=== PATIENT | female | born 1945 | race American Indian/Alaskan Native ===

== ENCOUNTER 2017-06-29 15:24 | Inpatient (IN) | payer MEDICARE, OTHER ==
--- NOTE | 2017-06-29 16:07 | C.PDOC ---
History Of Present Illness 71 year old female with a past medical history of COPD, CHF, and hypertension, [facility] for [facility]. Patient states she suddenly began feeling short of breath and told her nurse. As per [facility], patient was hypoxic so EMS was called. She denies any chest pain, abdominal pain , headache, dizziness, fever, or other complaint. Patient states she cannot walk and this is the primary reason for living at the [facility]. PMD: Dr. Shanique Silverman Time Seen by Provider: 06/29/17 15:41 Chief Complaint (Nursing): Shortness Of Breath History Per: Patient History/Exam Limitations: no limitations Onset/Duration Of Symptoms: Mins Past Medical History Reviewed: Historical Data, Nursing Documentation, Vital Signs Vital Signs: Last Vital Signs Temp 99.5 F 06/29/17 17:10 Pulse 82 06/29/17 15:37 Resp 20 06/29/17 15:37 BP 138/86 06/29/17 15:37 Pulse Ox 88 L 06/29/17 17:07 - Medical History PMH: CHF, COPD, Diabetes, HTN Other Surgeries: colostomy placement Family History: States: No Known Family Hx - Social History Hx Alcohol Use: No Hx Substance Use: No - Immunization History Hx Tetanus Toxoid Vaccination: No Hx Influenza Vaccination: Yes Hx Pneumococcal Vaccination: No Review Of Systems Except As Marked, All Systems Reviewed And Found Negative. Constitutional: Negative for: Fever Cardiovascular: Negative for: Chest Pain Respiratory: Positive for: Shortness of Breath Gastrointestinal: Negative for: Abdominal Pain Neurological: Negative for: Headache, Dizziness Physical Exam - Physical Exam Appears: Non-toxic, No Acute Distress Skin: Warm, Dry, Pale Head: Atraumatic, Normacephalic Eye(s): bilateral: Normal Inspection, PERRL, EOMI Nose: Normal Oral Mucosa: Moist Neck: Normal ROM Chest: Symmetrical Cardiovascular: Rhythm Regular, No Murmur Respiratory: No Rales, No Rhonchi, No Wheezing, Other (Upper lung sargent clear to auscultation) Gastrointestinal/Abdominal: Soft, No Tenderness, Other (Obese abdomen. Colostomy bag in place) Extremity: No Tenderness, No Pedal Edema, No Swelling, Other (as per patient she cannot ambulate) Neurological/Psych: Oriented x3, Normal Speech Gait: Unable To Assess ED Course And Treatment - Laboratory Results Result Diagrams: 06/29/17 16:42 06/29/17 16:42 ECG: Interpreted By Me, Viewed By Me Interpretation Of ECG: PVCs, Bigeminy, at [address] elevations or depressions O2 Sat by Pulse Oximetry: 88 (NC) Pulse Ox Interpretation: Abnormal Medical Decision Making Medical Decision Making: Time: 16:10 Initial Plan: * VBG * EKG * CMP * Pro BNP * Magnesium * Phosphorous * Troponin I * CBC * PTT * Prothrombin time * Chest x-ray * Blood Culture * Urine Culture * Urinalysis * Reassessment 16:22 CHEST X-RAY: FINDINGS: Examination limited by habitus and hypoinflation. LUNGS: Moderate interstitial prominence may reflect infection or edema. Small left pleural effusion and/or consolidation. No definite pneumothorax. Please note that chest x-ray has limited sensitivity for the detection of pulmonary masses. CARDIOVASCULAR: Cardiomegaly. Atherosclerotic calcifications of the aorta. OSSEOUS STRUCTURES: Osseous demineralization. Degenerative changes. VISUALIZED UPPER ABDOMEN: Unremarkable. OTHER FINDINGS: None. IMPRESSION: Moderate interstitial prominence may reflect infection or edema. Small left pleural effusion and/or consolidation. Disposition Discussed With Dr.: Hans Silverman - Disposition Disposition: HOSPITALIZED Disposition Time: 17:06 Condition: GUARDED - Clinical Impression Clinical Impression: Dyspnea, Respiratory distress, Chr obstructive pulmonary disease w/ acute lower respiratory infxn, Chronic congestive heart failure - Scribe Statement The provider has reviewed the documentation as recorded by the Scribe Daphne Short Provider Attestation: All medical record entries made by the Scribe were at my direction and personally dictated by me. I have reviewed the chart and agree that the record accurately reflects my personal performance of the history, physical exam, medical decision making, and the department course for this patient. I have also personally directed, reviewed, and agree with the discharge instructions and disposition. Decision To Admit - Pt Status Changed To: Hospital Disposition Of: Observation - InPatient: Physician Admission Certification: I certify that this patient requires 2 or more midnights of care for the following reason:: fluid overload, possible pneumonia, - . Bed Request Type: Telemetry Patient Diagnosis: Dyspnea, Respiratory distress, Chr obstructive pulmonary disease w/ acute lower respiratory infxn, Chronic congestive heart failure
--- NOTE | 2017-06-29 16:24 | RAD ---
HISTORY: Sepsis Patient COMPARISON: None available. TECHNIQUE: Chest, one view. FINDINGS: Examination limited by habitus and hypoinflation. LUNGS: Moderate interstitial prominence may reflect infection or edema. Small left pleural effusion and/or consolidation. No definite pneumothorax. Please note that chest x-ray has limited sensitivity for the detection of pulmonary masses. CARDIOVASCULAR: Cardiomegaly. Atherosclerotic calcifications of the aorta. OSSEOUS STRUCTURES: Osseous demineralization. Degenerative changes. VISUALIZED UPPER ABDOMEN: Unremarkable. OTHER FINDINGS: None. IMPRESSION: Moderate interstitial prominence may reflect infection or edema. Small left pleural effusion and/or consolidation.
[2017-06-29 16:47] LABS: BASO # 0.1 K/uL (0.0-0.2); BASO % 1.1 % (0.0-2.0); EOS # 0.3 K/uL (0.0-0.7); HEMOGLOBIN 11.9 g/dL (11.0-16.0); LYMPH # 1.7 K/uL (1.0-4.3); LYMPH % 27.8 % (20.0-40.0); MEAN CELL VOLUME 87.2 fL (81.0-99.0); MEAN CORPUSCULAR HEMOGLOBIN 28.3 pg (27.0-31.0); MEAN CORPUSCULAR HGB CONC 32.4 g/dL (33.0-37.0); MEAN PLATELET VOLUME 8.1 fL (7.2-11.7); MONO # 0.7 K/uL (0.0-0.8); MONO % 12.1 % (0.0-10.0); NEUT # 3.3 K/uL (1.8-7.0); NRBC % 0.1 % (0.0-2.0); RBC 4.2 Mil/uL (3.80-5.20); RED CELL DISTRIBUTION WIDTH 16.8 % (11.5-14.5); WHITE BLOOD COUNT 6.1 K/uL (4.8-10.8)
[2017-06-29 16:52] LABS: VENOUS BLOOD GAS BASE EXCESS 6.4 mmol/L (0.0-2.0); VENOUS BLOOD GAS PCO2 72 mmHg (40-60); VENOUS BLOOD GAS PO2 29 mm/Hg (30-55)
[2017-06-29 16:54] LABS: INR 1.2; PROTHROMBIN TIME 12.9 SECONDS (9.7-12.2)
[2017-06-29 17:00] LABS: ALB/GLOB RATIO 0.9 (1.0-2.1); ALBUMIN 3.4 g/dL (3.5-5.0); ALT/SGPT 24 U/L (9-52); AST/SGOT 28 U/L (14-36); BLOOD UREA NITROGEN 27 mg/dL (7-17); CALCIUM 8.7 mg/dl (8.6-10.4); GFR AFRICAN-AMERICAN 59; GFR NON-AFRICAN AMERICAN 49
[2017-06-29] MEDS ORDERED: cefTRIAXone IV 1 gm in Dextros 50 ML IVPB ONE ×2 (17:04→18:29)
[2017-06-29] MEDS ORDERED: Azithromycin 500 MG in Sodium Chloride 0.9% 250 ML IVPB STA (17:04)
[2017-06-29 17:11] LABS: B-TYPE NATRIURETIC PEPTIDE 10600 pg/mL (0-900)
[2017-06-29 19:35] LABS: VENOUS BLOOD GAS BASE EXCESS 7.4 mmol/L (0.0-2.0); VENOUS BLOOD GAS PCO2 62 mmHg (40-60); VENOUS BLOOD GAS PO2 49 mm/Hg (30-55); VENOUS BLOOD PH 7.36 (7.32-7.43)
[2017-06-29 19:57] LABS: SQUAMOUS EPITHIAL 5 /hpf (0-5); URINE BACTERIA OCC (<OCC); URINE BILIRUBIN NEGATIVE (NEGATIVE); URINE BLOOD 2+ (NEGATIVE); URINE CLARITY Hazy (Clear); URINE COLOR Yellow (YELLOW); URINE GLUCOSE (UA) NORMAL (Normal); URINE LEUKOCYTE ESTERASE 3+ Leu/uL (Negative); URINE PROTEIN NEGATIVE (NEGATIVE); URINE UROBILINOGEN NORMAL mg/dL (0.2-1.0)
--- NOTE | 2017-06-29 22:15 | CP.PCM.HP ---
Past Patient History - Past Social History Smoking Status: Never Smoked - CARDIAC Hx Congestive Heart Failure: Yes Hx Hypertension: Yes - PULMONARY Hx Chronic Obstructive Pulmonary Disease (COPD): Yes - ENDOCRINE/METABOLIC Hx Diabetes Mellitus Type 2: Yes - GASTROINTESTINAL Hx Colostomy: Yes - PSYCHIATRIC Hx Substance Use: No Meds Allergies/Adverse Reactions: Allergies Allergy/AdvReac Type Severity Reaction Status Date / Time No Known Allergies Allergy Verified 06/29/17 15:48 Results - Vital Signs Recent Vital Signs: Last Vital Signs Temp 99.5 F 06/29/17 17:10 Pulse 84 06/29/17 18:28 Resp 28 H 06/29/17 18:28 BP 142/52 L 06/29/17 18:40 Pulse Ox 94 L 06/29/17 18:28 - Labs Result Diagrams: 06/29/17 16:42 06/29/17 16:42 Labs: Laboratory Results - last 24 hr 06/29/17 06/29/17 06/29/17 04:40 16:42 16:42 WBC 6.1 RBC 4.20 Hgb 11.9 Hct 36.6 MCV 87.2 MCH 28.3 MCHC 32.4 L RDW 16.8 H Plt Count 282 MPV 8.1 Neut % (Auto) 54.0 Lymph % (Auto) 27.8 [place] % (Auto) 12.1 H Eos % (Auto) 5.0 H Baso % (Auto) 1.1 Neut # (Auto) 3.3 Lymph # (Auto) 1.7 [place] # (Auto) 0.7 Eos # (Auto) 0.3 Baso # (Auto) 0.1 PT 12.9 H INR 1.2 APTT 34 pO2 29 L VBG pH 7.30 L VBG pCO2 72 H* VBG HCO3 28.6 VBG Total CO2 37.6 H VBG O2 Sat (Calc) 58.1 VBG Base Excess 6.4 H VBG Potassium 4.2 Sodium 141.0 Chloride 107.0 Glucose 95 Lactate 1.0 Blood Gas Comments Pco2 high Crit Value Called To Scott avendano Crit Value Called By William leiva Crit Value Read Back Y Blood Gas Notified Time 1651 Potassium Carbon Dioxide Anion Gap BUN Creatinine Est GFR ( Amer) Est GFR (Non-Af Amer) Random Glucose Calcium Phosphorus Magnesium Total Bilirubin AST ALT Alkaline Phosphatase Troponin I NT-Pro-B Natriuret Pep Total Protein Albumin Globulin Albumin/Globulin Ratio Venous Blood Potassium 4.2 Urine Color Urine Clarity Urine pH Ur Specific [place] Urine Protein Urine Glucose (UA) Urine Ketones Urine Blood Urine Nitrate Urine Bilirubin Urine Urobilinogen Ur Leukocyte Esterase Urine WBC (Auto) Urine RBC (Auto) Ur Squamous Epith Cells Urine Bacteria Hyaline Casts 06/29/17 06/29/17 06/29/17 16:42 19:30 19:32 WBC RBC Hgb Hct MCV MCH MCHC RDW Plt Count MPV Neut % (Auto) Lymph % (Auto) [place] % (Auto) Eos % (Auto) Baso % (Auto) Neut # (Auto) Lymph # (Auto) [place] # (Auto) Eos # (Auto) Baso # (Auto) PT INR APTT pO2 49 VBG pH 7.36 VBG pCO2 62 H VBG HCO3 30.3 VBG Total CO2 36.9 H VBG O2 Sat (Calc) 86.7 H VBG Base Excess 7.4 H VBG Potassium 3.9 Sodium 141 142.0 Chloride 98 108.0 H Glucose 136 H Lactate 0.7 Blood Gas Comments Crit Value Called To Crit Value Called By Crit Value Read Back Blood Gas Notified Time Potassium 4.7 Carbon Dioxide 35 H Anion Gap 13 BUN 27 H Creatinine 1.1 Est GFR ( Amer) 59 Est GFR (Non-Af Amer) 49 Random Glucose 99 Calcium 8.7 Phosphorus 4.0 Magnesium 2.2 Total Bilirubin 0.5 AST 28 ALT 24 Alkaline Phosphatase 90 Troponin I < 0.0120 NT-Pro-B Natriuret Pep 85065 H Total Protein 7.4 Albumin 3.4 L Globulin 4.0 H Albumin/Globulin Ratio 0.9 L Venous Blood Potassium 3.9 Urine Color Yellow Urine Clarity Hazy Urine pH 6.0 Ur Specific [place] 1.012 Urine Protein Negative Urine Glucose (UA) Normal Urine Ketones Negative Urine Blood 2+ H Urine Nitrate Negative Urine Bilirubin Negative Urine Urobilinogen Normal Ur Leukocyte Esterase 3+ H Urine WBC (Auto) 53 H Urine RBC (Auto) 24 H Ur Squamous Epith Cells 5 Urine Bacteria Occ H Hyaline Casts 3-5 H
[2017-06-29] MEDS ORDERED: cefTRIAXone IV 1 gm in Dextros 1 GM in Sodium Chloride 0.9% 100 ML IVPB SCH (23:00)
[2017-06-30] MEDS ORDERED: cefTRIAXone IV 1 gm in Dextros 1 GM in Sodium Chloride 0.9% 100 ML IVPB SCH (08:00)
[2017-06-30] MEDS ORDERED: Enoxaparin 40 mg Syringe ONE (11:27)
[2017-06-30] MEDS: Multiple Vitamins Tab PO SCH (11:37)
[2017-06-30] MEDS: Pantoprazole 40 mg EC Tab PO SCH (11:37)
[2017-06-30] MEDS: Enoxaparin 40 mg Syringe SC SCH (11:37)
[2017-06-30] MEDS: Metoprolol Succinate 25 mg XL Tab PO SCH (11:40)
[2017-06-30 11:57] LABS: HEMOGLOBIN 13.5 g/dL (11.0-16.0); MEAN CELL VOLUME 87.2 fL (81.0-99.0); MEAN CORPUSCULAR HEMOGLOBIN 28.8 pg (27.0-31.0); MEAN CORPUSCULAR HGB CONC 33.1 g/dL (33.0-37.0); MEAN PLATELET VOLUME 8.5 fL (7.2-11.7); RBC 4.69 Mil/uL (3.80-5.20); WHITE BLOOD COUNT 8.3 K/uL (4.8-10.8)
--- NOTE | 2017-06-30 12:01 | RAD ---
HISTORY: INFILTRATES COMPARISON: 06/29/2017 FINDINGS: LUNGS: Improved perihilar opacities and right basilar opacity. No new infiltrate. PLEURA: No significant pleural effusion identified, no pneumothorax apparent. CARDIOVASCULAR: Decreased congestive change. OSSEOUS STRUCTURES: No significant abnormalities. VISUALIZED UPPER ABDOMEN: Normal. OTHER FINDINGS: None. IMPRESSION: Decrease congestive change and decreased perihilar opacities. Possible improving pulmonary edema.
[2017-06-30 12:31] LABS: B-TYPE NATRIURETIC PEPTIDE 6840 pg/mL (0-900); CK-MB 0.52 ng/mL (0.0-3.38)
[2017-06-30 12:43] LABS: ALB/GLOB RATIO 0.8 (1.0-2.1); ALBUMIN 3.3 g/dL (3.5-5.0); AST/SGOT 72 U/L (14-36); BLOOD UREA NITROGEN 35 mg/dL (7-17); CALCIUM 8.6 mg/dl (8.6-10.4); GFR AFRICAN-AMERICAN 49; GFR NON-AFRICAN AMERICAN 40
--- NOTE | 2017-06-30 12:51 | CP.PCM.CON ---
History of Present Illness - History of Present Illness History of Present Illness: Per ER documentation: 71 year old female with a past medical history of COPD, CHF, and hypertension, brought in by EMS from [facility] for shortness of breath. Patient states she suddenly began feeling short of breath and told her nurse. As per [facility], patient was hypoxic so EMS was called. She denies any chest pain, abdominal pain , headache, dizziness, fever, or other complaint. Patient states she cannot walk and this is the primary reason for living at the [facility]. Imaging directly viewed by me: EKG: NSR, PVCs in a bigeminy pattern, no acute ischemic changes CXR: congestion, interstitial prominence reported, L. pleural effusion LABS: nml H/H, initial troponin negative, nt-PBNP 56827 -> 6840 Review of Systems - Review of Systems All systems: reviewed and no additional remarkable complaints except Past Patient History - Past Social History Smoking Status: Never Smoked - CARDIAC Hx Congestive Heart Failure: Yes Hx Hypertension: Yes - PULMONARY Hx Chronic Obstructive Pulmonary Disease (COPD): Yes - ENDOCRINE/METABOLIC Hx Diabetes Mellitus Type 2: Yes - GASTROINTESTINAL Hx Colostomy: Yes - PSYCHIATRIC Hx Substance Use: No Meds Allergies/Adverse Reactions: Allergies Allergy/AdvReac Type Severity Reaction Status Date / Time No Known Allergies Allergy Verified 06/29/17 15:48 - Medications Medications: Current Medications Acetaminophen (Tylenol 325mg Tab) 650 mg PO Q6 PRN PRN Reason: Pain, Mild (1-3) Amlodipine Besylate (Norvasc) 10 mg PO DAILY [facility] Last Admin: 06/30/17 11:30 Dose: 10 mg Aspirin (Aspirin Chewable) 81 mg PO DAILY [facility] Last Admin: 06/30/17 11:35 Dose: 81 mg Enoxaparin Sodium (Lovenox) 40 mg SC DAILY [facility] Last Admin: 06/30/17 11:37 Dose: 40 mg Ferrous Sulfate (Feosol) 325 mg PO DAILY [facility] Furosemide (Lasix) 40 mg IVP DAILY [facility] Last Admin: 06/30/17 11:42 Dose: 40 mg Azithromycin 500 mg/ Sodium (Chloride) 250 mls @ 250 mls/hr IVPB Q24H [facility] Cefepime HCl (Maxipime Iv 1 Gm Premix) 1 gm in 50 mls @ 100 mls/hr IVPB Q8H [facility] Lisinopril (Zestril) 10 mg PO DAILY [facility] Last Admin: 06/30/17 11:44 Dose: 10 mg Meclizine HCl (Antivert) 25 mg PO Q8 [facility] Last Admin: 06/30/17 07:23 Dose: 25 mg Metoprolol Succinate (Toprol Xl) 25 mg PO DAILY [facility] Last Admin: 06/30/17 11:40 Dose: 25 mg Multivitamins (Hexavitamin) 1 tab PO DAILY [facility] Last Admin: 06/30/17 11:37 Dose: 1 tab Pantoprazole Sodium (Protonix Ec Tab) 40 mg PO DAILY [facility] Last Admin: 06/30/17 11:37 Dose: 40 mg Rosuvastatin Calcium (Crestor) 20 mg PO HS [facility] Tramadol HCl (Ultram) 50 mg PO BID [facility] Last Admin: 06/30/17 11:43 Dose: Not Given Physical Exam - Constitutional Appears: No Acute Distress - Head Exam Head Exam: ATRAUMATIC, NORMAL INSPECTION, NORMOCEPHALIC - Eye Exam Eye Exam: EOMI, Normal appearance - ENT Exam ENT Exam: Mucous Membranes Moist, Normal Oropharynx - Neck Exam Neck exam: Positive for: Normal Inspection - Respiratory Exam Respiratory Exam: Rhonchi, NORMAL BREATHING PATTERN. absent: Wheezes - Cardiovascular Exam Cardiovascular Exam: REGULAR RHYTHM, RRR, +S1, +S2. absent: JVD, +S4, Systolic Murmur - GI/Abdominal Exam GI & Abdominal Exam: Normal Bowel Sounds, Soft. absent: Tenderness - Extremities Exam Extremities exam: Positive for: normal inspection, pedal pulses present. Negative for: calf tenderness, pedal edema - Psychiatric Exam Psychiatric exam: Normal Affect, Normal Mood Results - Vital Signs Recent Vital Signs: Last Vital Signs Temp 99.5 F 06/29/17 17:10 Pulse 76 06/30/17 07:49 Resp 22 06/30/17 07:49 BP 120/51 L 06/30/17 11:42 Pulse Ox 99 06/30/17 07:49 - Labs Result Diagrams: 06/30/17 11:47 06/30/17 11:47 Labs: Laboratory Results - last 24 hr 06/29/17 06/29/17 06/29/17 04:40 16:42 16:42 WBC 6.1 RBC 4.20 Hgb 11.9 Hct 36.6 MCV 87.2 MCH 28.3 MCHC 32.4 L RDW 16.8 H Plt Count 282 MPV 8.1 Neut % (Auto) 54.0 Lymph % (Auto) 27.8 [place] % (Auto) 12.1 H Eos % (Auto) 5.0 H Baso % (Auto) 1.1 Neut # (Auto) 3.3 Lymph # (Auto) 1.7 [place] # (Auto) 0.7 Eos # (Auto) 0.3 Baso # (Auto) 0.1 PT 12.9 H INR 1.2 APTT 34 D-Dimer, Quantitative pO2 29 L VBG pH 7.30 L VBG pCO2 72 H* VBG HCO3 28.6 VBG Total CO2 37.6 H VBG O2 Sat (Calc) 58.1 VBG Base Excess 6.4 H VBG Potassium 4.2 Sodium 141.0 Chloride 107.0 Glucose 95 Lactate 1.0 Blood Gas Comments Pco2 high Crit Value Called To Scott avendano Crit Value Called By William leiva Crit Value Read Back Y Blood Gas Notified Time 1651 Potassium Carbon Dioxide Anion Gap BUN Creatinine Est GFR ( Amer) Est GFR (Non-Af Amer) Random Glucose Calcium Phosphorus Magnesium Total Bilirubin AST ALT Alkaline Phosphatase CK-MB (Mass) Troponin I NT-Pro-B Natriuret Pep Total Protein Albumin Globulin Albumin/Globulin Ratio Venous Blood Potassium 4.2 Urine Color Urine Clarity Urine pH Ur Specific [place] Urine Protein Urine Glucose (UA) Urine Ketones Urine Blood Urine Nitrate Urine Bilirubin Urine Urobilinogen Ur Leukocyte Esterase Urine WBC (Auto) Urine RBC (Auto) Ur Squamous Epith Cells Urine Bacteria Hyaline Casts 06/29/17 06/29/17 06/29/17 16:42 19:30 19:32 WBC RBC Hgb Hct MCV MCH MCHC RDW Plt Count MPV Neut % (Auto) Lymph % (Auto) [place] % (Auto) Eos % (Auto) Baso % (Auto) Neut # (Auto) Lymph # (Auto) [place] # (Auto) Eos # (Auto) Baso # (Auto) PT INR APTT D-Dimer, Quantitative pO2 49 VBG pH 7.36 VBG pCO2 62 H VBG HCO3 30.3 VBG Total CO2 36.9 H VBG O2 Sat (Calc) 86.7 H VBG Base Excess 7.4 H VBG Potassium 3.9 Sodium 141 142.0 Chloride 98 108.0 H Glucose 136 H Lactate 0.7 Blood Gas Comments Crit Value Called To Crit Value Called By Crit Value Read Back Blood Gas Notified Time Potassium 4.7 Carbon Dioxide 35 H Anion Gap 13 BUN 27 H Creatinine 1.1 Est GFR ( Amer) 59 Est GFR (Non-Af Amer) 49 Random Glucose 99 Calcium 8.7 Phosphorus 4.0 Magnesium 2.2 Total Bilirubin 0.5 AST 28 ALT 24 Alkaline Phosphatase 90 CK-MB (Mass) Troponin I < 0.0120 NT-Pro-B Natriuret Pep 13112 H Total Protein 7.4 Albumin 3.4 L Globulin 4.0 H Albumin/Globulin Ratio 0.9 L Venous Blood Potassium 3.9 Urine Color Yellow Urine Clarity Hazy Urine pH 6.0 Ur Specific [place] 1.012 Urine Protein Negative Urine Glucose (UA) Normal Urine Ketones Negative Urine Blood 2+ H Urine Nitrate Negative Urine Bilirubin Negative Urine Urobilinogen Normal Ur Leukocyte Esterase 3+ H Urine WBC (Auto) 53 H Urine RBC (Auto) 24 H Ur Squamous Epith Cells 5 Urine Bacteria Occ H Hyaline Casts 3-5 H 06/30/17 06/30/17 06/30/17 11:47 11:47 11:47 WBC 8.3 RBC 4.69 Hgb 13.5 Hct 40.9 MCV 87.2 MCH 28.8 MCHC 33.1 RDW 17.0 H Plt Count 324 MPV 8.5 Neut % (Auto) Lymph % (Auto) [place] % (Auto) Eos % (Auto) Baso % (Auto) Neut # (Auto) Lymph # (Auto) [place] # (Auto) Eos # (Auto) Baso # (Auto) PT INR APTT D-Dimer, Quantitative 1954 H pO2 VBG pH VBG pCO2 VBG HCO3 VBG Total CO2 VBG O2 Sat (Calc) VBG Base Excess VBG Potassium Sodium 139 Chloride 98 Glucose Lactate Blood Gas Comments Crit Value Called To Crit Value Called By Crit Value Read Back Blood Gas Notified Time Potassium 4.2 Carbon Dioxide 30 Anion Gap 15 BUN 35 H Creatinine 1.3 H Est GFR ( Amer) 49 Est GFR (Non-Af Amer) 40 Random Glucose 207 H Calcium 8.6 Phosphorus Magnesium Total Bilirubin 0.9 AST 72 H D ALT Alkaline Phosphatase CK-MB (Mass) 0.52 Troponin I NT-Pro-B Natriuret Pep 6840 H Total Protein 7.2 Albumin 3.3 L Globulin 3.9 Albumin/Globulin Ratio 0.8 L Venous Blood Potassium Urine Color Urine Clarity Urine pH Ur Specific [place] Urine Protein Urine Glucose (UA) Urine Ketones Urine Blood Urine Nitrate Urine Bilirubin Urine Urobilinogen Ur Leukocyte Esterase Urine WBC (Auto) Urine RBC (Auto) Ur Squamous Epith Cells Urine Bacteria Hyaline Casts - EKG Data EKG Interpreted by: Myself - Imaging and Cardiology Chest x-ray Status: Image reviewed by me Assessment & Plan - Assessment and Plan (Free Text) Assessment: 1. SOB/chest congestion/URI sx's 2. PNA 3. HTN chronic stable 4. LIPIDS: chronic stable 5. CHF unspecified Patient with sx's ans sx's c/w URI/PNA; however given hx of gradual SOB and BENAVIDEZ with elevated nt-PBNP cannot exclude CHF as a contributing factor. Cont pulmonary supportiver care and ABX F/U ECHO: ordered. > Bigeminy on EKG: is a non-specific finding: monitor lytes and check serum Mg > CAD RF's: HTN, LIPIDS --> currently there is no active anginal sx;s are ischemic changes on EKG: agree with ASA and statin for now. Initial trop was negative for ACS. > DVT prophylaxis
[2017-06-30] MEDS: Cefepime IV 1 gm in Dextrose 1 GM/50 ML BAG IVPB SCH ×2 (13:00→20:55)
[2017-06-30 13:08] LABS: ALT/SGPT 12 U/L (9-52)
--- NOTE | 2017-06-30 16:20 | CP.PCM.CON ---
History of Present Illness - History of Present Illness History of Present Illness: Patient is a 71 year old female with a past medical history of COPD, CHF, HTN, and possibly asthma. Patient brought in by EMS from [facility] yesterday (06/29 ) after complaining of shortness of breath while doing word search puzzle in her bed. Patient is mostly non-ambulatory. Patient states she received the flu shot this year. Patient denies sick contacts, recent illness, recent travel. Presently, patient is seen lying comfortably in bed. She currently denies shortness of breath, chest pain, leg swelling, cough. 06/29 CXR: moderate interstitial prominence may reflect infection or edema. Small left pleural effusion and/or consolidation. Past Patient History - Past Medical History & Family History Past Medical History?: Yes - Past Social History Smoking Status: Never Smoked - CARDIAC Hx Congestive Heart Failure: Yes Hx Hypertension: Yes - PULMONARY Hx Chronic Obstructive Pulmonary Disease (COPD): Yes - ENDOCRINE/METABOLIC Hx Diabetes Mellitus Type 2: Yes - MUSCULOSKELETAL/RHEUMATOLOGICAL Hx Falls: No - GASTROINTESTINAL Hx Colostomy: Yes - PSYCHIATRIC Hx Substance Use: No - ANESTHESIA Hx Anesthesia: No Meds Allergies/Adverse Reactions: Allergies Allergy/AdvReac Type Severity Reaction Status Date / Time No Known Allergies Allergy Verified 06/29/17 15:48 - Medications Medications: Current Medications Acetaminophen (Tylenol 325mg Tab) 650 mg PO Q6 PRN PRN Reason: Pain, Mild (1-3) Amlodipine Besylate (Norvasc) 10 mg PO DAILY [facility] Last Admin: 06/30/17 11:30 Dose: 10 mg Aspirin (Aspirin Chewable) 81 mg PO DAILY [facility] Last Admin: 06/30/17 11:35 Dose: 81 mg Enoxaparin Sodium (Lovenox) 40 mg SC DAILY [facility] Last Admin: 06/30/17 11:37 Dose: 40 mg Ferrous Sulfate (Feosol) 325 mg PO DAILY [facility] Last Admin: 06/30/17 13:00 Dose: 325 mg Furosemide (Lasix) 40 mg IVP DAILY [facility] Last Admin: 06/30/17 11:42 Dose: 40 mg Azithromycin 500 mg/ Sodium (Chloride) 250 mls @ 250 mls/hr IVPB Q24H [facility] Cefepime HCl (Maxipime Iv 1 Gm Premix) 1 gm in 50 mls @ 100 mls/hr IVPB Q8H [facility] Last Admin: 06/30/17 13:00 Dose: 100 mls/hr Lisinopril (Zestril) 10 mg PO DAILY [facility] Last Admin: 06/30/17 11:44 Dose: 10 mg Meclizine HCl (Antivert) 25 mg PO Q8 [facility] Last Admin: 06/30/17 16:00 Dose: 25 mg Metoprolol Succinate (Toprol Xl) 25 mg PO DAILY [facility] Last Admin: 06/30/17 11:40 Dose: 25 mg Multivitamins (Hexavitamin) 1 tab PO DAILY [facility] Last Admin: 06/30/17 11:37 Dose: 1 tab Pantoprazole Sodium (Protonix Ec Tab) 40 mg PO DAILY [facility] Last Admin: 06/30/17 11:37 Dose: 40 mg Rosuvastatin Calcium (Crestor) 20 mg PO [facility] Tramadol HCl (Ultram) 50 mg PO BID [facility] Last Admin: 06/30/17 11:43 Dose: Not Given Results - Vital Signs Recent Vital Signs: Last Vital Signs Temp 97.4 F L 06/30/17 14:08 Pulse 78 06/30/17 15:54 Resp 18 06/30/17 15:54 BP 124/49 L 06/30/17 15:54 Pulse Ox 98 06/30/17 15:54 - Labs Result Diagrams: 06/30/17 11:47 06/30/17 11:47 Labs: Laboratory Results - last 24 hr 06/29/17 06/29/17 06/29/17 04:40 16:42 16:42 WBC 6.1 RBC 4.20 Hgb 11.9 Hct 36.6 MCV 87.2 MCH 28.3 MCHC 32.4 L RDW 16.8 H Plt Count 282 MPV 8.1 Neut % (Auto) 54.0 Lymph % (Auto) 27.8 Gregory % (Auto) 12.1 H Eos % (Auto) 5.0 H Baso % (Auto) 1.1 Neut # (Auto) 3.3 Lymph # (Auto) 1.7 Gregory # (Auto) 0.7 Eos # (Auto) 0.3 Baso # (Auto) 0.1 PT 12.9 H INR 1.2 APTT 34 D-Dimer, Quantitative pO2 29 L VBG pH 7.30 L VBG pCO2 72 H* VBG HCO3 28.6 VBG Total CO2 37.6 H VBG O2 Sat (Calc) 58.1 VBG Base Excess 6.4 H VBG Potassium 4.2 Sodium 141.0 Chloride 107.0 Glucose 95 Lactate 1.0 Blood Gas Comments Pco2 high Crit Value Called To Scott avendano Crit Value Called By William leiva Crit Value Read Back Y Blood Gas Notified Time 1651 Potassium Carbon Dioxide Anion Gap BUN Creatinine Est GFR ( Amer) Est GFR (Non-Af Amer) POC Glucose (mg/dL) Random Glucose Calcium Phosphorus Magnesium Total Bilirubin AST ALT Alkaline Phosphatase Total Creatine Kinase CK-MB (Mass) Troponin I NT-Pro-B Natriuret Pep Total Protein Albumin Globulin Albumin/Globulin Ratio Venous Blood Potassium 4.2 Urine Color Urine Clarity Urine pH Ur Specific [place] Urine Protein Urine Glucose (UA) Urine Ketones Urine Blood Urine Nitrate Urine Bilirubin Urine Urobilinogen Ur Leukocyte Esterase Urine WBC (Auto) Urine RBC (Auto) Ur Squamous Epith Cells Urine Bacteria Hyaline Casts 06/29/17 06/29/17 06/29/17 16:42 19:30 19:32 WBC RBC Hgb Hct MCV MCH MCHC RDW Plt Count MPV Neut % (Auto) Lymph % (Auto) Gregory % (Auto) Eos % (Auto) Baso % (Auto) Neut # (Auto) Lymph # (Auto) Gregory # (Auto) Eos # (Auto) Baso # (Auto) PT INR APTT D-Dimer, Quantitative pO2 49 VBG pH 7.36 VBG pCO2 62 H VBG HCO3 30.3 VBG Total CO2 36.9 H VBG O2 Sat (Calc) 86.7 H VBG Base Excess 7.4 H VBG Potassium 3.9 Sodium 141 142.0 Chloride 98 108.0 H Glucose 136 H Lactate 0.7 Blood Gas Comments Crit Value Called To Crit Value Called By Crit Value Read Back Blood Gas Notified Time Potassium 4.7 Carbon Dioxide 35 H Anion Gap 13 BUN 27 H Creatinine 1.1 Est GFR ( Amer) 59 Est GFR (Non-Af Amer) 49 POC Glucose (mg/dL) Random Glucose 99 Calcium 8.7 Phosphorus 4.0 Magnesium 2.2 Total Bilirubin 0.5 AST 28 ALT 24 Alkaline Phosphatase 90 Total Creatine Kinase CK-MB (Mass) Troponin I < 0.0120 NT-Pro-B Natriuret Pep 13675 H Total Protein 7.4 Albumin 3.4 L Globulin 4.0 H Albumin/Globulin Ratio 0.9 L Venous Blood Potassium 3.9 Urine Color Yellow Urine Clarity Hazy Urine pH 6.0 Ur Specific [place] 1.012 Urine Protein Negative Urine Glucose (UA) Normal Urine Ketones Negative Urine Blood 2+ H Urine Nitrate Negative Urine Bilirubin Negative Urine Urobilinogen Normal Ur Leukocyte Esterase 3+ H Urine WBC (Auto) 53 H Urine RBC (Auto) 24 H Ur Squamous Epith Cells 5 Urine Bacteria Occ H Hyaline Casts 3-5 H 06/30/17 06/30/17 06/30/17 11:47 11:47 11:47 WBC 8.3 RBC 4.69 Hgb 13.5 Hct 40.9 MCV 87.2 MCH 28.8 MCHC 33.1 RDW 17.0 H Plt Count 324 MPV 8.5 Neut % (Auto) Lymph % (Auto) Gregory % (Auto) Eos % (Auto) Baso % (Auto) Neut # (Auto) Lymph # (Auto) Gregory # (Auto) Eos # (Auto) Baso # (Auto) PT INR APTT D-Dimer, Quantitative 1954 H pO2 VBG pH VBG pCO2 VBG HCO3 VBG Total CO2 VBG O2 Sat (Calc) VBG Base Excess VBG Potassium Sodium 139 Chloride 98 Glucose Lactate Blood Gas Comments Crit Value Called To Crit Value Called By Crit Value Read Back Blood Gas Notified Time Potassium 4.2 Carbon Dioxide 30 Anion Gap 15 BUN 35 H Creatinine 1.3 H Est GFR ( Amer) 49 Est GFR (Non-Af Amer) 40 POC Glucose (mg/dL) Random Glucose 207 H Calcium 8.6 Phosphorus Magnesium Total Bilirubin 0.9 AST 72 H D ALT 12 Alkaline Phosphatase 96 Total Creatine Kinase 41 CK-MB (Mass) 0.52 Troponin I < 0.0120 NT-Pro-B Natriuret Pep 6840 H Total Protein 7.2 Albumin 3.3 L Globulin 3.9 Albumin/Globulin Ratio 0.8 L Venous Blood Potassium Urine Color Urine Clarity Urine pH Ur Specific [place] Urine Protein Urine Glucose (UA) Urine Ketones Urine Blood Urine Nitrate Urine Bilirubin Urine Urobilinogen Ur Leukocyte Esterase Urine WBC (Auto) Urine RBC (Auto) Ur Squamous Epith Cells Urine Bacteria Hyaline Casts 06/30/17 14:02 WBC RBC Hgb Hct MCV MCH MCHC RDW Plt Count MPV Neut % (Auto) Lymph % (Auto) Gregory % (Auto) Eos % (Auto) Baso % (Auto) Neut # (Auto) Lymph # (Auto) Gregory # (Auto) Eos # (Auto) Baso # (Auto) PT INR APTT D-Dimer, Quantitative pO2 VBG pH VBG pCO2 VBG HCO3 VBG Total CO2 VBG O2 Sat (Calc) VBG Base Excess VBG Potassium Sodium Chloride Glucose Lactate Blood Gas Comments Crit Value Called To Crit Value Called By Crit Value Read Back Blood Gas Notified Time Potassium Carbon Dioxide Anion Gap BUN Creatinine Est GFR ( Amer) Est GFR (Non-Af Amer) POC Glucose (mg/dL) 121 H Random Glucose Calcium Phosphorus Magnesium Total Bilirubin AST ALT Alkaline Phosphatase Total Creatine Kinase CK-MB (Mass) Troponin I NT-Pro-B Natriuret Pep Total Protein Albumin Globulin Albumin/Globulin Ratio Venous Blood Potassium Urine Color Urine Clarity Urine pH Ur Specific [place] Urine Protein Urine Glucose (UA) Urine Ketones Urine Blood Urine Nitrate Urine Bilirubin Urine Urobilinogen Ur Leukocyte Esterase Urine WBC (Auto) Urine RBC (Auto) Ur Squamous Epith Cells Urine Bacteria Hyaline Casts Assessment & Plan (1) Dyspnea Assessment and Plan: chest x-ray consistent with instertitial changes, pneumonia versus CHF antibiotics Legionella and Mycoplasma titers Echocardiogram Lasix Cardiology evaluation Status: Acute (2) Chronic congestive heart failure Status: Acute
[2017-06-30] MEDS ORDERED: Azithromycin 500 MG in Sodium Chloride 0.9% 250 ML IVPB SCH (18:00)
--- NOTE | 2017-06-30 19:32 | CARD ---
APPROVED REPORT EXAM: Two-dimensional and M-mode echocardiogram with Doppler and color Doppler. Other Information Quality : TDSRhythm : INDICATION Dyspnea Congestive Heart Failure 2D DIMENSIONS IVSd1.3 (0.7-1.1cm)LVDd4.8 (3.9-5.9cm) LVOT Diameter2.0 (1.8-2.4cm)PWd1.3 (0.7-1.1cm) LVDs2.4 (2.5-4.0cm)FS (%) 49.7 % LVEF (%)65.0 (>50%) M-Mode DIMENSIONS Left Atrium (MM)4.03 (2.5-4.0cm)Aortic Root2.89 (2.2-3.7cm) Aortic Cusp Exc.2.00 (1.5-2.0cm) Aortic Valve AoV Peak Jcbxagjo428.6cm/sAoV VTI38.3cmAO Peak GR.19mmHg LVOT Peak Gqqjzrou170.6cm/sLVOT VTI21.40cmAO Mean GR.10mmHg SABINA (VMAX)1.44kx4DBE (VTI)1.76cm2 Mitral Valve MV E Ylkafvat70.5cm/sMV A Ytbrykuu14.1cm/sE/A ratio0.6 TDI E/Lateral E'0.0E/Medial E'0.0 Tricuspid Valve TR Peak Lkhduwxs513tu/sTR Peak Gr.72pvQpOUZG54asFo LEFT VENTRICLE The left ventricle is normal size. There is mild concentric left ventricular hypertrophy. The left ventricular function is normal. The left ventricular ejection fraction is within the normal range. About 65%. No regional wall motion abnormalities noted. The left ventricular diastolic function is normal. No left ventricle thrombus noted on this study. There is no ventricular septal defect visualized. There is no left ventricular aneurysm. There is no mass noted in the left ventricle. RIGHT VENTRICLE The right ventricle is normal size. There is normal right ventricular wall thickness. The right ventricular systolic function is normal. ATRIA The left atrial volume index is border;ine increased. The right atrium size is mildly dilated. The interatrial septum is intact with no evidence for an atrial septal defect. AORTIC VALVE The aortic valve is normal in structure and function. No aortic regurgitation is present. There is no aortic valvular stenosis. There is no aortic valvular vegetation. MITRAL VALVE The mitral valve is normal in structure and function. There is no evidence of mitral valve prolapse. There is no mitral valve stenosis. There is no mitral valve regurgitation noted. TRICUSPID VALVE The tricuspid valve is normal in structure and function. There is mild tricuspid valve regurgitation noted. Estiamted PA systolic pressure is 30 mm Hg. There is no tricuspid valve prolapse or vegetation. There is no tricuspid valve stenosis. PULMONIC VALVE The pulmonary valve is normal in structure and function. There is no pulmonic valvular regurgitation. There is no pulmonic valvular stenosis. GREAT VESSELS The aortic root is normal in size. The ascending aorta is normal in size. The pulmonary artery is normal. The IVC is normal in size and collapses >50% with inspiration. PERICARDIAL EFFUSION The pericardium appears normal. There is no pleural effusion. <Conclusion> There is mild concentric left ventricular hypertrophy. The left ventricular function is normal. The left atrial volume index is border;ine increased. Normal Doppler.
--- NOTE | 2017-06-30 19:35 | CP.PCM.PN ---
Subjective - Date & Time of Evaluation Date of Evaluation: 06/30/17 Time of Evaluation: 11:40 - Subjective Subjective: clinically same Objective - Vital Signs/Intake and Output Vital Signs (last 24 hours): Temp Pulse Resp BP Pulse Ox 97.4 F L 78 18 124/49 L 98 06/30/17 14:08 06/30/17 15:54 06/30/17 15:54 06/30/17 15:54 06/30/17 15:54 - Medications Medications: Current Medications Acetaminophen (Tylenol 325mg Tab) 650 mg PO Q6 PRN PRN Reason: Pain, Mild (1-3) Amlodipine Besylate (Norvasc) 10 mg PO DAILY [facility] Last Admin: 06/30/17 11:30 Dose: 10 mg Aspirin (Aspirin Chewable) 81 mg PO DAILY [facility] Last Admin: 06/30/17 11:35 Dose: 81 mg Enoxaparin Sodium (Lovenox) 40 mg SC DAILY [facility] Last Admin: 06/30/17 11:37 Dose: 40 mg Ferrous Sulfate (Feosol) 325 mg PO DAILY [facility] Last Admin: 06/30/17 13:00 Dose: 325 mg Furosemide (Lasix) 40 mg IVP DAILY [facility] Last Admin: 06/30/17 11:42 Dose: 40 mg Azithromycin 500 mg/ Sodium (Chloride) 250 mls @ 250 mls/hr IVPB Q24H [facility] Last Admin: 06/30/17 18:31 Dose: 250 mls/hr Cefepime HCl (Maxipime Iv 1 Gm Premix) 1 gm in 50 mls @ 100 mls/hr IVPB Q8H [facility] Last Admin: 06/30/17 13:00 Dose: 100 mls/hr Lisinopril (Zestril) 10 mg PO DAILY [facility] Last Admin: 06/30/17 11:44 Dose: 10 mg Meclizine HCl (Antivert) 25 mg PO Q8 [facility] Last Admin: 06/30/17 16:00 Dose: 25 mg Metoprolol Succinate (Toprol Xl) 25 mg PO DAILY [facility] Last Admin: 06/30/17 11:40 Dose: 25 mg Multivitamins (Hexavitamin) 1 tab PO DAILY [facility] Last Admin: 06/30/17 11:37 Dose: 1 tab Pantoprazole Sodium (Protonix Ec Tab) 40 mg PO DAILY [facility] Last Admin: 06/30/17 11:37 Dose: 40 mg Rosuvastatin Calcium (Crestor) 20 mg PO HS [facility] Tramadol HCl (Ultram) 50 mg PO BID [facility] Last Admin: 06/30/17 17:35 Dose: 50 mg - Labs Labs: 06/30/17 11:47 06/30/17 11:47 PT 12.9 SECONDS (9.7-12.2) H 06/29/17 16:42 INR 1.2 06/29/17 16:42 APTT 34 SECONDS (21-34) 06/29/17 16:42
--- NOTE | 2017-06-30 21:05 | CARD ---
APPROVED REPORT EKG Measurement Heart [id number] <Conclusion> Sinus rhythm with frequent premature ventricular complexes in a pattern of bigeminy Low voltage QRS Cannot rule out Anterior infarct, age undetermined Abnormal ECG
[2017-07-01] MEDS: Cefepime IV 1 gm in Dextrose 1 GM/50 ML BAG IVPB SCH ×3 (04:15→19:33)
[2017-07-01] MEDS: Enoxaparin 40 mg Syringe SC SCH (09:20)
[2017-07-01] MEDS: Multiple Vitamins Tab PO SCH (09:21)
[2017-07-01] MEDS: Pantoprazole 40 mg EC Tab PO SCH (09:21)
[2017-07-01] MEDS: Metoprolol Succinate 25 mg XL Tab PO SCH (09:21)
--- NOTE | 2017-07-01 12:32 | CP.PCM.PN ---
Subjective - Date & Time of Evaluation Date of Evaluation: 07/01/17 Time of Evaluation: 12:31 - Subjective Subjective: Per ER documentation: 71 year old female with a past medical history of COPD, CHF, and hypertension, brought in by EMS from [facility] for shortness of breath. Patient states she suddenly began feeling short of breath and told her nurse. As per [facility], patient was hypoxic so EMS was called. She denies any chest pain, abdominal pain , headache, dizziness, fever, or other complaint. Patient states she cannot walk and this is the primary reason for living at the [facility]. Imaging directly viewed by me: EKG: NSR, PVCs in a bigeminy pattern, no acute ischemic changes CXR: congestion, interstitial prominence reported, L. pleural effusion LABS: nml H/H, initial troponin negative, nt-PBNP 33956 -> 6840 Objective - Vital Signs/Intake and Output Vital Signs (last 24 hours): Temp Pulse Resp BP Pulse Ox 99.5 F 55 L 18 106/66 97 07/01/17 08:05 07/01/17 08:05 07/01/17 08:05 07/01/17 09:21 07/01/17 08:05 Intake and Output: 07/01/17 07/01/17 06:59 18:59 Intake Total 250 Balance 250 - Medications Medications: Current Medications Acetaminophen (Tylenol 325mg Tab) 650 mg PO Q6 PRN PRN Reason: Pain, Mild (1-3) Amlodipine Besylate (Norvasc) 10 mg PO DAILY [facility] Last Admin: 07/01/17 09:21 Dose: 10 mg Aspirin (Aspirin Chewable) 81 mg PO DAILY [facility] Last Admin: 07/01/17 09:21 Dose: 81 mg Enoxaparin Sodium (Lovenox) 40 mg SC DAILY [facility] Last Admin: 07/01/17 09:20 Dose: 40 mg Ferrous Sulfate (Feosol) 325 mg PO DAILY [facility] Last Admin: 07/01/17 09:21 Dose: 325 mg Furosemide (Lasix) 40 mg IVP DAILY [facility] Last Admin: 07/01/17 09:21 Dose: 40 mg Azithromycin 500 mg/ Sodium (Chloride) 250 mls @ 250 mls/hr IVPB Q24H [facility] Last Admin: 06/30/17 18:31 Dose: 250 mls/hr Cefepime HCl (Maxipime Iv 1 Gm Premix) 1 gm in 50 mls @ 100 mls/hr IVPB Q8H [facility] Last Admin: 07/01/17 04:15 Dose: 100 mls/hr Lisinopril (Zestril) 10 mg PO DAILY [facility] Last Admin: 07/01/17 09:21 Dose: 10 mg Meclizine HCl (Antivert) 25 mg PO Q8 [facility] Last Admin: 07/01/17 05:29 Dose: 25 mg Metoprolol Succinate (Toprol Xl) 25 mg PO DAILY [facility] Last Admin: 07/01/17 09:21 Dose: 25 mg Multivitamins (Hexavitamin) 1 tab PO DAILY [facility] Last Admin: 07/01/17 09:21 Dose: 1 tab Pantoprazole Sodium (Protonix Ec Tab) 40 mg PO DAILY [facility] Last Admin: 07/01/17 09:21 Dose: 40 mg Rosuvastatin Calcium (Crestor) 20 mg PO HS [facility] Last Admin: 06/30/17 21:21 Dose: 20 mg Tramadol HCl (Ultram) 50 mg PO BID [facility] Last Admin: 06/30/17 17:35 Dose: 50 mg - Labs Labs: 06/30/17 11:47 06/30/17 11:47 PT 12.9 SECONDS (9.7-12.2) H 06/29/17 16:42 INR 1.2 06/29/17 16:42 APTT 34 SECONDS (21-34) 06/29/17 16:42 - Constitutional Appears: No Acute Distress - Head Exam Head Exam: ATRAUMATIC, NORMAL INSPECTION, NORMOCEPHALIC - ENT Exam ENT Exam: Mucous Membranes Moist, Normal Oropharynx - Cardiovascular Exam Cardiovascular Exam: REGULAR RHYTHM - GI/Abdominal Exam GI & Abdominal Exam: Soft, Normal Bowel Sounds - Extremities Exam Extremities Exam: Normal Inspection - Skin Skin Exam: Normal Color, Warm Assessment and Plan - Assessment and Plan (Free Text) Assessment: 1. SOB/chest congestion/URI sx's 2. PNA 3. HTN chronic stable 4. LIPIDS: chronic stable 5. CHF unspecified Patient with sx's ans sx's c/w URI/PNA; Cont pulmonary supportiver care and ABX F/U ECHO: directly seen by me: Normal LVEF AND WALL MOTION, No significant valve disease, normal RV function. Mild LVH. > reduce lasix dose or change to PO maintainence > Bigeminy on EKG: is a non-specific finding: monitor lytes and check serum Mg > CAD RF's: HTN, LIPIDS --> currently there is no active anginal sx;s are ischemic changes on EKG: agree with ASA and statin for now. Initial trop was negative for ACS. > DVT prophylaxis No active or untreated cardiac problems at present. D/C planning when non-cardiac issues resolve.
--- NOTE | 2017-07-01 14:35 | CP.PCM.PN ---
Subjective - Date & Time of Evaluation Date of Evaluation: 07/01/17 Time of Evaluation: 10:00 - Subjective Subjective: Patient seen and examined today while lying in bed. Patient complains of one episode of liquidy vomit this morning. Patient states she is not feeling well. Patient denies shortness of breath, cough, chest pain. Crackles appreciated at left upper lobe. Urinalysis 06/29: positive for proteus mirabilis. D-dimer 06/30: 1955 BNP 06/29: 10,600 BNP 06/30: 6,840 Echo: mild concentric LVH, normal left ventricular function, left atrial volume index borderline increased. Normal Doppler. EKG: normal sinus rhythm, PVCs, bigeminy pattern, no ischemic changes. CXR 06/30: decreased congestive changes, decreased perihilar opacities, possible improving pulmonary edema. Assessment/Plan: 1. Dyspnea: CXR consistent with interstitial changes; pneumonia vs CHF - Negative preliminary blood cultures; awaiting gram stain - Legionella and Mycoplasma titers - Continue Lasix - Continue cefepime and azithromycin 2. Chronic congestive heart failure - acute - Continue Lasix - chocardiogram report noted Objective - Vital Signs/Intake and Output Vital Signs (last 24 hours): Temp Pulse Resp BP Pulse Ox 99.5 F 55 L 18 106/66 97 07/01/17 08:05 07/01/17 08:05 07/01/17 08:05 07/01/17 09:21 07/01/17 08:05 Intake and Output: 07/01/17 07/01/17 06:59 18:59 Intake Total 250 Balance 250 - Medications Medications: Current Medications Acetaminophen (Tylenol 325mg Tab) 650 mg PO Q6 PRN PRN Reason: Pain, Mild (1-3) Amlodipine Besylate (Norvasc) 10 mg PO DAILY [facility] Last Admin: 07/01/17 09:21 Dose: 10 mg Aspirin (Aspirin Chewable) 81 mg PO DAILY [facility] Last Admin: 07/01/17 09:21 Dose: 81 mg Azithromycin (Zithromax) 500 mg PO Q24H [facility] Enoxaparin Sodium (Lovenox) 40 mg SC DAILY [facility] Last Admin: 07/01/17 09:20 Dose: 40 mg Ferrous Sulfate (Feosol) 325 mg PO DAILY [facility] Last Admin: 07/01/17 09:21 Dose: 325 mg Furosemide (Lasix) 40 mg IVP DAILY [facility] Last Admin: 07/01/17 09:21 Dose: 40 mg Cefepime HCl (Maxipime Iv 1 Gm Premix) 1 gm in 50 mls @ 100 mls/hr IVPB Q8H [facility] Last Admin: 07/01/17 12:15 Dose: 100 mls/hr Lisinopril (Zestril) 10 mg PO DAILY [facility] Last Admin: 07/01/17 09:21 Dose: 10 mg Meclizine HCl (Antivert) 25 mg PO Q8 [facility] Last Admin: 07/01/17 13:19 Dose: 25 mg Metoprolol Succinate (Toprol Xl) 25 mg PO DAILY [facility] Last Admin: 07/01/17 09:21 Dose: 25 mg Multivitamins (Hexavitamin) 1 tab PO DAILY [facility] Last Admin: 07/01/17 09:21 Dose: 1 tab Pantoprazole Sodium (Protonix Ec Tab) 40 mg PO DAILY [facility] Last Admin: 07/01/17 09:21 Dose: 40 mg Rosuvastatin Calcium (Crestor) 20 mg PO HS [facility] Last Admin: 06/30/17 21:21 Dose: 20 mg Tramadol HCl (Ultram) 50 mg PO BID [facility] Last Admin: 07/01/17 12:00 Dose: Not Given - Labs Labs: 06/30/17 11:47 06/30/17 11:47 PT 12.9 SECONDS (9.7-12.2) H 06/29/17 16:42 INR 1.2 06/29/17 16:42 APTT 34 SECONDS (21-34) 06/29/17 16:42 Assessment and Plan (1) Dyspnea Status: Acute (2) Chronic congestive heart failure Status: Acute
[2017-07-01 15:04] LABS: ARTERIAL BLOOD GAS HCO3 26.4 mmol/L (21-28); ARTERIAL BLOOD GAS HEMOGLOBIN 13.6 g/dL (11.7-17.4); ARTERIAL BLOOD GAS O2 SAT 93.5 % (95-98); ARTERIAL BLOOD GAS PCO2 46 mm/Hg (35-45); ARTERIAL BLOOD GAS PH 7.39 (7.35-7.45); ARTERIAL BLOOD GAS PO2 52 mm/Hg (80-100); ARTERIAL BLOOD GAS TCO2 29.2 mmol/L (22-28)
--- NOTE | 2017-07-01 17:02 | CP.PCM.PN ---
Subjective - Date & Time of Evaluation Date of Evaluation: 07/01/17 Time of Evaluation: 10:20 - Subjective Subjective: clinically same Objective - Vital Signs/Intake and Output Vital Signs (last 24 hours): Temp Pulse Resp BP Pulse Ox 98.5 F 83 20 102/55 L 98 07/01/17 15:00 07/01/17 15:00 07/01/17 15:00 07/01/17 15:00 07/01/17 15:00 Intake and Output: 07/01/17 07/01/17 06:59 18:59 Intake Total 250 Balance 250 - Medications Medications: Current Medications Acetaminophen (Tylenol 325mg Tab) 650 mg PO Q6 PRN PRN Reason: Pain, Mild (1-3) Amlodipine Besylate (Norvasc) 10 mg PO DAILY [facility] Last Admin: 07/01/17 09:21 Dose: 10 mg Aspirin (Aspirin Chewable) 81 mg PO DAILY [facility] Last Admin: 07/01/17 09:21 Dose: 81 mg Azithromycin (Zithromax) 500 mg PO Q24H [facility] Enoxaparin Sodium (Lovenox) 40 mg SC DAILY [facility] Last Admin: 07/01/17 09:20 Dose: 40 mg Ferrous Sulfate (Feosol) 325 mg PO DAILY [facility] Last Admin: 07/01/17 09:21 Dose: 325 mg Furosemide (Lasix) 40 mg IVP DAILY [facility] Last Admin: 07/01/17 09:21 Dose: 40 mg Cefepime HCl (Maxipime Iv 1 Gm Premix) 1 gm in 50 mls @ 100 mls/hr IVPB Q8H [facility] Last Admin: 07/01/17 12:15 Dose: 100 mls/hr Lisinopril (Zestril) 10 mg PO DAILY [facility] Last Admin: 07/01/17 09:21 Dose: 10 mg Meclizine HCl (Antivert) 25 mg PO Q8 [facility] Last Admin: 07/01/17 13:19 Dose: 25 mg Metoprolol Succinate (Toprol Xl) 25 mg PO DAILY [facility] Last Admin: 07/01/17 09:21 Dose: 25 mg Multivitamins (Hexavitamin) 1 tab PO DAILY [facility] Last Admin: 07/01/17 09:21 Dose: 1 tab Pantoprazole Sodium (Protonix Ec Tab) 40 mg PO DAILY [facility] Last Admin: 07/01/17 09:21 Dose: 40 mg Rosuvastatin Calcium (Crestor) 20 mg PO HS [facility] Last Admin: 06/30/17 21:21 Dose: 20 mg Tramadol HCl (Ultram) 50 mg PO BID [facility] Last Admin: 07/01/17 12:00 Dose: Not Given - Labs Labs: 06/30/17 11:47 06/30/17 11:47 PT 12.9 SECONDS (9.7-12.2) H 06/29/17 16:42 INR 1.2 06/29/17 16:42 APTT 34 SECONDS (21-34) 06/29/17 16:42 - Constitutional Appears: Well - Head Exam Head Exam: ATRAUMATIC, NORMAL INSPECTION, NORMOCEPHALIC - Eye Exam Eye Exam: EOMI, Normal appearance, PERRL Pupil Exam: NORMAL ACCOMODATION, PERRL - ENT Exam ENT Exam: Mucous Membranes Moist, Normal Exam - Neck Exam Neck Exam: Full ROM, Normal Inspection. absent: Lymphadenopathy - Respiratory Exam Respiratory Exam: Decreased Breath Sounds - Cardiovascular Exam Cardiovascular Exam: REGULAR RHYTHM, +S1, +S2 - GI/Abdominal Exam GI & Abdominal Exam: Soft, Diminished Bowel Sounds - Rectal Exam Rectal Exam: Deferred
[2017-07-02] MEDS: Cefepime IV 1 gm in Dextrose 1 GM/50 ML BAG IVPB SCH ×3 (03:37→18:19)
[2017-07-02] MEDS: Enoxaparin 40 mg Syringe SC SCH (09:25)
[2017-07-02] MEDS: Multiple Vitamins Tab PO SCH (09:26)
[2017-07-02] MEDS: Pantoprazole 40 mg EC Tab PO SCH (09:26)
[2017-07-02] MEDS: Metoprolol Succinate 25 mg XL Tab PO SCH (09:48)
[2017-07-02 14:06] LABS: BASO # 0.1 K/uL (0.0-0.2); BASO % 0.3 % (0.0-2.0); EOS # 0.5 K/uL (0.0-0.7); EOS % 2.7 % (0.0-4.0); HEMOGLOBIN 12.2 g/dL (11.0-16.0); LYMPH # 0.9 K/uL (1.0-4.3); LYMPH % 4.9 % (20.0-40.0); MEAN CELL VOLUME 87.4 fL (81.0-99.0); MEAN CORPUSCULAR HEMOGLOBIN 28.7 pg (27.0-31.0); MEAN CORPUSCULAR HGB CONC 32.8 g/dL (33.0-37.0); MONO # 1.2 K/uL (0.0-0.8); MONO % 6.8 % (0.0-10.0); NEUT # 15.1 K/uL (1.8-7.0); NEUT % 85.3 % (50.0-75.0); NRBC % 0.1 % (0.0-2.0); PLATELET COUNT 256 K/uL (130-400); RBC 4.27 Mil/uL (3.80-5.20); RED CELL DISTRIBUTION WIDTH 17.2 % (11.5-14.5); WHITE BLOOD COUNT 17.7 K/uL (4.8-10.8)
[2017-07-02 14:48] LABS: CALCIUM 8.3 mg/dl (8.6-10.4)
[2017-07-02 15:47] LABS: BANDS 12 % (0-2); EOSINOPHIL 4 % (0-4); LYMPHOCYTE 7 % (20-40); MONOCYTE 9 % (0-10); NEUTROPHIL 68 % (50-75); PLATELET ESTIMATE NORMAL (NORMAL); TOTAL CELLS COUNTED 100
--- NOTE | 2017-07-02 16:06 | CP.PCM.PN ---
Subjective - Date & Time of Evaluation Date of Evaluation: 07/02/17 Time of Evaluation: 11:20 - Subjective Subjective: Patient seen and examined in bed today. Patient states she is feeling better than yesterday. Patient states her breathing has improved. She denies shortness of breath, cough, chest pain, edema. Objective - Vital Signs/Intake and Output Vital Signs (last 24 hours): Temp Pulse Resp BP Pulse Ox 98.2 F 67 20 104/60 97 07/02/17 08:00 07/02/17 08:00 07/02/17 08:00 07/02/17 09:39 07/02/17 08:00 Intake and Output: 07/02/17 07/02/17 06:59 18:59 Intake Total 250 Output Total 50 Balance 200 - Medications Medications: Current Medications Acetaminophen (Tylenol 325mg Tab) 650 mg PO Q6 PRN PRN Reason: Pain, Mild (1-3) Amlodipine Besylate (Norvasc) 10 mg PO DAILY [facility] Last Admin: 07/02/17 09:49 Dose: Not Given Aspirin (Aspirin Chewable) 81 mg PO DAILY [facility] Last Admin: 07/02/17 09:26 Dose: 81 mg Azithromycin (Zithromax) 500 mg PO Q24H [facility] Last Admin: 07/01/17 18:05 Dose: 500 mg Enoxaparin Sodium (Lovenox) 40 mg SC DAILY [facility] Last Admin: 07/02/17 09:25 Dose: 40 mg Ferrous Sulfate (Feosol) 325 mg PO DAILY [facility] Last Admin: 07/02/17 09:26 Dose: 325 mg Furosemide (Lasix) 40 mg IVP DAILY [facility] Last Admin: 07/02/17 09:39 Dose: 40 mg Cefepime HCl (Maxipime Iv 1 Gm Premix) 1 gm in 50 mls @ 100 mls/hr IVPB Q8H [facility] Last Admin: 07/02/17 12:00 Dose: 100 mls/hr Lisinopril (Zestril) 10 mg PO DAILY [facility] Last Admin: 07/02/17 09:39 Dose: 10 mg Meclizine HCl (Antivert) 25 mg PO Q8 [facility] Last Admin: 07/02/17 13:40 Dose: 25 mg Metoprolol Succinate (Toprol Xl) 25 mg PO DAILY [facility] Last Admin: 02/14/18 09:48 Dose: Not Given Multivitamins (Hexavitamin) 1 tab PO DAILY [facility] Last Admin: 07/02/17 09:26 Dose: 1 tab Pantoprazole Sodium (Protonix Ec Tab) 40 mg PO DAILY [facility] Last Admin: 07/02/17 09:26 Dose: 40 mg Rosuvastatin Calcium (Crestor) 20 mg PO HS [facility] Last Admin: 07/01/17 21:29 Dose: 20 mg Tramadol HCl (Ultram) 50 mg PO BID [facility] Last Admin: 07/02/17 09:48 Dose: Not Given - Labs Labs: 07/02/17 14:00 07/02/17 14:00 PT 12.9 SECONDS (9.7-12.2) H 06/29/17 16:42 INR 1.2 06/29/17 16:42 APTT 34 SECONDS (21-34) 06/29/17 16:42 - Head Exam Head Exam: ATRAUMATIC, NORMOCEPHALIC - ENT Exam ENT Exam: Mucous Membranes Moist - Neck Exam Neck Exam: Normal Inspection - Respiratory Exam Respiratory Exam: Decreased Breath Sounds - Cardiovascular Exam Cardiovascular Exam: REGULAR RHYTHM - GI/Abdominal Exam GI & Abdominal Exam: Soft, Normal Bowel Sounds - Extremities Exam Extremities Exam: Normal Inspection Assessment and Plan (1) Dyspnea Assessment & Plan: chest x-ray consistent with congestive changes Echo showed normal ejection fraction ProBNP elevated Stop cefepime, Lasix and lisinopril for worsening renal function Nephrology evaluation Continue azithromycin - Status: Acute (2) Chronic congestive heart failure Status: Acute
--- NOTE | 2017-07-02 17:55 | CP.PCM.CON ---
History of Present Illness - History of Present Illness History of Present Illness: 71 year old female with a past medical history of COPD, CHF, and hypertension, [place] EMS [place] for shortness of breath. Patient states she suddenly began feeling short of breath and told her nurse. As per detention, patient was hypoxic so EMS was called. She denies any chest pain, abdominal pain , headache, dizziness, fever, or other complaint. Patient states she cannot walk and this is the primary reason for living [place] the detention. referred for ID eval of UTI possible sepsis - Medical History PMH: CHF, COPD, Diabetes, HTN Other Surgeries: colostomy placement Family History: States: No Known Family Hx Review of Systems - Review of Systems All systems: reviewed and no additional remarkable complaints except - Constitutional Constitutional: As Per HPI - EENT Eyes: absent: As Per HPI, Blind Spots, Blurred Vision, Change in Vision, Decreased Night Vision, Diplopia, Discharge, Dry Eye, Exophthalmos, Floaters, Irritation, Itchy Eyes, Loss of Peripheral Vision, Pain, Photophobia, Requires Corrective Lenses, Sees Flashes, Spots in Vision, Tunnel Vision, Other Visual Disturbances, Loss of Vision, Other Ears: absent: As Per HPI, Decreased Hearing, Ear Discharge, Ear Pain, Tinnitus, Abnormal Hearing, Disequilibrium, Dizziness, Other Nose/Mouth/Throat: absent: As Per HPI, Epistaxis, Nasal Congestion, Nasal Discharge, Nasal Obstruction, Nasal Trauma, Nose Pain, Post Nasal Drip, Sinus Pain, Sinus Pressure, Bleeding Gums, Change in Voice, Dental Pain, Dry Mouth, Dysphagia, Halitosis, Hoarsness, Lip Swelling, Mouth Lesions, Mouth Pain, Odynophagia, Sore Throat, Throat Swelling, Tongue Swelling, Facial Pain, Neck Pain, Neck Mass, Other - Breasts Breasts: absent: As Per HPI, Change in Shape, Mass, Pain, Nipple Discharge, Nipple Inversion, Skin Changes, Swelling, Other - Cardiovascular Cardiovascular: As Per HPI - Respiratory Respiratory: As Per HPI, Cough - Gastrointestinal Gastrointestinal: absent: As Per HPI, Abdominal Pain, Belching, Bloating, Change in Bowel Habits, Change in Stool Character, Coffee Ground Emesis, Constipation, Cramping, Diarrhea, Dyspepsia, Dysphagia, Early Satiety, Excessive Flatus, Fecal Incontinence, Heartburn, Hematemesis, Hematochezia, Loose Stools, Melena, Nausea, Odynophagia, Temesmus, Vomiting, Other - Genitourinary Genitourinary: absent: As Per HPI, Change in Urinary Stream, Difficulty Urinating, Dysuria, Flank Pain, Hematuria, Pyuria, Nocturia, Urinary Incontinence, Urinary Frequency, Urinary Hesitance, Urinary Urgency, Voiding Freq/Small Amts, Freq UTI, Hx Renal/Bladder Calculi, Hx /Renal Surgery, Bladder Distension, Other - Reproductive: Female Reproductive:Female: absent: As Per HPI, Amenorrhea, Amenorrhea/ Control, Currently Menstual, Cycle <21 Days, Cycle >35 Days, Cycle Variable, Menses 1-7 Days, Menses >/= 8 Days, Menses Variable, Cycle > 4 Weeks Between, No Menses for 6 Months, Heavy Menses, Light Menses, Normal Menses, Spotting Between Cycles , S/P Hysterectomy, Menopausal, Post Menopausal, Premenarche, Abnormal Vaginal Bleeding, Dysmenorrhea, Dyspareunia, Genital Lesions, Genital Pruritis, Pelvic Pain, Prolapse Symptoms, Sexual Dysfunction, Vaginal Discharge, Vaginal Dryness , Vaginal Odor, Vaginal Pruritis, Other - Menstruation Menstruation: absent: As Per HPI, Amenorrhea, Amenorrhea/ Control, Currently Menstual, Cycle <21 Days, Cycle >35 Days, Cycle Variable, Menses 1-7 Days, Menses >/= 8 Days, Menses Variable, Cycle > 4 Weeks Between, No Menses for 6 Months, Heavy Menses, Light Menses, Normal Menses, Spotting Between Cycles , S/P Hysterectomy, Menopausal, Post Menopausal, Premenarche, Abnormal Vaginal Bleeding, Dysmenorrhea, Other - Musculoskeletal Musculoskeletal: absent: As Per HPI, Abnormal Gait, Arthralgias, Atrophy, Back Pain, Deformity, Joint Swelling, Limited Range of Motion, Loss of Height, Muscle Cramps, Muscle Weakness, Myalgias, Neck Pain, Numbness, Radiating Pain into Limb, Stiffness, Tingling, Other - Integumentary Integumentary: absent: As Per HPI, Acne, Alopecia, Bleeding Lesions, Change in Hair, Change in Nails, Change in Pigmentation, Changing Lesions, Dry Skin, Erythema, Furuncle, Hirsutism, Lesions, New Lesions, Non-Healing Lesions, Photosensitivity, Pruritus, Rash, Skin Pain, Skin Ulcer, Sores, Striae, Swelling , Unusual Bruising, Wounds, Jaundice, Other - Neurological Neurological: absent: As Per HPI, Abnormal Gait, Abnormal Hearing, Abnormal Movements, Abnormal Speech, Behavioral Changes, Burning Sensations, Confusion, Convulsions, Disequilibrium, Dizziness, Numbness, Focal Weakness, Frequent Falls , Headaches, Lack of Coordination, Loss of Vision, Memory Loss, Paresthesias, Radicular Pain, Restless Legs, Sensory Deficit, Syncope, Tingling, Tremor, Vertigo, Weakness, Other Visual Disturbances, Other - Psychiatric Psychiatric: absent: As Per HPI, Abnormal Sleep Pattern, Anhedonia, Anxiety, Auditory Hallucinations, Behavioral Changes, Change in Appetite, Change in Libido, Confusion, Depression, Difficulty Concentrating, Hallucinations, Homicidal Ideation, Hopelessness, Irritability, Memory Loss, Mood Swings, Panic Attacks, Paranoia, Suicidal Ideation, Visual Hallucinations, Tactile Hallucinations, Other - Endocrine Endocrine: absent: As Per HPI, Change in Body Appearance, Change in Libido, Cold Intolorance, Deepening of Voice, Excessive Sweating, Fatigue, Flushing, Heat Intolorance, Increase in Ring/Shoe/Hat Size, Palpitations, Polydipsia, Polyphagia, Polyuria, Other - Hematologic/Lymphatic Hematologic: absent: As Per HPI, Easy Bleeding, Easy Bruising, Lymphadenopathy, Other Past Patient History - Past Medical History & Family History Past Medical History?: Yes - Past Social History Smoking Status: Never Smoked - CARDIAC Hx Congestive Heart Failure: Yes Hx Hypertension: Yes - PULMONARY Hx Chronic Obstructive Pulmonary Disease (COPD): Yes - ENDOCRINE/METABOLIC Hx Diabetes Mellitus Type 2: Yes - MUSCULOSKELETAL/RHEUMATOLOGICAL Hx Falls: No - GASTROINTESTINAL Hx Colostomy: Yes - PSYCHIATRIC Hx Substance Use: No - ANESTHESIA Hx Anesthesia: No Meds Allergies/Adverse Reactions: Allergies Allergy/AdvReac Type Severity Reaction Status Date / Time No Known Allergies Allergy Verified 06/29/17 15:48 - Medications Medications: Current Medications Acetaminophen (Tylenol 325mg Tab) 650 mg PO Q6 PRN PRN Reason: Pain, Mild (1-3) Amlodipine Besylate (Norvasc) 10 mg PO DAILY [facility] Last Admin: 07/02/17 09:49 Dose: Not Given Aspirin (Aspirin Chewable) 81 mg PO DAILY [facility] Last Admin: 07/02/17 09:26 Dose: 81 mg Azithromycin (Zithromax) 500 mg PO Q24H [facility] Last Admin: 07/01/17 18:05 Dose: 500 mg Enoxaparin Sodium (Lovenox) 40 mg SC DAILY [facility] Last Admin: 07/02/17 09:25 Dose: 40 mg Ferrous Sulfate (Feosol) 325 mg PO DAILY [facility] Last Admin: 07/02/17 09:26 Dose: 325 mg Meclizine HCl (Antivert) 25 mg PO Q8 [facility] Last Admin: 07/02/17 13:40 Dose: 25 mg Metoprolol Succinate (Toprol Xl) 25 mg PO DAILY [facility] Last Admin: 07/02/17 09:48 Dose: Not Given Multivitamins (Hexavitamin) 1 tab PO DAILY [facility] Last Admin: 07/02/17 09:26 Dose: 1 tab Pantoprazole Sodium (Protonix Ec Tab) 40 mg PO DAILY [facility] Last Admin: 07/02/17 09:26 Dose: 40 mg Tramadol HCl (Ultram) 50 mg PO BID [facility] Last Admin: 07/02/17 09:48 Dose: Not Given Physical Exam - Constitutional Appears: Non-toxic, Chronically Ill - Head Exam Head Exam: ATRAUMATIC, NORMAL INSPECTION, NORMOCEPHALIC - Eye Exam Eye Exam: EOMI, PERRL. absent: Scleral icterus Pupil Exam: NORMAL ACCOMODATION - ENT Exam ENT Exam: Mucous Membranes Dry, Normal External Ear Exam, Normal Oropharynx - Neck Exam Neck exam: Positive for: Full Rom, Tenderness. Negative for: Thyromegaly - Respiratory Exam Respiratory Exam: Decreased Breath Sounds, Clear to Auscultation Bilateral - Cardiovascular Exam Cardiovascular Exam: REGULAR RHYTHM, +S1, +S2 - GI/Abdominal Exam GI & Abdominal Exam: Normal Bowel Sounds, Soft. absent: Tenderness - Rectal Exam Rectal Exam: Deferred - Exam Exam: NORMAL INSPECTION - Extremities Exam Extremities exam: Positive for: pedal pulses present. Negative for: calf tenderness, pedal edema, tenderness - Back Exam Back exam: absent: CVA tenderness (L), CVA tenderness (R) - Neurological Exam Neurological exam: Alert, CN II-XII Intact, Oriented x3, Reflexes Normal - Psychiatric Exam Psychiatric exam: Normal Mood - Skin Skin Exam: Dry, Intact Results - Vital Signs Recent Vital Signs: Last Vital Signs Temp 98.2 F 07/02/17 15:08 Pulse 51 L 07/02/17 15:08 Resp 18 07/02/17 15:08 BP 90/57 L 07/02/17 15:08 Pulse Ox 95 07/02/17 15:08 - Labs Result Diagrams: 07/02/17 14:00 07/02/17 14:00 Labs: Laboratory Results - last 24 hr 07/01/17 07/02/17 07/02/17 21:28 06:17 11:45 WBC RBC Hgb Hct MCV MCH MCHC RDW Plt Count MPV Neut % (Auto) Lymph % (Auto) [place] % (Auto) Eos % (Auto) Baso % (Auto) Neut # (Auto) Lymph # (Auto) [place] # (Auto) Eos # (Auto) Baso # (Auto) Neutrophils % (Manual) Band Neutrophils % Lymphocytes % (Manual) Monocytes % (Manual) Eosinophils % (Manual) Platelet Estimate Sodium Potassium Chloride Carbon Dioxide Anion Gap BUN Creatinine Est GFR ( Amer) Est GFR (Non-Af Amer) POC Glucose (mg/dL) 129 H 100 124 H Random Glucose Calcium Magnesium 07/02/17 07/02/17 07/02/17 14:00 14:00 17:26 WBC 17.7 H D RBC 4.27 Hgb 12.2 Hct 37.3 MCV 87.4 MCH 28.7 MCHC 32.8 L RDW 17.2 H Plt Count 256 MPV 9.0 Neut % (Auto) 85.3 H Lymph % (Auto) 4.9 L [place] % (Auto) 6.8 Eos % (Auto) 2.7 Baso % (Auto) 0.3 Neut # (Auto) 15.1 H Lymph # (Auto) 0.9 L [place] # (Auto) 1.2 H Eos # (Auto) 0.5 Baso # (Auto) 0.1 Neutrophils % (Manual) 68 Band Neutrophils % 12 H* Lymphocytes % (Manual) 7 L Monocytes % (Manual) 9 Eosinophils % (Manual) 4 Platelet Estimate Normal Sodium 134 Potassium 4.6 Chloride 94 L Carbon Dioxide 26 Anion Gap 18 BUN 58 H Creatinine 4.1 H Est GFR ( Amer) 13 Est GFR (Non-Af Amer) 11 POC Glucose (mg/dL) 107 Random Glucose 100 Calcium 8.3 L Magnesium 1.9 Assessment & Plan (1) UTI (urinary tract infection) Status: Acute (2) UTI (urinary tract infection) Status: Acute (3) Chr obstructive pulmonary disease w/ acute lower respiratory infxn Status: Acute (4) Chronic congestive heart failure Status: Acute (5) Dyspnea Status: Acute (6) Respiratory distress Status: Acute - Assessment and Plan (Free Text) Assessment: admitted with CHF COPD fluid overload acute on chronic renal failure and UTI cuture growng Proteus Cefepime added
--- NOTE | 2017-07-02 18:37 | CP.PCM.PN ---
Subjective - Date & Time of Evaluation Date of Evaluation: 07/02/17 Time of Evaluation: 14:20 - Subjective Subjective: clinically same Objective - Vital Signs/Intake and Output Vital Signs (last 24 hours): Temp Pulse Resp BP Pulse Ox 98.2 F 51 L 18 90/57 L 95 07/02/17 15:08 07/02/17 15:08 07/02/17 15:08 07/02/17 15:08 07/02/17 15:08 Intake and Output: 07/02/17 07/02/17 06:59 18:59 Intake Total 250 100 Output Total 50 300 Balance 200 -200 - Medications Medications: Current Medications Acetaminophen (Tylenol 325mg Tab) 650 mg PO Q6 PRN PRN Reason: Pain, Mild (1-3) Amlodipine Besylate (Norvasc) 10 mg PO DAILY [facility] Last Admin: 07/02/17 09:49 Dose: Not Given Aspirin (Aspirin Chewable) 81 mg PO DAILY [facility] Last Admin: 07/02/17 09:26 Dose: 81 mg Azithromycin (Zithromax) 500 mg PO Q24H [facility] Last Admin: 07/02/17 18:19 Dose: 500 mg Enoxaparin Sodium (Lovenox) 40 mg SC DAILY [facility] Last Admin: 07/02/17 09:25 Dose: 40 mg Ferrous Sulfate (Feosol) 325 mg PO DAILY [facility] Last Admin: 07/02/17 09:26 Dose: 325 mg Cefepime HCl (Maxipime Iv 1 Gm Premix) 1 gm in 50 mls @ 100 mls/hr IVPB Q24H [facility] Last Admin: 07/02/17 18:19 Dose: 100 mls/hr Meclizine HCl (Antivert) 25 mg PO Q8 [facility] Last Admin: 07/02/17 13:40 Dose: 25 mg Metoprolol Succinate (Toprol Xl) 25 mg PO DAILY [facility] Last Admin: 07/02/17 09:48 Dose: Not Given Multivitamins (Hexavitamin) 1 tab PO DAILY [facility] Last Admin: 07/02/17 09:26 Dose: 1 tab Pantoprazole Sodium (Protonix Ec Tab) 40 mg PO DAILY [facility] Last Admin: 07/02/17 09:26 Dose: 40 mg Tramadol HCl (Ultram) 50 mg PO BID [facility] Last Admin: 07/02/17 18:19 Dose: 50 mg - Labs Labs: 02/14/18 14:00 07/02/17 14:00 PT 12.9 SECONDS (9.7-12.2) H 06/29/17 16:42 INR 1.2 06/29/17 16:42 APTT 34 SECONDS (21-34) 06/29/17 16:42 - Constitutional Appears: Well - Head Exam Head Exam: ATRAUMATIC, NORMAL INSPECTION, NORMOCEPHALIC - Eye Exam Eye Exam: EOMI, Normal appearance, PERRL Pupil Exam: NORMAL ACCOMODATION, PERRL - ENT Exam ENT Exam: Mucous Membranes Moist, Normal Exam - Neck Exam Neck Exam: Full ROM, Normal Inspection. absent: Lymphadenopathy - Respiratory Exam Respiratory Exam: Decreased Breath Sounds - Cardiovascular Exam Cardiovascular Exam: REGULAR RHYTHM, +S1, +S2 - GI/Abdominal Exam GI & Abdominal Exam: Soft, Diminished Bowel Sounds - Rectal Exam Rectal Exam: Deferred
[2017-07-02 20:33] LABS: CALCIUM 8.4 mg/dl (8.6-10.4)
[2017-07-03] MEDS: Metoprolol Succinate 25 mg XL Tab PO SCH (10:00)
[2017-07-03] MEDS: Multiple Vitamins Tab PO SCH (10:22)
[2017-07-03] MEDS: Enoxaparin 40 mg Syringe SC SCH (10:23)
[2017-07-03] MEDS: Pantoprazole 40 mg EC Tab PO SCH (10:26)
--- NOTE | 2017-07-03 12:05 | CP.PCM.CON ---
History of Present Illness - History of Present Illness History of Present Illness: History mostly obtained from chart 71 year old female with a past medical history of COPD, CHF, and hypertension, initially presented from [place] few days ago w/ shortness of breath. Pt was treated for possible URI /COPD and CHF, was on iv lasix. Pt had a creatinine of 1.1 mg/ dl at baseline, trended up to 4.4 today. She was also found to have Proteus UTI and was started on cefepime. She was on lasix until yesterday for treatment of chf. Pt reports improved breathing, denies any chest pain cough dizziness palpitations. c/o nausea. No abd pain / diarrhea Per RN she is incontinent, pt reports decreased urine output PMH: CHF, COPD, Diabetes, HTN Other Surgeries: colostomy placement Family History: non contributary Review of Systems - Review of Systems All systems: reviewed and no additional remarkable complaints except (as per HPI ) Past Patient History - Past Medical History & Family History Past Medical History?: Yes - Past Social History Smoking Status: Never Smoked - CARDIAC Hx Congestive Heart Failure: Yes Hx Hypertension: Yes - PULMONARY Hx Chronic Obstructive Pulmonary Disease (COPD): Yes - ENDOCRINE/METABOLIC Hx Diabetes Mellitus Type 2: Yes - MUSCULOSKELETAL/RHEUMATOLOGICAL Hx Falls: No - GASTROINTESTINAL Hx Colostomy: Yes - PSYCHIATRIC Hx Substance Use: No - ANESTHESIA Hx Anesthesia: No Meds Allergies/Adverse Reactions: Allergies Allergy/AdvReac Type Severity Reaction Status Date / Time No Known Allergies Allergy Verified 06/29/17 15:48 - Medications Medications: Current Medications Acetaminophen (Tylenol 325mg Tab) 650 mg PO Q6 PRN PRN Reason: Pain, Mild (1-3) Aspirin (Aspirin Chewable) 81 mg PO DAILY [facility] Last Admin: 07/03/17 10:20 Dose: 81 mg Azithromycin (Zithromax) 500 mg PO Q24H [facility] Last Admin: 07/02/17 18:19 Dose: 500 mg Enoxaparin Sodium (Lovenox) 40 mg SC DAILY [facility] Last Admin: 07/03/17 10:23 Dose: 40 mg Ferrous Sulfate (Feosol) 325 mg PO DAILY [facility] Last Admin: 07/03/17 10:20 Dose: 325 mg Cefepime HCl (Maxipime Iv 1 Gm Premix) 1 gm in 50 mls @ 100 mls/hr IVPB Q24H [facility] Last Admin: 07/02/17 18:19 Dose: 100 mls/hr Meclizine HCl (Antivert) 25 mg PO Q8 [facility] Last Admin: 07/03/17 06:11 Dose: 25 mg Metoprolol Succinate (Toprol Xl) 25 mg PO DAILY [facility] Last Admin: 07/02/17 09:48 Dose: Not Given Multivitamins (Hexavitamin) 1 tab PO DAILY [facility] Last Admin: 07/03/17 10:22 Dose: 1 tab Pantoprazole Sodium (Protonix Ec Tab) 40 mg PO DAILY [facility] Last Admin: 07/03/17 10:26 Dose: 40 mg Tramadol HCl (Ultram) 50 mg PO BID [facility] Last Admin: 07/02/17 18:19 Dose: 50 mg Physical Exam - Constitutional Appears: No Acute Distress, Chronically Ill (obese) - Head Exam Head Exam: NORMAL INSPECTION, NORMOCEPHALIC - Eye Exam Eye Exam: Normal appearance, PERRL - ENT Exam ENT Exam: Mucous Membranes Moist, Normal Exam - Neck Exam Neck exam: Positive for: Normal Inspection - Respiratory Exam Respiratory Exam: NORMAL BREATHING PATTERN (decreased breath sounds at bases) - Cardiovascular Exam Cardiovascular Exam: REGULAR RHYTHM, RRR - GI/Abdominal Exam GI & Abdominal Exam: Distended, Normal Bowel Sounds, Soft - Extremities Exam Extremities exam: Positive for: normal inspection, pedal pulses present - Neurological Exam Neurological exam: Alert - Psychiatric Exam Psychiatric exam: Normal Affect, Normal Mood - Skin Skin Exam: Dry, Intact, Warm Results - Vital Signs Recent Vital Signs: Last Vital Signs Temp 98.4 F 07/03/17 08:45 Pulse 68 07/03/17 10:15 Resp 20 07/03/17 08:45 BP 100/65 07/03/17 10:15 Pulse Ox 97 07/03/17 08:45 - Labs Result Diagrams: 07/02/17 14:00 07/02/17 20:15 Labs: Laboratory Results - last 24 hr 07/02/17 07/02/17 07/02/17 14:00 14:00 17:26 WBC 17.7 H D RBC 4.27 Hgb 12.2 Hct 37.3 MCV 87.4 MCH 28.7 MCHC 32.8 L RDW 17.2 H Plt Count 256 MPV 9.0 Neut % (Auto) 85.3 H Lymph % (Auto) 4.9 L [place] % (Auto) 6.8 Eos % (Auto) 2.7 Baso % (Auto) 0.3 Neut # (Auto) 15.1 H Lymph # (Auto) 0.9 L [place] # (Auto) 1.2 H Eos # (Auto) 0.5 Baso # (Auto) 0.1 Neutrophils % (Manual) 68 Band Neutrophils % 12 H* Lymphocytes % (Manual) 7 L Monocytes % (Manual) 9 Eosinophils % (Manual) 4 Platelet Estimate Normal Sodium 134 Potassium 4.6 Chloride 94 L Carbon Dioxide 26 Anion Gap 18 BUN 58 H Creatinine 4.1 H Est GFR ( Amer) 13 Est GFR (Non-Af Amer) 11 POC Glucose (mg/dL) 107 Random Glucose 100 Calcium 8.3 L Magnesium 1.9 Procalcitonin 07/02/17 07/02/17 07/02/17 20:15 20:15 21:10 WBC RBC Hgb Hct MCV MCH MCHC RDW Plt Count MPV Neut % (Auto) Lymph % (Auto) [place] % (Auto) Eos % (Auto) Baso % (Auto) Neut # (Auto) Lymph # (Auto) [place] # (Auto) Eos # (Auto) Baso # (Auto) Neutrophils % (Manual) Band Neutrophils % Lymphocytes % (Manual) Monocytes % (Manual) Eosinophils % (Manual) Platelet Estimate Sodium 132 Potassium 5.0 Chloride 94 L Carbon Dioxide 26 Anion Gap 17 BUN 62 H Creatinine 4.4 H Est GFR ( Amer) 12 Est GFR (Non-Af Amer) 10 POC Glucose (mg/dL) 95 Random Glucose 84 Calcium 8.4 L Magnesium Procalcitonin 1.54 H 07/03/17 07/03/17 06:22 11:57 WBC RBC Hgb Hct MCV MCH MCHC RDW Plt Count MPV Neut % (Auto) Lymph % (Auto) [place] % (Auto) Eos % (Auto) Baso % (Auto) Neut # (Auto) Lymph # (Auto) [place] # (Auto) Eos # (Auto) Baso # (Auto) Neutrophils % (Manual) Band Neutrophils % Lymphocytes % (Manual) Monocytes % (Manual) Eosinophils % (Manual) Platelet Estimate Sodium Potassium Chloride Carbon Dioxide Anion Gap BUN Creatinine Est GFR ( Amer) Est GFR (Non-Af Amer) POC Glucose (mg/dL) 77 84 Random Glucose Calcium Magnesium Procalcitonin Assessment & Plan (1) Chr obstructive pulmonary disease w/ acute lower respiratory infxn Status: Acute (2) Dyspnea Status: Acute (3) UTI (urinary tract infection) Status: Acute (4) ESTEVAN (acute kidney injury) Status: Acute (5) CKD (chronic kidney disease) stage 3, GFR 30-59 ml/min Status: Acute - Assessment and Plan (Free Text) Assessment: Hold lasix, gentle iv fluids 500 cc total renal and bladder US parsons placement antibiotics per ID hold norvasc
[2017-07-03] MEDS ORDERED: Sodium Chloride 0.9% 500 ML IV SCH (13:15)
--- NOTE | 2017-07-03 17:45 | CP.PCM.PN ---
Subjective - Date & Time of Evaluation Date of Evaluation: 07/03/17 Time of Evaluation: 10:00 - Subjective Subjective: the patient seen and examined Breathing and cough much improved Seen by nephrology for elevated creatinine Started on gentle hydration Continue antibiotics for Proteus Monitor renal function Continue neb treatment Objective - Vital Signs/Intake and Output Vital Signs (last 24 hours): Temp Pulse Resp BP Pulse Ox 98.4 F 68 20 100/65 97 07/03/17 08:45 07/03/17 10:15 07/03/17 08:45 07/03/17 10:15 07/03/17 08:45 Intake and Output: 07/03/17 07/03/17 06:59 18:59 Intake Total 230 100 Output Total 400 50 Balance -170 50 - Medications Medications: Current Medications Acetaminophen (Tylenol 325mg Tab) 650 mg PO Q6 PRN PRN Reason: Pain, Mild (1-3) Aspirin (Aspirin Chewable) 81 mg PO DAILY [facility] Last Admin: 07/03/17 10:20 Dose: 81 mg Azithromycin (Zithromax) 500 mg PO Q24H [facility] Last Admin: 07/02/17 18:19 Dose: 500 mg Enoxaparin Sodium (Lovenox) 40 mg SC DAILY [facility] Last Admin: 07/03/17 10:23 Dose: 40 mg Ferrous Sulfate (Feosol) 325 mg PO DAILY [facility] Last Admin: 07/03/17 10:20 Dose: 325 mg Cefepime HCl (Maxipime Iv 1 Gm Premix) 1 gm in 50 mls @ 100 mls/hr IVPB Q24H [facility] Last Admin: 07/02/17 18:19 Dose: 100 mls/hr Sodium Chloride (Sodium Chloride 0.9%) 500 mls @ 60 mls/hr IV .Q8H20M [facility] Last Admin: 07/03/17 13:15 Dose: 60 mls/hr Meclizine HCl (Antivert) 25 mg PO Q8 [facility] Last Admin: 07/03/17 06:11 Dose: 25 mg Metoprolol Succinate (Toprol Xl) 25 mg PO DAILY [facility] Last Admin: 07/03/17 10:00 Dose: Not Given Multivitamins (Hexavitamin) 1 tab PO DAILY [facility] Last Admin: 07/03/17 10:22 Dose: 1 tab Nystatin (Nystop Topical Powder) 1 applic TOP BID [facility] Pantoprazole Sodium (Protonix Ec Tab) 40 mg PO DAILY [facility] Last Admin: 07/03/17 10:26 Dose: 40 mg - Labs Labs: 07/02/17 14:00 07/02/17 20:15 PT 12.9 SECONDS (9.7-12.2) H 06/29/17 16:42 INR 1.2 06/29/17 16:42 APTT 34 SECONDS (21-34) 06/29/17 16:42 Assessment and Plan (1) Dyspnea Status: Acute (2) Chronic congestive heart failure Status: Acute
--- NOTE | 2017-07-03 17:56 | CP.PCM.PN ---
Subjective - Date & Time of Evaluation Date of Evaluation: 07/03/17 Time of Evaluation: 07:00 - Subjective Subjective: slow progress afebrile NAD weak but no resp difficuty IV rx in progress Objective - Vital Signs/Intake and Output Vital Signs (last 24 hours): Temp Pulse Resp BP Pulse Ox 98.4 F 68 20 100/65 97 07/03/17 08:45 07/03/17 10:15 07/03/17 08:45 07/03/17 10:15 07/03/17 08:45 Intake and Output: 07/03/17 07/03/17 06:59 18:59 Intake Total 230 100 Output Total 400 50 Balance -170 50 - Medications Medications: Current Medications Acetaminophen (Tylenol 325mg Tab) 650 mg PO Q6 PRN PRN Reason: Pain, Mild (1-3) Aspirin (Aspirin Chewable) 81 mg PO DAILY [facility] Last Admin: 07/03/17 10:20 Dose: 81 mg Azithromycin (Zithromax) 500 mg PO Q24H [facility] Last Admin: 07/02/17 18:19 Dose: 500 mg Enoxaparin Sodium (Lovenox) 40 mg SC DAILY [facility] Last Admin: 07/03/17 10:23 Dose: 40 mg Ferrous Sulfate (Feosol) 325 mg PO DAILY [facility] Last Admin: 07/03/17 10:20 Dose: 325 mg Cefepime HCl (Maxipime Iv 1 Gm Premix) 1 gm in 50 mls @ 100 mls/hr IVPB Q24H [facility] Last Admin: 07/02/17 18:19 Dose: 100 mls/hr Sodium Chloride (Sodium Chloride 0.9%) 500 mls @ 60 mls/hr IV .Q8H20M [facility] Last Admin: 07/03/17 13:15 Dose: 60 mls/hr Meclizine HCl (Antivert) 25 mg PO Q8 [facility] Last Admin: 07/03/17 06:11 Dose: 25 mg Metoprolol Succinate (Toprol Xl) 25 mg PO DAILY [facility] Last Admin: 07/03/17 10:00 Dose: Not Given Multivitamins (Hexavitamin) 1 tab PO DAILY [facility] Last Admin: 07/03/17 10:22 Dose: 1 tab Nystatin (Nystop Topical Powder) 1 applic TOP BID [facility] Pantoprazole Sodium (Protonix Ec Tab) 40 mg PO DAILY [facility] Last Admin: 07/03/17 10:26 Dose: 40 mg - Labs Labs: 07/02/17 14:00 07/02/17 20:15 PT 12.9 SECONDS (9.7-12.2) H 06/29/17 16:42 INR 1.2 06/29/17 16:42 APTT 34 SECONDS (21-34) 06/29/17 16:42 - Constitutional Appears: Non-toxic, Chronically Ill - Head Exam Head Exam: NORMOCEPHALIC - Eye Exam Eye Exam: PERRL - ENT Exam ENT Exam: Mucous Membranes Dry - Neck Exam Neck Exam: absent: Lymphadenopathy - Respiratory Exam Respiratory Exam: Decreased Breath Sounds - Cardiovascular Exam Cardiovascular Exam: REGULAR RHYTHM - GI/Abdominal Exam GI & Abdominal Exam: Distended, Soft - Rectal Exam Rectal Exam: Deferred - Exam Exam: NORMAL INSPECTION - Extremities Exam Extremities Exam: absent: Pedal Edema - Back Exam Back Exam: absent: CVA tenderness (L), CVA tenderness (R) - Neurological Exam Neurological Exam: Alert, Awake Assessment and Plan (1) UTI (urinary tract infection) Status: Acute (2) UTI (urinary tract infection) Status: Acute (3) Chr obstructive pulmonary disease w/ acute lower respiratory infxn Status: Acute (4) Chronic congestive heart failure Status: Acute (5) Dyspnea Status: Acute (6) Respiratory distress Status: Acute
[2017-07-03] MEDS: Cefepime IV 1 gm in Dextrose 1 GM/50 ML BAG IVPB SCH (18:56)
[2017-07-03] MEDS ORDERED: Sodium Chloride 0.9% 1,000 ML IV SCH (21:15)
--- NOTE | 2017-07-03 22:39 | US ---
EXAM: US Retroperitoneal Limited, Renal CLINICAL HISTORY: 71 years old, female; Signs and symptoms; Other: Christopher TECHNIQUE: Real-time ultrasound of the retroperitoneum (limited) with image documentation. COMPARISON: No relevant prior studies available. FINDINGS: Right kidney: Measured at 11 x 5.2 x 5.6 cm. 8 mm midpole calculus. No hydronephrosis. Left kidney: Measured at 11.4 x 5.5 x 5.6 cm. 7 mm lower pole calculus. No hydronephrosis. Limited evaluation of the left kidney due to body habitus and bowel gas. Patient has Turner catheter, bladder not distended. IMPRESSION: Intrarenal calculi noted. No hydronephrosis. Details as above.
[2017-07-04 08:07] LABS: BASO % 0.3 % (0.0-2.0); EOS # 0.6 K/uL (0.0-0.7); EOS % 3.5 % (0.0-4.0); LYMPH # 0.8 K/uL (1.0-4.3); LYMPH % 4.8 % (20.0-40.0); MEAN CORPUSCULAR HEMOGLOBIN 28.6 pg (27.0-31.0); MEAN CORPUSCULAR HGB CONC 32.9 g/dL (33.0-37.0); MONO # 1.4 K/uL (0.0-0.8); MONO % 8.7 % (0.0-10.0); NEUT # 13.1 K/uL (1.8-7.0); NEUT % 82.7 % (50.0-75.0); PLATELET COUNT 226 K/uL (130-400); RBC 3.84 Mil/uL (3.80-5.20); RED CELL DISTRIBUTION WIDTH 17.2 % (11.5-14.5); WHITE BLOOD COUNT 15.9 K/uL (4.8-10.8)
[2017-07-04 08:18] LABS: CALCIUM 8.4 mg/dl (8.6-10.4)
[2017-07-04] MEDS ORDERED: Sodium Chloride 0.9% 1,000 ML IV ONE (09:02)
[2017-07-04] MEDS ORDERED: Albuterol-Ipratrop 3 mg / 0.5 (3 ml) UD IH SCH (09:30)
[2017-07-04 09:42] LABS: ABG ALLEN TEST POS; ARTERIAL BLOOD GAS HCO3 22.2 mmol/L (21-28); ARTERIAL BLOOD GAS O2 SAT 81.6 % (95-98); ARTERIAL BLOOD GAS PCO2 57 mm/Hg (35-45); ARTERIAL BLOOD GAS PH 7.26 (7.35-7.45); ARTERIAL BLOOD GAS PO2 40 mm/Hg (80-100); ARTERIAL BLOOD GAS TCO2 27.3 mmol/L (22-28)
[2017-07-04] MEDS: Metoprolol Succinate 25 mg XL Tab PO SCH (10:00)
[2017-07-04] MEDS: Multiple Vitamins Tab PO SCH (10:00)
--- NOTE | 2017-07-04 10:14 | CP.PCM.PN ---
Subjective - Date & Time of Evaluation Date of Evaluation: 07/04/17 Time of Evaluation: 09:45 - Subjective Subjective: Patient seen and examined Rapid response called for respiratory distress, change in mental status, poor urine output and worsening renal function Afebrile Anasarca Objective - Vital Signs/Intake and Output Vital Signs (last 24 hours): Temp Pulse Resp BP Pulse Ox 97.9 F 92 H 20 109/44 L 82 L 07/04/17 08:57 07/04/17 08:57 07/04/17 09:07 07/04/17 09:07 07/04/17 09:07 Intake and Output: 07/04/17 07/04/17 06:59 18:59 Intake Total 540 Output Total 60 Balance 480 - Medications Medications: Current Medications Acetaminophen (Tylenol 325mg Tab) 650 mg PO Q6 PRN PRN Reason: Pain, Mild (1-3) Aspirin (Aspirin Chewable) 81 mg PO DAILY [facility] Last Admin: 07/03/17 10:20 Dose: 81 mg Azithromycin (Zithromax) 500 mg PO Q24H [facility] Last Admin: 07/03/17 18:55 Dose: 500 mg Enoxaparin Sodium (Lovenox) 40 mg SC DAILY [facility] Last Admin: 07/03/17 10:23 Dose: 40 mg Famotidine (Pepcid) 20 mg PO DAILY [facility] Ferrous Sulfate (Feosol) 325 mg PO DAILY [facility] Last Admin: 07/03/17 10:20 Dose: 325 mg Cefepime HCl (Maxipime Iv 1 Gm Premix) 1 gm in 50 mls @ 100 mls/hr IVPB Q24H [facility] Last Admin: 07/03/17 18:56 Dose: 100 mls/hr Sodium Chloride (Sodium Chloride 0.9%) 1,000 mls @ 60 mls/hr IV .[id number] [facility] Last Admin: 07/03/17 22:23 Dose: Not Given Meclizine HCl (Antivert) 25 mg PO Q8 [facility] Last Admin: 07/04/17 06:13 Dose: Not Given Metoprolol Succinate (Toprol Xl) 25 mg PO DAILY [facility] Last Admin: 07/03/17 10:00 Dose: Not Given Multivitamins (Hexavitamin) 1 tab PO DAILY [facility] Last Admin: 07/03/17 10:22 Dose: 1 tab Nystatin (Nystop Topical Powder) 1 applic TOP BID [facility] Last Admin: 07/03/17 18:56 Dose: 1 applic - Labs Labs: 07/04/17 07:50 07/04/17 07:50 PT 12.9 SECONDS (9.7-12.2) H 06/29/17 16:42 INR 1.2 06/29/17 16:42 APTT 34 SECONDS (21-34) 06/29/17 16:42 - Head Exam Head Exam: ATRAUMATIC, NORMOCEPHALIC - Neck Exam Neck Exam: Normal Inspection - Respiratory Exam Respiratory Exam: Decreased Breath Sounds - Cardiovascular Exam Cardiovascular Exam: REGULAR RHYTHM - GI/Abdominal Exam GI & Abdominal Exam: Soft - Extremities Exam Extremities Exam: Pedal Edema - Neurological Exam Neurological Exam: Altered Assessment and Plan (1) Respiratory distress Assessment & Plan: secondary to fluid overload/ BiPAP Transfer to ICU for dialysis Monitor chest x-ray and ABG on cefepime for Proteus in the urine Status: Acute (2) ESTEVAN (acute kidney injury) Status: Acute (3) Chronic congestive heart failure Status: Acute
--- NOTE | 2017-07-04 10:24 | CP.PCM.PN ---
Subjective - Date & Time of Evaluation Date of Evaluation: 07/04/17 Time of Evaluation: 09:25 - Subjective Subjective: [employer] NOTES 71 year old female with a past medical history of COPD, CHF, and hypertension, admitted for shortness of breath. 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 distress, AMS, hypotension and decr. urine out put Objective - Vital Signs/Intake and Output Vital Signs (last 24 hours): Temp Pulse Resp BP Pulse Ox 97.9 F 92 H 20 109/44 L 82 L 07/04/17 08:57 07/04/17 08:57 07/04/17 09:07 07/04/17 09:07 07/04/17 09:07 Intake and Output: 07/04/17 07/04/17 06:59 18:59 Intake Total 540 Output Total 60 Balance 480 - Medications Medications: Current Medications Acetaminophen (Tylenol 325mg Tab) 650 mg PO Q6 PRN PRN Reason: Pain, Mild (1-3) Aspirin (Aspirin Chewable) 81 mg PO DAILY [facility] Last Admin: 07/03/17 10:20 Dose: 81 mg Azithromycin (Zithromax) 500 mg PO Q24H [facility] Last Admin: 07/03/17 18:55 Dose: 500 mg Enoxaparin Sodium (Lovenox) 40 mg SC DAILY [facility] Last Admin: 07/03/17 10:23 Dose: 40 mg Famotidine (Pepcid) 20 mg PO DAILY [facility] Ferrous Sulfate (Feosol) 325 mg PO DAILY [facility] Last Admin: 07/03/17 10:20 Dose: 325 mg Cefepime HCl (Maxipime Iv 1 Gm Premix) 1 gm in 50 mls @ 100 mls/hr IVPB Q24H [facility] Last Admin: 07/03/17 18:56 Dose: 100 mls/hr Sodium Chloride (Sodium Chloride 0.9%) 1,000 mls @ 60 mls/hr IV .[id number] [facility] Last Admin: 07/03/17 22:23 Dose: Not Given Meclizine HCl (Antivert) 25 mg PO Q8 [facility] Last Admin: 07/04/17 06:13 Dose: Not Given Metoprolol Succinate (Toprol Xl) 25 mg PO DAILY [facility] Last Admin: 07/03/17 10:00 Dose: Not Given Multivitamins (Hexavitamin) 1 tab PO DAILY [facility] Last Admin: 07/03/17 10:22 Dose: 1 tab Nystatin (Nystop Topical Powder) 1 applic TOP BID [facility] Last Admin: 07/03/17 18:56 Dose: 1 applic - Labs Labs: 07/04/17 07:50 07/04/17 07:50 PT 12.9 SECONDS (9.7-12.2) H 06/29/17 16:42 INR 1.2 06/29/17 16:42 APTT 34 SECONDS (21-34) 06/29/17 16:42 Assessment and Plan - Assessment and Plan (Free Text) Assessment: A/P 71 yr old female with pmhx significant for COPD, CHF, HTN, admitted with shortness of breath. / URI/COPD and CHF. Urine culture + for proteus. and on cefepime and zithromax cr- trending up , and noted min. urine out put Rapid response was called today for respiratory distress, altered mental status and low urine output. abg- done - see result D/W with Dr. Domingo (nephro) , recommends to start temporary hd D/W patient, and patient requested to discuss with her sister Yenifer discussed with sister Yenifer and agreed with HD Dr. Garcia consulted for HD access Patient transferred to ICU for further management The above plan discussed with Dr. Shanique sanchez and agrees with plan
[2017-07-04] MEDS: Acetylcysteine 20% Inhal Soln (4ml) PO SCH (10:30)
--- NOTE | 2017-07-04 10:35 | RAD ---
HISTORY: SOB COMPARISON: Chest x-ray performed 06/30/17 TECHNIQUE: Chest, one view. FINDINGS: Examination limited by habitus. LUNGS: Right hilar/infrahilar patchy opacities appear stable to slightly increased in extent. Mild pulmonary venous congestion. PLEURA: No significant pleural effusion identified. No definite pneumothorax . CARDIOVASCULAR: Cardiomegaly. Dense atherosclerotic calcifications of the aorta. OSSEOUS STRUCTURES: Degenerative changes of the spine. VISUALIZED UPPER ABDOMEN: Unremarkable. OTHER FINDINGS: None. IMPRESSION: Right hilar/infrahilar patchy opacities appear stable to slightly increased in extent. Mild pulmonary venous congestion. Cardiomegaly. Atherosclerotic calcifications of the aorta.
[2017-07-04 11:06] LABS: ANISOCYTOSIS SLIGHT; BANDS 13 % (0-2); EOSINOPHIL 2 % (0-4); HYPOCHROMIC SLIGHT; LYMPHOCYTE 10 % (20-40); MONOCYTE 3 % (0-10); NEUTROPHIL 72 % (50-75); PLATELET ESTIMATE NORMAL (NORMAL); TOTAL CELLS COUNTED 100
[2017-07-04 11:07] LABS: POLYCHROMIC SLIGHT
--- NOTE | 2017-07-04 11:10 | CP.PCM.CON ---
History of Present Illness - History of Present Illness History of Present Illness: Vascular Surgery Consult note- Dr. Garcia 71F morbidly obese w/ pmhx significant for COPD, CHF, HTN, presented to [facility] ED from group home w/ shortness of breath. Patient was treated for URI/COPD and CHF. Urine culture + for proteus. Rapid response was called today for respiratory distress, altered mental status and low urine output. Surgery was consulted for placement of temporary dialysis catheter. Pt currently conversing w/ no signs of acute shortness of breath. Parsons was placed w/ 10CC urine output. PMH: DM, HTN, COPD, CHF PSH: debridement of sacral wound, and diverting colostomy SocialHx: Lives in group home, denies ETOH, tobacco, recreational drug use ALL: NKDA Review of Systems - Review of Systems All systems: reviewed and no additional remarkable complaints except - Constitutional Constitutional: As Per HPI Past Patient History - Past Medical History & Family History Past Medical History?: Yes - Past Social History Smoking Status: Never Smoked - CARDIAC Hx Congestive Heart Failure: Yes Hx Hypertension: Yes - PULMONARY Hx Chronic Obstructive Pulmonary Disease (COPD): Yes - ENDOCRINE/METABOLIC Hx Diabetes Mellitus Type 2: Yes - MUSCULOSKELETAL/RHEUMATOLOGICAL Hx Falls: No - GASTROINTESTINAL Hx Colostomy: Yes - PSYCHIATRIC Hx Substance Use: No - ANESTHESIA Hx Anesthesia: No Meds Allergies/Adverse Reactions: Allergies Allergy/AdvReac Type Severity Reaction Status Date / Time No Known Allergies Allergy Verified 06/29/17 15:48 - Medications Medications: Current Medications Acetaminophen (Tylenol 325mg Tab) 650 mg PO Q6 PRN PRN Reason: Pain, Mild (1-3) Acetylcysteine (Acetylcysteine 20%) 4 ml PO Q12H [facility] Stop: 07/05/17 22:31 Aspirin (Aspirin Chewable) 81 mg PO DAILY [facility] Last Admin: 07/03/17 10:20 Dose: 81 mg Azithromycin (Zithromax) 500 mg PO Q24H [facility] Last Admin: 07/03/17 18:55 Dose: 500 mg Famotidine (Pepcid) 20 mg PO DAILY [facility] Ferrous Sulfate (Feosol) 325 mg PO DAILY [facility] Last Admin: 07/03/17 10:20 Dose: 325 mg Cefepime HCl (Maxipime Iv 1 Gm Premix) 1 gm in 50 mls @ 100 mls/hr IVPB Q24H [facility] Last Admin: 07/03/17 18:56 Dose: 100 mls/hr Sodium Chloride (Sodium Chloride 0.9%) 1,000 mls @ 60 mls/hr IV .[id number] [facility] Last Admin: 07/03/17 22:23 Dose: Not Given Methylprednisolone (Solu-Medrol) 40 mg IVP Q8H [facility] Metoprolol Succinate (Toprol Xl) 25 mg PO DAILY [facility] Last Admin: 07/03/17 10:00 Dose: Not Given Multivitamins (Hexavitamin) 1 tab PO DAILY [facility] Last Admin: 07/03/17 10:22 Dose: 1 tab Nystatin (Nystop Topical Powder) 1 applic TOP BID [facility] Last Admin: 07/03/17 18:56 Dose: 1 applic Physical Exam - Constitutional Appears: Non-toxic, No Acute Distress Additional comments: Morbidly obese - Eye Exam Eye Exam: PERRL - Respiratory Exam Respiratory Exam: Wheezes, NORMAL BREATHING PATTERN. absent: Respiratory Distress - Cardiovascular Exam Cardiovascular Exam: +S1, +S2. absent: Bradycardia, Tachycardia - GI/Abdominal Exam GI & Abdominal Exam: Soft. absent: Firm, Guarding, Tenderness - Exam Additional comments: parsons in place; minimal Urine output - Extremities Exam Extremities exam: Negative for: calf tenderness - Neurological Exam Neurological exam: Alert, Oriented x3 Results - Vital Signs Recent Vital Signs: Last Vital Signs Temp 97.9 F 07/04/17 08:57 Pulse 92 H 07/04/17 08:57 Resp 20 07/04/17 09:07 BP 109/44 L 07/04/17 09:07 Pulse Ox 82 L 07/04/17 09:07 - Labs Result Diagrams: 07/04/17 07:50 07/04/17 07:50 Labs: Laboratory Results - last 24 hr 07/03/17 07/03/17 07/03/17 06:22 11:57 17:27 WBC RBC Hgb Hct MCV MCH MCHC RDW Plt Count MPV Neut % (Auto) Lymph % (Auto) [place] % (Auto) Eos % (Auto) Baso % (Auto) Neut # (Auto) Lymph # (Auto) [place] # (Auto) Eos # (Auto) Baso # (Auto) Neutrophils % (Manual) Band Neutrophils % Lymphocytes % (Manual) Monocytes % (Manual) Eosinophils % (Manual) Platelet Estimate Polychromasia Hypochromasia (manual) Anisocytosis (manual) Puncture Site pCO2 pO2 HCO3 ABG pH ABG Total CO2 ABG O2 Saturation ABG Base Excess [place] Test ABG Potassium Glucose Lactate Crit Value Called To Crit Value Called By Crit Value Read Back Blood Gas Notified Time Sodium Potassium Chloride Carbon Dioxide Anion Gap BUN Creatinine Est GFR ( Amer) Est GFR (Non-Af Amer) POC Glucose (mg/dL) 77 84 82 Random Glucose Calcium Arterial Blood Potassium Influenza Typ A,B (EIA) 07/03/17 07/04/17 07/04/17 21:29 06:20 07:50 WBC 15.9 H RBC 3.84 Hgb 11.0 Hct 33.4 L MCV 87.0 MCH 28.6 MCHC 32.9 L RDW 17.2 H Plt Count 226 MPV 9.0 Neut % (Auto) 82.7 H Lymph % (Auto) 4.8 L [place] % (Auto) 8.7 Eos % (Auto) 3.5 Baso % (Auto) 0.3 Neut # (Auto) 13.1 H Lymph # (Auto) 0.8 L [place] # (Auto) 1.4 H Eos # (Auto) 0.6 Baso # (Auto) 0.0 Neutrophils % (Manual) 72 Band Neutrophils % 13 H* Lymphocytes % (Manual) 10 L Monocytes % (Manual) 3 Eosinophils % (Manual) 2 Platelet Estimate Normal Polychromasia Slight Hypochromasia (manual) Slight Anisocytosis (manual) Slight Puncture Site pCO2 pO2 HCO3 ABG pH ABG Total CO2 ABG O2 Saturation ABG Base Excess [place] Test ABG Potassium Glucose Lactate Crit Value Called To Crit Value Called By Crit Value Read Back Blood Gas Notified Time Sodium Potassium Chloride Carbon Dioxide Anion Gap BUN Creatinine Est GFR ( Amer) Est GFR (Non-Af Amer) POC Glucose (mg/dL) 100 89 Random Glucose Calcium Arterial Blood Potassium Influenza Typ A,B (EIA) 07/04/17 07/04/17 07/04/17 07:50 09:03 09:17 WBC RBC Hgb Hct MCV MCH MCHC RDW Plt Count MPV Neut % (Auto) Lymph % (Auto) [place] % (Auto) Eos % (Auto) Baso % (Auto) Neut # (Auto) Lymph # (Auto) [place] # (Auto) Eos # (Auto) Baso # (Auto) Neutrophils % (Manual) Band Neutrophils % Lymphocytes % (Manual) Monocytes % (Manual) Eosinophils % (Manual) Platelet Estimate Polychromasia Hypochromasia (manual) Anisocytosis (manual) Puncture Site pCO2 pO2 HCO3 ABG pH ABG Total CO2 ABG O2 Saturation ABG Base Excess [place] Test ABG Potassium Glucose Lactate Crit Value Called To Crit Value Called By Crit Value Read Back Blood Gas Notified Time Sodium 133 Potassium 4.4 Chloride 95 L Carbon Dioxide 26 Anion Gap 17 BUN 69 H Creatinine 5.4 H Est GFR ( Amer) 9 Est GFR (Non-Af Amer) 8 POC Glucose (mg/dL) 83 Random Glucose 79 Calcium 8.4 L Arterial Blood Potassium Influenza Typ A,B (EIA) Negative for flu a/b 07/04/17 09:39 WBC RBC Hgb Hct MCV MCH MCHC RDW Plt Count MPV Neut % (Auto) Lymph % (Auto) [place] % (Auto) Eos % (Auto) Baso % (Auto) Neut # (Auto) Lymph # (Auto) [place] # (Auto) Eos # (Auto) Baso # (Auto) Neutrophils % (Manual) Band Neutrophils % Lymphocytes % (Manual) Monocytes % (Manual) Eosinophils % (Manual) Platelet Estimate Polychromasia Hypochromasia (manual) Anisocytosis (manual) Puncture Site Lba pCO2 57 H pO2 40 L* HCO3 22.2 ABG pH 7.26 L ABG Total CO2 27.3 ABG O2 Saturation 81.6 L ABG Base Excess -2.4 L [place] Test Pos ABG Potassium 4.9 Glucose 77 Lactate 1.3 Crit Value Called To Dr padilla Crit Value Called By Donnell barrera associate entertainment editor Crit Value Read Back Y Blood Gas Notified Time 943 Sodium 134.0 Potassium Chloride 102.0 Carbon Dioxide Anion Gap BUN Creatinine Est GFR ( Amer) Est GFR (Non-Af Amer) POC Glucose (mg/dL) Random Glucose Calcium Arterial Blood Potassium 4.9 Influenza Typ A,B (EIA) Assessment & Plan - Assessment and Plan (Free Text) Assessment: 71F admitted with CHF COPD fluid overload acute on chronic renal failure and UTI, low urine output Plan: - patient to be transfused to ICU - plan for temporary dialysis catheter placement in the Unit - consent obtained - discussed w/ Dr. Radha Radford PGY1
[2017-07-04] MEDS: MethylPREDNISolone 40 mg Vial IVP SCH ×2 (12:08→19:01)
[2017-07-04 13:07] LABS: BARBITURATES, UR NEGATIVE (NEGATIVE); OPIATES, UR NEGATIVE (NEGATIVE); PHENCYCLIDINE, UR NEGATIVE (NEGATIVE)
--- NOTE | 2017-07-04 13:26 | CP.CCUPN ---
CCU Subjective - Physician Review Events Since Last Encounter (Free Text): 07/04/17 13:22 Patient became hypotensive in the morning and lethargic per nursing. Subjective (Free Text): 07/04/17 13:23 Patient transferred to ICU after becoming hypotensive. A rapid response was called as a result and the patient was transferred to the unit. Critical Care Time Spent (in minutes): 45 CCU Objective - Vital Signs / Intake & Output Vital Signs (Last 4 hours): Vital Signs Pulse Resp BP Pulse Ox 07/04/17 13:08 89 95 07/04/17 11:25 83 20 108/60 98 Intake and Output (Last 8hrs): Intake & Output 07/03/17 07/04/17 07/04/17 22:59 06:59 14:59 Intake Total 540 0 Output Total 60 10 Balance 480 -10 Weight 260 lb 2.327 oz Intake: Intake, IV Amount 440 Right Hand 440 Oral 100 0 Output: Urine 10 10 Urethral (Turner) 10 10 Stool 50 - Physical Exam Head: Positive for: Atraumatic, Normocephalic Pupils: Positive for: PERRL Extroacular Muscles: Positive for: EOMI Conjunctiva: Positive for: Normal Mouth: Positive for: Moist Mucous Membranes Respiratory/Chest: Positive for: Decreased Breath Sounds Cardiovascular: Positive for: Regular Rate and Rhythm, Normal S1, S2 Abdomen: Positive for: Normal Bowel Sounds Upper Extremity: Positive for: Normal Inspection Skin: Positive for: Warm, Dry, Normal Color Psychiatric: Positive for: Lethargic - Medications Active Medications: Active Medications Generic Name Dose Route Start Last Admin Trade Name Freq PRN Reason Stop Dose Admin Acetaminophen 650 mg 06/29/17 22:11 Tylenol 325mg Tab PO Q6 PRN Pain, Mild (1-3) Acetylcysteine 4 ml 07/04/17 10:30 07/04/17 10:30 Acetylcysteine 20% PO 07/05/17 22:31 Not Given Q12H STEVEN Aspirin 81 mg 06/30/17 10:00 07/04/17 10:00 Aspirin Chewable PO Not Given DAILY STEVEN Azithromycin 500 mg 07/01/17 18:00 07/03/17 18:55 Zithromax PO 500 mg Q24H STEVEN Administration Famotidine 20 mg 07/04/17 10:00 07/04/17 10:00 Pepcid PO Not Given DAILY STEVEN Ferrous Sulfate 325 mg 06/30/17 10:00 07/04/17 10:00 Feosol PO Not Given DAILY [facility] Cefepime HCl 1 gm in 50 mls @ 100 mls/hr 07/02/17 18:00 07/03/17 18:56 Maxipime Iv 1 Gm Premix IVPB 100 mls/hr Q24H STEVEN Administration Sodium Chloride 1,000 mls @ 60 mls/hr 07/03/17 21:15 07/03/17 22:23 Sodium Chloride 0.9% IV Not Given .[id number] [facility] Methylprednisolone 40 mg 07/04/17 10:30 07/04/17 12:08 Solu-Medrol IVP 40 mg Q8H STEVEN Administration Metoprolol Succinate 25 mg 06/30/17 10:00 07/04/17 10:00 Toprol Xl PO Not Given DAILY [facility] Multivitamins 1 tab 06/30/17 10:00 07/04/17 10:00 Hexavitamin PO Not Given DAILY [facility] Nystatin 1 applic 07/03/17 18:00 07/04/17 10:00 Nystop Topical Powder TOP Not Given BID [facility] - Patient Studies Lab Studies: Microbiology Studies 07/02/17 20:00 Urine Culture - Final Urine,Catheterized Yeast Species 06/29/17 18:15 Blood Culture - Preliminary Blood NO GROWTH AFTER 4 DAYS 06/29/17 16:24 Blood Culture - Preliminary Blood NO GROWTH AFTER 4 DAYS Lab Studies 07/04/17 07/04/17 07/04/17 Range/Units 12:32 12:08 12:06 WBC (4.8-10.8) K/uL RBC (3.80-5.20) Mil/uL Hgb (11.0-16.0) g/dL Hct (34.0-47.0) % MCV (81.0-99.0) fL MCH (27.0-31.0) pg MCHC (33.0-37.0) g/dL RDW (11.5-14.5) % Plt Count (130-400) K/uL MPV (7.2-11.7) fL Neut % (Auto) (50.0-75.0) % Lymph % (Auto) (20.0-40.0) % Barry % (Auto) (0.0-10.0) % Eos % (Auto) (0.0-4.0) % Baso % (Auto) (0.0-2.0) % Neut # (Auto) (1.8-7.0) K/uL Lymph # (Auto) (1.0-4.3) K/uL Barry # (Auto) (0.0-0.8) K/uL Eos # (Auto) (0.0-0.7) K/uL Baso # (Auto) (0.0-0.2) K/uL Neutrophils % (Manual) (50-75) % Band Neutrophils % (0-2) % Lymphocytes % (Manual) (20-40) % Monocytes % (Manual) (0-10) % Eosinophils % (Manual) (0-4) % Platelet Estimate (NORMAL) Polychromasia Hypochromasia (manual) Anisocytosis (manual) Puncture Site pCO2 (35-45) mm/Hg pO2 (80-100) mm/Hg HCO3 (21-28) mmol/L ABG pH (7.35-7.45) ABG Total CO2 (22-28) mmol/L ABG O2 Saturation (95-98) % ABG Base Excess (-2.0-3.0) mmol/L Devon Test ABG Potassium (3.6-5.2) mmol/L Glucose (65-105) mg/dl Lactate (0.7-2.1) mmol/L Crit Value Called To Crit Value Called By Crit Value Read Back Blood Gas Notified Time Sodium (132-148) mmol/L Potassium (3.6-5.2) mmol/L Chloride (98-107) mmol/L Carbon Dioxide (22-30) mmol/L Anion Gap (10-20) BUN (7-17) mg/dL Creatinine (0.7-1.2) mg/dL Est GFR ( Amer) Est GFR (Non-Af Amer) POC Glucose (mg/dL) 74 64 L (65-110) mg/dL Random Glucose (65-105) mg/dL Calcium (8.6-10.4) mg/dl Arterial Blood Potassium (3.6-5.2) mmol/L Urine Opiates Screen Negative (NEGATIVE) Urine Methadone Screen Negative (NEGATIVE) Ur Barbiturates Screen Negative (NEGATIVE) Ur Phencyclidine Scrn Negative (NEGATIVE) Ur Amphetamines Screen Negative (NEGATIVE) U Oth Cocaine Metabols Negative (NEGATIVE) U Cannabinoids Screen Negative (NEGATIVE) Influenza Typ A,B (EIA) (NEGATIVE) 07/04/17 07/04/17 07/04/17 Range/Units 09:39 09:17 09:03 WBC (4.8-10.8) K/uL RBC (3.80-5.20) Mil/uL Hgb (11.0-16.0) g/dL Hct (34.0-47.0) % MCV (81.0-99.0) fL MCH (27.0-31.0) pg MCHC (33.0-37.0) g/dL RDW (11.5-14.5) % Plt Count (130-400) K/uL MPV (7.2-11.7) fL Neut % (Auto) (50.0-75.0) % Lymph % (Auto) (20.0-40.0) % Barry % (Auto) (0.0-10.0) % Eos % (Auto) (0.0-4.0) % Baso % (Auto) (0.0-2.0) % Neut # (Auto) (1.8-7.0) K/uL Lymph # (Auto) (1.0-4.3) K/uL Barry # (Auto) (0.0-0.8) K/uL Eos # (Auto) (0.0-0.7) K/uL Baso # (Auto) (0.0-0.2) K/uL Neutrophils % (Manual) (50-75) % Band Neutrophils % (0-2) % Lymphocytes % (Manual) (20-40) % Monocytes % (Manual) (0-10) % Eosinophils % (Manual) (0-4) % Platelet Estimate (NORMAL) Polychromasia Hypochromasia (manual) Anisocytosis (manual) Puncture Site Lba pCO2 57 H (35-45) mm/Hg pO2 40 L* (80-100) mm/Hg HCO3 22.2 (21-28) mmol/L ABG pH 7.26 L (7.35-7.45) ABG Total CO2 27.3 (22-28) mmol/L ABG O2 Saturation 81.6 L (95-98) % ABG Base Excess -2.4 L (-2.0-3.0) mmol/L Devon Test Pos ABG Potassium 4.9 (3.6-5.2) mmol/L Glucose 77 (65-105) mg/dl Lactate 1.3 (0.7-2.1) mmol/L Crit Value Called To Dr padilla Crit Value Called By Donnell barrera compensation agent Crit Value Read Back Y Blood Gas Notified Time 943 Sodium 134.0 (132-148) mmol/L Potassium (3.6-5.2) mmol/L Chloride 102.0 (98-107) mmol/L Carbon Dioxide (22-30) mmol/L Anion Gap (10-20) BUN (7-17) mg/dL Creatinine (0.7-1.2) mg/dL Est GFR ( Amer) Est GFR (Non-Af Amer) POC Glucose (mg/dL) 83 (65-110) mg/dL Random Glucose (65-105) mg/dL Calcium (8.6-10.4) mg/dl Arterial Blood Potassium 4.9 (3.6-5.2) mmol/L Urine Opiates Screen (NEGATIVE) Urine Methadone Screen (NEGATIVE) Ur Barbiturates Screen (NEGATIVE) Ur Phencyclidine Scrn (NEGATIVE) Ur Amphetamines Screen (NEGATIVE) U Oth Cocaine Metabols (NEGATIVE) U Cannabinoids Screen (NEGATIVE) Influenza Typ A,B (EIA) Negative for flu a/b (NEGATIVE) 07/04/17 07/04/17 07/04/17 Range/Units 07:50 07:50 06:20 WBC 15.9 H (4.8-10.8) K/uL RBC 3.84 (3.80-5.20) Mil/uL Hgb 11.0 (11.0-16.0) g/dL Hct 33.4 L (34.0-47.0) % MCV 87.0 (81.0-99.0) fL MCH 28.6 (27.0-31.0) pg MCHC 32.9 L (33.0-37.0) g/dL RDW 17.2 H (11.5-14.5) % Plt Count 226 (130-400) K/uL MPV 9.0 (7.2-11.7) fL Neut % (Auto) 82.7 H (50.0-75.0) % Lymph % (Auto) 4.8 L (20.0-40.0) % Barry % (Auto) 8.7 (0.0-10.0) % Eos % (Auto) 3.5 (0.0-4.0) % Baso % (Auto) 0.3 (0.0-2.0) % Neut # (Auto) 13.1 H (1.8-7.0) K/uL Lymph # (Auto) 0.8 L (1.0-4.3) K/uL Barry # (Auto) 1.4 H (0.0-0.8) K/uL Eos # (Auto) 0.6 (0.0-0.7) K/uL Baso # (Auto) 0.0 (0.0-0.2) K/uL Neutrophils % (Manual) 72 (50-75) % Band Neutrophils % 13 H* (0-2) % Lymphocytes % (Manual) 10 L (20-40) % Monocytes % (Manual) 3 (0-10) % Eosinophils % (Manual) 2 (0-4) % Platelet Estimate Normal (NORMAL) Polychromasia Slight Hypochromasia (manual) Slight Anisocytosis (manual) Slight Puncture Site pCO2 (35-45) mm/Hg pO2 (80-100) mm/Hg HCO3 (21-28) mmol/L ABG pH (7.35-7.45) ABG Total CO2 (22-28) mmol/L ABG O2 Saturation (95-98) % ABG Base Excess (-2.0-3.0) mmol/L Devon Test ABG Potassium (3.6-5.2) mmol/L Glucose (65-105) mg/dl Lactate (0.7-2.1) mmol/L Crit Value Called To Crit Value Called By Crit Value Read Back Blood Gas Notified Time Sodium 133 (132-148) mmol/L Potassium 4.4 (3.6-5.2) mmol/L Chloride 95 L (98-107) mmol/L Carbon Dioxide 26 (22-30) mmol/L Anion Gap 17 (10-20) BUN 69 H (7-17) mg/dL Creatinine 5.4 H (0.7-1.2) mg/dL Est GFR ( Amer) 9 Est GFR (Non-Af Amer) 8 POC Glucose (mg/dL) 89 (65-110) mg/dL Random Glucose 79 (65-105) mg/dL Calcium 8.4 L (8.6-10.4) mg/dl Arterial Blood Potassium (3.6-5.2) mmol/L Urine Opiates Screen (NEGATIVE) Urine Methadone Screen (NEGATIVE) Ur Barbiturates Screen (NEGATIVE) Ur Phencyclidine Scrn (NEGATIVE) Ur Amphetamines Screen (NEGATIVE) U Oth Cocaine Metabols (NEGATIVE) U Cannabinoids Screen (NEGATIVE) Influenza Typ A,B (EIA) (NEGATIVE) 07/03/17 07/03/17 Range/Units 21:29 17:27 WBC (4.8-10.8) K/uL RBC (3.80-5.20) Mil/uL Hgb (11.0-16.0) g/dL Hct (34.0-47.0) % MCV (81.0-99.0) fL MCH (27.0-31.0) pg MCHC (33.0-37.0) g/dL RDW (11.5-14.5) % Plt Count (130-400) K/uL MPV (7.2-11.7) fL Neut % (Auto) (50.0-75.0) % Lymph % (Auto) (20.0-40.0) % Barry % (Auto) (0.0-10.0) % Eos % (Auto) (0.0-4.0) % Baso % (Auto) (0.0-2.0) % Neut # (Auto) (1.8-7.0) K/uL Lymph # (Auto) (1.0-4.3) K/uL Barry # (Auto) (0.0-0.8) K/uL Eos # (Auto) (0.0-0.7) K/uL Baso # (Auto) (0.0-0.2) K/uL Neutrophils % (Manual) (50-75) % Band Neutrophils % (0-2) % Lymphocytes % (Manual) (20-40) % Monocytes % (Manual) (0-10) % Eosinophils % (Manual) (0-4) % Platelet Estimate (NORMAL) Polychromasia Hypochromasia (manual) Anisocytosis (manual) Puncture Site pCO2 (35-45) mm/Hg pO2 (80-100) mm/Hg HCO3 (21-28) mmol/L ABG pH (7.35-7.45) ABG Total CO2 (22-28) mmol/L ABG O2 Saturation (95-98) % ABG Base Excess (-2.0-3.0) mmol/L Devon Test ABG Potassium (3.6-5.2) mmol/L Glucose (65-105) mg/dl Lactate (0.7-2.1) mmol/L Crit Value Called To Crit Value Called By Crit Value Read Back Blood Gas Notified Time Sodium (132-148) mmol/L Potassium (3.6-5.2) mmol/L Chloride (98-107) mmol/L Carbon Dioxide (22-30) mmol/L Anion Gap (10-20) BUN (7-17) mg/dL Creatinine (0.7-1.2) mg/dL Est GFR ( Amer) Est GFR (Non-Af Amer) POC Glucose (mg/dL) 100 82 (65-110) mg/dL Random Glucose (65-105) mg/dL Calcium (8.6-10.4) mg/dl Arterial Blood Potassium (3.6-5.2) mmol/L Urine Opiates Screen (NEGATIVE) Urine Methadone Screen (NEGATIVE) Ur Barbiturates Screen (NEGATIVE) Ur Phencyclidine Scrn (NEGATIVE) Ur Amphetamines Screen (NEGATIVE) U Oth Cocaine Metabols (NEGATIVE) U Cannabinoids Screen (NEGATIVE) Influenza Typ A,B (EIA) (NEGATIVE) Laboratory Results - last 24 hr 07/03/17 07/03/17 07/04/17 17:27 21:29 06:20 WBC RBC Hgb Hct MCV MCH MCHC RDW Plt Count MPV Neut % (Auto) Lymph % (Auto) Barry % (Auto) Eos % (Auto) Baso % (Auto) Neut # (Auto) Lymph # (Auto) Barry # (Auto) Eos # (Auto) Baso # (Auto) Neutrophils % (Manual) Band Neutrophils % Lymphocytes % (Manual) Monocytes % (Manual) Eosinophils % (Manual) Platelet Estimate Polychromasia Hypochromasia (manual) Anisocytosis (manual) Puncture Site pCO2 pO2 HCO3 ABG pH ABG Total CO2 ABG O2 Saturation ABG Base Excess Devon Test ABG Potassium Glucose Lactate Crit Value Called To Crit Value Called By Crit Value Read Back Blood Gas Notified Time Sodium Potassium Chloride Carbon Dioxide Anion Gap BUN Creatinine Est GFR ( Amer) Est GFR (Non-Af Amer) POC Glucose (mg/dL) 82 100 89 Random Glucose Calcium Arterial Blood Potassium Urine Opiates Screen Urine Methadone Screen Ur Barbiturates Screen Ur Phencyclidine Scrn Ur Amphetamines Screen U Oth Cocaine Metabols U Cannabinoids Screen Influenza Typ A,B (EIA) 07/04/17 07/04/17 07/04/17 07:50 07:50 09:03 WBC 15.9 H RBC 3.84 Hgb 11.0 Hct 33.4 L MCV 87.0 MCH 28.6 MCHC 32.9 L RDW 17.2 H Plt Count 226 MPV 9.0 Neut % (Auto) 82.7 H Lymph % (Auto) 4.8 L Barry % (Auto) 8.7 Eos % (Auto) 3.5 Baso % (Auto) 0.3 Neut # (Auto) 13.1 H Lymph # (Auto) 0.8 L Barry # (Auto) 1.4 H Eos # (Auto) 0.6 Baso # (Auto) 0.0 Neutrophils % (Manual) 72 Band Neutrophils % 13 H* Lymphocytes % (Manual) 10 L Monocytes % (Manual) 3 Eosinophils % (Manual) 2 Platelet Estimate Normal Polychromasia Slight Hypochromasia (manual) Slight Anisocytosis (manual) Slight Puncture Site pCO2 pO2 HCO3 ABG pH ABG Total CO2 ABG O2 Saturation ABG Base Excess Devon Test ABG Potassium Glucose Lactate Crit Value Called To Crit Value Called By Crit Value Read Back Blood Gas Notified Time Sodium 133 Potassium 4.4 Chloride 95 L Carbon Dioxide 26 Anion Gap 17 BUN 69 H Creatinine 5.4 H Est GFR ( Amer) 9 Est GFR (Non-Af Amer) 8 POC Glucose (mg/dL) 83 Random Glucose 79 Calcium 8.4 L Arterial Blood Potassium Urine Opiates Screen Urine Methadone Screen Ur Barbiturates Screen Ur Phencyclidine Scrn Ur Amphetamines Screen U Oth Cocaine Metabols U Cannabinoids Screen Influenza Typ A,B (EIA) 07/04/17 07/04/17 07/04/17 09:17 09:39 12:06 WBC RBC Hgb Hct MCV MCH MCHC RDW Plt Count MPV Neut % (Auto) Lymph % (Auto) Barry % (Auto) Eos % (Auto) Baso % (Auto) Neut # (Auto) Lymph # (Auto) Barry # (Auto) Eos # (Auto) Baso # (Auto) Neutrophils % (Manual) Band Neutrophils % Lymphocytes % (Manual) Monocytes % (Manual) Eosinophils % (Manual) Platelet Estimate Polychromasia Hypochromasia (manual) Anisocytosis (manual) Puncture Site Lba pCO2 57 H pO2 40 L* HCO3 22.2 ABG pH 7.26 L ABG Total CO2 27.3 ABG O2 Saturation 81.6 L ABG Base Excess -2.4 L Devon Test Pos ABG Potassium 4.9 Glucose 77 Lactate 1.3 Crit Value Called To Dr padilla Crit Value Called By Donnell barrera compensation agent Crit Value Read Back Y Blood Gas Notified Time 943 Sodium 134.0 Potassium Chloride 102.0 Carbon Dioxide Anion Gap BUN Creatinine Est GFR ( Amer) Est GFR (Non-Af Amer) POC Glucose (mg/dL) 64 L Random Glucose Calcium Arterial Blood Potassium 4.9 Urine Opiates Screen Urine Methadone Screen Ur Barbiturates Screen Ur Phencyclidine Scrn Ur Amphetamines Screen U Oth Cocaine Metabols U Cannabinoids Screen Influenza Typ A,B (EIA) Negative for flu a/b 07/04/17 07/04/17 12:08 12:32 WBC RBC Hgb Hct MCV MCH MCHC RDW Plt Count MPV Neut % (Auto) Lymph % (Auto) Barry % (Auto) Eos % (Auto) Baso % (Auto) Neut # (Auto) Lymph # (Auto) Barry # (Auto) Eos # (Auto) Baso # (Auto) Neutrophils % (Manual) Band Neutrophils % Lymphocytes % (Manual) Monocytes % (Manual) Eosinophils % (Manual) Platelet Estimate Polychromasia Hypochromasia (manual) Anisocytosis (manual) Puncture Site pCO2 pO2 HCO3 ABG pH ABG Total CO2 ABG O2 Saturation ABG Base Excess Devon Test ABG Potassium Glucose Lactate Crit Value Called To Crit Value Called By Crit Value Read Back Blood Gas Notified Time Sodium Potassium Chloride Carbon Dioxide Anion Gap BUN Creatinine Est GFR ( Amer) Est GFR (Non-Af Amer) POC Glucose (mg/dL) 74 Random Glucose Calcium Arterial Blood Potassium Urine Opiates Screen Negative Urine Methadone Screen Negative Ur Barbiturates Screen Negative Ur Phencyclidine Scrn Negative Ur Amphetamines Screen Negative U Oth Cocaine Metabols Negative U Cannabinoids Screen Negative Influenza Typ A,B (EIA) Review of Systems - EENT Eyes: absent: Blurred Vision, Discharge Ears: absent: Ear Discharge, Dizziness Nose/Mouth/Throat: absent: Nasal Congestion, Nose Pain, Odynophagia, Facial Pain , Neck Pain - Cardiovascular Cardiovascular: absent: Chest Pain, Claudication, Diaphoresis, Irregular Heart Rhythm, Palpitations, Pedal Edema - Respiratory Respiratory: absent: Dyspnea, Hemoptysis, Pain on Inspiration, Change in Mucous Color Additional comments: shortness of breath - Gastrointestinal Gastrointestinal: absent: Belching, Change in Stool Character, Dyspepsia, Fecal Incontinence, Loose Stools, Nausea, Vomiting - Genitourinary Genitourinary: absent: Change in Urinary Stream, Nocturia - Musculoskeletal Musculoskeletal: absent: Atrophy, Myalgias, Tingling - Psychiatric Psychiatric: absent: Anxiety, Change in Appetite, Paranoia - Endocrine Endocrine: absent: Polydipsia, Polyphagia, Polyuria Critical Care Progress Note - Nutrition Nutrition: Nutrition Category Date Time Status Heart Healthy Diet [DIET] Diets 06/30/17 Breakfast Active Assessment/Plan - Assessment and Plan (Free Text) Assessment: 71 yo female presenting with shortness of breath, leukocytosis and acute kidney injury. Patient trasnferred to ICU for further management. Plan: Neuro: no acute issues, pt responsive and awake - urine drug screen ordered Cards: HTN, CHF - ASA 81 mg PO QD - toporol XL 25 mg PO QD - Cardio (Gadhvi) Pulm: COPD, possible pneumonia - Zithromax 500 mg PO Q24H - Cefepime IV 1 gm Premix @ 100 mls/hr IVPB Q24H - Duoneb 3 ml IH Q15M - solumedrol 40 mg IVP Q8H - Pulm (Pradeep) - ID (Mangia) GI: vomiting, resolved Renal: - NS @ 60 mls/hr IV [id number] - Acetylcysteine 20% 4ml PO Q12H - abdominal U/S ordered . Will f/u with results. - Nephro (Osmin) Endo: no acute issues PPx: - Pepcid 20 mg PO QD - feosol 325 mg PO QD - multivitamins - nystatin topical for abdominal flap
--- NOTE | 2017-07-04 13:33 | CP.PCM.CON ---
<Edu Montes De Oca - Last Filed: 07/04/17 13:43> History of Present Illness - History of Present Illness History of Present Illness: 71 year old female with history of COPD, CHF and HTN was brought from her shelter and admitted on 06/29 for shortness of breath and hypoxia, as reported by the shelter staff. Her BNP was elevated at 10,600 and the echo showed normal EF of 65%. She was started on antibiotics for possible pneumonia. She was also found to have a UTI and was treated with antibiotics, as recommended by ID. Through the course of her stay, her kidney function declined , with her Cr rising to 5.4 and her urine output declined until she was making only 10cc/day. All nephrotoxic drugs were stopped and nephrology consult recommended temporary dialysis. On 07/04 a rapid response was called due to lethargy and hypotension. Pt was given a 500 ml bolus of fluid and soon recovered to her normal status. In light of the worsening kidney function and comorbidities, pt was transferred to ICU. PMH: DM, HTN, COPD, CHF, asthma PSH: debridement of sacral wound, and diverting colostomy SocialHx: Lives in shelter, denies ETOH, tobacco, recreational drug use ALL: NKDA PMD: Dr. Nichols Review of Systems - Constitutional Constitutional: absent: Chills, Headache, Snoring - EENT Eyes: absent: Blurred Vision, Discharge, Loss of Peripheral Vision, Requires Corrective Lenses, Loss of Vision Ears: absent: Ear Discharge, Dizziness Nose/Mouth/Throat: absent: Nasal Congestion, Nose Pain, Bleeding Gums, Halitosis , Facial Pain - Cardiovascular Cardiovascular: absent: Chest Pain, Claudication, Leg Edema, Palpitations, Pedal Edema - Respiratory Additional comments: shortness of breath - Gastrointestinal Gastrointestinal: absent: Abdominal Pain, Change in Stool Character, Diarrhea, Fecal Incontinence, Loose Stools, Vomiting - Genitourinary Genitourinary: absent: Pyuria, Nocturia, Freq UTI - Musculoskeletal Musculoskeletal: absent: Arthralgias, Muscle Weakness, Tingling - Neurological Neurological: absent: Numbness, Vertigo, Weakness - Endocrine Endocrine: absent: Polydipsia, Polyphagia, Polyuria Past Patient History - Past Medical History & Family History Past Medical History?: Yes - Past Social History Smoking Status: Never Smoked - CARDIAC Hx Congestive Heart Failure: Yes Hx Hypertension: Yes - PULMONARY Hx Chronic Obstructive Pulmonary Disease (COPD): Yes - ENDOCRINE/METABOLIC Hx Diabetes Mellitus Type 2: Yes - MUSCULOSKELETAL/RHEUMATOLOGICAL Hx Falls: No - GASTROINTESTINAL Hx Colostomy: Yes - PSYCHIATRIC Hx Substance Use: No - ANESTHESIA Hx Anesthesia: No Meds Allergies/Adverse Reactions: Allergies Allergy/AdvReac Type Severity Reaction Status Date / Time No Known Allergies Allergy Verified 06/29/17 15:48 - Medications Medications: Current Medications Acetaminophen (Tylenol 325mg Tab) 650 mg PO Q6 PRN PRN Reason: Pain, Mild (1-3) Acetylcysteine (Acetylcysteine 20%) 4 ml PO Q12H [facility] Stop: 07/05/17 22:31 Last Admin: 07/04/17 10:30 Dose: Not Given Aspirin (Aspirin Chewable) 81 mg PO DAILY [facility] Last Admin: 07/04/17 10:00 Dose: Not Given Azithromycin (Zithromax) 500 mg PO Q24H [facility] Last Admin: 07/03/17 18:55 Dose: 500 mg Famotidine (Pepcid) 20 mg PO DAILY [facility] Last Admin: 07/04/17 10:00 Dose: Not Given Ferrous Sulfate (Feosol) 325 mg PO DAILY [facility] Last Admin: 07/04/17 10:00 Dose: Not Given Cefepime HCl (Maxipime Iv 1 Gm Premix) 1 gm in 50 mls @ 100 mls/hr IVPB Q24H [facility] Last Admin: 07/03/17 18:56 Dose: 100 mls/hr Sodium Chloride (Sodium Chloride 0.9%) 1,000 mls @ 60 mls/hr IV .[id number] [facility] Last Admin: 07/03/17 22:23 Dose: Not Given Methylprednisolone (Solu-Medrol) 40 mg IVP Q8H [facility] Last Admin: 07/04/17 12:08 Dose: 40 mg Metoprolol Succinate (Toprol Xl) 25 mg PO DAILY [facility] Last Admin: 07/04/17 10:00 Dose: Not Given Multivitamins (Hexavitamin) 1 tab PO DAILY [facility] Last Admin: 07/04/17 10:00 Dose: Not Given Nystatin (Nystop Topical Powder) 1 applic TOP BID [facility] Last Admin: 07/04/17 10:00 Dose: Not Given Physical Exam - Head Exam Head Exam: ATRAUMATIC, NORMAL INSPECTION, NORMOCEPHALIC - Eye Exam Eye Exam: EOMI, Normal appearance, PERRL Pupil Exam: NORMAL ACCOMODATION, PERRL - ENT Exam ENT Exam: Mucous Membranes Moist, Normal Oropharynx - Respiratory Exam Respiratory Exam: Decreased Breath Sounds - Cardiovascular Exam Cardiovascular Exam: REGULAR RHYTHM, +S1, +S2 - GI/Abdominal Exam GI & Abdominal Exam: Normal Bowel Sounds, Soft Additional comments: s/p colostomy bag - Extremities Exam Extremities exam: Positive for: normal inspection. Negative for: full ROM, pedal edema - Back Exam Back exam: NORMAL INSPECTION - Neurological Exam Neurological exam: Alert, CN II-XII Intact - Skin Skin Exam: Dry, Intact Results - Vital Signs Recent Vital Signs: Last Vital Signs Temp 98.4 F 07/04/17 12:20 Pulse 87 07/04/17 13:20 Resp 21 07/04/17 13:20 BP 117/22 L 07/04/17 12:51 Pulse Ox 94 L 07/04/17 13:20 - Labs Result Diagrams: 07/04/17 07:50 07/04/17 07:50 Labs: Laboratory Results - last 24 hr 07/03/17 07/03/17 07/04/17 17:27 21:29 06:20 WBC RBC Hgb Hct MCV MCH MCHC RDW Plt Count MPV Neut % (Auto) Lymph % (Auto) Edgar % (Auto) Eos % (Auto) Baso % (Auto) Neut # (Auto) Lymph # (Auto) Edgar # (Auto) Eos # (Auto) Baso # (Auto) Neutrophils % (Manual) Band Neutrophils % Lymphocytes % (Manual) Monocytes % (Manual) Eosinophils % (Manual) Platelet Estimate Polychromasia Hypochromasia (manual) Anisocytosis (manual) Puncture Site pCO2 pO2 HCO3 ABG pH ABG Total CO2 ABG O2 Saturation ABG Base Excess Devon Test ABG Potassium Glucose Lactate Crit Value Called To Crit Value Called By Crit Value Read Back Blood Gas Notified Time Sodium Potassium Chloride Carbon Dioxide Anion Gap BUN Creatinine Est GFR ( Amer) Est GFR (Non-Af Amer) POC Glucose (mg/dL) 82 100 89 Random Glucose Calcium Arterial Blood Potassium Urine Opiates Screen Urine Methadone Screen Ur Barbiturates Screen Ur Phencyclidine Scrn Ur Amphetamines Screen U Oth Cocaine Metabols U Cannabinoids Screen Influenza Typ A,B (EIA) 07/04/17 07/04/17 07/04/17 07:50 07:50 09:03 WBC 15.9 H RBC 3.84 Hgb 11.0 Hct 33.4 L MCV 87.0 MCH 28.6 MCHC 32.9 L RDW 17.2 H Plt Count 226 MPV 9.0 Neut % (Auto) 82.7 H Lymph % (Auto) 4.8 L Edgar % (Auto) 8.7 Eos % (Auto) 3.5 Baso % (Auto) 0.3 Neut # (Auto) 13.1 H Lymph # (Auto) 0.8 L Edgar # (Auto) 1.4 H Eos # (Auto) 0.6 Baso # (Auto) 0.0 Neutrophils % (Manual) 72 Band Neutrophils % 13 H* Lymphocytes % (Manual) 10 L Monocytes % (Manual) 3 Eosinophils % (Manual) 2 Platelet Estimate Normal Polychromasia Slight Hypochromasia (manual) Slight Anisocytosis (manual) Slight Puncture Site pCO2 pO2 HCO3 ABG pH ABG Total CO2 ABG O2 Saturation ABG Base Excess Devon Test ABG Potassium Glucose Lactate Crit Value Called To Crit Value Called By Crit Value Read Back Blood Gas Notified Time Sodium 133 Potassium 4.4 Chloride 95 L Carbon Dioxide 26 Anion Gap 17 BUN 69 H Creatinine 5.4 H Est GFR ( Amer) 9 Est GFR (Non-Af Amer) 8 POC Glucose (mg/dL) 83 Random Glucose 79 Calcium 8.4 L Arterial Blood Potassium Urine Opiates Screen Urine Methadone Screen Ur Barbiturates Screen Ur Phencyclidine Scrn Ur Amphetamines Screen U Oth Cocaine Metabols U Cannabinoids Screen Influenza Typ A,B (EIA) 07/04/17 07/04/17 07/04/17 09:17 09:39 12:06 WBC RBC Hgb Hct MCV MCH MCHC RDW Plt Count MPV Neut % (Auto) Lymph % (Auto) Edgar % (Auto) Eos % (Auto) Baso % (Auto) Neut # (Auto) Lymph # (Auto) Edgar # (Auto) Eos # (Auto) Baso # (Auto) Neutrophils % (Manual) Band Neutrophils % Lymphocytes % (Manual) Monocytes % (Manual) Eosinophils % (Manual) Platelet Estimate Polychromasia Hypochromasia (manual) Anisocytosis (manual) Puncture Site Lba pCO2 57 H pO2 40 L* HCO3 22.2 ABG pH 7.26 L ABG Total CO2 27.3 ABG O2 Saturation 81.6 L ABG Base Excess -2.4 L Devon Test Pos ABG Potassium 4.9 Glucose 77 Lactate 1.3 Crit Value Called To Dr padilla Crit Value Called By Donnell barrera global account executive Crit Value Read Back Y Blood Gas Notified Time 943 Sodium 134.0 Potassium Chloride 102.0 Carbon Dioxide Anion Gap BUN Creatinine Est GFR ( Amer) Est GFR (Non-Af Amer) POC Glucose (mg/dL) 64 L Random Glucose Calcium Arterial Blood Potassium 4.9 Urine Opiates Screen Urine Methadone Screen Ur Barbiturates Screen Ur Phencyclidine Scrn Ur Amphetamines Screen U Oth Cocaine Metabols U Cannabinoids Screen Influenza Typ A,B (EIA) Negative for flu a/b 07/04/17 07/04/17 12:08 12:32 WBC RBC Hgb Hct MCV MCH MCHC RDW Plt Count MPV Neut % (Auto) Lymph % (Auto) Edgar % (Auto) Eos % (Auto) Baso % (Auto) Neut # (Auto) Lymph # (Auto) Edgar # (Auto) Eos # (Auto) Baso # (Auto) Neutrophils % (Manual) Band Neutrophils % Lymphocytes % (Manual) Monocytes % (Manual) Eosinophils % (Manual) Platelet Estimate Polychromasia Hypochromasia (manual) Anisocytosis (manual) Puncture Site pCO2 pO2 HCO3 ABG pH ABG Total CO2 ABG O2 Saturation ABG Base Excess Devon Test ABG Potassium Glucose Lactate Crit Value Called To Crit Value Called By Crit Value Read Back Blood Gas Notified Time Sodium Potassium Chloride Carbon Dioxide Anion Gap BUN Creatinine Est GFR ( Amer) Est GFR (Non-Af Amer) POC Glucose (mg/dL) 74 Random Glucose Calcium Arterial Blood Potassium Urine Opiates Screen Negative Urine Methadone Screen Negative Ur Barbiturates Screen Negative Ur Phencyclidine Scrn Negative Ur Amphetamines Screen Negative U Oth Cocaine Metabols Negative U Cannabinoids Screen Negative Influenza Typ A,B (EIA) Assessment & Plan - Assessment and Plan (Free Text) Assessment: 71 yo female presenting with shortness of breath, leukocytosis and acute kidney injury. Patient trasnferred to ICU for further management. Plan: Neuro: no acute issues, pt responsive and awake - urine drug screen ordered Cards: HTN, CHF - ASA 81 mg PO QD - toporol XL 25 mg PO QD - Cardio (Gadhvi) consulted. Will f/u with further rec's. Pulm: COPD, possible pneumonia - Zithromax 500 mg PO Q24H - Cefepime IV 1 gm Premix @ 100 mls/hr IVPB Q24H - Duoneb 3 ml IH Q15M - solumedrol 40 mg IVP Q8H - Pulm (Pradeep) consulted. Will f/u with further rec's. - ID (Rachel) consulted. Will f/u with further rec's. GI: vomiting, resolved Renal: - NS @ 60 mls/hr IV [id number] - Acetylcysteine 20% 4ml PO Q12H - abdominal U/S ordered . Will f/u with results. - Nephro (Osmin) consulted. Will f/u with results. Endo: no acute issues PPx: - Pepcid 20 mg PO QD - feosol 325 mg PO QD - multivitamins - nystatin topical for abdominal flap <John Silverman - Last Filed: 07/04/17 18:13> Meds - Medications Medications: Current Medications Acetaminophen (Tylenol 325mg Tab) 650 mg PO Q6 PRN PRN Reason: Pain, Mild (1-3) Acetylcysteine (Acetylcysteine 20%) 4 ml PO Q12H [facility] Stop: 07/05/17 22:31 Last Admin: 07/04/17 10:30 Dose: Not Given Aspirin (Aspirin Chewable) 81 mg PO DAILY [facility] Last Admin: 07/04/17 10:00 Dose: Not Given Azithromycin (Zithromax) 500 mg PO Q24H [facility] Last Admin: 07/03/17 18:55 Dose: 500 mg Famotidine (Pepcid) 20 mg PO DAILY [facility] Last Admin: 07/04/17 10:00 Dose: Not Given Ferrous Sulfate (Feosol) 325 mg PO DAILY [facility] Last Admin: 07/04/17 10:00 Dose: Not Given Cefepime HCl (Maxipime Iv 1 Gm Premix) 1 gm in 50 mls @ 100 mls/hr IVPB Q24H [facility] Last Admin: 07/03/17 18:56 Dose: 100 mls/hr Sodium Chloride (Sodium Chloride 0.9%) 1,000 mls @ 60 mls/hr IV .[id number] [facility] Last Admin: 07/03/17 22:23 Dose: Not Given Methylprednisolone (Solu-Medrol) 40 mg IVP Q8H [facility] Last Admin: 07/04/17 12:08 Dose: 40 mg Metoprolol Succinate (Toprol Xl) 25 mg PO DAILY [facility] Last Admin: 07/04/17 10:00 Dose: Not Given Multivitamins (Hexavitamin) 1 tab PO DAILY [facility] Last Admin: 07/04/17 10:00 Dose: Not Given Nystatin (Nystop Topical Powder) 1 applic TOP BID [facility] Last Admin: 07/04/17 10:00 Dose: Not Given Results - Vital Signs Recent Vital Signs: Last Vital Signs Temp 98.6 F 07/04/17 16:00 Pulse 85 07/04/17 14:40 Resp 21 07/04/17 14:40 BP 90/27 L 07/04/17 14:20 Pulse Ox 95 07/04/17 14:40 - Labs Result Diagrams: 07/04/17 07:50 07/04/17 07:50 Labs: Laboratory Results - last 24 hr 07/03/17 07/03/17 07/04/17 17:27 21:29 06:20 WBC RBC Hgb Hct MCV MCH MCHC RDW Plt Count MPV Neut % (Auto) Lymph % (Auto) Edgar % (Auto) Eos % (Auto) Baso % (Auto) Neut # (Auto) Lymph # (Auto) Edgar # (Auto) Eos # (Auto) Baso # (Auto) Neutrophils % (Manual) Band Neutrophils % Lymphocytes % (Manual) Monocytes % (Manual) Eosinophils % (Manual) Platelet Estimate Polychromasia Hypochromasia (manual) Anisocytosis (manual) Puncture Site pCO2 pO2 HCO3 ABG pH ABG Total CO2 ABG O2 Saturation ABG Base Excess [place] Test ABG Potassium Glucose Lactate Crit Value Called To Crit Value Called By Crit Value Read Back Blood Gas Notified Time Sodium Potassium Chloride Carbon Dioxide Anion Gap BUN Creatinine Est GFR ( Amer) Est GFR (Non-Af Amer) POC Glucose (mg/dL) 82 100 89 Random Glucose Calcium Arterial Blood Potassium Urine Eosinophils Urine Opiates Screen Urine Methadone Screen Ur Barbiturates Screen Ur Phencyclidine Scrn Ur Amphetamines Screen U Benzodiazepines Scrn U Oth Cocaine Metabols U Cannabinoids Screen Hep Bs Antibody Hep B Core IgM Ab Hepatitis C Antibody Influenza Typ A,B (EIA) 07/04/17 07/04/17 07/04/17 07:50 07:50 09:03 WBC 15.9 H RBC 3.84 Hgb 11.0 Hct 33.4 L MCV 87.0 MCH 28.6 MCHC 32.9 L RDW 17.2 H Plt Count 226 MPV 9.0 Neut % (Auto) 82.7 H Lymph % (Auto) 4.8 L Edgar % (Auto) 8.7 Eos % (Auto) 3.5 Baso % (Auto) 0.3 Neut # (Auto) 13.1 H Lymph # (Auto) 0.8 L Edgar # (Auto) 1.4 H Eos # (Auto) 0.6 Baso # (Auto) 0.0 Neutrophils % (Manual) 72 Band Neutrophils % 13 H* Lymphocytes % (Manual) 10 L Monocytes % (Manual) 3 Eosinophils % (Manual) 2 Platelet Estimate Normal Polychromasia Slight Hypochromasia (manual) Slight Anisocytosis (manual) Slight Puncture Site pCO2 pO2 HCO3 ABG pH ABG Total CO2 ABG O2 Saturation ABG Base Excess [place] Test ABG Potassium Glucose Lactate Crit Value Called To Crit Value Called By Crit Value Read Back Blood Gas Notified Time Sodium 133 Potassium 4.4 Chloride 95 L Carbon Dioxide 26 Anion Gap 17 BUN 69 H Creatinine 5.4 H Est GFR ( Amer) 9 Est GFR (Non-Af Amer) 8 POC Glucose (mg/dL) 83 Random Glucose 79 Calcium 8.4 L Arterial Blood Potassium Urine Eosinophils Urine Opiates Screen Urine Methadone Screen Ur Barbiturates Screen Ur Phencyclidine Scrn Ur Amphetamines Screen U Benzodiazepines Scrn U Oth Cocaine Metabols U Cannabinoids Screen Hep Bs Antibody Hep B Core IgM Ab Hepatitis C Antibody Influenza Typ A,B (EIA) 07/04/17 07/04/17 07/04/17 09:17 09:39 12:06 WBC RBC Hgb Hct MCV MCH MCHC RDW Plt Count MPV Neut % (Auto) Lymph % (Auto) Edgar % (Auto) Eos % (Auto) Baso % (Auto) Neut # (Auto) Lymph # (Auto) Edgar # (Auto) Eos # (Auto) Baso # (Auto) Neutrophils % (Manual) Band Neutrophils % Lymphocytes % (Manual) Monocytes % (Manual) Eosinophils % (Manual) Platelet Estimate Polychromasia Hypochromasia (manual) Anisocytosis (manual) Puncture Site Lba pCO2 57 H pO2 40 L* HCO3 22.2 ABG pH 7.26 L ABG Total CO2 27.3 ABG O2 Saturation 81.6 L ABG Base Excess -2.4 L Devon Test Pos ABG Potassium 4.9 Glucose 77 Lactate 1.3 Crit Value Called To Dr padilla Crit Value Called By Donnell barrera global account executive Crit Value Read Back Y Blood Gas Notified Time 943 Sodium 134.0 Potassium Chloride 102.0 Carbon Dioxide Anion Gap BUN Creatinine Est GFR ( Amer) Est GFR (Non-Af Amer) POC Glucose (mg/dL) 64 L Random Glucose Calcium Arterial Blood Potassium 4.9 Urine Eosinophils Urine Opiates Screen Urine Methadone Screen Ur Barbiturates Screen Ur Phencyclidine Scrn Ur Amphetamines Screen U Benzodiazepines Scrn U Oth Cocaine Metabols U Cannabinoids Screen Hep Bs Antibody Hep B Core IgM Ab Hepatitis C Antibody Influenza Typ A,B (EIA) Negative for flu a/b 07/04/17 07/04/17 07/04/17 12:08 12:32 12:32 WBC RBC Hgb Hct MCV MCH MCHC RDW Plt Count MPV Neut % (Auto) Lymph % (Auto) Edgar % (Auto) Eos % (Auto) Baso % (Auto) Neut # (Auto) Lymph # (Auto) Edgar # (Auto) Eos # (Auto) Baso # (Auto) Neutrophils % (Manual) Band Neutrophils % Lymphocytes % (Manual) Monocytes % (Manual) Eosinophils % (Manual) Platelet Estimate Polychromasia Hypochromasia (manual) Anisocytosis (manual) Puncture Site pCO2 pO2 HCO3 ABG pH ABG Total CO2 ABG O2 Saturation ABG Base Excess [place] Test ABG Potassium Glucose Lactate Crit Value Called To Crit Value Called By Crit Value Read Back Blood Gas Notified Time Sodium Potassium Chloride Carbon Dioxide Anion Gap BUN Creatinine Est GFR ( Amer) Est GFR (Non-Af Amer) POC Glucose (mg/dL) 74 Random Glucose Calcium Arterial Blood Potassium Urine Eosinophils Negative Urine Opiates Screen Negative Urine Methadone Screen Negative Ur Barbiturates Screen Negative Ur Phencyclidine Scrn Negative Ur Amphetamines Screen Negative U Benzodiazepines Scrn Negative U Oth Cocaine Metabols Negative U Cannabinoids Screen Negative Hep Bs Antibody Hep B Core IgM Ab Hepatitis C Antibody Influenza Typ A,B (EIA) 07/04/17 07/04/17 07/04/17 16:36 16:43 16:43 WBC RBC Hgb Hct MCV MCH MCHC RDW Plt Count MPV Neut % (Auto) Lymph % (Auto) Edgar % (Auto) Eos % (Auto) Baso % (Auto) Neut # (Auto) Lymph # (Auto) Edgar # (Auto) Eos # (Auto) Baso # (Auto) Neutrophils % (Manual) Band Neutrophils % Lymphocytes % (Manual) Monocytes % (Manual) Eosinophils % (Manual) Platelet Estimate Polychromasia Hypochromasia (manual) Anisocytosis (manual) Puncture Site pCO2 pO2 HCO3 ABG pH ABG Total CO2 ABG O2 Saturation ABG Base Excess [place] Test ABG Potassium Glucose Lactate Crit Value Called To Crit Value Called By Crit Value Read Back Blood Gas Notified Time Sodium Potassium Chloride Carbon Dioxide Anion Gap BUN Creatinine Est GFR ( Amer) Est GFR (Non-Af Amer) POC Glucose (mg/dL) 73 Random Glucose Calcium Arterial Blood Potassium Urine Eosinophils Urine Opiates Screen Urine Methadone Screen Ur Barbiturates Screen Ur Phencyclidine Scrn Ur Amphetamines Screen U Benzodiazepines Scrn U Oth Cocaine Metabols U Cannabinoids Screen Hep Bs Antibody Negative Hep B Core IgM Ab Negative Hepatitis C Antibody Negative Influenza Typ A,B (EIA) 07/04/17 17:24 WBC RBC Hgb Hct MCV MCH MCHC RDW Plt Count MPV Neut % (Auto) Lymph % (Auto) Edgar % (Auto) Eos % (Auto) Baso % (Auto) Neut # (Auto) Lymph # (Auto) Edgar # (Auto) Eos # (Auto) Baso # (Auto) Neutrophils % (Manual) Band Neutrophils % Lymphocytes % (Manual) Monocytes % (Manual) Eosinophils % (Manual) Platelet Estimate Polychromasia Hypochromasia (manual) Anisocytosis (manual) Puncture Site pCO2 pO2 HCO3 ABG pH ABG Total CO2 ABG O2 Saturation ABG Base Excess [place] Test ABG Potassium Glucose Lactate Crit Value Called To Crit Value Called By Crit Value Read Back Blood Gas Notified Time Sodium Potassium Chloride Carbon Dioxide Anion Gap BUN Creatinine Est GFR ( Amer) Est GFR (Non-Af Amer) POC Glucose (mg/dL) 115 H Random Glucose Calcium Arterial Blood Potassium Urine Eosinophils Urine Opiates Screen Urine Methadone Screen Ur Barbiturates Screen Ur Phencyclidine Scrn Ur Amphetamines Screen U Benzodiazepines Scrn U Oth Cocaine Metabols U Cannabinoids Screen Hep Bs Antibody Hep B Core IgM Ab Hepatitis C Antibody Influenza Typ A,B (EIA) Assessment & Plan - Assessment and Plan (Free Text) Plan: Patient seen and examined at bedside. Patient was found drowsy. Patient was on acei before admission. Patient continued to have worsening creatinie. --Dr. Fernández saw patient and found patient to be drowsy and called MAIL WEIGHER and requested patient to be admitted to ICU. Patient was seen and examined by myself , patient was more awake, alert. -ESTEVAN: etiology unknown, start mucomyst orally, avoid nephrotoxic drugs, HD as per vehicle body maker -Chronic obesity hypoventilation: will benefit from bi-pap PRN basis -Patient remains hemodynamically stable - Date & Time Date: 07/04/17 Time: 15:00
[2017-07-04 13:36] LABS: BENZODIAZEPINES, UR NEGATIVE (NEGATIVE)
--- NOTE | 2017-07-04 15:54 | PCM.PROC ---
Procedures Attestation:: I certify that I have explained the specified Operation(s) or Procedure(s), risks, benefits and reasonable alternatives to the Patient and/or other person responsible. The opportunity was given to ask questions and all questions answered - Central Line Placement Right Femoral Hemodialysis Access Aseptic technique was employed throughout the procedure: Hand Hygiene done prior to procedure, Full sterile barriers (mask, hair cover, sterile gown, sterile gloves), Full body sterile drape, Chloraprep Antiseptic: 30 second prep for IJ or SC sites CVP Time Out Performed: Yes Central Line Prep: Chlorhexidine-Alcohol Combination Local Anesthesia Used: Lidocaine 1% Amount of Anesthesia Used (mls): 6 Ultrasound Used for Placement: Yes Central Line Lumen Inserted: triple Central Line Length: 20 cm Post Procedure: Sutured in Place, Good Blood Return, All Ports Aspirated, Flushed, Capped, Sterile Dressing Applied Secured by: Suture Post procedure dressing: Gauze, Clear vapor permeable, Chlorhexidine disc ( Biopatch) Post Procedure X-Ray: Yes Patient Tolerated Procedure: Well Immediate Complications: None
[2017-07-04] MEDS ORDERED: Dextrose 50% SYRINGE Inj (50 ml) IV STA (16:41)
--- NOTE | 2017-07-04 16:47 | RAD ---
HISTORY: s/p temporary dialysis catheter placement COMPARISON: 07/04/2017 at 9:12 a.m. FINDINGS: LUNGS: Medial right basilar opacity may reflect an acute infiltrate. However, the patient is obliquely positioned and evaluation is limited. No significant change from prior examination. PLEURA: No significant pleural effusion identified, no pneumothorax apparent. CARDIOVASCULAR: Normal. OSSEOUS STRUCTURES: No significant abnormalities. VISUALIZED UPPER ABDOMEN: Normal. OTHER FINDINGS: None. IMPRESSION: Possible right medial basilar infiltrate. Follow-up advised.
--- NOTE | 2017-07-04 17:30 | CP.PCM.PN ---
Subjective - Date & Time of Evaluation Date of Evaluation: 07/04/17 Time of Evaluation: 17:28 - Subjective Subjective: first HD for rising creatinine, decreased u/o, and respiratory distress in ICU on bipap on HD via femoral shiley unable to obtain ROS due to clinical condition Objective - Vital Signs/Intake and Output Vital Signs (last 24 hours): Temp Pulse Resp BP Pulse Ox 98.4 F 85 21 90/27 L 95 07/04/17 12:20 07/04/17 14:40 07/04/17 14:40 07/04/17 14:20 07/04/17 14:40 Intake and Output: 07/04/17 07/04/17 06:59 18:59 Intake Total 540 0 Output Total 60 10 Balance 480 -10 - Medications Medications: Current Medications Acetaminophen (Tylenol 325mg Tab) 650 mg PO Q6 PRN PRN Reason: Pain, Mild (1-3) Acetylcysteine (Acetylcysteine 20%) 4 ml PO Q12H [facility] Stop: 07/05/17 22:31 Last Admin: 07/04/17 10:30 Dose: Not Given Aspirin (Aspirin Chewable) 81 mg PO DAILY [facility] Last Admin: 07/04/17 10:00 Dose: Not Given Azithromycin (Zithromax) 500 mg PO Q24H [facility] Last Admin: 07/03/17 18:55 Dose: 500 mg Famotidine (Pepcid) 20 mg PO DAILY [facility] Last Admin: 07/04/17 10:00 Dose: Not Given Ferrous Sulfate (Feosol) 325 mg PO DAILY [facility] Last Admin: 07/04/17 10:00 Dose: Not Given Cefepime HCl (Maxipime Iv 1 Gm Premix) 1 gm in 50 mls @ 100 mls/hr IVPB Q24H [facility] Last Admin: 07/03/17 18:56 Dose: 100 mls/hr Sodium Chloride (Sodium Chloride 0.9%) 1,000 mls @ 60 mls/hr IV .[id number] [facility] Last Admin: 07/03/17 22:23 Dose: Not Given Methylprednisolone (Solu-Medrol) 40 mg IVP Q8H [facility] Last Admin: 07/04/17 12:08 Dose: 40 mg Metoprolol Succinate (Toprol Xl) 25 mg PO DAILY [facility] Last Admin: 07/04/17 10:00 Dose: Not Given Multivitamins (Hexavitamin) 1 tab PO DAILY [facility] Last Admin: 07/04/17 10:00 Dose: Not Given Nystatin (Nystop Topical Powder) 1 applic TOP BID [facility] Last Admin: 07/04/17 10:00 Dose: Not Given - Labs Labs: 07/04/17 07:50 07/04/17 07:50 PT 12.9 SECONDS (9.7-12.2) H 06/29/17 16:42 INR 1.2 06/29/17 16:42 APTT 34 SECONDS (21-34) 06/29/17 16:42 - Constitutional Appears: In Acute Distress, Confused, Chronically Ill - Head Exam Head Exam: ATRAUMATIC, NORMAL INSPECTION - Eye Exam Eye Exam: EOMI, Normal appearance - ENT Exam ENT Exam: Mucous Membranes Moist - Neck Exam Neck Exam: Full ROM. absent: Lymphadenopathy - Respiratory Exam Respiratory Exam: Decreased Breath Sounds - Cardiovascular Exam Cardiovascular Exam: REGULAR RHYTHM. absent: Rubs - GI/Abdominal Exam GI & Abdominal Exam: Distended. absent: Tenderness - Extremities Exam Extremities Exam: Pedal Edema Assessment and Plan - Assessment and Plan (Free Text) Assessment: jordy requiring HD, suspected ATN check urine Na HD support for now
[2017-07-04 17:41] LABS: HEPATITIS B CORE AB NEGATIVE (NEGATIVE)
[2017-07-04 17:54] LABS: HEPATITIS C ANTIBODY NEGATIVE (NEGATIVE)
--- NOTE | 2017-07-04 18:33 | CP.PCM.PN ---
Subjective - Date & Time of Evaluation Date of Evaluation: 07/04/17 Time of Evaluation: 07:00 - Subjective Subjective: events noted transferred to icu for AMS has uremia HD done first time today iv rx in progress Objective - Vital Signs/Intake and Output Vital Signs (last 24 hours): Temp Pulse Resp BP Pulse Ox 98 F 83 20 98/40 L 95 07/04/17 16:20 07/04/17 17:40 07/04/17 17:40 07/04/17 17:40 07/04/17 17:40 Intake and Output: 07/04/17 07/04/17 06:59 18:59 Intake Total 540 0 Output Total 60 10 Balance 480 -10 - Medications Medications: Current Medications Acetaminophen (Tylenol 325mg Tab) 650 mg PO Q6 PRN PRN Reason: Pain, Mild (1-3) Acetylcysteine (Acetylcysteine 20%) 4 ml PO Q12H [facility] Stop: 07/05/17 22:31 Last Admin: 07/04/17 10:30 Dose: Not Given Aspirin (Aspirin Chewable) 81 mg PO DAILY [facility] Last Admin: 07/04/17 10:00 Dose: Not Given Azithromycin (Zithromax) 500 mg PO Q24H [facility] Last Admin: 07/03/17 18:55 Dose: 500 mg Famotidine (Pepcid) 20 mg PO DAILY [facility] Last Admin: 07/04/17 10:00 Dose: Not Given Ferrous Sulfate (Feosol) 325 mg PO DAILY [facility] Last Admin: 07/04/17 10:00 Dose: Not Given Cefepime HCl (Maxipime Iv 1 Gm Premix) 1 gm in 50 mls @ 100 mls/hr IVPB Q24H [facility] Last Admin: 07/03/17 18:56 Dose: 100 mls/hr Sodium Chloride (Sodium Chloride 0.9%) 1,000 mls @ 60 mls/hr IV .[id number] [facility] Last Admin: 07/03/17 22:23 Dose: Not Given Methylprednisolone (Solu-Medrol) 40 mg IVP Q8H [facility] Last Admin: 07/04/17 12:08 Dose: 40 mg Metoprolol Succinate (Toprol Xl) 25 mg PO DAILY [facility] Last Admin: 07/04/17 10:00 Dose: Not Given Multivitamins (Hexavitamin) 1 tab PO DAILY [facility] Last Admin: 07/04/17 10:00 Dose: Not Given Nystatin (Nystop Topical Powder) 1 applic TOP BID [facility] Last Admin: 07/04/17 10:00 Dose: Not Given - Labs Labs: 07/04/17 07:50 07/04/17 07:50 PT 12.9 SECONDS (9.7-12.2) H 06/29/17 16:42 INR 1.2 06/29/17 16:42 APTT 34 SECONDS (21-34) 06/29/17 16:42 - Constitutional Appears: Confused, Chronically Ill - Head Exam Head Exam: NORMOCEPHALIC - Eye Exam Eye Exam: PERRL - ENT Exam ENT Exam: Mucous Membranes Dry - Neck Exam Neck Exam: absent: Lymphadenopathy - Respiratory Exam Respiratory Exam: Decreased Breath Sounds, Rhonchi - Cardiovascular Exam Cardiovascular Exam: REGULAR RHYTHM - GI/Abdominal Exam GI & Abdominal Exam: Distended, Soft - Rectal Exam Rectal Exam: Deferred - Exam Exam: NORMAL INSPECTION - Extremities Exam Extremities Exam: absent: Pedal Edema - Back Exam Back Exam: absent: CVA tenderness (L), CVA tenderness (R) - Neurological Exam Neurological Exam: Alert, Awake - Psychiatric Exam Psychiatric exam: Depressed - Skin Skin Exam: Dry Assessment and Plan (1) UTI (urinary tract infection) Status: Acute (2) UTI (urinary tract infection) Status: Acute (3) Chr obstructive pulmonary disease w/ acute lower respiratory infxn Status: Acute (4) Chronic congestive heart failure Status: Acute (5) Dyspnea Status: Acute (6) Respiratory distress Status: Acute - Assessment and Plan (Free Text) Assessment: 71 year old female with history of COPD, CHF and HTN was brought from her correction and admitted on 06/29 for shortness of breath and hypoxia, as reported by the correction staff. Her BNP was elevated at 10,600 and the echo showed normal EF of 65%. She was started on antibiotics for possible pneumonia. She was also found to have a UTI and was treated with antibiotics Through the course of her stay, her kidney function declined, with her Cr rising to 5.4 and her urine output declined until she was making only 10cc/day. All nephrotoxic drugs were stopped and nephrology consult recommended temporary dialysis. On 07/04 a rapid response was called due to lethargy and hypotension. Pt was given a 500 ml bolus of fluid and soon recovered to her normal status. In light of the worsening kidney function and comorbidities, pt was transferred to ICU.
[2017-07-04] MEDS: Cefepime IV 1 gm in Dextrose 1 GM/50 ML BAG IVPB SCH (18:53)
--- NOTE | 2017-07-04 18:56 | CP.PCM.PN ---
Subjective - Date & Time of Evaluation Date of Evaluation: 07/04/17 Time of Evaluation: 13:20 - Subjective Subjective: clinically same Objective - Vital Signs/Intake and Output Vital Signs (last 24 hours): Temp Pulse Resp BP Pulse Ox 98 F 79 17 116/35 L 95 07/04/17 16:20 07/04/17 18:00 07/04/17 18:00 07/04/17 18:00 07/04/17 18:00 Intake and Output: 07/04/17 07/04/17 06:59 18:59 Intake Total 540 0 Output Total 60 10 Balance 480 -10 - Medications Medications: Current Medications Acetaminophen (Tylenol 325mg Tab) 650 mg PO Q6 PRN PRN Reason: Pain, Mild (1-3) Acetylcysteine (Acetylcysteine 20%) 4 ml PO Q12H [facility] Stop: 07/05/17 22:31 Last Admin: 07/04/17 10:30 Dose: Not Given Aspirin (Aspirin Chewable) 81 mg PO DAILY [facility] Last Admin: 07/04/17 10:00 Dose: Not Given Azithromycin (Zithromax) 500 mg PO Q24H [facility] Last Admin: 07/03/17 18:55 Dose: 500 mg Famotidine (Pepcid) 20 mg PO DAILY [facility] Last Admin: 07/04/17 10:00 Dose: Not Given Ferrous Sulfate (Feosol) 325 mg PO DAILY [facility] Last Admin: 07/04/17 10:00 Dose: Not Given Cefepime HCl (Maxipime Iv 1 Gm Premix) 1 gm in 50 mls @ 100 mls/hr IVPB Q24H [facility] Last Admin: 07/04/17 18:53 Dose: 100 mls/hr Sodium Chloride (Sodium Chloride 0.9%) 1,000 mls @ 60 mls/hr IV .[id number] [facility] Last Admin: 07/03/17 22:23 Dose: Not Given Methylprednisolone (Solu-Medrol) 40 mg IVP Q8H [facility] Last Admin: 07/04/17 12:08 Dose: 40 mg Metoprolol Succinate (Toprol Xl) 25 mg PO DAILY [facility] Last Admin: 07/04/17 10:00 Dose: Not Given Multivitamins (Hexavitamin) 1 tab PO DAILY [facility] Last Admin: 07/04/17 10:00 Dose: Not Given Nystatin (Nystop Topical Powder) 1 applic TOP BID [facility] Last Admin: 07/04/17 18:52 Dose: 1 applic - Labs Labs: 07/04/17 07:50 07/04/17 07:50 PT 12.9 SECONDS (9.7-12.2) H 06/29/17 16:42 INR 1.2 06/29/17 16:42 APTT 34 SECONDS (21-34) 06/29/17 16:42 - Constitutional Appears: Well - Head Exam Head Exam: ATRAUMATIC, NORMAL INSPECTION, NORMOCEPHALIC - Eye Exam Eye Exam: EOMI, Normal appearance, PERRL Pupil Exam: NORMAL ACCOMODATION, PERRL - ENT Exam ENT Exam: Mucous Membranes Moist, Normal Exam - Neck Exam Neck Exam: Full ROM, Normal Inspection. absent: Lymphadenopathy - Respiratory Exam Respiratory Exam: Decreased Breath Sounds - Cardiovascular Exam Cardiovascular Exam: REGULAR RHYTHM, +S1, +S2 - GI/Abdominal Exam GI & Abdominal Exam: Soft, Diminished Bowel Sounds - Rectal Exam Rectal Exam: Deferred
[2017-07-04 20:46] LABS: ABG ALLEN TEST UNABLE; ARTERIAL BLOOD GAS HCO3 24.2 mmol/L (21-28); ARTERIAL BLOOD GAS HEMOGLOBIN 10.6 g/dL (11.7-17.4); ARTERIAL BLOOD GAS O2 SAT 96.6 % (95-98); ARTERIAL BLOOD GAS PCO2 55 mm/Hg (35-45); ARTERIAL BLOOD GAS PH 7.29 (7.35-7.45); ARTERIAL BLOOD GAS PO2 67 mm/Hg (80-100); ARTERIAL BLOOD GAS TCO2 28.1 mmol/L (22-28)
--- NOTE | 2017-07-04 22:42 | PCM.RRT ---
<Wm Mireles - Last Filed: 07/04/17 22:40> REHABILITATION AIDE Nurses Assessment - Situation Date: 07/04/17 Time REHABILITATION AIDE was called: 08:56 REHABILITATION AIDE Responder Arrival Time:: 08:57 REHABILITATION AIDE Location:: Med/Surg REHABILITATION AIDE Reason for Call: Hypotension REHABILITATION AIDE Called By: Physician - IV IV Inserted during REHABILITATION AIDE?: Yes New IV Insertion Tolerance: Excellent - Respiratory REHABILITATION AIDE Delivery Method: Nasal Cannula @L/min Oxygen Flow Rate: 3 Received Nebulizer Treatments: No Was the Patient Ventilated with Bag/Mask 100% O2?: No Secretions Suctioned?: No Was the Patient Intubated?: No Was the Patient Placed on a Ventilator?: No - Ventilator Settings FIO2 (% Oxygen): 30 - Diagnostic Test Ordered EKG: Yes Chest X-Ray: Yes (portable) CT Scan: No - Stat Labs Ordered REHABILITATION AIDE Stat Labs Ordered: BLOOD C&S X2, ABG CPR started during REHABILITATION AIDE?: No - Vital Signs Vital Signs: Rapid Response Vital Sign Blood Pressure 80/40 Pulse Rate 92 Respiratory Rate 20 Temperature 97.9 F Oxygen Saturation 95 - Sepsis Screen Part 1 Sepsis Screen Part 1: Hypotensive - Vital Signs at end of REHABILITATION AIDE Vital Signs at end of REHABILITATION AIDE: Rapid Response End Vital Sign Blood Pressure 89/52 Pulse Rate 64 Respiratory Rate 20 Temperature 97.8 F O2 Sat by Pulse Oximetry 99 - Recommendations Notifications: Attending Physician I.Reason for REHABILITATION AIDE - A) Acute Change in Patient: (Select all that apply): Acute change in SBP below Subjective: REHABILITATION AIDE was called for hypotension (91/51) and found to be in ARF - Neurological Status (Select all that apply): Responsive, Verbal - Respiratory Oxygen Delivery Method: Nasal Cannula @L/min Oxygen Flow Rate: 3 - Head Head Exam: ATRAUMATIC, NORMAL INSPECTION - Eyes Eye Exam: EOMI, Normal appearance - Respiratory Exam Respiratory Exam: NORMAL BREATHING PATTERN - Cardiovascular Exam Cardiovascular Exam: REGULAR RHYTHM, +S1, +S2 - GI/Abdominal Exam GI & Abdominal Exam: Soft, Normal Bowel Sounds - Neurological Exam Neurological Exam: Alert, Awake, Oriented x3 - Extremities Exam Extremities Exam: Normal Inspection Plan - Assessment of Findings&Treatment Plan Bolus 500cc Chest X-ray Nephrotoxic drug stopped ICU evaluation Nephrology consult for temporary dialysis <Josy Flores - Last Filed: 07/05/17 16:38> REHABILITATION AIDE Nurses Assessment - Vital Signs Vital Signs: Rapid Response Vital Sign Blood Pressure 80/40 Pulse Rate 92 Respiratory Rate 20 Temperature 97.9 F Oxygen Saturation 95 - Vital Signs at end of REHABILITATION AIDE Vital Signs at end of REHABILITATION AIDE: Rapid Response End Vital Sign Blood Pressure 89/52 Pulse Rate 64 Respiratory Rate 20 Temperature 97.8 F O2 Sat by Pulse Oximetry 99 Attending/Attestation - Attestation I have personally seen and examined this patient.: Yes I have fully participated in the care of the patient.: Yes I have reviewed all pertinent clinical information, including history, physical exam and plan: Yes Notes (Text): Patient was seen and examined during REHABILITATION AIDE Hypotension,acute renal faliure and 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 patient was transferred to ICU, pt was getting fluids [employer] called for urgent nephrology evaluation
[2017-07-05] MEDS: MethylPREDNISolone 40 mg Vial IVP SCH ×3 (01:55→17:51)
[2017-07-05] MEDS: Acetylcysteine 20% Inhal Soln (4ml) PO SCH ×3 (01:55→21:56)
[2017-07-05 06:30] LABS: BASO # 0.1 K/uL (0.0-0.2); EOS # 0.1 K/uL (0.0-0.7); EOS % 0.6 % (0.0-4.0); HEMOGLOBIN 10.5 g/dL (11.0-16.0); LYMPH # 1.7 K/uL (1.0-4.3); LYMPH % 12.8 % (20.0-40.0); MEAN CELL VOLUME 86.8 fL (81.0-99.0); MEAN CORPUSCULAR HEMOGLOBIN 28.6 pg (27.0-31.0); MEAN CORPUSCULAR HGB CONC 32.9 g/dL (33.0-37.0); MEAN PLATELET VOLUME 8.9 fL (7.2-11.7); MONO # 0.5 K/uL (0.0-0.8); MONO % 3.4 % (0.0-10.0); NEUT # 11.2 K/uL (1.8-7.0); NEUT % 82.2 % (50.0-75.0); NRBC % 0.1 % (0.0-2.0); RBC 3.68 Mil/uL (3.80-5.20); RED CELL DISTRIBUTION WIDTH 17.1 % (11.5-14.5); WHITE BLOOD COUNT 13.6 K/uL (4.8-10.8)
[2017-07-05 07:00] LABS: CALCIUM 8.7 mg/dl (8.6-10.4)
--- NOTE | 2017-07-05 08:45 | CP.PCM.PN ---
Subjective - Date & Time of Evaluation Date of Evaluation: 07/05/17 Time of Evaluation: 07:00 - Subjective Subjective: Vascular Surgery- Dr. Garcia Patient seen and examined at bedside this AM. on BiPAP. no acute events overnight. No new complaints. Pt received dialysis yesterday from R. Femoral permacath. Objective - Vital Signs/Intake and Output Vital Signs (last 24 hours): Temp Pulse Resp BP Pulse Ox 98 F 76 19 98/22 L 93 L 07/05/17 04:00 07/05/17 07:35 07/05/17 07:05 07/05/17 07:05 07/05/17 07:05 Intake and Output: 07/05/17 07/05/17 06:59 18:59 Intake Total 250 0 Output Total 110 Balance 140 0 - Medications Medications: Current Medications Acetaminophen (Tylenol 325mg Tab) 650 mg PO Q6 PRN PRN Reason: Pain, Mild (1-3) Acetylcysteine (Acetylcysteine 20%) 4 ml PO Q12H [facility] Stop: 07/05/17 22:31 Last Admin: 07/05/17 01:55 Dose: 4 ml Aspirin (Aspirin Chewable) 81 mg PO DAILY [facility] Last Admin: 07/04/17 10:00 Dose: Not Given Azithromycin (Zithromax) 500 mg PO Q24H [facility] Last Admin: 07/04/17 19:59 Dose: 500 mg Famotidine (Pepcid) 20 mg PO DAILY [facility] Last Admin: 07/04/17 10:00 Dose: Not Given Ferrous Sulfate (Feosol) 325 mg PO DAILY [facility] Last Admin: 07/04/17 10:00 Dose: Not Given Heparin Sodium (Porcine) (Heparin) 5,000 units SC Q12 [facility] Last Admin: 07/04/17 22:05 Dose: 5,000 units Cefepime HCl (Maxipime Iv 1 Gm Premix) 1 gm in 50 mls @ 100 mls/hr IVPB Q24H [facility] Last Admin: 07/04/17 18:53 Dose: 100 mls/hr Sodium Chloride (Sodium Chloride 0.9%) 1,000 mls @ 60 mls/hr IV .[id number] [facility] Last Admin: 07/03/17 22:23 Dose: Not Given Methylprednisolone (Solu-Medrol) 40 mg IVP Q8H [facility] Last Admin: 07/05/17 01:55 Dose: 40 mg Metoprolol Succinate (Toprol Xl) 25 mg PO DAILY [facility] Last Admin: 07/04/17 10:00 Dose: Not Given Multivitamins (Hexavitamin) 1 tab PO DAILY [facility] Last Admin: 07/04/17 10:00 Dose: Not Given Nystatin (Nystop Topical Powder) 1 applic TOP BID [facility] Last Admin: 07/04/17 18:52 Dose: 1 applic - Labs Labs: 07/05/17 06:21 07/05/17 06:22 PT 12.9 SECONDS (9.7-12.2) H 06/29/17 16:42 INR 1.2 06/29/17 16:42 APTT 34 SECONDS (21-34) 06/29/17 16:42 - Constitutional Appears: Non-toxic, No Acute Distress - Eye Exam Eye Exam: EOMI. absent: Scleral icterus - ENT Exam ENT Exam: Mucous Membranes Moist - Respiratory Exam Respiratory Exam: NORMAL BREATHING PATTERN. absent: Accessory Muscle Use, Respiratory Distress - Cardiovascular Exam Cardiovascular Exam: +S1, +S2. absent: Bradycardia, Tachycardia - GI/Abdominal Exam GI & Abdominal Exam: Soft. absent: Distended, Firm, Guarding, Rigid, Tenderness - Extremities Exam Additional comments: R. Femoral temp. dialys catheter in place - Neurological Exam Neurological Exam: Alert, Awake, Oriented x3 - Skin Skin Exam: Intact, Warm Assessment and Plan - Assessment and Plan (Free Text) Assessment: 71F w/ UTI, acute on chronic kidney disease s/p temporary dialysis catheter placement received dialysis successful Plan: - ok to use dialysis catheter - no further acute vascular surgical intervention at this time - re consult as needed - will d/w Dr. Radha Radford PGY1
[2017-07-05] MEDS: Multiple Vitamins Tab PO SCH (10:15)
--- NOTE | 2017-07-05 12:32 | CP.PCM.PN ---
Subjective - Date & Time of Evaluation Date of Evaluation: 07/05/17 Time of Evaluation: 10:00 - Subjective Subjective: Patient seen and examined Transferred to ICU yesterday for change in mental status, shortness of breath and worsening renal function Status post hemodialysis Remains on BiPAP Awake and responsive Afebrile Anasarca Objective - Vital Signs/Intake and Output Vital Signs (last 24 hours): Temp Pulse Resp BP Pulse Ox 98.2 F 92 H 19 149/48 L 98 07/05/17 12:00 07/05/17 12:00 07/05/17 12:00 07/05/17 12:00 07/05/17 12:00 Intake and Output: 07/05/17 07/05/17 06:59 18:59 Intake Total 250 70 Output Total 110 Balance 140 70 - Medications Medications: Current Medications Acetaminophen (Tylenol 325mg Tab) 650 mg PO Q6 PRN PRN Reason: Pain, Mild (1-3) Acetylcysteine (Acetylcysteine 20%) 4 ml PO Q12H [facility] Stop: 07/05/17 22:31 Last Admin: 07/05/17 10:17 Dose: 4 ml Aspirin (Aspirin Chewable) 81 mg PO DAILY [facility] Last Admin: 07/05/17 10:15 Dose: 81 mg Azithromycin (Zithromax) 500 mg PO Q24H [facility] Last Admin: 07/04/17 19:59 Dose: 500 mg Famotidine (Pepcid) 20 mg PO DAILY [facility] Last Admin: 07/05/17 10:15 Dose: 20 mg Ferrous Sulfate (Feosol) 325 mg PO DAILY [facility] Last Admin: 07/05/17 10:15 Dose: 325 mg Heparin Sodium (Porcine) (Heparin) 5,000 units SC Q12 [facility] Last Admin: 07/05/17 10:15 Dose: 5,000 units Cefepime HCl (Maxipime Iv 1 Gm Premix) 1 gm in 50 mls @ 100 mls/hr IVPB Q24H [facility] Last Admin: 07/04/17 18:53 Dose: 100 mls/hr Sodium Chloride (Sodium Chloride 0.9%) 1,000 mls @ 60 mls/hr IV .[id number] [facility] Last Admin: 07/03/17 22:23 Dose: Not Given Methylprednisolone (Solu-Medrol) 40 mg IVP Q8H [facility] Last Admin: 07/05/17 10:15 Dose: 40 mg Metoprolol Succinate (Toprol Xl) 25 mg PO DAILY [facility] Last Admin: 07/04/17 10:00 Dose: Not Given Multivitamins (Hexavitamin) 1 tab PO DAILY [facility] Last Admin: 07/05/17 10:15 Dose: 1 tab Nystatin (Nystop Topical Powder) 1 applic TOP BID [facility] Last Admin: 07/05/17 10:16 Dose: 1 applic - Labs Labs: 07/05/17 06:21 07/05/17 06:22 PT 12.9 SECONDS (9.7-12.2) H 06/29/17 16:42 INR 1.2 06/29/17 16:42 APTT 34 SECONDS (21-34) 06/29/17 16:42 - Head Exam Head Exam: ATRAUMATIC, NORMOCEPHALIC - ENT Exam ENT Exam: Mucous Membranes Moist - Neck Exam Neck Exam: Normal Inspection - Respiratory Exam Respiratory Exam: Decreased Breath Sounds - Cardiovascular Exam Cardiovascular Exam: REGULAR RHYTHM - GI/Abdominal Exam GI & Abdominal Exam: Soft, Normal Bowel Sounds Assessment and Plan (1) Respiratory distress Assessment & Plan: Continue BiPAP Followup ABG and chest x-ray And hemodialysis On IV antibiotics avoid nephrotoxic Taper IV steroids Status: Acute (2) ESTEVAN (acute kidney injury) Status: Acute (3) Chronic congestive heart failure Status: Acute
--- NOTE | 2017-07-05 12:42 | CP.PCM.PN ---
Subjective - Date & Time of Evaluation Date of Evaluation: 07/05/17 Time of Evaluation: 12:40 - Subjective Subjective: poor historian unable to obtain ROS on bipap poor u/o Objective - Vital Signs/Intake and Output Vital Signs (last 24 hours): Temp Pulse Resp BP Pulse Ox 98.2 F 92 H 19 149/48 L 98 07/05/17 12:00 07/05/17 12:00 07/05/17 12:00 07/05/17 12:00 07/05/17 12:00 Intake and Output: 07/05/17 07/05/17 06:59 18:59 Intake Total 250 70 Output Total 110 Balance 140 70 - Medications Medications: Current Medications Acetaminophen (Tylenol 325mg Tab) 650 mg PO Q6 PRN PRN Reason: Pain, Mild (1-3) Acetylcysteine (Acetylcysteine 20%) 4 ml PO Q12H [facility] Stop: 07/05/17 22:31 Last Admin: 07/05/17 10:17 Dose: 4 ml Aspirin (Aspirin Chewable) 81 mg PO DAILY [facility] Last Admin: 07/05/17 10:15 Dose: 81 mg Azithromycin (Zithromax) 500 mg PO Q24H [facility] Last Admin: 07/04/17 19:59 Dose: 500 mg Famotidine (Pepcid) 20 mg PO DAILY [facility] Last Admin: 07/05/17 10:15 Dose: 20 mg Ferrous Sulfate (Feosol) 325 mg PO DAILY [facility] Last Admin: 07/05/17 10:15 Dose: 325 mg Heparin Sodium (Porcine) (Heparin) 5,000 units SC Q12 [facility] Last Admin: 07/05/17 10:15 Dose: 5,000 units Cefepime HCl (Maxipime Iv 1 Gm Premix) 1 gm in 50 mls @ 100 mls/hr IVPB Q24H [facility] Last Admin: 07/04/17 18:53 Dose: 100 mls/hr Sodium Chloride (Sodium Chloride 0.9%) 1,000 mls @ 60 mls/hr IV .[id number] [facility] Last Admin: 07/03/17 22:23 Dose: Not Given Methylprednisolone (Solu-Medrol) 40 mg IVP Q8H [facility] Last Admin: 07/05/17 10:15 Dose: 40 mg Metoprolol Succinate (Toprol Xl) 25 mg PO DAILY [facility] Last Admin: 07/04/17 10:00 Dose: Not Given Multivitamins (Hexavitamin) 1 tab PO DAILY [facility] Last Admin: 07/05/17 10:15 Dose: 1 tab Nystatin (Nystop Topical Powder) 1 applic TOP BID [facility] Last Admin: 07/05/17 10:16 Dose: 1 applic - Labs Labs: 07/05/17 06:21 07/05/17 06:22 PT 12.9 SECONDS (9.7-12.2) H 06/29/17 16:42 INR 1.2 06/29/17 16:42 APTT 34 SECONDS (21-34) 06/29/17 16:42 - Constitutional Appears: Confused, Chronically Ill - Head Exam Head Exam: ATRAUMATIC, NORMAL INSPECTION - Eye Exam Eye Exam: EOMI, Normal appearance - ENT Exam ENT Exam: Mucous Membranes Moist - Neck Exam Neck Exam: Full ROM. absent: Lymphadenopathy - Respiratory Exam Respiratory Exam: Decreased Breath Sounds. absent: Accessory Muscle Use - Cardiovascular Exam Cardiovascular Exam: REGULAR RHYTHM. absent: Rubs - GI/Abdominal Exam GI & Abdominal Exam: Distended. absent: Tenderness - Extremities Exam Extremities Exam: Pedal Edema - Neurological Exam Neurological Exam: Awake. absent: Alert Assessment and Plan - Assessment and Plan (Free Text) Assessment: reschedule HD today for azotemia, decreased u/o and hypoxia repeat urine for eosinophils monitor for recovery
--- NOTE | 2017-07-05 13:01 | CP.PCM.PN ---
Subjective - Date & Time of Evaluation Date of Evaluation: 07/05/17 Time of Evaluation: 12:56 - Subjective Subjective: Patient more awake, alert tolerated bi-pap at night. Saturating well on room air Objective - Vital Signs/Intake and Output Vital Signs (last 24 hours): Temp Pulse Resp BP Pulse Ox 98.2 F 92 H 19 149/48 L 98 07/05/17 12:00 07/05/17 12:00 07/05/17 12:00 07/05/17 12:00 07/05/17 12:00 Intake and Output: 07/05/17 07/05/17 06:59 18:59 Intake Total 250 70 Output Total 110 Balance 140 70 - Medications Medications: Current Medications Acetaminophen (Tylenol 325mg Tab) 650 mg PO Q6 PRN PRN Reason: Pain, Mild (1-3) Acetylcysteine (Acetylcysteine 20%) 4 ml PO Q12H [facility] Stop: 07/05/17 22:31 Last Admin: 07/05/17 10:17 Dose: 4 ml Aspirin (Aspirin Chewable) 81 mg PO DAILY [facility] Last Admin: 07/05/17 10:15 Dose: 81 mg Azithromycin (Zithromax) 500 mg PO Q24H [facility] Last Admin: 07/04/17 19:59 Dose: 500 mg Calcium Acetate (Phoslo) 667 mg PO BIDCC [facility] Famotidine (Pepcid) 20 mg PO DAILY [facility] Last Admin: 07/05/17 10:15 Dose: 20 mg Ferrous Sulfate (Feosol) 325 mg PO DAILY [facility] Last Admin: 07/05/17 10:15 Dose: 325 mg Heparin Sodium (Porcine) (Heparin) 5,000 units SC Q12 [facility] Last Admin: 07/05/17 10:15 Dose: 5,000 units Cefepime HCl (Maxipime Iv 1 Gm Premix) 1 gm in 50 mls @ 100 mls/hr IVPB Q24H [facility] Last Admin: 07/04/17 18:53 Dose: 100 mls/hr Sodium Chloride (Sodium Chloride 0.9%) 1,000 mls @ 60 mls/hr IV .[id number] [facility] Last Admin: 07/03/17 22:23 Dose: Not Given Methylprednisolone (Solu-Medrol) 40 mg IVP Q8H [facility] Last Admin: 07/05/17 10:15 Dose: 40 mg Metoprolol Succinate (Toprol Xl) 25 mg PO DAILY [facility] Last Admin: 07/04/17 10:00 Dose: Not Given Multivitamins (Hexavitamin) 1 tab PO DAILY [facility] Last Admin: 07/05/17 10:15 Dose: 1 tab Nystatin (Nystop Topical Powder) 1 applic TOP BID [facility] Last Admin: 07/05/17 10:16 Dose: 1 applic - Labs Labs: 07/05/17 06:21 07/05/17 06:22 PT 12.9 SECONDS (9.7-12.2) H 06/29/17 16:42 INR 1.2 06/29/17 16:42 APTT 34 SECONDS (21-34) 06/29/17 16:42 - Constitutional Appears: Well - Head Exam Head Exam: ATRAUMATIC, NORMAL INSPECTION, NORMOCEPHALIC - Eye Exam Eye Exam: EOMI - ENT Exam ENT Exam: Mucous Membranes Moist - Respiratory Exam Respiratory Exam: Clear to Ausculation Bilateral, NORMAL BREATHING PATTERN - Cardiovascular Exam Cardiovascular Exam: REGULAR RHYTHM, +S1, +S2, +S4 - GI/Abdominal Exam GI & Abdominal Exam: Soft. absent: Tenderness - Extremities Exam Extremities Exam: Normal Capillary Refill - Neurological Exam Neurological Exam: Alert, Awake, CN II-XII Intact, Oriented x3 Assessment and Plan - Assessment and Plan (Free Text) Plan: 71 year old female with history of COPD, CHF and HTN was brought from her residential and admitted on 06/29 for shortness of breath and hypoxia, as reported by the residential staff. Her BNP was elevated at 10,600 and the echo showed normal EF of 65%. She was started on antibiotics for possible pneumonia. She was also found to have a UTI and was treated with antibiotics, as recommended by ID. 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
[2017-07-05 17:05] LABS: COMPLEMENT C4 45.6 mg/dL (14.0-44.0)
[2017-07-05] MEDS: Cefepime IV 1 gm in Dextrose 1 GM/50 ML BAG IVPB SCH (17:47)
--- NOTE | 2017-07-05 18:14 | CP.PCM.PN ---
Subjective - Date & Time of Evaluation Date of Evaluation: 07/05/17 Time of Evaluation: 13:20 - Subjective Subjective: clinically same Objective - Vital Signs/Intake and Output Vital Signs (last 24 hours): Temp Pulse Resp BP Pulse Ox 97.6 F 83 19 98/40 L 97 07/05/17 16:30 07/05/17 16:30 07/05/17 16:30 07/05/17 16:30 07/05/17 16:30 Intake and Output: 07/05/17 07/05/17 06:59 18:59 Intake Total 250 170 Output Total 110 Balance 140 170 - Medications Medications: Current Medications Acetaminophen (Tylenol 325mg Tab) 650 mg PO Q6 PRN PRN Reason: Pain, Mild (1-3) Acetylcysteine (Acetylcysteine 20%) 4 ml PO Q12H [facility] Stop: 07/05/17 22:31 Last Admin: 07/05/17 10:17 Dose: 4 ml Aspirin (Aspirin Chewable) 81 mg PO DAILY [facility] Last Admin: 07/05/17 10:15 Dose: 81 mg Azithromycin (Zithromax) 500 mg PO Q24H [facility] Last Admin: 07/05/17 17:52 Dose: 500 mg Calcium Acetate (Phoslo) 667 mg PO BIDCC [facility] Last Admin: 07/05/17 17:50 Dose: 667 mg Famotidine (Pepcid) 20 mg PO DAILY [facility] Last Admin: 07/05/17 10:15 Dose: 20 mg Ferrous Sulfate (Feosol) 325 mg PO DAILY [facility] Last Admin: 07/05/17 10:15 Dose: 325 mg Heparin Sodium (Porcine) (Heparin) 5,000 units SC Q12 [facility] Last Admin: 07/05/17 10:15 Dose: 5,000 units Cefepime HCl (Maxipime Iv 1 Gm Premix) 1 gm in 50 mls @ 100 mls/hr IVPB Q24H [facility] Last Admin: 07/05/17 17:47 Dose: 100 mls/hr Sodium Chloride (Sodium Chloride 0.9%) 1,000 mls @ 60 mls/hr IV .[id number] [facility] Last Admin: 07/03/17 22:23 Dose: Not Given Methylprednisolone (Solu-Medrol) 40 mg IVP Q8H [facility] Last Admin: 07/05/17 17:51 Dose: 40 mg Metoprolol Succinate (Toprol Xl) 25 mg PO DAILY [facility] Last Admin: 07/04/17 10:00 Dose: Not Given Multivitamins (Hexavitamin) 1 tab PO DAILY [facility] Last Admin: 07/05/17 10:15 Dose: 1 tab Nystatin (Nystop Topical Powder) 1 applic TOP BID [facility] Last Admin: 07/05/17 17:48 Dose: 1 applic - Labs Labs: 07/05/17 06:21 07/05/17 06:22 PT 12.9 SECONDS (9.7-12.2) H 06/29/17 16:42 INR 1.2 06/29/17 16:42 APTT 34 SECONDS (21-34) 06/29/17 16:42 - Constitutional Appears: Well - Head Exam Head Exam: ATRAUMATIC, NORMAL INSPECTION, NORMOCEPHALIC - Eye Exam Eye Exam: EOMI, Normal appearance, PERRL Pupil Exam: NORMAL ACCOMODATION, PERRL - ENT Exam ENT Exam: Mucous Membranes Moist, Normal Exam - Neck Exam Neck Exam: Full ROM, Normal Inspection. absent: Lymphadenopathy - Respiratory Exam Respiratory Exam: Decreased Breath Sounds - Cardiovascular Exam Cardiovascular Exam: REGULAR RHYTHM, +S1, +S2 - GI/Abdominal Exam GI & Abdominal Exam: Soft, Diminished Bowel Sounds - Rectal Exam Rectal Exam: Deferred
[2017-07-05 18:15] LABS: VENOUS BLOOD GAS BASE EXCESS 1.6 mmol/L (0.0-2.0); VENOUS BLOOD GAS PCO2 58 mmHg (40-60); VENOUS BLOOD PH 7.31 (7.32-7.43)
[2017-07-06] MEDS: MethylPREDNISolone 40 mg Vial IVP SCH ×3 (03:11→17:40)
[2017-07-06 06:34] LABS: BASO # 0.1 K/uL (0.0-0.2); BASO % 0.8 % (0.0-2.0); EOS % 0.3 % (0.0-4.0); LYMPH % 16.2 % (20.0-40.0); MEAN CELL VOLUME 86.3 fL (81.0-99.0); MEAN CORPUSCULAR HEMOGLOBIN 28.6 pg (27.0-31.0); MEAN CORPUSCULAR HGB CONC 33.1 g/dL (33.0-37.0); MEAN PLATELET VOLUME 9.1 fL (7.2-11.7); MONO # 0.7 K/uL (0.0-0.8); MONO % 5.5 % (0.0-10.0); NEUT # 9.5 K/uL (1.8-7.0); NEUT % 77.2 % (50.0-75.0); NRBC % 0.1 % (0.0-2.0); RBC 3.51 Mil/uL (3.80-5.20); RED CELL DISTRIBUTION WIDTH 16.5 % (11.5-14.5); WHITE BLOOD COUNT 12.3 K/uL (4.8-10.8)
[2017-07-06 06:52] LABS: ALB/GLOB RATIO 0.9 (1.0-2.1); ALBUMIN 2.9 g/dL (3.5-5.0); CALCIUM 8.7 mg/dl (8.6-10.4)
[2017-07-06] MEDS: Multiple Vitamins Tab PO SCH (10:01)
--- NOTE | 2017-07-06 14:06 | CP.PCM.PN ---
Subjective - Date & Time of Evaluation Date of Evaluation: 07/06/17 Time of Evaluation: 16:00 - Subjective Subjective: clinically same Objective - Vital Signs/Intake and Output Vital Signs (last 24 hours): Temp Pulse Resp BP Pulse Ox 98.8 F 99 H 21 103/23 L 97 07/06/17 12:00 07/06/17 13:03 07/06/17 13:03 07/06/17 13:03 07/06/17 13:03 Intake and Output: 07/06/17 07/06/17 06:59 18:59 Intake Total 200 270 Balance 200 270 - Medications Medications: Current Medications Acetaminophen (Tylenol 325mg Tab) 650 mg PO Q6 PRN PRN Reason: Pain, Mild (1-3) Aspirin (Aspirin Chewable) 81 mg PO DAILY [facility] Last Admin: 07/06/17 10:01 Dose: 81 mg Azithromycin (Zithromax) 500 mg PO Q24H [facility] Last Admin: 07/05/17 17:52 Dose: 500 mg Calcium Acetate (Phoslo) 667 mg PO BIDCC [facility] Last Admin: 07/06/17 08:50 Dose: 667 mg Famotidine (Pepcid) 20 mg PO DAILY [facility] Last Admin: 07/06/17 10:01 Dose: 20 mg Ferrous Sulfate (Feosol) 325 mg PO DAILY [facility] Last Admin: 07/06/17 10:01 Dose: 325 mg Heparin Sodium (Porcine) (Heparin) 5,000 units SC Q12 [facility] Last Admin: 07/06/17 10:00 Dose: 5,000 units Cefepime HCl (Maxipime Iv 1 Gm Premix) 1 gm in 50 mls @ 100 mls/hr IVPB Q24H [facility] Last Admin: 07/05/17 17:47 Dose: 100 mls/hr Sodium Chloride (Sodium Chloride 0.9%) 1,000 mls @ 60 mls/hr IV .[id number] [facility] Last Admin: 07/03/17 22:23 Dose: Not Given Methylprednisolone (Solu-Medrol) 40 mg IVP Q8H [facility] Last Admin: 07/06/17 10:00 Dose: 40 mg Metoprolol Succinate (Toprol Xl) 25 mg PO DAILY [facility] Last Admin: 07/04/17 10:00 Dose: Not Given Multivitamins (Hexavitamin) 1 tab PO DAILY [facility] Last Admin: 07/06/17 10:01 Dose: 1 tab Nystatin (Nystop Topical Powder) 1 applic TOP BID [facility] Last Admin: 07/06/17 10:35 Dose: 1 applic - Labs Labs: 07/06/17 06:21 07/06/17 06:21 PT 12.9 SECONDS (9.7-12.2) H 06/29/17 16:42 INR 1.2 06/29/17 16:42 APTT 34 SECONDS (21-34) 06/29/17 16:42 - Constitutional Appears: Well - Head Exam Head Exam: ATRAUMATIC, NORMAL INSPECTION, NORMOCEPHALIC - Eye Exam Eye Exam: EOMI, Normal appearance, PERRL Pupil Exam: NORMAL ACCOMODATION, PERRL - ENT Exam ENT Exam: Mucous Membranes Moist, Normal Exam - Neck Exam Neck Exam: Full ROM, Normal Inspection. absent: Lymphadenopathy - Respiratory Exam Respiratory Exam: Decreased Breath Sounds - Cardiovascular Exam Cardiovascular Exam: REGULAR RHYTHM, +S1, +S2 - GI/Abdominal Exam GI & Abdominal Exam: Soft, Diminished Bowel Sounds - Rectal Exam Rectal Exam: Deferred
--- NOTE | 2017-07-06 15:04 | CP.PCM.PN ---
Subjective - Date & Time of Evaluation Date of Evaluation: 07/06/17 Time of Evaluation: 07:00 - Subjective Subjective: improving mental status no fever no new cultures Objective - Vital Signs/Intake and Output Vital Signs (last 24 hours): Temp Pulse Resp BP Pulse Ox 98.8 F 99 H 21 103/23 L 97 07/06/17 12:00 07/06/17 13:03 07/06/17 13:03 07/06/17 13:03 07/06/17 13:03 Intake and Output: 07/06/17 07/06/17 06:59 18:59 Intake Total 200 270 Balance 200 270 - Medications Medications: Current Medications Acetaminophen (Tylenol 325mg Tab) 650 mg PO Q6 PRN PRN Reason: Pain, Mild (1-3) Aspirin (Aspirin Chewable) 81 mg PO DAILY [facility] Last Admin: 07/06/17 10:01 Dose: 81 mg Azithromycin (Zithromax) 500 mg PO Q24H [facility] Last Admin: 07/05/17 17:52 Dose: 500 mg Calcium Acetate (Phoslo) 667 mg PO BIDCC [facility] Last Admin: 07/06/17 08:50 Dose: 667 mg Famotidine (Pepcid) 20 mg PO DAILY [facility] Last Admin: 07/06/17 10:01 Dose: 20 mg Ferrous Sulfate (Feosol) 325 mg PO DAILY [facility] Last Admin: 07/06/17 10:01 Dose: 325 mg Heparin Sodium (Porcine) (Heparin) 5,000 units SC Q12 [facility] Last Admin: 07/06/17 10:00 Dose: 5,000 units Cefepime HCl (Maxipime Iv 1 Gm Premix) 1 gm in 50 mls @ 100 mls/hr IVPB Q24H [facility] Last Admin: 07/05/17 17:47 Dose: 100 mls/hr Sodium Chloride (Sodium Chloride 0.9%) 1,000 mls @ 60 mls/hr IV .[id number] [facility] Last Admin: 07/03/17 22:23 Dose: Not Given Methylprednisolone (Solu-Medrol) 40 mg IVP Q8H [facility] Last Admin: 07/06/17 10:00 Dose: 40 mg Metoprolol Succinate (Toprol Xl) 25 mg PO DAILY [facility] Last Admin: 07/04/17 10:00 Dose: Not Given Multivitamins (Hexavitamin) 1 tab PO DAILY [facility] Last Admin: 07/06/17 10:01 Dose: 1 tab Nystatin (Nystop Topical Powder) 1 applic TOP BID [facility] Last Admin: 07/06/17 10:35 Dose: 1 applic - Labs Labs: 07/06/17 06:21 07/06/17 06:21 PT 12.9 SECONDS (9.7-12.2) H 06/29/17 16:42 INR 1.2 06/29/17 16:42 APTT 34 SECONDS (21-34) 06/29/17 16:42 - Constitutional Appears: Non-toxic, Chronically Ill - Head Exam Head Exam: NORMOCEPHALIC - Eye Exam Eye Exam: PERRL. absent: Scleral icterus - ENT Exam ENT Exam: Mucous Membranes Dry - Neck Exam Neck Exam: absent: Lymphadenopathy - Respiratory Exam Respiratory Exam: Decreased Breath Sounds - Cardiovascular Exam Cardiovascular Exam: REGULAR RHYTHM - GI/Abdominal Exam GI & Abdominal Exam: Distended, Soft - Rectal Exam Rectal Exam: Deferred - Exam Exam: NORMAL INSPECTION - Extremities Exam Extremities Exam: absent: Pedal Edema - Back Exam Back Exam: absent: CVA tenderness (L), CVA tenderness (R) - Neurological Exam Neurological Exam: Alert, Awake Assessment and Plan (1) UTI (urinary tract infection) Status: Acute (2) UTI (urinary tract infection) Status: Acute (3) Chr obstructive pulmonary disease w/ acute lower respiratory infxn Status: Acute (4) Chronic congestive heart failure Status: Acute (5) Dyspnea Status: Acute (6) Respiratory distress Status: Acute
[2017-07-06] MEDS: Cefepime IV 1 gm in Dextrose 1 GM/50 ML BAG IVPB SCH (17:41)
--- NOTE | 2017-07-06 18:07 | CP.PCM.PCO ---
Physician Communication Note - Physician Communication Note Physician Communication Note: OR tomorrow for permacath placement
--- NOTE | 2017-07-06 19:18 | CP.PCM.PN ---
Subjective - Date & Time of Evaluation Date of Evaluation: 07/06/17 Time of Evaluation: 17:00 - Subjective Subjective: the patient seen and examined Breathing much improved Of BiPAP Status post hemodialysis For permacath placement tomorrow Continue antibiotics Continue hemodialysis Followup chest x-ray Objective - Vital Signs/Intake and Output Vital Signs (last 24 hours): Temp Pulse Resp BP Pulse Ox 98.9 F 103 H 21 131/44 L 89 L 07/06/17 16:00 07/06/17 19:02 07/06/17 19:02 07/06/17 19:02 07/06/17 19:02 Intake and Output: 07/06/17 07/07/17 18:59 06:59 Intake Total 540 0 Balance 540 0 - Medications Medications: Current Medications Acetaminophen (Tylenol 325mg Tab) 650 mg PO Q6 PRN PRN Reason: Pain, Mild (1-3) Aspirin (Aspirin Chewable) 81 mg PO DAILY [facility] Last Admin: 07/06/17 10:01 Dose: 81 mg Azithromycin (Zithromax) 500 mg PO Q24H [facility] Last Admin: 07/06/17 17:41 Dose: 500 mg Calcium Acetate (Phoslo) 667 mg PO BIDCC [facility] Last Admin: 07/06/17 17:41 Dose: 667 mg Famotidine (Pepcid) 20 mg PO DAILY [facility] Last Admin: 07/06/17 10:01 Dose: 20 mg Ferrous Sulfate (Feosol) 325 mg PO DAILY [facility] Last Admin: 07/06/17 10:01 Dose: 325 mg Heparin Sodium (Porcine) (Heparin) 5,000 units SC Q12 [facility] Last Admin: 07/06/17 10:00 Dose: 5,000 units Cefepime HCl (Maxipime Iv 1 Gm Premix) 1 gm in 50 mls @ 100 mls/hr IVPB Q24H [facility] Last Admin: 07/06/17 17:41 Dose: 100 mls/hr Sodium Chloride (Sodium Chloride 0.9%) 1,000 mls @ 60 mls/hr IV .[id number] [facility] Last Admin: 07/03/17 22:23 Dose: Not Given Methylprednisolone (Solu-Medrol) 40 mg IVP Q8H [facility] Last Admin: 07/06/17 17:40 Dose: 40 mg Metoprolol Succinate (Toprol Xl) 25 mg PO DAILY [facility] Last Admin: 07/04/17 10:00 Dose: Not Given Multivitamins (Hexavitamin) 1 tab PO DAILY [facility] Last Admin: 07/06/17 10:01 Dose: 1 tab Nystatin (Nystop Topical Powder) 1 applic TOP BID [facility] Last Admin: 07/06/17 17:40 Dose: 1 applic - Labs Labs: 07/06/17 06:21 07/06/17 06:21 PT 12.9 SECONDS (9.7-12.2) H 06/29/17 16:42 INR 1.2 06/29/17 16:42 APTT 34 SECONDS (21-34) 06/29/17 16:42 Assessment and Plan (1) Respiratory distress Status: Acute (2) ESTEVAN (acute kidney injury) Status: Acute (3) Chronic congestive heart failure Status: Acute
[2017-07-07] MEDS: MethylPREDNISolone 40 mg Vial IVP SCH ×3 (02:39→18:30)
[2017-07-07] MEDS: Multiple Vitamins Tab PO SCH (09:48)
--- NOTE | 2017-07-07 11:52 | CP.PCM.PN ---
Subjective - Date & Time of Evaluation Date of Evaluation: 07/07/17 Time of Evaluation: 11:49 - Subjective Subjective: Poor UO still last dialysis 07/05- UF 2000ml arousable, sluggish no n,v, diarrhea noted has desquamatory rash on IV steroids- helpful for likely dx of AIN await permcath Objective - Vital Signs/Intake and Output Vital Signs (last 24 hours): Temp Pulse Resp BP Pulse Ox 98.5 F 40 L 20 135/56 L 98 07/07/17 08:11 07/07/17 08:11 07/07/17 08:11 07/07/17 08:11 07/07/17 08:11 Intake and Output: 07/07/17 07/07/17 06:59 18:59 Intake Total 240 Balance 240 - Medications Medications: Current Medications Acetaminophen (Tylenol 325mg Tab) 650 mg PO Q6 PRN PRN Reason: Pain, Mild (1-3) Aspirin (Aspirin Chewable) 81 mg PO DAILY [facility] Last Admin: 07/06/17 10:01 Dose: 81 mg Azithromycin (Zithromax) 500 mg PO Q24H [facility] Last Admin: 07/06/17 17:41 Dose: 500 mg Calcium Acetate (Phoslo) 667 mg PO BIDCC [facility] Last Admin: 07/07/17 08:28 Dose: Not Given Famotidine (Pepcid) 20 mg PO DAILY [facility] Last Admin: 07/07/17 09:48 Dose: Not Given Ferrous Sulfate (Feosol) 325 mg PO DAILY [facility] Last Admin: 07/07/17 09:48 Dose: Not Given Heparin Sodium (Porcine) (Heparin) 5,000 units SC Q12 [facility] Last Admin: 07/06/17 21:49 Dose: 5,000 units Cefepime HCl (Maxipime Iv 1 Gm Premix) 1 gm in 50 mls @ 100 mls/hr IVPB Q24H [facility] Last Admin: 07/06/17 17:41 Dose: 100 mls/hr Sodium Chloride (Sodium Chloride 0.9%) 1,000 mls @ 60 mls/hr IV .[id number] [facility] Last Admin: 07/03/17 22:23 Dose: Not Given Methylprednisolone (Solu-Medrol) 40 mg IVP Q8H [facility] Last Admin: 07/07/17 09:49 Dose: 40 mg Metoprolol Succinate (Toprol Xl) 25 mg PO DAILY [facility] Last Admin: 07/04/17 10:00 Dose: Not Given Multivitamins (Hexavitamin) 1 tab PO DAILY [facility] Last Admin: 07/07/17 09:48 Dose: Not Given Nystatin (Nystop Topical Powder) 1 applic TOP BID [facility] Last Admin: 07/07/17 09:49 Dose: 1 applic - Labs Labs: 07/06/17 06:21 07/06/17 06:21 PT 12.9 SECONDS (9.7-12.2) H 06/29/17 16:42 INR 1.2 06/29/17 16:42 APTT 34 SECONDS (21-34) 06/29/17 16:42 - Constitutional Appears: No Acute Distress, Confused, Chronically Ill - Head Exam Head Exam: ATRAUMATIC, NORMAL INSPECTION - Eye Exam Eye Exam: EOMI, Normal appearance - Neck Exam Neck Exam: Normal Inspection. absent: Tenderness - Respiratory Exam Respiratory Exam: Clear to Ausculation Bilateral, NORMAL BREATHING PATTERN - Cardiovascular Exam Cardiovascular Exam: REGULAR RHYTHM, +S1 - GI/Abdominal Exam GI & Abdominal Exam: Soft. absent: Tenderness - Extremities Exam Extremities Exam: Normal Inspection. absent: Tenderness - Skin Skin Exam: Pallor, Rash Assessment and Plan (1) ESTEVAN (acute kidney injury) Status: Acute (2) Chr obstructive pulmonary disease w/ acute lower respiratory infxn Status: Acute (3) UTI (urinary tract infection) Status: Acute - Assessment and Plan (Free Text) Plan: permcath repeat dialysis steroids for AIN
[2017-07-07 11:58] LABS: BASO # 0.1 K/uL (0.0-0.2); BASO % 0.6 % (0.0-2.0); EOS % 0.2 % (0.0-4.0); HEMOGLOBIN 10.7 g/dL (11.0-16.0); LYMPH # 2.3 K/uL (1.0-4.3); LYMPH % 24.4 % (20.0-40.0); MEAN CELL VOLUME 85.9 fL (81.0-99.0); MEAN CORPUSCULAR HEMOGLOBIN 28.8 pg (27.0-31.0); MEAN CORPUSCULAR HGB CONC 33.5 g/dL (33.0-37.0); MEAN PLATELET VOLUME 8.7 fL (7.2-11.7); MONO # 0.8 K/uL (0.0-0.8); NEUT # 6.4 K/uL (1.8-7.0); NEUT % 66.8 % (50.0-75.0); NRBC % 0.2 % (0.0-2.0); RBC 3.7 Mil/uL (3.80-5.20); RED CELL DISTRIBUTION WIDTH 16.6 % (11.5-14.5); WHITE BLOOD COUNT 9.6 K/uL (4.8-10.8)
[2017-07-07 12:20] LABS: ALBUMIN 3.1 g/dL (3.5-5.0); CALCIUM 8.9 mg/dl (8.6-10.4)
--- NOTE | 2017-07-07 13:30 | CP.PCM.PN ---
Subjective - Date & Time of Evaluation Date of Evaluation: 07/07/17 Time of Evaluation: 08:00 - Subjective Subjective: awake alert little urine output has completed course of IV antibiotics- will d/c them Objective - Vital Signs/Intake and Output Vital Signs (last 24 hours): Temp Pulse Resp BP Pulse Ox 98.5 F 40 L 20 135/56 L 98 07/07/17 08:11 07/07/17 08:11 07/07/17 08:11 07/07/17 08:11 07/07/17 08:11 Intake and Output: 07/07/17 07/07/17 06:59 18:59 Intake Total 240 Balance 240 - Medications Medications: Current Medications Acetaminophen (Tylenol 325mg Tab) 650 mg PO Q6 PRN PRN Reason: Pain, Mild (1-3) Aspirin (Aspirin Chewable) 81 mg PO DAILY [facility] Last Admin: 07/06/17 10:01 Dose: 81 mg Azithromycin (Zithromax) 500 mg PO Q24H [facility] Last Admin: 07/06/17 17:41 Dose: 500 mg Calcium Acetate (Phoslo) 667 mg PO BIDCC [facility] Last Admin: 07/07/17 08:28 Dose: Not Given Famotidine (Pepcid) 20 mg PO DAILY [facility] Last Admin: 07/07/17 09:48 Dose: Not Given Ferrous Sulfate (Feosol) 325 mg PO DAILY [facility] Last Admin: 07/07/17 09:48 Dose: Not Given Heparin Sodium (Porcine) (Heparin) 5,000 units SC Q12 [facility] Last Admin: 07/06/17 21:49 Dose: 5,000 units Sodium Chloride (Sodium Chloride 0.9%) 1,000 mls @ 60 mls/hr IV .[id number] [facility] Last Admin: 07/03/17 22:23 Dose: Not Given Methylprednisolone (Solu-Medrol) 40 mg IVP Q8H [facility] Last Admin: 07/07/17 09:49 Dose: 40 mg Metoprolol Succinate (Toprol Xl) 25 mg PO DAILY [facility] Last Admin: 07/04/17 10:00 Dose: Not Given Multivitamins (Hexavitamin) 1 tab PO DAILY [facility] Last Admin: 07/07/17 09:48 Dose: Not Given Nystatin (Nystop Topical Powder) 1 applic TOP BID [facility] Last Admin: 07/07/17 09:49 Dose: 1 applic - Labs Labs: 07/07/17 11:48 07/07/17 11:48 PT 12.9 SECONDS (9.7-12.2) H 06/29/17 16:42 INR 1.2 06/29/17 16:42 APTT 34 SECONDS (21-34) 06/29/17 16:42 - Constitutional Appears: Non-toxic, Chronically Ill - Head Exam Head Exam: NORMOCEPHALIC - Eye Exam Eye Exam: PERRL - ENT Exam ENT Exam: Mucous Membranes Dry - Neck Exam Neck Exam: absent: Lymphadenopathy - Respiratory Exam Respiratory Exam: Decreased Breath Sounds - Cardiovascular Exam Cardiovascular Exam: REGULAR RHYTHM - GI/Abdominal Exam GI & Abdominal Exam: Distended, Soft - Rectal Exam Rectal Exam: Deferred - Exam Exam: NORMAL INSPECTION - Extremities Exam Extremities Exam: absent: Pedal Edema - Back Exam Back Exam: absent: CVA tenderness (L), CVA tenderness (R) - Neurological Exam Neurological Exam: Alert, Awake, Oriented x3 - Psychiatric Exam Psychiatric exam: Depressed Assessment and Plan (1) UTI (urinary tract infection) Status: Acute (2) UTI (urinary tract infection) Status: Acute (3) Chr obstructive pulmonary disease w/ acute lower respiratory infxn Status: Acute (4) Chronic congestive heart failure Status: Acute (5) Dyspnea Status: Acute (6) Respiratory distress Status: Acute - Assessment and Plan (Free Text) Assessment: d/c iv antibiotics- observe
--- NOTE | 2017-07-07 14:20 | CP.PCM.PN ---
Subjective - Date & Time of Evaluation Date of Evaluation: 07/07/17 Time of Evaluation: 12:40 - Subjective Subjective: Patient seen and examined at bedside. Shortness of breath improved, still off BiPap. Patient S/P dialysis 07/06 and 07/05. Going for permacath today; right femoral permacath to be removed as well. Cough improving, wheezing has resolved. Follow- up chest X-ray. Assessment/Plan 1. Respiratory distress - Monitor CXR and ABG - Bipap as needed - continue hemodialysis 2. ESTEVAN - continue hemodialysis - permacath to be changed - fluid restriction Objective - Vital Signs/Intake and Output Vital Signs (last 24 hours): Temp Pulse Resp BP Pulse Ox 98.5 F 40 L 20 135/56 L 98 07/07/17 08:11 07/07/17 08:11 07/07/17 08:11 07/07/17 08:11 07/07/17 08:11 Intake and Output: 07/07/17 07/07/17 06:59 18:59 Intake Total 240 Balance 240 - Medications Medications: Current Medications Acetaminophen (Tylenol 325mg Tab) 650 mg PO Q6 PRN PRN Reason: Pain, Mild (1-3) Aspirin (Aspirin Chewable) 81 mg PO DAILY [facility] Last Admin: 07/06/17 10:01 Dose: 81 mg Calcium Acetate (Phoslo) 667 mg PO BIDCC [facility] Last Admin: 07/07/17 08:28 Dose: Not Given Famotidine (Pepcid) 20 mg PO DAILY [facility] Last Admin: 07/07/17 09:48 Dose: Not Given Ferrous Sulfate (Feosol) 325 mg PO DAILY [facility] Last Admin: 07/07/17 09:48 Dose: Not Given Heparin Sodium (Porcine) (Heparin) 5,000 units SC Q12 [facility] Last Admin: 07/06/17 21:49 Dose: 5,000 units Sodium Chloride (Sodium Chloride 0.9%) 1,000 mls @ 60 mls/hr IV .[id number] [facility] Last Admin: 07/03/17 22:23 Dose: Not Given Methylprednisolone (Solu-Medrol) 40 mg IVP Q8H [facility] Last Admin: 07/07/17 09:49 Dose: 40 mg Metoprolol Succinate (Toprol Xl) 25 mg PO DAILY [facility] Last Admin: 07/04/17 10:00 Dose: Not Given Multivitamins (Hexavitamin) 1 tab PO DAILY [facility] Last Admin: 07/07/17 09:48 Dose: Not Given Nystatin (Nystop Topical Powder) 1 applic TOP BID [facility] Last Admin: 07/07/17 09:49 Dose: 1 applic - Labs Labs: 07/07/17 11:48 07/07/17 11:48 PT 12.9 SECONDS (9.7-12.2) H 06/29/17 16:42 INR 1.2 06/29/17 16:42 APTT 34 SECONDS (21-34) 06/29/17 16:42 Assessment and Plan (1) Respiratory distress Status: Acute (2) ESTEVAN (acute kidney injury) Status: Acute (3) Chronic congestive heart failure Status: Acute
[2017-07-07] MEDS ORDERED: HEPARIN-NS 5,000 UNITS/500 ML 5,000 UNIT/500 ML BAG IV ONE (16:06)
[2017-07-07] MEDS ORDERED: Midazolam 2 MG/2 ML VIAL ONE (16:20)
[2017-07-07] MEDS ORDERED: ceFAZolin 1 gm in NS 0 GM/0 ML BAG IVPB ONE (16:24)
[2017-07-07] MEDS ORDERED: Lidocaine 1% Inj (20ml) ONE (16:24)
[2017-07-07] MEDS ORDERED: Sodium Chloride 0.9% 250 ML IV ONE (16:37)
[2017-07-07] MEDS ORDERED: ceFAZolin IV 2 gm in Dextrose 0 GM/0 ML BAG IVPB ONE (16:39)
[2017-07-07] MEDS ORDERED: HYDROmorphone 0.5 mg/0.5 ml ISec IVP PRN (16:40)
[2017-07-07] MEDS ORDERED: ceFAZolin IV 2 gm in Dextrose 2 GM/50 ML BAG IVPB ONE (16:50)
--- NOTE | 2017-07-07 17:28 | PCM.SURG1 ---
Surgeon's Initial Post Op Note - Surgeon's Notes Surgeon: Dr. Garcia Technical Translator: PGY1 Type of Anesthesia: General IV, Local Pre-Operative Diagnosis: Acute on Chronic Kidney Injury Operative Findings: see op note Post-Operative Diagnosis: as above Operation Performed: Right IJ permacath placement Specimen/Specimens Removed: none Estimated Blood Loss: EBL {In ML}: 20 Drains Used: No Drains Date of Surgery/Procedure: 07/07/17 Time of Surgery/Procedure: 17:28
--- NOTE | 2017-07-07 17:37 | CP.PCM.PN ---
Subjective - Date & Time of Evaluation Date of Evaluation: 07/07/17 Time of Evaluation: 13:00 - Subjective Subjective: clinically same Objective - Vital Signs/Intake and Output Vital Signs (last 24 hours): Temp Pulse Resp BP Pulse Ox 98.5 F 40 L 20 135/56 L 98 07/07/17 08:11 07/07/17 08:11 07/07/17 08:11 07/07/17 08:11 07/07/17 08:11 Intake and Output: 07/07/17 07/07/17 06:59 18:59 Intake Total 240 Balance 240 - Medications Medications: Current Medications Acetaminophen (Tylenol 325mg Tab) 650 mg PO Q6 PRN PRN Reason: Pain, Mild (1-3) Aspirin (Aspirin Chewable) 81 mg PO DAILY [facility] Last Admin: 07/06/17 10:01 Dose: 81 mg Calcium Acetate (Phoslo) 667 mg PO BIDCC [facility] Last Admin: 07/07/17 08:28 Dose: Not Given Famotidine (Pepcid) 20 mg PO DAILY [facility] Last Admin: 07/07/17 09:48 Dose: Not Given Ferrous Sulfate (Feosol) 325 mg PO DAILY [facility] Last Admin: 07/07/17 09:48 Dose: Not Given Heparin Sodium (Porcine) (Heparin) 5,000 units SC Q12 [facility] Last Admin: 07/06/17 21:49 Dose: 5,000 units Hydromorphone HCl (Dilaudid) 0.5 mg IVP Q15M PRN PRN Reason: Pain, moderate (4-7) Stop: 07/07/17 18:40 Sodium Chloride (Sodium Chloride 0.9%) 1,000 mls @ 60 mls/hr IV .[id number] [facility] Last Admin: 07/03/17 22:23 Dose: Not Given Methylprednisolone (Solu-Medrol) 40 mg IVP Q8H [facility] Last Admin: 07/07/17 09:49 Dose: 40 mg Metoprolol Succinate (Toprol Xl) 25 mg PO DAILY [facility] Last Admin: 07/04/17 10:00 Dose: Not Given Multivitamins (Hexavitamin) 1 tab PO DAILY [facility] Last Admin: 07/07/17 09:48 Dose: Not Given Nystatin (Nystop Topical Powder) 1 applic TOP BID [facility] Last Admin: 07/07/17 09:49 Dose: 1 applic Ondansetron HCl (Zofran Inj) 4 mg IVP ONCE PRN PRN Reason: Nausea/Vomiting Stop: 07/07/17 18:40 - Labs Labs: 07/07/17 11:48 07/07/17 11:48 PT 12.9 SECONDS (9.7-12.2) H 06/29/17 16:42 INR 1.2 06/29/17 16:42 APTT 34 SECONDS (21-34) 06/29/17 16:42 - Constitutional Appears: Well - Head Exam Head Exam: ATRAUMATIC, NORMAL INSPECTION, NORMOCEPHALIC - Eye Exam Eye Exam: EOMI, Normal appearance, PERRL Pupil Exam: NORMAL ACCOMODATION, PERRL - ENT Exam ENT Exam: Mucous Membranes Moist, Normal Exam - Neck Exam Neck Exam: Full ROM, Normal Inspection. absent: Lymphadenopathy - Respiratory Exam Respiratory Exam: Decreased Breath Sounds - Cardiovascular Exam Cardiovascular Exam: REGULAR RHYTHM, +S1, +S2 - GI/Abdominal Exam GI & Abdominal Exam: Soft, Diminished Bowel Sounds - Rectal Exam Rectal Exam: Deferred
--- NOTE | 2017-07-07 19:26 | RAD ---
PROCEDURE: CHEST RADIOGRAPH, 1 VIEW HISTORY: s/p Permacath placement COMPARISON: Portable chest 07/04/2017. FINDINGS: A tunneled right central venous catheter is identified placed was entering the right atrium via an apparent right internal jugular approach. LUNGS: Crowding of the bronchovascular markings is seen at the right base given the pattern of linear markings. Linear atelectasis is a possibility here. Developing infiltrate remains difficult to completely exclude though this is not favored. . PLEURA: No pneumothorax or pleural fluid seen. CARDIOVASCULAR: Prominent cardiac silhouette appears stable. No definite pulmonary vascular derangement appreciated. OSSEOUS STRUCTURES: No significant abnormalities. VISUALIZED UPPER ABDOMEN: Normal. OTHER FINDINGS: None. IMPRESSION: Mild increase in linear bronchovascular markings at the right lung base probably as a function of crowding of the vasculature with airways. Under developing infiltrate is not favored but is not completely excluded here. Interval right central venous dialysis catheter is now seen tunnelled as described above. No pneumothorax bilaterally.
[2017-07-08] MEDS: MethylPREDNISolone 40 mg Vial IVP SCH ×3 (02:10→19:06)
--- NOTE | 2017-07-08 04:23 | OP ---
PROCEDURE DATE: 07/07/2017 PREOPERATIVE DIAGNOSIS: Renal failure. POSTOPERATIVE DIAGNOSIS: Renal failure. PROCEDURE CARRIED OUT: Placement of PermCath in right jugular vein with C-arm fluoroscopy with ultrasound-guided puncture and micropuncture technique. SURGEON: Ramiro Garcia Jr., MD MAGNETIC DOCTOR: Dr. Radford. ANESTHESIOLOGIST: Dr. Lopez. INDICATION: The patient is an older woman with renal insufficiency, presently with a temporarily placed femoral catheter. OPERATIVE FINDINGS: Using ultrasound guidance and micropuncture technique, the right jugular vein was cannulated. Under fluoroscopic control, the guidewire was advanced centrally. Sheath dilator was passed over this, exchanged for a 0.035 wire, and then the catheter was positioned into the superior vena cava. It originated on the right chest wall, went to the jugular vein, and terminated in the superior vena cava. There was excellent flow, inflow and outflow. The catheter was then secured to the skin and the procedure was terminated. The operation carried out is a PermCath in right jugular vein with C-arm fluoroscopy with ultrasound guided puncture and micropuncture technique. Ultrasound image of the neck showed the vein was 15 mm in diameter with normal compressibility and no intraluminal thrombosis. Ramiro Garcia Jr., MD
--- NOTE | 2017-07-08 09:26 | CP.PCM.PCO ---
Physician Communication Note - Physician Communication Note Physician Communication Note: Femoral HD catheter removed- no further surgical intervention required.
[2017-07-08] MEDS: Multiple Vitamins Tab PO SCH (09:46)
--- NOTE | 2017-07-08 10:27 | CP.PCM.PN ---
Subjective - Date & Time of Evaluation Date of Evaluation: 07/08/17 Time of Evaluation: 10:26 - Subjective Subjective: s/p Rt IJ permcath sluggish uop on iv steroids urine eos neg, not on antibiotics pt awake but lethargic. not able to answer questions Objective - Vital Signs/Intake and Output Vital Signs (last 24 hours): Temp Pulse Resp BP Pulse Ox 98.1 F 75 20 162/81 H 96 07/08/17 08:31 07/08/17 08:31 07/08/17 08:31 07/08/17 08:31 07/08/17 08:31 Intake and Output: 07/08/17 07/08/17 06:59 18:59 Intake Total 200 Balance 200 - Medications Medications: Current Medications Acetaminophen (Tylenol 325mg Tab) 650 mg PO Q6 PRN PRN Reason: Pain, Mild (1-3) Aspirin (Aspirin Chewable) 81 mg PO DAILY [facility] Last Admin: 07/06/17 10:01 Dose: 81 mg Calcium Acetate (Phoslo) 667 mg PO BIDCC [facility] Last Admin: 07/07/17 18:00 Dose: Not Given Famotidine (Pepcid) 20 mg PO DAILY [facility] Last Admin: 07/08/17 09:46 Dose: 20 mg Ferrous Sulfate (Feosol) 325 mg PO DAILY [facility] Last Admin: 07/08/17 09:46 Dose: 325 mg Heparin Sodium (Porcine) (Heparin) 5,000 units SC Q12 [facility] Last Admin: 07/06/17 21:49 Dose: 5,000 units Sodium Chloride (Sodium Chloride 0.9%) 1,000 mls @ 60 mls/hr IV .[id number] [facility] Last Admin: 07/03/17 22:23 Dose: Not Given Methylprednisolone (Solu-Medrol) 40 mg IVP Q8H [facility] Last Admin: 07/08/17 02:10 Dose: 40 mg Metoprolol Succinate (Toprol Xl) 25 mg PO DAILY [facility] Last Admin: 07/04/17 10:00 Dose: Not Given Multivitamins (Hexavitamin) 1 tab PO DAILY [facility] Last Admin: 07/08/17 09:46 Dose: 1 tab Nystatin (Nystop Topical Powder) 1 applic TOP BID [facility] Last Admin: 07/08/17 09:52 Dose: 1 applic - Labs Labs: 07/07/17 11:48 07/07/17 11:48 PT 12.9 SECONDS (9.7-12.2) H 06/29/17 16:42 INR 1.2 06/29/17 16:42 APTT 34 SECONDS (21-34) 06/29/17 16:42 - Constitutional Appears: No Acute Distress, Chronically Ill (lethargic) - Head Exam Head Exam: NORMAL INSPECTION, NORMOCEPHALIC - Eye Exam Eye Exam: Normal appearance, PERRL - ENT Exam ENT Exam: Mucous Membranes Dry, Normal Exam - Neck Exam Neck Exam: Full ROM, Normal Inspection - Respiratory Exam Respiratory Exam: Clear to Ausculation Bilateral, NORMAL BREATHING PATTERN - Cardiovascular Exam Cardiovascular Exam: REGULAR RHYTHM, RRR - GI/Abdominal Exam GI & Abdominal Exam: Distended, Soft, Normal Bowel Sounds - Extremities Exam Extremities Exam: Full ROM, Normal Inspection, Pedal Edema (rt chest permcath) - Neurological Exam Neurological Exam: Awake. absent: Alert - Psychiatric Exam Psychiatric exam: Normal Affect, Normal Mood - Skin Skin Exam: Dry, Intact Assessment and Plan (1) Chr obstructive pulmonary disease w/ acute lower respiratory infxn Status: Acute (2) Dyspnea Status: Acute (3) UTI (urinary tract infection) Status: Acute (4) ESTEVAN (acute kidney injury) Status: Acute (5) CKD (chronic kidney disease) stage 3, GFR 30-59 ml/min Status: Acute - Assessment and Plan (Free Text) Assessment: maintain hd ?dc steroids. urine eos neg supportive care strict I/Os
--- NOTE | 2017-07-08 14:17 | RAD ---
PROCEDURE: Intraoperative Fluoroscopy. HISTORY: RENAL FAILURE FINDINGS: Fluoroscopic assistance was provided for right-sided PermCath placement. Please refer to the operative report from [facility].
--- NOTE | 2017-07-08 15:43 | CP.PCM.PN ---
Subjective - Date & Time of Evaluation Date of Evaluation: 07/08/17 Time of Evaluation: 12:40 - Subjective Subjective: Patient seen and examined in bed today. Patient is status-post right permacath placement with Dr. Garcia. Patient states she is feeling alright and is in no pain. Patient denies shortness of breath, cough, chest pain, wheezing. Patient still off bipap. CXR 07/07: Mild increase in linear bronchovascular markings at the right lung base probably as a function of crowding of the vasculature with airways. Under developing infiltrate is not favored but is not completely excluded here. Interval right central venous dialysis catheter is now seen tunnelled as described above. No pneumothorax bilaterally. Assessment/Plan: 1. Respiratory distress - continue hemodialysis; continue current treatment. Bipap as needed. 2. ESTEVAN - continue hemodialysis 3. Chronic CHF Objective - Vital Signs/Intake and Output Vital Signs (last 24 hours): Temp Pulse Resp BP Pulse Ox 98.1 F 81 20 162/81 H 96 07/08/17 08:31 07/08/17 12:27 07/08/17 08:31 07/08/17 08:31 07/08/17 08:31 Intake and Output: 07/08/17 07/08/17 06:59 18:59 Intake Total 200 300 Balance 200 300 - Medications Medications: Current Medications Acetaminophen (Tylenol 325mg Tab) 650 mg PO Q6 PRN PRN Reason: Pain, Mild (1-3) Aspirin (Aspirin Chewable) 81 mg PO DAILY [facility] Last Admin: 07/06/17 10:01 Dose: 81 mg Calcium Acetate (Phoslo) 667 mg PO BIDCC [facility] Last Admin: 07/08/17 11:53 Dose: 667 mg Famotidine (Pepcid) 20 mg PO DAILY [facility] Last Admin: 07/08/17 09:46 Dose: 20 mg Ferrous Sulfate (Feosol) 325 mg PO DAILY [facility] Last Admin: 07/08/17 09:46 Dose: 325 mg Heparin Sodium (Porcine) (Heparin) 5,000 units SC Q12 [facility] Last Admin: 07/06/17 21:49 Dose: 5,000 units Sodium Chloride (Sodium Chloride 0.9%) 1,000 mls @ 60 mls/hr IV .[id number] [facility] Last Admin: 07/03/17 22:23 Dose: Not Given Methylprednisolone (Solu-Medrol) 40 mg IVP Q8H [facility] Last Admin: 07/08/17 11:53 Dose: 40 mg Metoprolol Succinate (Toprol Xl) 25 mg PO DAILY [facility] Last Admin: 07/04/17 10:00 Dose: Not Given Multivitamins (Hexavitamin) 1 tab PO DAILY [facility] Last Admin: 07/08/17 09:46 Dose: 1 tab Nystatin (Nystop Topical Powder) 1 applic TOP BID [facility] Last Admin: 07/08/17 09:52 Dose: 1 applic - Labs Labs: 07/07/17 11:48 07/07/17 11:48 PT 12.9 SECONDS (9.7-12.2) H 06/29/17 16:42 INR 1.2 06/29/17 16:42 APTT 34 SECONDS (21-34) 06/29/17 16:42 Assessment and Plan (1) Respiratory distress Status: Acute (2) ESTEVAN (acute kidney injury) Status: Acute (3) Chronic congestive heart failure Status: Acute
--- NOTE | 2017-07-08 16:43 | CP.PCM.PN ---
Subjective - Date & Time of Evaluation Date of Evaluation: 07/08/17 Time of Evaluation: 12:40 - Subjective Subjective: clinically same Objective - Vital Signs/Intake and Output Vital Signs (last 24 hours): Temp Pulse Resp BP Pulse Ox 98.3 F 58 L 20 126/69 98 07/08/17 15:59 07/08/17 15:59 07/08/17 15:59 07/08/17 15:59 07/08/17 15:59 Intake and Output: 07/08/17 07/08/17 06:59 18:59 Intake Total 200 300 Balance 200 300 - Medications Medications: Current Medications Acetaminophen (Tylenol 325mg Tab) 650 mg PO Q6 PRN PRN Reason: Pain, Mild (1-3) Aspirin (Aspirin Chewable) 81 mg PO DAILY [facility] Last Admin: 07/06/17 10:01 Dose: 81 mg Calcium Acetate (Phoslo) 667 mg PO BIDCC [facility] Last Admin: 07/08/17 11:53 Dose: 667 mg Famotidine (Pepcid) 20 mg PO DAILY [facility] Last Admin: 07/08/17 09:46 Dose: 20 mg Ferrous Sulfate (Feosol) 325 mg PO DAILY [facility] Last Admin: 07/08/17 09:46 Dose: 325 mg Heparin Sodium (Porcine) (Heparin) 5,000 units SC Q12 [facility] Last Admin: 07/06/17 21:49 Dose: 5,000 units Sodium Chloride (Sodium Chloride 0.9%) 1,000 mls @ 60 mls/hr IV .[id number] [facility] Last Admin: 07/03/17 22:23 Dose: Not Given Methylprednisolone (Solu-Medrol) 40 mg IVP Q8H [facility] Last Admin: 07/08/17 11:53 Dose: 40 mg Metoprolol Succinate (Toprol Xl) 25 mg PO DAILY [facility] Last Admin: 07/04/17 10:00 Dose: Not Given Multivitamins (Hexavitamin) 1 tab PO DAILY [facility] Last Admin: 07/08/17 09:46 Dose: 1 tab Nystatin (Nystop Topical Powder) 1 applic TOP BID [facility] Last Admin: 07/08/17 09:52 Dose: 1 applic - Labs Labs: 07/07/17 11:48 07/07/17 11:48 PT 12.9 SECONDS (9.7-12.2) H 06/29/17 16:42 INR 1.2 06/29/17 16:42 APTT 34 SECONDS (21-34) 06/29/17 16:42 - Constitutional Appears: Well - Head Exam Head Exam: ATRAUMATIC, NORMAL INSPECTION, NORMOCEPHALIC - Eye Exam Eye Exam: EOMI, Normal appearance, PERRL Pupil Exam: NORMAL ACCOMODATION, PERRL - ENT Exam ENT Exam: Mucous Membranes Moist, Normal Exam - Neck Exam Neck Exam: Full ROM, Normal Inspection. absent: Lymphadenopathy - Respiratory Exam Respiratory Exam: Decreased Breath Sounds - Cardiovascular Exam Cardiovascular Exam: REGULAR RHYTHM, +S1, +S2 - GI/Abdominal Exam GI & Abdominal Exam: Soft, Diminished Bowel Sounds - Rectal Exam Rectal Exam: Deferred
[2017-07-09] MEDS: MethylPREDNISolone 40 mg Vial IVP SCH ×3 (03:00→17:52)
[2017-07-09 11:14] LABS: MEAN CELL VOLUME 85.5 fL (81.0-99.0); MEAN CORPUSCULAR HEMOGLOBIN 28.5 pg (27.0-31.0); MEAN CORPUSCULAR HGB CONC 33.4 g/dL (33.0-37.0); MEAN PLATELET VOLUME 8.9 fL (7.2-11.7); RBC 3.85 Mil/uL (3.80-5.20); RED CELL DISTRIBUTION WIDTH 16.4 % (11.5-14.5); WHITE BLOOD COUNT 10.3 K/uL (4.8-10.8)
--- NOTE | 2017-07-09 11:19 | CP.PCM.PN ---
Subjective - Date & Time of Evaluation Date of Evaluation: 07/09/17 Time of Evaluation: 11:18 - Subjective Subjective: ROLL SKINNER NOTICED ON TELE MX IN NURSES STATION THAT PT'S HR WAS 176; SVT. SVT BROKE ON ITS OWN AFTER APPROX 30 SECONDS AND BACK INTO SINUS AT 67. 2 EPISODES OF THIS HAPPENED WITHIN 1 MINUTE OF EACH OTHER. DISCUSSED WITH PRIMARY RN JOEL WAHL AND PT IN DIALYSIS. PER HD NURSE ELIZABETH THE PT IS SLEEPING, AROUSABLE WITH NO COMPLAINTS SOB, CP, PALPITATIONS. ROLL SKINNER REVIEWED PT CHART; DR MARKS SIGNED OFF THE CASE A WEEK AGO. I CALLED HIM AND DISCUSSED THESE FINDINGS. PT HAS NOT BEEN RECEIVING METOPROLOL (HELD BY MD TEAM BUT I'M NOT SURE WHY). PER Maynor MARKS, RESTART TOPROL XL 50 MG PO QD TODAY AND IF PT CONTINUES TO HAVE EPISODES OF SVT EP CAN BE CONSULTED. DISCUSSED THIS WITH JOEL MANJARREZ. HE WILL CONTINUE TO MONITOR THE PT AND NOTIFY MDS ACCORDINGLY. Objective - Vital Signs/Intake and Output Vital Signs (last 24 hours): Temp Pulse Resp BP Pulse Ox 98.5 F 50 L 16 158/86 H 97 07/09/17 09:25 07/09/17 09:25 07/09/17 09:10 07/09/17 09:40 07/09/17 09:25 - Medications Medications: Current Medications Acetaminophen (Tylenol 325mg Tab) 650 mg PO Q6 PRN PRN Reason: Pain, Mild (1-3) Aspirin (Aspirin Chewable) 81 mg PO DAILY [facility] Last Admin: 07/06/17 10:01 Dose: 81 mg Calcium Acetate (Phoslo) 667 mg PO BIDCC [facility] Last Admin: 07/09/17 08:54 Dose: 667 mg Famotidine (Pepcid) 20 mg PO DAILY [facility] Last Admin: 07/08/17 09:46 Dose: 20 mg Ferrous Sulfate (Feosol) 325 mg PO DAILY [facility] Last Admin: 07/08/17 09:46 Dose: 325 mg Heparin Sodium (Porcine) (Heparin) 5,000 units SC Q12 [facility] Last Admin: 07/06/17 21:49 Dose: 5,000 units Sodium Chloride (Sodium Chloride 0.9%) 1,000 mls @ 60 mls/hr IV .[id number] [facility] Last Admin: 07/03/17 22:23 Dose: Not Given Methylprednisolone (Solu-Medrol) 40 mg IVP Q8H [facility] Last Admin: 07/09/17 03:00 Dose: 40 mg Multivitamins (Hexavitamin) 1 tab PO DAILY [facility] Last Admin: 07/08/17 09:46 Dose: 1 tab Nystatin (Nystop Topical Powder) 1 applic TOP BID [facility] Last Admin: 07/08/17 17:56 Dose: 1 applic - Labs Labs: 07/07/17 11:48 07/07/17 11:48 PT 12.9 SECONDS (9.7-12.2) H 06/29/17 16:42 INR 1.2 06/29/17 16:42 APTT 34 SECONDS (21-34) 06/29/17 16:42
[2017-07-09] MEDS: Multiple Vitamins Tab PO SCH (12:06)
[2017-07-09] MEDS: Metoprolol Succinate 50 mg XL Tab PO SCH (13:12)
--- NOTE | 2017-07-09 14:05 | CP.PCM.PN ---
Subjective - Date & Time of Evaluation Date of Evaluation: 07/09/17 Time of Evaluation: 12:00 - Subjective Subjective: clinically same Objective - Vital Signs/Intake and Output Vital Signs (last 24 hours): Temp Pulse Resp BP Pulse Ox 98.5 F 78 18 146/62 99 07/09/17 09:25 07/09/17 13:29 07/09/17 12:40 07/09/17 12:40 07/09/17 12:40 - Medications Medications: Current Medications Acetaminophen (Tylenol 325mg Tab) 650 mg PO Q6 PRN PRN Reason: Pain, Mild (1-3) Aspirin (Aspirin Chewable) 81 mg PO DAILY [facility] Last Admin: 07/06/17 10:01 Dose: 81 mg Calcium Acetate (Phoslo) 667 mg PO BIDCC [facility] Last Admin: 07/09/17 08:54 Dose: 667 mg Famotidine (Pepcid) 20 mg PO DAILY [facility] Last Admin: 07/09/17 12:06 Dose: Not Given Ferrous Sulfate (Feosol) 325 mg PO DAILY [facility] Last Admin: 07/09/17 12:06 Dose: Not Given Heparin Sodium (Porcine) (Heparin) 5,000 units SC Q12 [facility] Last Admin: 07/06/17 21:49 Dose: 5,000 units Sodium Chloride (Sodium Chloride 0.9%) 1,000 mls @ 60 mls/hr IV .[id number] [facility] Last Admin: 07/03/17 22:23 Dose: Not Given Methylprednisolone (Solu-Medrol) 40 mg IVP Q8H [facility] Last Admin: 07/09/17 12:06 Dose: Not Given Metoprolol Succinate (Toprol Xl) 50 mg PO DAILY [facility] Last Admin: 07/09/17 13:12 Dose: 50 mg Multivitamins (Hexavitamin) 1 tab PO DAILY [facility] Last Admin: 07/09/17 12:06 Dose: Not Given Nystatin (Nystop Topical Powder) 1 applic TOP BID [facility] Last Admin: 07/09/17 12:06 Dose: Not Given - Labs Labs: 07/09/17 11:02 07/07/17 11:48 PT 12.9 SECONDS (9.7-12.2) H 06/29/17 16:42 INR 1.2 06/29/17 16:42 APTT 34 SECONDS (21-34) 06/29/17 16:42 - Constitutional Appears: Well - Head Exam Head Exam: ATRAUMATIC, NORMAL INSPECTION, NORMOCEPHALIC - Eye Exam Eye Exam: EOMI, Normal appearance, PERRL Pupil Exam: NORMAL ACCOMODATION, PERRL - ENT Exam ENT Exam: Mucous Membranes Moist, Normal Exam - Neck Exam Neck Exam: Full ROM, Normal Inspection. absent: Lymphadenopathy - Respiratory Exam Respiratory Exam: Decreased Breath Sounds - Cardiovascular Exam Cardiovascular Exam: REGULAR RHYTHM, +S1, +S2 - GI/Abdominal Exam GI & Abdominal Exam: Soft, Diminished Bowel Sounds - Rectal Exam Rectal Exam: Deferred
--- NOTE | 2017-07-09 14:14 | CP.PCM.PN ---
Subjective - Date & Time of Evaluation Date of Evaluation: 07/09/17 Time of Evaluation: 14:11 - Subjective Subjective: s/p dialysis today- UF 2000ml rash fading claims UO, not recorded last creat4.8- needs repeat feels sl better, sluggish but more alert Objective - Vital Signs/Intake and Output Vital Signs (last 24 hours): Temp Pulse Resp BP Pulse Ox 98.5 F 78 18 146/62 99 07/09/17 09:25 07/09/17 13:29 07/09/17 12:40 07/09/17 12:40 07/09/17 12:40 - Medications Medications: Current Medications Acetaminophen (Tylenol 325mg Tab) 650 mg PO Q6 PRN PRN Reason: Pain, Mild (1-3) Aspirin (Aspirin Chewable) 81 mg PO DAILY [facility] Last Admin: 07/06/17 10:01 Dose: 81 mg Calcium Acetate (Phoslo) 667 mg PO BIDCC [facility] Last Admin: 07/09/17 08:54 Dose: 667 mg Famotidine (Pepcid) 20 mg PO DAILY [facility] Last Admin: 07/09/17 12:06 Dose: Not Given Ferrous Sulfate (Feosol) 325 mg PO DAILY [facility] Last Admin: 07/09/17 12:06 Dose: Not Given Heparin Sodium (Porcine) (Heparin) 5,000 units SC Q12 [facility] Last Admin: 07/06/17 21:49 Dose: 5,000 units Sodium Chloride (Sodium Chloride 0.9%) 1,000 mls @ 60 mls/hr IV .[id number] [facility] Last Admin: 07/03/17 22:23 Dose: Not Given Methylprednisolone (Solu-Medrol) 40 mg IVP Q8H [facility] Last Admin: 07/09/17 12:06 Dose: Not Given Metoprolol Succinate (Toprol Xl) 50 mg PO DAILY [facility] Last Admin: 07/09/17 13:12 Dose: 50 mg Multivitamins (Hexavitamin) 1 tab PO DAILY [facility] Last Admin: 07/09/17 12:06 Dose: Not Given Nystatin (Nystop Topical Powder) 1 applic TOP BID [facility] Last Admin: 07/09/17 12:06 Dose: Not Given - Labs Labs: 07/09/17 11:02 07/07/17 11:48 PT 12.9 SECONDS (9.7-12.2) H 06/29/17 16:42 INR 1.2 06/29/17 16:42 APTT 34 SECONDS (21-34) 06/29/17 16:42 - Constitutional Appears: No Acute Distress, Chronically Ill - Head Exam Head Exam: ATRAUMATIC, NORMAL INSPECTION - Eye Exam Eye Exam: EOMI - Neck Exam Neck Exam: Normal Inspection. absent: Tenderness - Respiratory Exam Respiratory Exam: Clear to Ausculation Bilateral, NORMAL BREATHING PATTERN - GI/Abdominal Exam GI & Abdominal Exam: Soft. absent: Tenderness - Extremities Exam Extremities Exam: Normal Inspection. absent: Tenderness - Neurological Exam Neurological Exam: Alert, CN II-XII Intact - Skin Skin Exam: Dry, Warm Assessment and Plan (1) ESTEVAN (acute kidney injury) Status: Acute (2) Chr obstructive pulmonary disease w/ acute lower respiratory infxn Status: Acute (3) UTI (urinary tract infection) Status: Acute - Assessment and Plan (Free Text) Plan: Repeat chemistries check UO etiology ESTEVAN unclear, but had desquamatory rash at same time of ESTEVAN
--- NOTE | 2017-07-09 16:19 | CP.PCM.PN ---
Subjective - Date & Time of Evaluation Date of Evaluation: 07/07/17 Time of Evaluation: 16:10 - Subjective Subjective: PT DISCUSSED DURING MORNING MULTIDISC ROUNDS AND PER SW PT NEEDS HEP B CORE TOTAL AB FOR HD PLACEMENT OUTPATIENT. THIS IS A SEND OUT; I HAVE COMPLETED THE DOWN TIME SLIP FOR ORDERING THIS LAB, NOTIFIED RN COVERING TO HAVE IT DONE DURING NEXT LAB ROUNDS. NO FURTHER ORDERS. Objective - Vital Signs/Intake and Output Vital Signs (last 24 hours): Temp Pulse Resp BP Pulse Ox 98.5 F 78 18 146/62 99 07/09/17 09:25 07/09/17 13:29 07/09/17 12:40 07/09/17 12:40 07/09/17 12:40 Intake and Output: 07/09/17 07/09/17 06:59 18:59 Intake Total 200 Balance 200 - Medications Medications: Current Medications Acetaminophen (Tylenol 325mg Tab) 650 mg PO Q6 PRN PRN Reason: Pain, Mild (1-3) Aspirin (Aspirin Chewable) 81 mg PO DAILY [facility] Last Admin: 07/06/17 10:01 Dose: 81 mg Calcium Acetate (Phoslo) 667 mg PO BIDCC [facility] Last Admin: 07/09/17 08:54 Dose: 667 mg Famotidine (Pepcid) 20 mg PO DAILY [facility] Last Admin: 07/09/17 12:06 Dose: Not Given Ferrous Sulfate (Feosol) 325 mg PO DAILY [facility] Last Admin: 07/09/17 12:06 Dose: Not Given Heparin Sodium (Porcine) (Heparin) 5,000 units SC Q12 [facility] Last Admin: 07/06/17 21:49 Dose: 5,000 units Sodium Chloride (Sodium Chloride 0.9%) 1,000 mls @ 60 mls/hr IV .[id number] [facility] Last Admin: 07/03/17 22:23 Dose: Not Given Methylprednisolone (Solu-Medrol) 40 mg IVP Q8H [facility] Last Admin: 07/09/17 12:06 Dose: Not Given Metoprolol Succinate (Toprol Xl) 50 mg PO DAILY [facility] Last Admin: 07/09/17 13:12 Dose: 50 mg Multivitamins (Hexavitamin) 1 tab PO DAILY [facility] Last Admin: 07/09/17 12:06 Dose: Not Given Nystatin (Nystop Topical Powder) 1 applic TOP BID [facility] Last Admin: 07/09/17 12:06 Dose: Not Given - Labs Labs: 07/09/17 11:02 07/07/17 11:48 PT 12.9 SECONDS (9.7-12.2) H 06/29/17 16:42 INR 1.2 06/29/17 16:42 APTT 34 SECONDS (21-34) 06/29/17 16:42
--- NOTE | 2017-07-09 18:03 | CP.PCM.PN ---
Subjective - Date & Time of Evaluation Date of Evaluation: 07/09/17 Time of Evaluation: 08:00 - Subjective Subjective: AFEB OFF CEFEPIME RASH FADING CEFEPIME STARTED 06/30/17 FOR POSSIBLE SEPSIS / EXAC COPD / CHF AT THAT TIME STARTED ON ZMAX AND CEFEPIME FOR UROSEPSIS URINE CULTURE GREW GRAM NEG AND WBC WAS 17 K ON ADMISSION SEPSIS / ATN LIKELY CAUSE FOR RENAL FAILURE Objective - Vital Signs/Intake and Output Vital Signs (last 24 hours): Temp Pulse Resp BP Pulse Ox 98.8 F 64 20 139/72 99 07/09/17 15:00 07/09/17 15:00 07/09/17 15:00 07/09/17 15:00 07/09/17 15:00 Intake and Output: 07/09/17 07/09/17 06:59 18:59 Intake Total 200 Balance 200 - Medications Medications: Current Medications Acetaminophen (Tylenol 325mg Tab) 650 mg PO Q6 PRN PRN Reason: Pain, Mild (1-3) Aspirin (Aspirin Chewable) 81 mg PO DAILY [facility] Last Admin: 07/06/17 10:01 Dose: 81 mg Calcium Acetate (Phoslo) 667 mg PO BIDCC [facility] Last Admin: 07/09/17 17:52 Dose: 667 mg Famotidine (Pepcid) 20 mg PO DAILY [facility] Last Admin: 07/09/17 12:06 Dose: Not Given Ferrous Sulfate (Feosol) 325 mg PO DAILY [facility] Last Admin: 07/09/17 12:06 Dose: Not Given Heparin Sodium (Porcine) (Heparin) 5,000 units SC Q12 [facility] Last Admin: 07/06/17 21:49 Dose: 5,000 units Sodium Chloride (Sodium Chloride 0.9%) 1,000 mls @ 60 mls/hr IV .[id number] [facility] Last Admin: 07/03/17 22:23 Dose: Not Given Methylprednisolone (Solu-Medrol) 40 mg IVP Q8H [facility] Last Admin: 07/09/17 17:52 Dose: 40 mg Metoprolol Succinate (Toprol Xl) 50 mg PO DAILY [facility] Last Admin: 07/09/17 13:12 Dose: 50 mg Multivitamins (Hexavitamin) 1 tab PO DAILY [facility] Last Admin: 07/09/17 12:06 Dose: Not Given Nystatin (Nystop Topical Powder) 1 applic TOP BID [facility] Last Admin: 07/09/17 17:53 Dose: 1 applic - Labs Labs: 07/09/17 11:02 07/07/17 11:48 PT 12.9 SECONDS (9.7-12.2) H 06/29/17 16:42 INR 1.2 06/29/17 16:42 APTT 34 SECONDS (21-34) 06/29/17 16:42 - Constitutional Appears: Non-toxic - Head Exam Head Exam: NORMOCEPHALIC - Eye Exam Eye Exam: PERRL - ENT Exam ENT Exam: Mucous Membranes Dry - Neck Exam Neck Exam: absent: Lymphadenopathy - Respiratory Exam Respiratory Exam: Decreased Breath Sounds - Cardiovascular Exam Cardiovascular Exam: REGULAR RHYTHM, +S1, +S2 - GI/Abdominal Exam GI & Abdominal Exam: Distended, Soft Assessment and Plan (1) UTI (urinary tract infection) Status: Acute (2) UTI (urinary tract infection) Status: Acute (3) Chr obstructive pulmonary disease w/ acute lower respiratory infxn Status: Acute (4) Chronic congestive heart failure Status: Acute (5) Dyspnea Status: Acute (6) Respiratory distress Status: Acute
[2017-07-09 20:33] LABS: CALCIUM 7.6 mg/dl (8.6-10.4)
[2017-07-10] MEDS ORDERED: Magnesium Sulfate 1 gm in D5W 1 GM/100 ML BAG IVPB ONE (00:43)
[2017-07-10] MEDS: MethylPREDNISolone 40 mg Vial IVP SCH ×3 (02:56→17:57)
[2017-07-10 09:30] LABS: ALBUMIN 2.8 g/dL (3.5-5.0); CALCIUM 8.1 mg/dl (8.6-10.4)
--- NOTE | 2017-07-10 10:33 | CP.PCM.PN ---
Subjective - Date & Time of Evaluation Date of Evaluation: 07/10/17 Time of Evaluation: 10:30 - Subjective Subjective: s/p dialysis 07/09 UO still not recorded- will request again creat still elevated appreciate ID note same lethargy- but arousable off IV ABs now difficult to be certain of etiology of ESTEVAN without bx best to monitor UO, chemistries for need for HD Objective - Vital Signs/Intake and Output Vital Signs (last 24 hours): Temp Pulse Resp BP Pulse Ox 98.7 F 52 L 18 148/56 L 97 07/10/17 08:00 07/10/17 08:00 07/10/17 08:00 07/10/17 08:00 07/10/17 08:00 - Medications Medications: Current Medications Acetaminophen (Tylenol 325mg Tab) 650 mg PO Q6 PRN PRN Reason: Pain, Mild (1-3) Aspirin (Aspirin Chewable) 81 mg PO DAILY [facility] Last Admin: 07/06/17 10:01 Dose: 81 mg Calcium Acetate (Phoslo) 667 mg PO BIDCC [facility] Last Admin: 07/09/17 17:52 Dose: 667 mg Famotidine (Pepcid) 20 mg PO DAILY [facility] Last Admin: 07/09/17 12:06 Dose: Not Given Ferrous Sulfate (Feosol) 325 mg PO DAILY [facility] Last Admin: 07/09/17 12:06 Dose: Not Given Heparin Sodium (Porcine) (Heparin) 5,000 units SC Q12 [facility] Last Admin: 07/06/17 21:49 Dose: 5,000 units Sodium Chloride (Sodium Chloride 0.9%) 1,000 mls @ 60 mls/hr IV .[id number] [facility] Last Admin: 07/03/17 22:23 Dose: Not Given Methylprednisolone (Solu-Medrol) 40 mg IVP Q8H [facility] Last Admin: 07/10/17 02:56 Dose: 40 mg Metoprolol Succinate (Toprol Xl) 50 mg PO DAILY [facility] Last Admin: 07/09/17 13:12 Dose: 50 mg Multivitamins (Hexavitamin) 1 tab PO DAILY [facility] Last Admin: 07/09/17 12:06 Dose: Not Given Nystatin (Nystop Topical Powder) 1 applic TOP BID [facility] Last Admin: 07/09/17 17:53 Dose: 1 applic - Labs Labs: 07/09/17 11:02 07/10/17 08:58 PT 12.9 SECONDS (9.7-12.2) H 06/29/17 16:42 INR 1.2 06/29/17 16:42 APTT 34 SECONDS (21-34) 06/29/17 16:42 - Constitutional Appears: No Acute Distress, Chronically Ill - Head Exam Head Exam: ATRAUMATIC, NORMAL INSPECTION - Eye Exam Eye Exam: EOMI, Normal appearance - Neck Exam Neck Exam: Normal Inspection. absent: Tenderness - Respiratory Exam Respiratory Exam: Clear to Ausculation Bilateral, NORMAL BREATHING PATTERN - Cardiovascular Exam Cardiovascular Exam: REGULAR RHYTHM, +S1 - GI/Abdominal Exam GI & Abdominal Exam: Soft. absent: Tenderness - Extremities Exam Extremities Exam: Normal Inspection. absent: Tenderness - Neurological Exam Neurological Exam: Awake, CN II-XII Intact - Skin Skin Exam: Dry, Warm Assessment and Plan (1) ESTEVAN (acute kidney injury) Status: Acute (2) Chr obstructive pulmonary disease w/ acute lower respiratory infxn Status: Acute (3) UTI (urinary tract infection) Status: Acute - Assessment and Plan (Free Text) Plan: continue dialysis for now record serial chemistries and UO
[2017-07-10] MEDS: Multiple Vitamins Tab PO SCH (11:01)
[2017-07-10] MEDS: Metoprolol Succinate 50 mg XL Tab PO SCH (11:01)
--- NOTE | 2017-07-10 12:35 | CP.PCM.PN ---
Subjective - Date & Time of Evaluation Date of Evaluation: 07/10/17 Time of Evaluation: 12:35 - Subjective Subjective: No acute distrss NO CP or SOB at rest Lying in bed: eating comfortably Objective - Vital Signs/Intake and Output Vital Signs (last 24 hours): Temp Pulse Resp BP Pulse Ox 98.7 F 52 L 18 148/56 L 97 07/10/17 08:00 07/10/17 08:00 07/10/17 08:00 07/10/17 08:00 07/10/17 08:00 - Medications Medications: Current Medications Acetaminophen (Tylenol 325mg Tab) 650 mg PO Q6 PRN PRN Reason: Pain, Mild (1-3) Aspirin (Aspirin Chewable) 81 mg PO DAILY [facility] Last Admin: 07/06/17 10:01 Dose: 81 mg Calcium Acetate (Phoslo) 667 mg PO BIDCC [facility] Last Admin: 07/10/17 09:00 Dose: 667 mg Famotidine (Pepcid) 20 mg PO DAILY [facility] Last Admin: 07/10/17 11:01 Dose: 20 mg Ferrous Sulfate (Feosol) 325 mg PO DAILY [facility] Last Admin: 07/10/17 11:01 Dose: 325 mg Heparin Sodium (Porcine) (Heparin) 5,000 units SC Q12 [facility] Last Admin: 07/06/17 21:49 Dose: 5,000 units Sodium Chloride (Sodium Chloride 0.9%) 1,000 mls @ 60 mls/hr IV .[id number] [facility] Last Admin: 07/03/17 22:23 Dose: Not Given Methylprednisolone (Solu-Medrol) 40 mg IVP Q8H [facility] Last Admin: 07/10/17 11:02 Dose: 40 mg Metoprolol Succinate (Toprol Xl) 50 mg PO DAILY [facility] Last Admin: 07/10/17 11:01 Dose: 50 mg Multivitamins (Hexavitamin) 1 tab PO DAILY [facility] Last Admin: 07/10/17 11:01 Dose: 1 tab Nystatin (Nystop Topical Powder) 1 applic TOP BID [facility] Last Admin: 07/10/17 11:02 Dose: 1 applic - Labs Labs: 07/09/17 11:02 07/10/17 08:58 PT 12.9 SECONDS (9.7-12.2) H 06/29/17 16:42 INR 1.2 06/29/17 16:42 APTT 34 SECONDS (21-34) 06/29/17 16:42 - Constitutional Appears: No Acute Distress - Head Exam Head Exam: ATRAUMATIC, NORMAL INSPECTION, NORMOCEPHALIC - Eye Exam Eye Exam: EOMI, Normal appearance, PERRL - Neck Exam Neck Exam: Full ROM. absent: Tenderness - Respiratory Exam Respiratory Exam: NORMAL BREATHING PATTERN - Cardiovascular Exam Cardiovascular Exam: REGULAR RHYTHM, +S1, +S2. absent: Gallop, Murmur - Extremities Exam Extremities Exam: absent: Calf Tenderness, Pedal Edema - Neurological Exam Neurological Exam: Alert, Awake Assessment and Plan - Assessment and Plan (Free Text) Assessment: 1. SOB/chest congestion/URI sx's 2. PNA 3. HTN chronic stable 4. LIPIDS: chronic stable 5. CHF diastolic 6. CKD developed ARF now started on HD via R/ chest HD catheter. 7. SVT noted while on HD 07/10/17---> Beta robert added at the time: since no further arrythmia ECHO: directly seen by me: Normal LVEF AND WALL MOTION, No significant valve disease, normal RV function. Mild LVH. > reduce lasix dose or change to PO maintainence > CAD RF's: HTN, LIPIDS --> currently there is no active anginal sx;s are ischemic changes on EKG: agree with ASA and statin for now. Initial trop was negative for ACS. Plan: Tolerating TOPROL XL 50 Cont ASA suggest statin Monitor lytes and Mg----> 1gm yahaira replaced when Mg was 1.9: > DVT prophylaxis
--- NOTE | 2017-07-10 17:16 | CP.PCM.PN ---
Subjective - Date & Time of Evaluation Date of Evaluation: 07/10/17 Time of Evaluation: 14:40 - Subjective Subjective: pt clinically same Objective - Vital Signs/Intake and Output Vital Signs (last 24 hours): Temp Pulse Resp BP Pulse Ox 98.6 F 50 L 22 162/65 H 99 07/10/17 16:00 07/10/17 16:00 07/10/17 16:00 07/10/17 16:00 07/10/17 16:00 Intake and Output: 07/10/17 07/10/17 06:59 18:59 Intake Total 300 Output Total 80 Balance 220 - Medications Medications: Current Medications Acetaminophen (Tylenol 325mg Tab) 650 mg PO Q6 PRN PRN Reason: Pain, Mild (1-3) Aspirin (Aspirin Chewable) 81 mg PO DAILY [facility] Last Admin: 07/06/17 10:01 Dose: 81 mg Calcium Acetate (Phoslo) 667 mg PO BIDCC [facility] Last Admin: 07/10/17 09:00 Dose: 667 mg Famotidine (Pepcid) 20 mg PO DAILY [facility] Last Admin: 07/10/17 11:01 Dose: 20 mg Ferrous Sulfate (Feosol) 325 mg PO DAILY [facility] Last Admin: 07/10/17 11:01 Dose: 325 mg Heparin Sodium (Porcine) (Heparin) 5,000 units SC Q12 [facility] Last Admin: 07/06/17 21:49 Dose: 5,000 units Sodium Chloride (Sodium Chloride 0.9%) 1,000 mls @ 60 mls/hr IV .[id number] [facility] Last Admin: 07/03/17 22:23 Dose: Not Given Methylprednisolone (Solu-Medrol) 40 mg IVP Q8H [facility] Last Admin: 07/10/17 11:02 Dose: 40 mg Metoprolol Succinate (Toprol Xl) 50 mg PO DAILY [facility] Last Admin: 07/10/17 11:01 Dose: 50 mg Multivitamins (Hexavitamin) 1 tab PO DAILY [facility] Last Admin: 07/10/17 11:01 Dose: 1 tab Nystatin (Nystop Topical Powder) 1 applic TOP BID [facility] Last Admin: 07/10/17 11:02 Dose: 1 applic - Labs Labs: 07/09/17 11:02 07/10/17 08:58 PT 12.9 SECONDS (9.7-12.2) H 06/29/17 16:42 INR 1.2 06/29/17 16:42 APTT 34 SECONDS (21-34) 06/29/17 16:42 - Constitutional Appears: No Acute Distress - Head Exam Head Exam: ATRAUMATIC, NORMAL INSPECTION, NORMOCEPHALIC - Eye Exam Eye Exam: EOMI, Normal appearance, PERRL Pupil Exam: NORMAL ACCOMODATION, PERRL - ENT Exam ENT Exam: Mucous Membranes Moist - Neck Exam Neck Exam: Full ROM - Respiratory Exam Respiratory Exam: Decreased Breath Sounds - Cardiovascular Exam Cardiovascular Exam: REGULAR RHYTHM, +S1, +S2 - GI/Abdominal Exam GI & Abdominal Exam: Soft, Diminished Bowel Sounds - Rectal Exam Rectal Exam: Deferred - Neurological Exam Additional comments: [employer]OVER same Assessment and Plan (1) ESTEVAN (acute kidney injury) Status: Acute (2) CKD (chronic kidney disease) stage 3, GFR 30-59 ml/min Status: Acute (3) Chr obstructive pulmonary disease w/ acute lower respiratory infxn Status: Acute (4) Chronic congestive heart failure Status: Acute (5) Dyspnea Status: Acute (6) Respiratory distress Status: Acute (7) UTI (urinary tract infection) Status: Acute (8) UTI (urinary tract infection) Status: Acute
--- NOTE | 2017-07-10 18:42 | CP.PCM.PN ---
Subjective - Date & Time of Evaluation Date of Evaluation: 07/10/17 Time of Evaluation: 11:30 - Subjective Subjective: patient seen and examined Status post hemodialysis yesterday Awake and responsive No respiratory distress Continue hemodialysis Continue antibiotics followup ABG Objective - Vital Signs/Intake and Output Vital Signs (last 24 hours): Temp Pulse Resp BP Pulse Ox 98.6 F 50 L 22 162/65 H 99 07/10/17 16:00 07/10/17 16:00 07/10/17 16:00 07/10/17 16:00 07/10/17 16:00 Intake and Output: 07/10/17 07/10/17 06:59 18:59 Intake Total 300 Output Total 80 Balance 220 - Medications Medications: Current Medications Acetaminophen (Tylenol 325mg Tab) 650 mg PO Q6 PRN PRN Reason: Pain, Mild (1-3) Aspirin (Aspirin Chewable) 81 mg PO DAILY [facility] Last Admin: 07/06/17 10:01 Dose: 81 mg Calcium Acetate (Phoslo) 667 mg PO BIDCC [facility] Last Admin: 07/10/17 17:57 Dose: 667 mg Famotidine (Pepcid) 20 mg PO DAILY [facility] Last Admin: 07/10/17 11:01 Dose: 20 mg Ferrous Sulfate (Feosol) 325 mg PO DAILY [facility] Last Admin: 07/10/17 11:01 Dose: 325 mg Heparin Sodium (Porcine) (Heparin) 5,000 units SC Q12 [facility] Last Admin: 07/06/17 21:49 Dose: 5,000 units Sodium Chloride (Sodium Chloride 0.9%) 1,000 mls @ 60 mls/hr IV .[id number] [facility] Last Admin: 07/03/17 22:23 Dose: Not Given Methylprednisolone (Solu-Medrol) 40 mg IVP Q8H [facility] Last Admin: 07/10/17 17:57 Dose: 40 mg Metoprolol Succinate (Toprol Xl) 50 mg PO DAILY [facility] Last Admin: 07/10/17 11:01 Dose: 50 mg Multivitamins (Hexavitamin) 1 tab PO DAILY [facility] Last Admin: 07/10/17 11:01 Dose: 1 tab Nystatin (Nystop Topical Powder) 1 applic TOP BID [facility] Last Admin: 07/10/17 18:04 Dose: 1 applic - Labs Labs: 07/09/17 11:02 07/10/17 08:58 PT 12.9 SECONDS (9.7-12.2) H 06/29/17 16:42 INR 1.2 06/29/17 16:42 APTT 34 SECONDS (21-34) 06/29/17 16:42 Assessment and Plan (1) Respiratory distress Status: Acute (2) ESTEVAN (acute kidney injury) Status: Acute (3) Chronic congestive heart failure Status: Acute
[2017-07-11] MEDS: MethylPREDNISolone 40 mg Vial IVP SCH ×3 (03:00→17:47)
[2017-07-11 08:12] LABS: HEMOGLOBIN 11.1 g/dL (11.0-16.0); MEAN CELL VOLUME 85.6 fL (81.0-99.0); MEAN CORPUSCULAR HEMOGLOBIN 28.3 pg (27.0-31.0); MEAN PLATELET VOLUME 8.9 fL (7.2-11.7); RBC 3.91 Mil/uL (3.80-5.20); RED CELL DISTRIBUTION WIDTH 16.8 % (11.5-14.5); WHITE BLOOD COUNT 13.6 K/uL (4.8-10.8)
[2017-07-11 08:27] LABS: ALB/GLOB RATIO 0.9 (1.0-2.1); ALBUMIN 2.9 g/dL (3.5-5.0); CALCIUM 7.9 mg/dl (8.6-10.4)
[2017-07-11] MEDS: Metoprolol Succinate 50 mg XL Tab PO SCH ×2 (09:53→13:05)
[2017-07-11] MEDS: Multiple Vitamins Tab PO SCH ×2 (09:54→13:05)
--- NOTE | 2017-07-11 12:36 | CP.PCM.PN ---
Subjective - Date & Time of Evaluation Date of Evaluation: 07/11/17 Time of Evaluation: 16:02 - Subjective Subjective: No cardiac complaints Comfortable, eating no fevers or chills Objective - Vital Signs/Intake and Output Vital Signs (last 24 hours): Temp Pulse Resp BP Pulse Ox 98 F 60 16 160/57 H 100 07/11/17 12:20 07/11/17 12:20 07/11/17 12:20 07/11/17 12:20 07/11/17 12:20 Intake and Output: 07/11/17 07/11/17 06:59 18:59 Intake Total 400 Output Total 250 Balance 150 - Medications Medications: Current Medications Acetaminophen (Tylenol 325mg Tab) 650 mg PO Q6 PRN PRN Reason: Pain, Mild (1-3) Aspirin (Aspirin Chewable) 81 mg PO DAILY [facility] Last Admin: 07/06/17 10:01 Dose: 81 mg Calcium Acetate (Phoslo) 667 mg PO BIDCC [facility] Last Admin: 07/11/17 09:53 Dose: Not Given Famotidine (Pepcid) 20 mg PO DAILY [facility] Last Admin: 07/11/17 09:53 Dose: Not Given Ferrous Sulfate (Feosol) 325 mg PO DAILY [facility] Last Admin: 07/11/17 09:54 Dose: Not Given Heparin Sodium (Porcine) (Heparin) 5,000 units SC Q12 [facility] Last Admin: 07/06/17 21:49 Dose: 5,000 units Heparin Sodium (Porcine) (Heparin) 3,700 units IVP MWF [facility] Stop: 07/23/17 09:01 Last Admin: 07/11/17 12:35 Dose: 3,700 units Sodium Chloride (Sodium Chloride 0.9%) 1,000 mls @ 60 mls/hr IV .[id number] [facility] Last Admin: 07/03/17 22:23 Dose: Not Given Methylprednisolone (Solu-Medrol) 40 mg IVP Q8H [facility] Last Admin: 07/11/17 09:53 Dose: Not Given Metoprolol Succinate (Toprol Xl) 50 mg PO DAILY [facility] Last Admin: 07/11/17 09:53 Dose: Not Given Multivitamins (Hexavitamin) 1 tab PO DAILY [facility] Last Admin: 07/11/17 09:54 Dose: Not Given Nystatin (Nystop Topical Powder) 1 applic TOP BID [facility] Last Admin: 02/23/18 09:53 Dose: Not Given - Labs Labs: 07/11/17 07:58 07/11/17 07:58 PT 12.9 SECONDS (9.7-12.2) H 06/29/17 16:42 INR 1.2 06/29/17 16:42 APTT 34 SECONDS (21-34) 06/29/17 16:42 - Constitutional Appears: No Acute Distress - Head Exam Head Exam: ATRAUMATIC, NORMOCEPHALIC - Eye Exam Eye Exam: Normal appearance - ENT Exam ENT Exam: Mucous Membranes Moist - Neck Exam Neck Exam: Normal Inspection - Respiratory Exam Respiratory Exam: Clear to Ausculation Bilateral, NORMAL BREATHING PATTERN - Cardiovascular Exam Cardiovascular Exam: REGULAR RHYTHM, +S1, +S2. absent: Gallop - Extremities Exam Extremities Exam: absent: Pedal Edema - Neurological Exam Neurological Exam: Alert, Awake, Oriented x3 Assessment and Plan - Assessment and Plan (Free Text) Assessment: 1. SOB/chest congestion/URI sx's 2. PNA 3. HTN chronic stable 4. LIPIDS: chronic stable 5. CHF diastolic 6. CKD developed ARF now started on HD via R/ chest HD catheter. 7. SVT noted while on HD 07/10/17---> Beta robert added at the time: since no further arrythmia ECHO: directly seen by me: Normal LVEF AND WALL MOTION, No significant valve disease, normal RV function. Mild LVH. > reduce lasix dose or change to PO maintainence > CAD RF's: HTN, LIPIDS --> currently there is no active anginal sx;s are ischemic changes on EKG: agree with ASA and statin for now. Initial trop was negative for ACS. Plan: Tolerating TOPROL XL 50 Cont ASA suggest statin Monitor lytes and Mg----> 1gm yahaira replaced when Mg was 1.9: > DVT prophylaxis > BP remains elevated: ADD norvasc 5 daily and titrate to 10
--- NOTE | 2017-07-11 12:43 | CARD ---
APPROVED REPORT EKG Measurement Heart [id number] RI [id number] <Conclusion> Sinus with 2nd degree AV block (Mobitz I) Low voltage QRS Possible Inferior infarct, age undetermined Cannot rule out Anterior infarct, age undetermined Abnormal ECG
--- NOTE | 2017-07-11 13:28 | CP.PCM.PN ---
Subjective - Date & Time of Evaluation Date of Evaluation: 07/11/17 Time of Evaluation: 13:28 - Subjective Subjective: Patient seen and examined Lying comfortably in no acute distress Denies shortness of breath Afebrile No chest pain Continue hemodialysis Objective - Vital Signs/Intake and Output Vital Signs (last 24 hours): Temp Pulse Resp BP Pulse Ox 98 F 60 16 160/57 H 100 07/11/17 12:20 07/11/17 12:20 07/11/17 12:20 07/11/17 12:20 07/11/17 12:20 Intake and Output: 07/11/17 07/11/17 06:59 18:59 Intake Total 400 Output Total 250 Balance 150 - Medications Medications: Current Medications Acetaminophen (Tylenol 325mg Tab) 650 mg PO Q6 PRN PRN Reason: Pain, Mild (1-3) Aspirin (Aspirin Chewable) 81 mg PO DAILY [facility] Last Admin: 07/06/17 10:01 Dose: 81 mg Calcium Acetate (Phoslo) 667 mg PO BIDCC [facility] Last Admin: 07/11/17 09:53 Dose: Not Given Famotidine (Pepcid) 20 mg PO DAILY [facility] Last Admin: 07/11/17 13:05 Dose: 20 mg Ferrous Sulfate (Feosol) 325 mg PO DAILY [facility] Last Admin: 07/11/17 13:05 Dose: 325 mg Heparin Sodium (Porcine) (Heparin) 5,000 units SC Q12 [facility] Last Admin: 07/06/17 21:49 Dose: 5,000 units Heparin Sodium (Porcine) (Heparin) 3,700 units IVP MWF [facility] Stop: 07/23/17 09:01 Last Admin: 07/11/17 12:35 Dose: 3,700 units Sodium Chloride (Sodium Chloride 0.9%) 1,000 mls @ 60 mls/hr IV .[id number] [facility] Last Admin: 07/03/17 22:23 Dose: Not Given Methylprednisolone (Solu-Medrol) 40 mg IVP Q8H [facility] Last Admin: 07/11/17 09:53 Dose: Not Given Metoprolol Succinate (Toprol Xl) 50 mg PO DAILY [facility] Last Admin: 07/11/17 13:05 Dose: 50 mg Multivitamins (Hexavitamin) 1 tab PO DAILY [facility] Last Admin: 07/11/17 13:05 Dose: 1 tab Nystatin (Nystop Topical Powder) 1 applic TOP BID [facility] Last Admin: 07/11/17 09:53 Dose: Not Given - Labs Labs: 07/11/17 07:58 07/11/17 07:58 PT 12.9 SECONDS (9.7-12.2) H 06/29/17 16:42 INR 1.2 06/29/17 16:42 APTT 34 SECONDS (21-34) 06/29/17 16:42 Assessment and Plan (1) Respiratory distress Status: Acute (2) ESTEVAN (acute kidney injury) Status: Acute (3) Chronic congestive heart failure Status: Acute
--- NOTE | 2017-07-11 14:06 | CP.PCM.PN ---
Subjective - Date & Time of Evaluation Date of Evaluation: 07/11/17 Time of Evaluation: 14:04 - Subjective Subjective: s/p dialysis now- UF 1900ml UO- 250 ml today creat still elevated alert, no c/o dyspnea, f, c n, v, diarrhea Objective - Vital Signs/Intake and Output Vital Signs (last 24 hours): Temp Pulse Resp BP Pulse Ox 98 F 60 16 160/57 H 100 07/11/17 12:20 07/11/17 12:20 07/11/17 12:20 07/11/17 12:20 07/11/17 12:20 Intake and Output: 07/11/17 07/11/17 06:59 18:59 Intake Total 400 Output Total 250 Balance 150 - Medications Medications: Current Medications Acetaminophen (Tylenol 325mg Tab) 650 mg PO Q6 PRN PRN Reason: Pain, Mild (1-3) Aspirin (Aspirin Chewable) 81 mg PO DAILY [facility] Last Admin: 07/06/17 10:01 Dose: 81 mg Calcium Acetate (Phoslo) 667 mg PO BIDCC [facility] Last Admin: 07/11/17 09:53 Dose: Not Given Famotidine (Pepcid) 20 mg PO DAILY [facility] Last Admin: 07/11/17 13:05 Dose: 20 mg Ferrous Sulfate (Feosol) 325 mg PO DAILY [facility] Last Admin: 07/11/17 13:05 Dose: 325 mg Heparin Sodium (Porcine) (Heparin) 5,000 units SC Q12 [facility] Last Admin: 07/06/17 21:49 Dose: 5,000 units Heparin Sodium (Porcine) (Heparin) 3,700 units IVP MWF [facility] Stop: 07/23/17 09:01 Last Admin: 07/11/17 12:35 Dose: 3,700 units Sodium Chloride (Sodium Chloride 0.9%) 1,000 mls @ 60 mls/hr IV .[id number] [facility] Last Admin: 07/03/17 22:23 Dose: Not Given Methylprednisolone (Solu-Medrol) 40 mg IVP Q8H [facility] Last Admin: 07/11/17 09:53 Dose: Not Given Metoprolol Succinate (Toprol Xl) 50 mg PO DAILY [facility] Last Admin: 07/11/17 13:05 Dose: 50 mg Multivitamins (Hexavitamin) 1 tab PO DAILY [facility] Last Admin: 07/11/17 13:05 Dose: 1 tab Nystatin (Nystop Topical Powder) 1 applic TOP BID [facility] Last Admin: 07/11/17 09:53 Dose: Not Given - Labs Labs: 07/11/17 07:58 07/11/17 07:58 PT 12.9 SECONDS (9.7-12.2) H 06/29/17 16:42 INR 1.2 06/29/17 16:42 APTT 34 SECONDS (21-34) 06/29/17 16:42 - Constitutional Appears: No Acute Distress, Chronically Ill - Head Exam Head Exam: ATRAUMATIC, NORMAL INSPECTION - Eye Exam Eye Exam: EOMI, Normal appearance - Neck Exam Neck Exam: Normal Inspection. absent: Tenderness - Respiratory Exam Respiratory Exam: Clear to Ausculation Bilateral, NORMAL BREATHING PATTERN - Cardiovascular Exam Cardiovascular Exam: REGULAR RHYTHM, +S1 - GI/Abdominal Exam GI & Abdominal Exam: Soft. absent: Tenderness - Extremities Exam Extremities Exam: Normal Inspection. absent: Tenderness - Neurological Exam Neurological Exam: Awake, CN II-XII Intact - Skin Skin Exam: Dry, Warm Assessment and Plan (1) ESTEVAN (acute kidney injury) Status: Acute (2) Chr obstructive pulmonary disease w/ acute lower respiratory infxn Status: Acute (3) UTI (urinary tract infection) Status: Acute - Assessment and Plan (Free Text) Plan: continue dialysis schedule will possibly need outpt dialysis if no recovery soon
--- NOTE | 2017-07-11 18:51 | CP.PCM.PN ---
Subjective - Date & Time of Evaluation Date of Evaluation: 07/11/17 Time of Evaluation: 13:00 - Subjective Subjective: clinically same Objective - Vital Signs/Intake and Output Vital Signs (last 24 hours): Temp Pulse Resp BP Pulse Ox 98.6 F 73 20 145/69 100 07/11/17 16:00 07/11/17 16:00 07/11/17 16:00 07/11/17 16:00 07/11/17 16:00 Intake and Output: 07/11/17 07/11/17 06:59 18:59 Intake Total 400 330 Output Total 250 125 Balance 150 205 - Medications Medications: Current Medications Acetaminophen (Tylenol 325mg Tab) 650 mg PO Q6 PRN PRN Reason: Pain, Mild (1-3) Amlodipine Besylate (Norvasc) 5 mg PO DAILY [facility] Last Admin: 07/11/17 17:40 Dose: 5 mg Aspirin (Aspirin Chewable) 81 mg PO DAILY [facility] Last Admin: 07/06/17 10:01 Dose: 81 mg Calcium Acetate (Phoslo) 667 mg PO TIDCC [facility] Last Admin: 07/11/17 17:47 Dose: 667 mg Famotidine (Pepcid) 20 mg PO DAILY [facility] Last Admin: 07/11/17 13:05 Dose: 20 mg Ferrous Sulfate (Feosol) 325 mg PO DAILY [facility] Last Admin: 07/11/17 13:05 Dose: 325 mg Heparin Sodium (Porcine) (Heparin) 5,000 units SC Q12 [facility] Last Admin: 07/06/17 21:49 Dose: 5,000 units Heparin Sodium (Porcine) (Heparin) 3,700 units IVP [facility] Stop: 07/23/17 09:01 Last Admin: 07/11/17 12:35 Dose: 3,700 units Sodium Chloride (Sodium Chloride 0.9%) 1,000 mls @ 60 mls/hr IV .[id number] [facility] Last Admin: 07/03/17 22:23 Dose: Not Given Methylprednisolone (Solu-Medrol) 40 mg IVP Q8H [facility] Last Admin: 07/11/17 17:47 Dose: 40 mg Metoprolol Succinate (Toprol Xl) 50 mg PO DAILY [facility] Last Admin: 07/11/17 13:05 Dose: 50 mg Multivitamins (Hexavitamin) 1 tab PO DAILY [facility] Last Admin: 07/11/17 13:05 Dose: 1 tab Nystatin (Nystop Topical Powder) 1 applic TOP BID [facility] Last Admin: 07/11/17 17:50 Dose: 1 applic - Labs Labs: 07/11/17 07:58 07/11/17 07:58 PT 12.9 SECONDS (9.7-12.2) H 06/29/17 16:42 INR 1.2 06/29/17 16:42 APTT 34 SECONDS (21-34) 06/29/17 16:42 - Constitutional Appears: Well - Head Exam Head Exam: ATRAUMATIC, NORMAL INSPECTION, NORMOCEPHALIC - Eye Exam Eye Exam: EOMI, Normal appearance, PERRL Pupil Exam: NORMAL ACCOMODATION, PERRL - ENT Exam ENT Exam: Mucous Membranes Moist, Normal Exam - Neck Exam Neck Exam: Full ROM, Normal Inspection. absent: Lymphadenopathy - Respiratory Exam Respiratory Exam: Decreased Breath Sounds - Cardiovascular Exam Cardiovascular Exam: REGULAR RHYTHM, +S1, +S2 - GI/Abdominal Exam GI & Abdominal Exam: Soft, Diminished Bowel Sounds - Rectal Exam Rectal Exam: Deferred Assessment and Plan (1) ESTEVAN (acute kidney injury) Status: Acute (2) CKD (chronic kidney disease) stage 3, GFR 30-59 ml/min Status: Acute (3) Chr obstructive pulmonary disease w/ acute lower respiratory infxn Status: Acute (4) Chronic congestive heart failure Status: Acute (5) Dyspnea Status: Acute (6) Respiratory distress Status: Acute (7) UTI (urinary tract infection) Status: Acute (8) UTI (urinary tract infection) Status: Acute
[2017-07-12] MEDS: MethylPREDNISolone 40 mg Vial IVP SCH ×3 (02:01→17:53)
--- NOTE | 2017-07-12 09:22 | CP.PCM.PN ---
Subjective - Date & Time of Evaluation Date of Evaluation: 07/12/17 Time of Evaluation: 09:20 - Subjective Subjective: oliguric febrile bp stable comfortable in bed ate entire breakfast skin desquammating ROS no chills fever no chest pain sob cough hemoptysis no abd pain n/v/d/ parsons in place Objective - Vital Signs/Intake and Output Vital Signs (last 24 hours): Temp Pulse Resp BP Pulse Ox 98.4 F 70 20 140/59 L 98 07/12/17 04:25 07/12/17 04:25 07/12/17 04:25 07/12/17 04:25 07/12/17 04:25 Intake and Output: 07/12/17 07/12/17 06:59 18:59 Intake Total 500 Output Total 200 Balance 300 - Medications Medications: Current Medications Acetaminophen (Tylenol 325mg Tab) 650 mg PO Q6 PRN PRN Reason: Pain, Mild (1-3) Amlodipine Besylate (Norvasc) 5 mg PO DAILY [facility] Last Admin: 07/11/17 17:40 Dose: 5 mg Aspirin (Aspirin Chewable) 81 mg PO DAILY [facility] Last Admin: 07/06/17 10:01 Dose: 81 mg Calcium Acetate (Phoslo) 667 mg PO TIDCC [facility] Last Admin: 07/11/17 17:47 Dose: 667 mg Famotidine (Pepcid) 20 mg PO DAILY [facility] Last Admin: 07/11/17 13:05 Dose: 20 mg Ferrous Sulfate (Feosol) 325 mg PO DAILY [facility] Last Admin: 07/11/17 13:05 Dose: 325 mg Heparin Sodium (Porcine) (Heparin) 5,000 units SC Q12 [facility] Last Admin: 07/06/17 21:49 Dose: 5,000 units Heparin Sodium (Porcine) (Heparin) 3,700 units IVP MWF [facility] Stop: 07/23/17 09:01 Last Admin: 07/11/17 12:35 Dose: 3,700 units Sodium Chloride (Sodium Chloride 0.9%) 1,000 mls @ 60 mls/hr IV .[id number] [facility] Last Admin: 07/03/17 22:23 Dose: Not Given Methylprednisolone (Solu-Medrol) 40 mg IVP Q8H [facility] Last Admin: 07/12/17 02:01 Dose: 40 mg Metoprolol Succinate (Toprol Xl) 50 mg PO DAILY [facility] Last Admin: 07/11/17 13:05 Dose: 50 mg Multivitamins (Hexavitamin) 1 tab PO DAILY [facility] Last Admin: 07/11/17 13:05 Dose: 1 tab Nystatin (Nystop Topical Powder) 1 applic TOP BID [facility] Last Admin: 07/11/17 17:50 Dose: 1 applic - Labs Labs: 07/11/17 07:58 07/11/17 07:58 PT 12.9 SECONDS (9.7-12.2) H 06/29/17 16:42 INR 1.2 06/29/17 16:42 APTT 34 SECONDS (21-34) 06/29/17 16:42 - Constitutional Appears: No Acute Distress - Eye Exam Eye Exam: absent: Scleral icterus - ENT Exam ENT Exam: Mucous Membranes Moist - Respiratory Exam Respiratory Exam: Clear to Ausculation Bilateral, NORMAL BREATHING PATTERN - Cardiovascular Exam Cardiovascular Exam: Irregular Rhythm - GI/Abdominal Exam GI & Abdominal Exam: Soft. absent: Tenderness Additional comments: obese - Extremities Exam Extremities Exam: absent: Calf Tenderness, Pedal Edema Additional comments: parsons in place - Back Exam Back Exam: absent: CVA tenderness (L), CVA tenderness (R) - Psychiatric Exam Psychiatric exam: Flat Affect. absent: Anxious - Skin Skin Exam: Dry Additional comments: desquamating skin Assessment and Plan (1) UTI (urinary tract infection) Status: Acute - Assessment and Plan (Free Text) Plan: continue to follow chems closely reorder for 07/13 next dialysis tentatively 07/14
[2017-07-12] MEDS: Multiple Vitamins Tab PO SCH (10:48)
[2017-07-12] MEDS: Metoprolol Succinate 50 mg XL Tab PO SCH (10:48)
--- NOTE | 2017-07-12 16:23 | CP.PCM.PN ---
Subjective - Date & Time of Evaluation Date of Evaluation: 07/12/17 Time of Evaluation: 16:22 - Subjective Subjective: Events reviewed Objective - Vital Signs/Intake and Output Vital Signs (last 24 hours): Temp Pulse Resp BP Pulse Ox 98.4 F 85 20 140/59 L 98 07/12/17 04:25 07/12/17 11:31 07/12/17 04:25 07/12/17 04:25 07/12/17 04:25 Intake and Output: 07/12/17 07/12/17 06:59 18:59 Intake Total 500 352 Output Total 200 120 Balance 300 232 - Medications Medications: Current Medications Acetaminophen (Tylenol 325mg Tab) 650 mg PO Q6 PRN PRN Reason: Pain, Mild (1-3) Amlodipine Besylate (Norvasc) 5 mg PO DAILY [facility] Last Admin: 07/12/17 10:48 Dose: 5 mg Aspirin (Aspirin Chewable) 81 mg PO DAILY [facility] Last Admin: 07/06/17 10:01 Dose: 81 mg Calcium Acetate (Phoslo) 667 mg PO TIDCC [facility] Last Admin: 07/12/17 11:26 Dose: 667 mg Famotidine (Pepcid) 20 mg PO DAILY [facility] Last Admin: 07/12/17 10:58 Dose: 20 mg Ferrous Sulfate (Feosol) 325 mg PO DAILY [facility] Last Admin: 07/12/17 11:00 Dose: 325 mg Heparin Sodium (Porcine) (Heparin) 5,000 units SC Q12 [facility] Last Admin: 07/06/17 21:49 Dose: 5,000 units Heparin Sodium (Porcine) (Heparin) 3,700 units IVP MWF [facility] Stop: 07/23/17 09:01 Last Admin: 07/11/17 12:35 Dose: 3,700 units Sodium Chloride (Sodium Chloride 0.9%) 1,000 mls @ 60 mls/hr IV .[id number] [facility] Last Admin: 07/03/17 22:23 Dose: Not Given Insulin Human Regular (Novolin R) 0 unit SC ACHS [facility] PRN Reason: Protocol Methylprednisolone (Solu-Medrol) 40 mg IVP Q8H [facility] Last Admin: 07/12/17 10:48 Dose: 40 mg Metoprolol Succinate (Toprol Xl) 50 mg PO DAILY [facility] Last Admin: 02/24/18 10:48 Dose: 50 mg Multivitamins (Hexavitamin) 1 tab PO DAILY [facility] Last Admin: 07/12/17 10:48 Dose: 1 tab Nystatin (Nystop Topical Powder) 1 applic TOP BID [facility] Last Admin: 07/12/17 10:58 Dose: 1 applic - Labs Labs: 07/11/17 07:58 07/11/17 07:58 PT 12.9 SECONDS (9.7-12.2) H 06/29/17 16:42 INR 1.2 06/29/17 16:42 APTT 34 SECONDS (21-34) 06/29/17 16:42 - Constitutional Appears: Well, Non-toxic - Respiratory Exam Respiratory Exam: Clear to Ausculation Bilateral, NORMAL BREATHING PATTERN - Cardiovascular Exam Cardiovascular Exam: REGULAR RHYTHM, RRR, +S1, +S2. absent: JVD - GI/Abdominal Exam GI & Abdominal Exam: Hyperactive Bowel Sounds, Normal Bowel Sounds. absent: Organomegaly Assessment and Plan - Assessment and Plan (Free Text) Assessment: 1. SOB/chest congestion/URI sx's 2. PNA 3. HTN chronic stable 4. LIPIDS: chronic stable 5. CHF diastolic 6. CKD developed ARF now started on HD via R/ chest HD catheter. 7. SVT noted while on HD 07/10/17---> Beta robert added at the time: since no further arrythmia ECHO: directly seen by me: Normal LVEF AND WALL MOTION, No significant valve disease, normal RV function. Mild LVH. > reduce lasix dose or change to PO maintainence > CAD RF's: HTN, LIPIDS --> currently there is no active anginal sx;s are ischemic changes on EKG: agree with ASA and statin for now. Initial trop was negative for ACS. Plan: Tolerating TOPROL XL 50 Cont ASA suggest statin > DVT prophylaxis > BP remains elevated: titrate norvasc to 10
--- NOTE | 2017-07-12 16:52 | CP.PCM.PN ---
Subjective - Date & Time of Evaluation Date of Evaluation: 07/12/17 Time of Evaluation: 12:20 - Subjective Subjective: clinically same Objective - Vital Signs/Intake and Output Vital Signs (last 24 hours): Temp Pulse Resp BP Pulse Ox 98.4 F 85 20 140/59 L 98 07/12/17 04:25 07/12/17 11:31 07/12/17 04:25 07/12/17 04:25 07/12/17 04:25 Intake and Output: 07/12/17 07/12/17 06:59 18:59 Intake Total 500 352 Output Total 200 120 Balance 300 232 - Medications Medications: Current Medications Acetaminophen (Tylenol 325mg Tab) 650 mg PO Q6 PRN PRN Reason: Pain, Mild (1-3) Amlodipine Besylate (Norvasc) 5 mg PO DAILY [facility] Last Admin: 07/12/17 10:48 Dose: 5 mg Aspirin (Aspirin Chewable) 81 mg PO DAILY [facility] Last Admin: 07/06/17 10:01 Dose: 81 mg Calcium Acetate (Phoslo) 667 mg PO TIDCC [facility] Last Admin: 07/12/17 11:26 Dose: 667 mg Famotidine (Pepcid) 20 mg PO DAILY [facility] Last Admin: 07/12/17 10:58 Dose: 20 mg Ferrous Sulfate (Feosol) 325 mg PO DAILY [facility] Last Admin: 07/12/17 11:00 Dose: 325 mg Heparin Sodium (Porcine) (Heparin) 5,000 units SC Q12 [facility] Last Admin: 07/06/17 21:49 Dose: 5,000 units Heparin Sodium (Porcine) (Heparin) 3,700 units IVP MWF [facility] Stop: 07/23/17 09:01 Last Admin: 07/11/17 12:35 Dose: 3,700 units Sodium Chloride (Sodium Chloride 0.9%) 1,000 mls @ 60 mls/hr IV .[id number] [facility] Last Admin: 07/03/17 22:23 Dose: Not Given Insulin Human Regular (Novolin R) 0 unit SC ACHS [facility] PRN Reason: Protocol Methylprednisolone (Solu-Medrol) 40 mg IVP Q8H [facility] Last Admin: 07/12/17 10:48 Dose: 40 mg Metoprolol Succinate (Toprol Xl) 50 mg PO DAILY [facility] Last Admin: 02/24/18 10:48 Dose: 50 mg Multivitamins (Hexavitamin) 1 tab PO DAILY [facility] Last Admin: 07/12/17 10:48 Dose: 1 tab Nystatin (Nystop Topical Powder) 1 applic TOP BID [facility] Last Admin: 07/12/17 10:58 Dose: 1 applic - Labs Labs: 07/11/17 07:58 07/11/17 07:58 PT 12.9 SECONDS (9.7-12.2) H 06/29/17 16:42 INR 1.2 06/29/17 16:42 APTT 34 SECONDS (21-34) 06/29/17 16:42 - Constitutional Appears: Well - Head Exam Head Exam: ATRAUMATIC, NORMAL INSPECTION, NORMOCEPHALIC - Eye Exam Eye Exam: EOMI, Normal appearance, PERRL Pupil Exam: NORMAL ACCOMODATION, PERRL - ENT Exam ENT Exam: Mucous Membranes Moist, Normal Exam - Neck Exam Neck Exam: Full ROM, Normal Inspection. absent: Lymphadenopathy - Respiratory Exam Respiratory Exam: Decreased Breath Sounds - Cardiovascular Exam Cardiovascular Exam: REGULAR RHYTHM, +S1, +S2 - GI/Abdominal Exam GI & Abdominal Exam: Soft, Diminished Bowel Sounds - Rectal Exam Rectal Exam: Deferred Assessment and Plan (1) ESTEVAN (acute kidney injury) Status: Acute (2) CKD (chronic kidney disease) stage 3, GFR 30-59 ml/min Status: Acute (3) Chr obstructive pulmonary disease w/ acute lower respiratory infxn Status: Acute (4) Chronic congestive heart failure Status: Acute (5) Dyspnea Status: Acute (6) Respiratory distress Status: Acute (7) UTI (urinary tract infection) Status: Acute (8) UTI (urinary tract infection) Status: Acute
[2017-07-12] MEDS: (Novolin R) Insulin Human Regular 100 units/ml vial SC SCH ×2 (17:06→22:30)
[2017-07-13] MEDS: MethylPREDNISolone 40 mg Vial IVP SCH ×4 (01:59→21:43)
[2017-07-13] MEDS: (Novolin R) Insulin Human Regular 100 units/ml vial SC SCH ×4 (08:00→22:00)
[2017-07-13 09:04] LABS: CALCIUM 8.2 mg/dl (8.6-10.4)
[2017-07-13] MEDS: Multiple Vitamins Tab PO SCH (09:45)
[2017-07-13] MEDS: Metoprolol Succinate 50 mg XL Tab PO SCH (09:45)
--- NOTE | 2017-07-13 14:19 | CP.PCM.PN ---
Subjective - Date & Time of Evaluation Date of Evaluation: 07/13/17 Time of Evaluation: 12:20 - Subjective Subjective: Patient seen and examined Status post dialysis on Friday Patient lethargic and drowsy No shortness of breath afebrile Objective - Vital Signs/Intake and Output Vital Signs (last 24 hours): Temp Pulse Resp BP Pulse Ox 97.4 F L 47 L 20 143/56 L 98 07/13/17 09:21 07/13/17 09:38 07/13/17 09:21 07/13/17 09:38 07/13/17 09:21 Intake and Output: 07/13/17 07/13/17 06:59 18:59 Intake Total 530 Output Total 250 Balance 280 - Medications Medications: Current Medications Acetaminophen (Tylenol 325mg Tab) 650 mg PO Q6 PRN PRN Reason: Pain, Mild (1-3) Amlodipine Besylate (Norvasc) 5 mg PO DAILY [facility] Last Admin: 07/13/17 09:45 Dose: 5 mg Aspirin (Aspirin Chewable) 81 mg PO DAILY [facility] Last Admin: 07/06/17 10:01 Dose: 81 mg Calcium Acetate (Phoslo) 667 mg PO TIDCC [facility] Last Admin: 07/13/17 12:33 Dose: 667 mg Famotidine (Pepcid) 20 mg PO DAILY [facility] Last Admin: 07/13/17 09:45 Dose: 20 mg Ferrous Sulfate (Feosol) 325 mg PO DAILY [facility] Last Admin: 07/13/17 09:45 Dose: 325 mg Heparin Sodium (Porcine) (Heparin) 5,000 units SC Q12 [facility] Last Admin: 07/06/17 21:49 Dose: 5,000 units Heparin Sodium (Porcine) (Heparin) 3,700 units IVP MWF [facility] Stop: 07/23/17 09:01 Last Admin: 07/11/17 12:35 Dose: 3,700 units Sodium Chloride (Sodium Chloride 0.9%) 1,000 mls @ 60 mls/hr IV .[id number] [facility] Last Admin: 07/03/17 22:23 Dose: Not Given Insulin Human Regular (Novolin R) 0 unit SC ACHS [facility] PRN Reason: Protocol Last Admin: 07/13/17 12:30 Dose: 4 unit Methylprednisolone (Solu-Medrol) 40 mg IVP Q8H [facility] Last Admin: 07/13/17 09:45 Dose: 40 mg Metoprolol Succinate (Toprol Xl) 50 mg PO DAILY [facility] Last Admin: 07/13/17 09:45 Dose: 50 mg Multivitamins (Hexavitamin) 1 tab PO DAILY [facility] Last Admin: 07/13/17 09:45 Dose: 1 tab Nystatin (Nystop Topical Powder) 1 applic TOP BID [facility] Last Admin: 07/13/17 09:45 Dose: 1 applic - Labs Labs: 07/11/17 07:58 07/13/17 08:43 PT 12.9 SECONDS (9.7-12.2) H 06/29/17 16:42 INR 1.2 06/29/17 16:42 APTT 34 SECONDS (21-34) 06/29/17 16:42 - Constitutional Appears: No Acute Distress - ENT Exam ENT Exam: Mucous Membranes Moist - Respiratory Exam Respiratory Exam: Clear to Ausculation Bilateral - Cardiovascular Exam Cardiovascular Exam: REGULAR RHYTHM - GI/Abdominal Exam GI & Abdominal Exam: Soft Assessment and Plan (1) ESTEVAN (acute kidney injury) Assessment & Plan: On hemodialysis Consider ABG Taper steroids On antibiotics Status: Acute (2) Chronic congestive heart failure Status: Acute
--- NOTE | 2017-07-13 14:30 | CP.PCM.PN ---
Subjective - Date & Time of Evaluation Date of Evaluation: 07/13/17 Time of Evaluation: 09:00 - Subjective Subjective: lethargic NAD afeb less sob no chest pain Objective - Vital Signs/Intake and Output Vital Signs (last 24 hours): Temp Pulse Resp BP Pulse Ox 97.4 F L 47 L 20 143/56 L 98 07/13/17 09:21 07/13/17 09:38 07/13/17 09:21 07/13/17 09:38 07/13/17 09:21 Intake and Output: 07/13/17 07/13/17 06:59 18:59 Intake Total 530 200 Output Total 250 Balance 280 200 - Medications Medications: Current Medications Acetaminophen (Tylenol 325mg Tab) 650 mg PO Q6 PRN PRN Reason: Pain, Mild (1-3) Albuterol/Ipratropium (Duoneb 3 Mg/0.5 Mg (3 Ml) Ud) 3 ml INH RQ6 [facility] Amlodipine Besylate (Norvasc) 5 mg PO DAILY [facility] Last Admin: 07/13/17 09:45 Dose: 5 mg Aspirin (Aspirin Chewable) 81 mg PO DAILY [facility] Last Admin: 07/06/17 10:01 Dose: 81 mg Calcium Acetate (Phoslo) 667 mg PO TIDCC [facility] Last Admin: 07/13/17 12:33 Dose: 667 mg Famotidine (Pepcid) 20 mg PO DAILY [facility] Last Admin: 07/13/17 09:45 Dose: 20 mg Ferrous Sulfate (Feosol) 325 mg PO DAILY [facility] Last Admin: 07/13/17 09:45 Dose: 325 mg Heparin Sodium (Porcine) (Heparin) 5,000 units SC Q12 [facility] Last Admin: 07/06/17 21:49 Dose: 5,000 units Heparin Sodium (Porcine) (Heparin) 3,700 units IVP MWF [facility] Stop: 07/23/17 09:01 Last Admin: 07/11/17 12:35 Dose: 3,700 units Sodium Chloride (Sodium Chloride 0.9%) 1,000 mls @ 60 mls/hr IV .[id number] [facility] Last Admin: 07/03/17 22:23 Dose: Not Given Insulin Human Regular (Novolin R) 0 unit SC ACHS [facility] PRN Reason: Protocol Last Admin: 07/13/17 12:30 Dose: 4 unit Methylprednisolone (Solu-Medrol) 20 mg IVP Q8H [facility] Metoprolol Succinate (Toprol Xl) 50 mg PO DAILY [facility] Last Admin: 07/13/17 09:45 Dose: 50 mg Multivitamins (Hexavitamin) 1 tab PO DAILY [facility] Last Admin: 07/13/17 09:45 Dose: 1 tab Nystatin (Nystop Topical Powder) 1 applic TOP BID [facility] Last Admin: 07/13/17 09:45 Dose: 1 applic - Labs Labs: 07/11/17 07:58 07/13/17 08:43 PT 12.9 SECONDS (9.7-12.2) H 06/29/17 16:42 INR 1.2 06/29/17 16:42 APTT 34 SECONDS (21-34) 06/29/17 16:42 - Constitutional Appears: Non-toxic, Chronically Ill - Head Exam Head Exam: NORMOCEPHALIC - Eye Exam Eye Exam: absent: Scleral icterus - ENT Exam ENT Exam: Mucous Membranes Dry - Neck Exam Neck Exam: absent: Lymphadenopathy - Respiratory Exam Respiratory Exam: Decreased Breath Sounds - Cardiovascular Exam Cardiovascular Exam: REGULAR RHYTHM - GI/Abdominal Exam GI & Abdominal Exam: Soft. absent: Tenderness - Rectal Exam Rectal Exam: Deferred - Exam Exam: NORMAL INSPECTION - Extremities Exam Extremities Exam: Pedal Edema - Back Exam Back Exam: absent: CVA tenderness (L), CVA tenderness (R) - Neurological Exam Neurological Exam: Alert, Awake Assessment and Plan (1) UTI (urinary tract infection) Status: Acute (2) UTI (urinary tract infection) Status: Acute (3) Chr obstructive pulmonary disease w/ acute lower respiratory infxn Status: Acute (4) Chronic congestive heart failure Status: Acute (5) Dyspnea Status: Acute (6) Respiratory distress Status: Acute
[2017-07-13 14:34] LABS: ABG ALLEN TEST POS; ARTERIAL BLOOD GAS HCO3 27.3 mmol/L (21-28); ARTERIAL BLOOD GAS HEMOGLOBIN 11.3 g/dL (11.7-17.4); ARTERIAL BLOOD GAS O2 SAT 98.6 % (95-98); ARTERIAL BLOOD GAS PCO2 57 mm/Hg (35-45); ARTERIAL BLOOD GAS PH 7.33 (7.35-7.45); ARTERIAL BLOOD GAS PO2 87 mm/Hg (80-100); ARTERIAL BLOOD GAS TCO2 31.8 mmol/L (22-28)
--- NOTE | 2017-07-13 16:23 | CP.PCM.PN ---
Subjective - Date & Time of Evaluation Date of Evaluation: 07/13/17 Time of Evaluation: 13:20 - Subjective Subjective: clinically same Objective - Vital Signs/Intake and Output Vital Signs (last 24 hours): Temp Pulse Resp BP Pulse Ox 97.4 F L 47 L 20 143/56 L 98 07/13/17 09:21 07/13/17 09:38 07/13/17 09:21 07/13/17 09:38 07/13/17 09:21 Intake and Output: 07/13/17 07/13/17 06:59 18:59 Intake Total 530 200 Output Total 250 350 Balance 280 -150 - Medications Medications: Current Medications Acetaminophen (Tylenol 325mg Tab) 650 mg PO Q6 PRN PRN Reason: Pain, Mild (1-3) Albuterol/Ipratropium (Duoneb 3 Mg/0.5 Mg (3 Ml) Ud) 3 ml INH RQ6 [facility] Amlodipine Besylate (Norvasc) 5 mg PO DAILY [facility] Last Admin: 07/13/17 09:45 Dose: 5 mg Aspirin (Aspirin Chewable) 81 mg PO DAILY [facility] Last Admin: 07/06/17 10:01 Dose: 81 mg Calcium Acetate (Phoslo) 667 mg PO TIDCC [facility] Last Admin: 07/13/17 12:33 Dose: 667 mg Famotidine (Pepcid) 20 mg PO DAILY [facility] Last Admin: 07/13/17 09:45 Dose: 20 mg Ferrous Sulfate (Feosol) 325 mg PO DAILY [facility] Last Admin: 07/13/17 09:45 Dose: 325 mg Heparin Sodium (Porcine) (Heparin) 5,000 units SC Q12 [facility] Last Admin: 07/06/17 21:49 Dose: 5,000 units Heparin Sodium (Porcine) (Heparin) 3,700 units IVP MWF [facility] Stop: 07/23/17 09:01 Last Admin: 07/11/17 12:35 Dose: 3,700 units Sodium Chloride (Sodium Chloride 0.9%) 1,000 mls @ 60 mls/hr IV .[id number] [facility] Last Admin: 07/03/17 22:23 Dose: Not Given Insulin Human Regular (Novolin R) 0 unit SC ACHS [facility] PRN Reason: Protocol Last Admin: 07/13/17 12:30 Dose: 4 unit Methylprednisolone (Solu-Medrol) 20 mg IVP Q8H [facility] Last Admin: 07/13/17 14:52 Dose: 20 mg Metoprolol Succinate (Toprol Xl) 50 mg PO DAILY [facility] Last Admin: 07/13/17 09:45 Dose: 50 mg Multivitamins (Hexavitamin) 1 tab PO DAILY [facility] Last Admin: 07/13/17 09:45 Dose: 1 tab Nystatin (Nystop Topical Powder) 1 applic TOP BID [facility] Last Admin: 07/13/17 09:45 Dose: 1 applic - Labs Labs: 07/11/17 07:58 07/13/17 08:43 PT 12.9 SECONDS (9.7-12.2) H 06/29/17 16:42 INR 1.2 06/29/17 16:42 APTT 34 SECONDS (21-34) 06/29/17 16:42 Assessment and Plan (1) ESTEVAN (acute kidney injury) Status: Acute (2) CKD (chronic kidney disease) stage 3, GFR 30-59 ml/min Status: Acute (3) Chr obstructive pulmonary disease w/ acute lower respiratory infxn Status: Acute (4) Chronic congestive heart failure Status: Acute (5) Dyspnea Status: Acute (6) Respiratory distress Status: Acute (7) UTI (urinary tract infection) Status: Acute (8) UTI (urinary tract infection) Status: Acute
--- NOTE | 2017-07-13 23:54 | CP.PCM.PN ---
Subjective - Date & Time of Evaluation Date of Evaluation: 07/13/17 Time of Evaluation: 07:35 - Subjective Subjective: Events reviewed Objective - Vital Signs/Intake and Output Vital Signs (last 24 hours): Temp Pulse Resp BP Pulse Ox 98.3 F 44 L 18 136/54 L 98 07/13/17 15:30 07/13/17 15:30 07/13/17 15:30 07/13/17 15:30 07/13/17 15:30 Intake and Output: 07/13/17 07/14/17 18:59 06:59 Intake Total 200 Output Total 350 Balance -150 - Medications Medications: Current Medications Acetaminophen (Tylenol 325mg Tab) 650 mg PO Q6 PRN PRN Reason: Pain, Mild (1-3) Albuterol/Ipratropium (Duoneb 3 Mg/0.5 Mg (3 Ml) Ud) 3 ml INH RQ6 [facility] Amlodipine Besylate (Norvasc) 5 mg PO DAILY [facility] Last Admin: 07/13/17 09:45 Dose: 5 mg Aspirin (Aspirin Chewable) 81 mg PO DAILY [facility] Last Admin: 07/06/17 10:01 Dose: 81 mg Calcium Acetate (Phoslo) 667 mg PO TIDCC [facility] Last Admin: 07/13/17 17:51 Dose: 667 mg Famotidine (Pepcid) 20 mg PO DAILY [facility] Last Admin: 07/13/17 09:45 Dose: 20 mg Ferrous Sulfate (Feosol) 325 mg PO DAILY [facility] Last Admin: 07/13/17 09:45 Dose: 325 mg Heparin Sodium (Porcine) (Heparin) 5,000 units SC Q12 [facility] Last Admin: 07/06/17 21:49 Dose: 5,000 units Heparin Sodium (Porcine) (Heparin) 3,700 units IVP MWF [facility] Stop: 07/23/17 09:01 Last Admin: 07/11/17 12:35 Dose: 3,700 units Sodium Chloride (Sodium Chloride 0.9%) 1,000 mls @ 60 mls/hr IV .[id number] [facility] Last Admin: 07/03/17 22:23 Dose: Not Given Insulin Human Regular (Novolin R) 0 unit SC ACHS [facility] PRN Reason: Protocol Last Admin: 07/13/17 17:48 Dose: 2 unit Methylprednisolone (Solu-Medrol) 20 mg IVP Q8H [facility] Last Admin: 07/13/17 21:43 Dose: 20 mg Metoprolol Succinate (Toprol Xl) 50 mg PO DAILY [facility] Last Admin: 07/13/17 09:45 Dose: 50 mg Multivitamins (Hexavitamin) 1 tab PO DAILY [facility] Last Admin: 07/13/17 09:45 Dose: 1 tab Nystatin (Nystop Topical Powder) 1 applic TOP BID [facility] Last Admin: 07/13/17 17:50 Dose: 1 applic - Labs Labs: 07/11/17 07:58 07/13/17 08:43 PT 12.9 SECONDS (9.7-12.2) H 06/29/17 16:42 INR 1.2 06/29/17 16:42 APTT 34 SECONDS (21-34) 06/29/17 16:42 - Constitutional Appears: Well, No Acute Distress - Respiratory Exam Respiratory Exam: Clear to Ausculation Bilateral, NORMAL BREATHING PATTERN - Cardiovascular Exam Cardiovascular Exam: REGULAR RHYTHM, RRR, +S1, +S2. absent: JVD - GI/Abdominal Exam GI & Abdominal Exam: Normal Bowel Sounds. absent: Organomegaly Assessment and Plan - Assessment and Plan (Free Text) Assessment: Assessment: 1. SOB/chest congestion/URI sx's 2. PNA 3. HTN chronic stable 4. LIPIDS: chronic stable 5. CHF diastolic 6. CKD developed ARF now started on HD via R/ chest HD catheter. 7. SVT noted while on HD 07/10/17---> Beta robert added at the time: since no further arrythmia ECHO: directly seen by me: Normal LVEF AND WALL MOTION, No significant valve disease, normal RV function. Mild LVH. > reduce lasix dose or change to PO maintainence > CAD RF's: HTN, LIPIDS --> currently there is no active anginal sx;s are ischemic changes on EKG: agree with ASA and statin for now. Initial trop was negative for ACS. Plan: Tolerating TOPROL XL 50 Cont ASA suggest statin > DVT prophylaxis > BP remains elevated: titrate norvasc to 10
[2017-07-14] MEDS: Albuterol-Ipratrop 3 mg / 0.5 (3 ml) UD INH SCH ×4 (03:24→19:24)
[2017-07-14] MEDS: MethylPREDNISolone 40 mg Vial IVP SCH ×3 (05:30→22:38)
[2017-07-14] MEDS: (Novolin R) Insulin Human Regular 100 units/ml vial SC SCH ×3 (08:13→23:07)
--- NOTE | 2017-07-14 09:59 | CP.PCM.PN ---
Subjective - Date & Time of Evaluation Date of Evaluation: 07/14/17 Time of Evaluation: 09:58 - Subjective Subjective: No complaints Rewsting comfortably No CP or SOB No Fevers or chills Objective - Vital Signs/Intake and Output Vital Signs (last 24 hours): Temp Pulse Resp BP Pulse Ox 97.4 F L 46 L 18 152/59 H 98 07/14/17 08:46 07/14/17 08:46 07/14/17 08:46 07/14/17 08:46 07/14/17 08:46 Intake and Output: 07/14/17 07/14/17 06:59 18:59 Intake Total 620 Output Total 500 Balance 120 - Medications Medications: Current Medications Acetaminophen (Tylenol 325mg Tab) 650 mg PO Q6 PRN PRN Reason: Pain, Mild (1-3) Albuterol/Ipratropium (Duoneb 3 Mg/0.5 Mg (3 Ml) Ud) 3 ml INH RQ6 [facility] Last Admin: 07/14/17 07:44 Dose: 3 ml Amlodipine Besylate (Norvasc) 5 mg PO DAILY [facility] Last Admin: 07/13/17 09:45 Dose: 5 mg Aspirin (Aspirin Chewable) 81 mg PO DAILY [facility] Last Admin: 07/06/17 10:01 Dose: 81 mg Calcium Acetate (Phoslo) 667 mg PO TIDCC [facility] Last Admin: 07/14/17 08:13 Dose: 667 mg Famotidine (Pepcid) 20 mg PO DAILY [facility] Last Admin: 07/13/17 09:45 Dose: 20 mg Ferrous Sulfate (Feosol) 325 mg PO DAILY [facility] Last Admin: 07/13/17 09:45 Dose: 325 mg Heparin Sodium (Porcine) (Heparin) 5,000 units SC Q12 [facility] Last Admin: 07/06/17 21:49 Dose: 5,000 units Heparin Sodium (Porcine) (Heparin) 3,700 units IVP MWF [facility] Stop: 07/23/17 09:01 Last Admin: 07/11/17 12:35 Dose: 3,700 units Sodium Chloride (Sodium Chloride 0.9%) 1,000 mls @ 60 mls/hr IV .[id number] [facility] Last Admin: 07/03/17 22:23 Dose: Not Given Insulin Human Regular (Novolin R) 0 unit SC ACHS [facility] PRN Reason: Protocol Last Admin: 07/14/17 08:13 Dose: 2 unit Methylprednisolone (Solu-Medrol) 20 mg IVP Q8H [facility] Last Admin: 07/14/17 05:30 Dose: 20 mg Metoprolol Succinate (Toprol Xl) 50 mg PO DAILY [facility] Last Admin: 07/13/17 09:45 Dose: 50 mg Multivitamins (Hexavitamin) 1 tab PO DAILY [facility] Last Admin: 07/13/17 09:45 Dose: 1 tab Nystatin (Nystop Topical Powder) 1 applic TOP BID [facility] Last Admin: 07/13/17 17:50 Dose: 1 applic - Labs Labs: 07/11/17 07:58 07/13/17 08:43 PT 12.9 SECONDS (9.7-12.2) H 06/29/17 16:42 INR 1.2 06/29/17 16:42 APTT 34 SECONDS (21-34) 06/29/17 16:42 - Constitutional Appears: No Acute Distress - Eye Exam Eye Exam: EOMI, Normal appearance - ENT Exam ENT Exam: Mucous Membranes Moist - Neck Exam Neck Exam: Normal Inspection - Respiratory Exam Respiratory Exam: Clear to Ausculation Bilateral, NORMAL BREATHING PATTERN. absent: Rhonchi, Wheezes - Cardiovascular Exam Cardiovascular Exam: REGULAR RHYTHM, +S1, +S2. absent: Gallop, Murmur - GI/Abdominal Exam GI & Abdominal Exam: Soft. absent: Tenderness - Extremities Exam Extremities Exam: absent: Calf Tenderness, Pedal Edema - Neurological Exam Neurological Exam: Alert, Awake, Oriented x3 - Psychiatric Exam Psychiatric exam: Normal Affect, Normal Mood Assessment and Plan - Assessment and Plan (Free Text) Assessment: 1. SOB/chest congestion/URI sx's 2. PNA 3. HTN chronic stable 4. LIPIDS: chronic stable 5. CHF diastolic 6. CKD developed ARF now started on HD via R/ chest HD catheter. 7. SVT noted while on HD 07/10/17---> Beta robert added at the time: since no further arrythmia ECHO: directly seen by me: Normal LVEF AND WALL MOTION, No significant valve disease, normal RV function. Mild LVH. > reduce lasix dose or change to PO maintainence > CAD RF's: HTN, LIPIDS --> currently there is no active anginal sx;s are ischemic changes on EKG: agree with ASA and statin for now. Initial trop was negative for ACS. Plan: Tolerating TOPROL XL 50, Norvasc 5 Cont ASA suggest statin > DVT prophylaxis > If BP remains elevated: titrate norvasc to 10 > HD per schedule; monitor lytes > Will sign off: suggest f/u as outpatient upon discharge.
[2017-07-14] MEDS: Multiple Vitamins Tab PO SCH (10:56)
--- NOTE | 2017-07-14 11:40 | CP.PCM.PN ---
Subjective - Date & Time of Evaluation Date of Evaluation: 07/14/17 Time of Evaluation: 11:37 - Subjective Subjective: More obtunded this AM placed on biPAP earlier BP stable, chinyere now repeat labs being drawn has not had significant renal recovery scheduled for HD today no n, v, fevers, chills Objective - Vital Signs/Intake and Output Vital Signs (last 24 hours): Temp Pulse Resp BP Pulse Ox 97.4 F L 50 L 18 129/69 98 07/14/17 08:46 07/14/17 11:00 07/14/17 08:46 07/14/17 11:00 07/14/17 08:46 Intake and Output: 07/14/17 07/14/17 06:59 18:59 Intake Total 620 Output Total 500 Balance 120 - Medications Medications: Current Medications Acetaminophen (Tylenol 325mg Tab) 650 mg PO Q6 PRN PRN Reason: Pain, Mild (1-3) Albuterol/Ipratropium (Duoneb 3 Mg/0.5 Mg (3 Ml) Ud) 3 ml INH RQ6 [facility] Last Admin: 07/14/17 07:44 Dose: 3 ml Amlodipine Besylate (Norvasc) 5 mg PO DAILY [facility] Last Admin: 07/14/17 10:59 Dose: 5 mg Aspirin (Aspirin Chewable) 81 mg PO DAILY [facility] Last Admin: 07/06/17 10:01 Dose: 81 mg Calcium Acetate (Phoslo) 667 mg PO TIDCC [facility] Last Admin: 07/14/17 08:13 Dose: 667 mg Famotidine (Pepcid) 20 mg PO DAILY [facility] Last Admin: 07/14/17 10:56 Dose: 20 mg Ferrous Sulfate (Feosol) 325 mg PO DAILY [facility] Last Admin: 07/14/17 10:56 Dose: 325 mg Heparin Sodium (Porcine) (Heparin) 5,000 units SC Q12 [facility] Last Admin: 07/06/17 21:49 Dose: 5,000 units Heparin Sodium (Porcine) (Heparin) 3,700 units IVP MWF [facility] Stop: 07/23/17 09:01 Last Admin: 07/11/17 12:35 Dose: 3,700 units Sodium Chloride (Sodium Chloride 0.9%) 1,000 mls @ 60 mls/hr IV .[id number] [facility] Last Admin: 07/03/17 22:23 Dose: Not Given Insulin Human Regular (Novolin R) 0 unit SC ACHS [facility] PRN Reason: Protocol Last Admin: 07/14/17 08:13 Dose: 2 unit Methylprednisolone (Solu-Medrol) 20 mg IVP Q8H [facility] Last Admin: 07/14/17 05:30 Dose: 20 mg Metoprolol Succinate (Toprol Xl) 50 mg PO DAILY [facility] Last Admin: 07/13/17 09:45 Dose: 50 mg Multivitamins (Hexavitamin) 1 tab PO DAILY [facility] Last Admin: 07/14/17 10:56 Dose: 1 tab Nystatin (Nystop Topical Powder) 1 applic TOP BID [facility] Last Admin: 07/14/17 10:55 Dose: 1 applic - Labs Labs: 07/11/17 07:58 07/13/17 08:43 PT 12.9 SECONDS (9.7-12.2) H 06/29/17 16:42 INR 1.2 06/29/17 16:42 APTT 34 SECONDS (21-34) 06/29/17 16:42 - Constitutional Appears: Confused, Chronically Ill - Head Exam Head Exam: ATRAUMATIC, NORMAL INSPECTION - Eye Exam Eye Exam: EOMI, Normal appearance - Neck Exam Neck Exam: Normal Inspection. absent: Tenderness - Respiratory Exam Respiratory Exam: Clear to Ausculation Bilateral, Respiratory Distress - Cardiovascular Exam Cardiovascular Exam: Bradycardia, +S1 - GI/Abdominal Exam GI & Abdominal Exam: Soft. absent: Tenderness - Extremities Exam Extremities Exam: Normal Inspection. absent: Tenderness - Neurological Exam Neurological Exam: Altered - Skin Skin Exam: Dry, Warm Assessment and Plan (1) ESTEVAN (acute kidney injury) Status: Acute (2) Chr obstructive pulmonary disease w/ acute lower respiratory infxn Status: Acute (3) UTI (urinary tract infection) Status: Acute - Assessment and Plan (Free Text) Plan: Lower b-robert dose repeat labs dialysis later today
[2017-07-14 11:47] LABS: BASO % 0.2 % (0.0-2.0); HEMOGLOBIN 11.6 g/dL (11.0-16.0); LYMPH # 0.7 K/uL (1.0-4.3); LYMPH % 8.2 % (20.0-40.0); MEAN CELL VOLUME 86.4 fL (81.0-99.0); MEAN CORPUSCULAR HEMOGLOBIN 28.6 pg (27.0-31.0); MEAN CORPUSCULAR HGB CONC 33.1 g/dL (33.0-37.0); MONO # 0.4 K/uL (0.0-0.8); MONO % 4.4 % (0.0-10.0); NEUT # 7.2 K/uL (1.8-7.0); NEUT % 87.2 % (50.0-75.0); PLATELET COUNT 159 K/uL (130-400); RBC 4.06 Mil/uL (3.80-5.20); RED CELL DISTRIBUTION WIDTH 16.6 % (11.5-14.5); WHITE BLOOD COUNT 8.3 K/uL (4.8-10.8)
[2017-07-14] MEDS ORDERED: Metoprolol Succinate 25 mg XL Tab PO SCH (12:00)
[2017-07-14 12:07] LABS: ALBUMIN 2.9 g/dL (3.5-5.0); CALCIUM 8.6 mg/dl (8.6-10.4)
[2017-07-14 12:30] LABS: ANISOCYTOSIS SLIGHT; HYPOCHROMIC SLIGHT; LYMPHOCYTE 8 % (20-40); MONOCYTE 2 % (0-10); NEUTROPHIL 90 % (50-75); PLATELET ESTIMATE NORMAL (NORMAL); TOTAL CELLS COUNTED 100
[2017-07-14 12:31] LABS: OVALOCYTES SLIGHT
--- NOTE | 2017-07-14 13:15 | CP.PCM.PN ---
Subjective - Date & Time of Evaluation Date of Evaluation: 07/14/17 Time of Evaluation: 11:20 - Subjective Subjective: Patient seen and examined at bedside today. She is lethargic and drowsy. She denies fever, chills, chest pain, shortness of breath, cough, wheezing. ABG done yesterday 07/13/2017, pCO2 57, pH 7.33. Nurse reports at bedside episodes of bradycardia, instructed to hold beta robert pending medicine/cardiology evaluation. Assessment/Plan: 1. Respiratory distress - continue hemodialysis, continue current treatment with nebulizer and steroids, bipap as needed 2. ESTEVAN - continue hemodialysis; follow up ABG to be ordered 3. Chronic CHF - continue management per primary team Objective - Vital Signs/Intake and Output Vital Signs (last 24 hours): Temp Pulse Resp BP Pulse Ox 97.4 F L 50 L 18 129/69 98 07/14/17 08:46 07/14/17 11:00 07/14/17 08:46 07/14/17 11:00 07/14/17 08:46 Intake and Output: 07/14/17 07/14/17 06:59 18:59 Intake Total 620 Output Total 500 Balance 120 - Medications Medications: Current Medications Acetaminophen (Tylenol 325mg Tab) 650 mg PO Q6 PRN PRN Reason: Pain, Mild (1-3) Albuterol/Ipratropium (Duoneb 3 Mg/0.5 Mg (3 Ml) Ud) 3 ml INH RQ6 [facility] Last Admin: 07/14/17 07:44 Dose: 3 ml Amlodipine Besylate (Norvasc) 5 mg PO DAILY [facility] Last Admin: 07/14/17 10:59 Dose: 5 mg Aspirin (Aspirin Chewable) 81 mg PO DAILY [facility] Last Admin: 07/06/17 10:01 Dose: 81 mg Calcium Acetate (Phoslo) 667 mg PO TIDCC [facility] Last Admin: 07/14/17 12:10 Dose: 667 mg Famotidine (Pepcid) 20 mg PO DAILY [facility] Last Admin: 07/14/17 10:56 Dose: 20 mg Ferrous Sulfate (Feosol) 325 mg PO DAILY [facility] Last Admin: 07/14/17 10:56 Dose: 325 mg Heparin Sodium (Porcine) (Heparin) 5,000 units SC Q12 [facility] Last Admin: 07/06/17 21:49 Dose: 5,000 units Sodium Chloride (Sodium Chloride 0.9%) 1,000 mls @ 60 mls/hr IV .[id number] [facility] Last Admin: 07/03/17 22:23 Dose: Not Given Insulin Human Regular (Novolin R) 0 unit SC ACHS [facility] PRN Reason: Protocol Last Admin: 07/14/17 12:10 Dose: 3 unit Methylprednisolone (Solu-Medrol) 20 mg IVP Q8H [facility] Last Admin: 07/14/17 05:30 Dose: 20 mg Metoprolol Succinate (Toprol Xl) 25 mg PO DAILY [facility] Multivitamins (Hexavitamin) 1 tab PO DAILY [facility] Last Admin: 07/14/17 10:56 Dose: 1 tab Nystatin (Nystop Topical Powder) 1 applic TOP BID [facility] Last Admin: 07/14/17 10:55 Dose: 1 applic - Labs Labs: 07/14/17 11:40 07/14/17 11:40 PT 12.9 SECONDS (9.7-12.2) H 06/29/17 16:42 INR 1.2 06/29/17 16:42 APTT 34 SECONDS (21-34) 06/29/17 16:42 Assessment and Plan (1) ESTEVAN (acute kidney injury) Status: Acute (2) Chronic congestive heart failure Status: Acute
--- NOTE | 2017-07-14 19:08 | CP.PCM.PN ---
Subjective - Date & Time of Evaluation Date of Evaluation: 07/14/17 Time of Evaluation: 12:20 - Subjective Subjective: clinically same Objective - Vital Signs/Intake and Output Vital Signs (last 24 hours): Temp Pulse Resp BP Pulse Ox 98 F 46 L 20 133/63 100 07/14/17 15:50 07/14/17 17:20 07/14/17 15:50 07/14/17 17:20 07/14/17 15:50 Intake and Output: 07/14/17 07/15/17 18:59 06:59 Intake Total 200 Output Total 250 Balance -50 - Medications Medications: Current Medications Acetaminophen (Tylenol 325mg Tab) 650 mg PO Q6 PRN PRN Reason: Pain, Mild (1-3) Albuterol/Ipratropium (Duoneb 3 Mg/0.5 Mg (3 Ml) Ud) 3 ml INH RQ6 [facility] Last Admin: 07/14/17 13:25 Dose: 3 ml Amlodipine Besylate (Norvasc) 5 mg PO DAILY [facility] Last Admin: 07/14/17 10:59 Dose: 5 mg Aspirin (Aspirin Chewable) 81 mg PO DAILY [facility] Last Admin: 07/06/17 10:01 Dose: 81 mg Calcium Acetate (Phoslo) 667 mg PO TIDCC [facility] Last Admin: 07/14/17 12:10 Dose: 667 mg Famotidine (Pepcid) 20 mg PO DAILY [facility] Last Admin: 07/14/17 10:56 Dose: 20 mg Ferrous Sulfate (Feosol) 325 mg PO DAILY [facility] Last Admin: 07/14/17 10:56 Dose: 325 mg Heparin Sodium (Porcine) (Heparin) 5,000 units SC Q12 [facility] Last Admin: 07/06/17 21:49 Dose: 5,000 units Heparin Sodium (Porcine) (Heparin) 3,700 units IVP MWF [facility] Stop: 07/23/17 09:01 Last Admin: 07/14/17 17:31 Dose: 3,700 units Sodium Chloride (Sodium Chloride 0.9%) 1,000 mls @ 60 mls/hr IV .[id number] [facility] Last Admin: 07/03/17 22:23 Dose: Not Given Imipenem/Cilastatin Sodium 250 (mg/ Sodium Chloride) 100 mls @ 100 mls/hr IVPB Q6 [facility] Insulin Human Regular (Novolin R) 0 unit SC ACHS [facility] PRN Reason: Protocol Last Admin: 07/14/17 12:10 Dose: 3 unit Methylprednisolone (Solu-Medrol) 20 mg IVP Q8H [facility] Last Admin: 07/14/17 13:53 Dose: 20 mg Metoprolol Succinate (Toprol Xl) 25 mg PO DAILY [facility] Multivitamins (Hexavitamin) 1 tab PO DAILY [facility] Last Admin: 07/14/17 10:56 Dose: 1 tab Nystatin (Nystop Topical Powder) 1 applic TOP BID [facility] Last Admin: 07/14/17 10:55 Dose: 1 applic - Labs Labs: 07/14/17 11:40 07/14/17 11:40 PT 12.9 SECONDS (9.7-12.2) H 06/29/17 16:42 INR 1.2 06/29/17 16:42 APTT 34 SECONDS (21-34) 06/29/17 16:42 - Constitutional Appears: Well - Head Exam Head Exam: ATRAUMATIC, NORMAL INSPECTION, NORMOCEPHALIC - Eye Exam Eye Exam: EOMI, Normal appearance, PERRL Pupil Exam: NORMAL ACCOMODATION, PERRL - ENT Exam ENT Exam: Mucous Membranes Moist, Normal Exam - Neck Exam Neck Exam: Full ROM, Normal Inspection. absent: Lymphadenopathy - Respiratory Exam Respiratory Exam: Decreased Breath Sounds - Cardiovascular Exam Cardiovascular Exam: REGULAR RHYTHM, +S1, +S2 - GI/Abdominal Exam GI & Abdominal Exam: Soft, Diminished Bowel Sounds - Rectal Exam Rectal Exam: Deferred Assessment and Plan (1) ESTEVAN (acute kidney injury) Status: Acute (2) CKD (chronic kidney disease) stage 3, GFR 30-59 ml/min Status: Acute (3) Chr obstructive pulmonary disease w/ acute lower respiratory infxn Status: Acute (4) Chronic congestive heart failure Status: Acute (5) Dyspnea Status: Acute (6) Respiratory distress Status: Acute (7) UTI (urinary tract infection) Status: Acute (8) UTI (urinary tract infection) Status: Acute
[2017-07-15] MEDS: Albuterol-Ipratrop 3 mg / 0.5 (3 ml) UD INH SCH ×4 (01:37→20:20)
[2017-07-15] MEDS: MethylPREDNISolone 40 mg Vial IVP SCH ×3 (06:09→21:28)
[2017-07-15] MEDS: (Novolin R) Insulin Human Regular 100 units/ml vial SC SCH ×4 (08:30→21:38)
[2017-07-15] MEDS: Multiple Vitamins Tab PO SCH (09:51)
--- NOTE | 2017-07-15 12:23 | CP.PCM.PN ---
Subjective - Date & Time of Evaluation Date of Evaluation: 07/15/17 Time of Evaluation: 12:22 - Subjective Subjective: pt seen and examined lethargic, responds to tactile stimuli non verbal, not able to obtain ros appears comfortable Objective - Vital Signs/Intake and Output Vital Signs (last 24 hours): Temp Pulse Resp BP Pulse Ox 98.1 F 53 L 20 138/65 98 07/15/17 08:27 07/15/17 09:47 07/15/17 08:27 07/15/17 09:47 07/15/17 08:27 Intake and Output: 07/15/17 07/15/17 06:59 18:59 Intake Total 300 Output Total 250 100 Balance 50 -100 - Medications Medications: Current Medications Acetaminophen (Tylenol 325mg Tab) 650 mg PO Q6 PRN PRN Reason: Pain, Mild (1-3) Albuterol/Ipratropium (Duoneb 3 Mg/0.5 Mg (3 Ml) Ud) 3 ml INH RQ6 [facility] Last Admin: 07/15/17 07:52 Dose: 3 ml Amlodipine Besylate (Norvasc) 5 mg PO DAILY [facility] Last Admin: 07/15/17 09:50 Dose: 5 mg Aspirin (Aspirin Chewable) 81 mg PO DAILY [facility] Last Admin: 07/06/17 10:01 Dose: 81 mg Calcium Acetate (Phoslo) 667 mg PO TIDCC [facility] Last Admin: 07/15/17 08:41 Dose: 667 mg Famotidine (Pepcid) 20 mg PO DAILY [facility] Last Admin: 07/15/17 09:51 Dose: 20 mg Ferrous Sulfate (Feosol) 325 mg PO DAILY [facility] Last Admin: 07/15/17 09:50 Dose: 325 mg Heparin Sodium (Porcine) (Heparin) 5,000 units SC Q12 [facility] Last Admin: 07/06/17 21:49 Dose: 5,000 units Heparin Sodium (Porcine) (Heparin) 3,700 units IVP F [facility] Stop: 07/23/17 09:01 Last Admin: 07/14/17 17:31 Dose: 3,700 units Sodium Chloride (Sodium Chloride 0.9%) 1,000 mls @ 60 mls/hr IV .[id number] [facility] Last Admin: 07/03/17 22:23 Dose: Not Given Imipenem/Cilastatin Sodium 250 (mg/ Sodium Chloride) 100 mls @ 100 mls/hr IVPB Q6 [facility] Last Admin: 07/15/17 05:41 Dose: 100 mls/hr Insulin Human Regular (Novolin R) 0 unit SC ACHS [facility] PRN Reason: Protocol Last Admin: 07/15/17 08:30 Dose: 3 unit Methylprednisolone (Solu-Medrol) 20 mg IVP Q8H [facility] Last Admin: 07/15/17 06:09 Dose: 20 mg Metoprolol Succinate (Toprol Xl) 25 mg PO DAILY [facility] Multivitamins (Hexavitamin) 1 tab PO DAILY [facility] Last Admin: 07/15/17 09:51 Dose: 1 tab Nystatin (Nystop Topical Powder) 1 applic TOP BID [facility] Last Admin: 07/15/17 09:46 Dose: 1 applic - Labs Labs: 07/14/17 11:40 07/14/17 11:40 PT 12.9 SECONDS (9.7-12.2) H 06/29/17 16:42 INR 1.2 06/29/17 16:42 APTT 34 SECONDS (21-34) 06/29/17 16:42 - Constitutional Appears: Non-toxic, Older Than Stated Age, Chronically Ill - Head Exam Head Exam: ATRAUMATIC, NORMAL INSPECTION - Eye Exam Eye Exam: Normal appearance, PERRL - ENT Exam ENT Exam: Mucous Membranes Dry, Normal Exam - Neck Exam Neck Exam: Normal Inspection - Respiratory Exam Respiratory Exam: Decreased Breath Sounds, Clear to Ausculation Bilateral, NORMAL BREATHING PATTERN - Cardiovascular Exam Cardiovascular Exam: REGULAR RHYTHM, RRR (rt chest permcath) - GI/Abdominal Exam GI & Abdominal Exam: Distended, Soft, Normal Bowel Sounds - Extremities Exam Extremities Exam: Normal Inspection - Neurological Exam Neurological Exam: Altered (unable to assess as pt not answering questions) - Skin Skin Exam: Normal Color, Warm Assessment and Plan (1) Chr obstructive pulmonary disease w/ acute lower respiratory infxn Status: Acute (2) Dyspnea Status: Acute (3) UTI (urinary tract infection) Status: Acute (4) ESTEVAN (acute kidney injury) Status: Acute (5) CKD (chronic kidney disease) stage 3, GFR 30-59 ml/min Status: Acute - Assessment and Plan (Free Text) Assessment: bradycardic, recommend dc toprol. azotemia- maintain hd, increase dialyzer size and bfr. renal diet hgb at goal
--- NOTE | 2017-07-15 17:47 | CP.PCM.PN ---
Subjective - Date & Time of Evaluation Date of Evaluation: 07/15/17 Time of Evaluation: 14:00 - Subjective Subjective: clinically same Objective - Vital Signs/Intake and Output Vital Signs (last 24 hours): Temp Pulse Resp BP Pulse Ox 98.6 F 46 L 18 136/76 97 07/15/17 16:00 07/15/17 16:00 07/15/17 16:00 07/15/17 16:00 07/15/17 16:00 Intake and Output: 07/15/17 07/15/17 06:59 18:59 Intake Total 300 450 Output Total 250 300 Balance 50 150 - Medications Medications: Current Medications Acetaminophen (Tylenol 325mg Tab) 650 mg PO Q6 PRN PRN Reason: Pain, Mild (1-3) Albuterol/Ipratropium (Duoneb 3 Mg/0.5 Mg (3 Ml) Ud) 3 ml INH RQ6 [facility] Last Admin: 07/15/17 14:47 Dose: Not Given Amlodipine Besylate (Norvasc) 5 mg PO DAILY [facility] Last Admin: 07/15/17 09:50 Dose: 5 mg Aspirin (Aspirin Chewable) 81 mg PO DAILY [facility] Last Admin: 07/06/17 10:01 Dose: 81 mg Calcium Acetate (Phoslo) 667 mg PO TIDCC [facility] Last Admin: 07/15/17 13:46 Dose: 667 mg Famotidine (Pepcid) 20 mg PO DAILY [facility] Last Admin: 07/15/17 09:51 Dose: 20 mg Ferrous Sulfate (Feosol) 325 mg PO DAILY [facility] Last Admin: 07/15/17 09:50 Dose: 325 mg Heparin Sodium (Porcine) (Heparin) 5,000 units SC Q12 [facility] Last Admin: 07/06/17 21:49 Dose: 5,000 units Heparin Sodium (Porcine) (Heparin) 3,700 units IVP MWF [facility] Stop: 07/23/17 09:01 Last Admin: 07/14/17 17:31 Dose: 3,700 units Sodium Chloride (Sodium Chloride 0.9%) 1,000 mls @ 60 mls/hr IV .[id number] [facility] Last Admin: 07/03/17 22:23 Dose: Not Given Imipenem/Cilastatin Sodium 250 (mg/ Sodium Chloride) 100 mls @ 100 mls/hr IVPB Q6 [facility] Last Admin: 07/15/17 13:00 Dose: 100 mls/hr Insulin Human Regular (Novolin R) 0 unit SC ACHS [facility] PRN Reason: Protocol Last Admin: 07/15/17 13:47 Dose: 5 unit Methylprednisolone (Solu-Medrol) 20 mg IVP Q8H [facility] Last Admin: 07/15/17 13:52 Dose: 20 mg Metoprolol Succinate (Toprol Xl) 25 mg PO DAILY [facility] Multivitamins (Hexavitamin) 1 tab PO DAILY [facility] Last Admin: 07/15/17 09:51 Dose: 1 tab Nystatin (Nystop Topical Powder) 1 applic TOP BID [facility] Last Admin: 07/15/17 09:46 Dose: 1 applic - Labs Labs: 07/14/17 11:40 07/14/17 11:40 PT 12.9 SECONDS (9.7-12.2) H 06/29/17 16:42 INR 1.2 06/29/17 16:42 APTT 34 SECONDS (21-34) 06/29/17 16:42 - Constitutional Appears: Well - Head Exam Head Exam: ATRAUMATIC, NORMAL INSPECTION, NORMOCEPHALIC - Eye Exam Eye Exam: EOMI, Normal appearance, PERRL Pupil Exam: NORMAL ACCOMODATION, PERRL - ENT Exam ENT Exam: Mucous Membranes Moist, Normal Exam - Neck Exam Neck Exam: Full ROM, Normal Inspection. absent: Lymphadenopathy - Respiratory Exam Respiratory Exam: Decreased Breath Sounds - Cardiovascular Exam Cardiovascular Exam: REGULAR RHYTHM, +S1, +S2 - GI/Abdominal Exam GI & Abdominal Exam: Soft, Diminished Bowel Sounds - Rectal Exam Rectal Exam: Deferred Assessment and Plan (1) ESTEVAN (acute kidney injury) Status: Acute (2) CKD (chronic kidney disease) stage 3, GFR 30-59 ml/min Status: Acute (3) Chr obstructive pulmonary disease w/ acute lower respiratory infxn Status: Acute (4) Chronic congestive heart failure Status: Acute (5) Dyspnea Status: Acute (6) Respiratory distress Status: Acute (7) UTI (urinary tract infection) Status: Acute (8) UTI (urinary tract infection) Status: Acute
[2017-07-16] MEDS: Albuterol-Ipratrop 3 mg / 0.5 (3 ml) UD INH SCH ×4 (01:29→19:42)
[2017-07-16] MEDS: MethylPREDNISolone 40 mg Vial IVP SCH ×3 (06:42→21:43)
[2017-07-16] MEDS: (Novolin R) Insulin Human Regular 100 units/ml vial SC SCH ×3 (08:35→23:30)
[2017-07-16] MEDS: Multiple Vitamins Tab PO SCH (09:47)
--- NOTE | 2017-07-16 10:56 | CP.PCM.PN ---
Subjective - Date & Time of Evaluation Date of Evaluation: 07/16/17 Time of Evaluation: 10:56 - Subjective Subjective: Pulmonary consult; covering Dr Fernández Patient is seen and examined at bedside. Reports feeling better today. Receives hemodialysis MWF, scheduled to go later today. Port placed on right side. Objective - Vital Signs/Intake and Output Vital Signs (last 24 hours): Temp Pulse Resp BP Pulse Ox 98.3 F 43 L 20 111/50 L 96 07/16/17 08:50 07/16/17 08:50 07/16/17 08:50 07/16/17 08:50 07/16/17 08:50 Intake and Output: 07/16/17 07/16/17 06:59 18:59 Intake Total 800 Output Total 900 Balance -100 - Medications Medications: Current Medications Acetaminophen (Tylenol 325mg Tab) 650 mg PO Q6 PRN PRN Reason: Pain, Mild (1-3) Albuterol/Ipratropium (Duoneb 3 Mg/0.5 Mg (3 Ml) Ud) 3 ml INH RQ6 [facility] Last Admin: 07/16/17 07:44 Dose: 3 ml Amlodipine Besylate (Norvasc) 5 mg PO DAILY [facility] Last Admin: 07/16/17 09:47 Dose: Not Given Aspirin (Aspirin Chewable) 81 mg PO DAILY [facility] Last Admin: 07/06/17 10:01 Dose: 81 mg Calcium Acetate (Phoslo) 667 mg PO TIDCC [facility] Last Admin: 07/16/17 08:34 Dose: 667 mg Famotidine (Pepcid) 20 mg PO DAILY [facility] Last Admin: 07/16/17 09:47 Dose: 20 mg Ferrous Sulfate (Feosol) 325 mg PO DAILY [facility] Last Admin: 07/16/17 09:47 Dose: 325 mg Heparin Sodium (Porcine) (Heparin) 5,000 units SC Q12 [facility] Last Admin: 07/06/17 21:49 Dose: 5,000 units Heparin Sodium (Porcine) (Heparin) 3,700 units IVP MWF [facility] Stop: 07/23/17 09:01 Last Admin: 07/14/17 17:31 Dose: 3,700 units Sodium Chloride (Sodium Chloride 0.9%) 1,000 mls @ 60 mls/hr IV .[id number] [facility] Last Admin: 07/03/17 22:23 Dose: Not Given Imipenem/Cilastatin Sodium 250 (mg/ Sodium Chloride) 100 mls @ 100 mls/hr IVPB Q6 [facility] Last Admin: 07/16/17 05:42 Dose: 100 mls/hr Insulin Human Regular (Novolin R) 0 unit SC ACHS [facility] PRN Reason: Protocol Last Admin: 07/16/17 08:35 Dose: 3 unit Methylprednisolone (Solu-Medrol) 20 mg IVP Q8H [facility] Last Admin: 07/16/17 06:42 Dose: 20 mg Metoprolol Succinate (Toprol Xl) 25 mg PO DAILY [facility] Multivitamins (Hexavitamin) 1 tab PO DAILY [facility] Last Admin: 07/16/17 09:47 Dose: 1 tab Nystatin (Nystop Topical Powder) 1 applic TOP BID [facility] Last Admin: 07/16/17 09:48 Dose: 1 applic - Labs Labs: 07/14/17 11:40 07/14/17 11:40 PT 12.9 SECONDS (9.7-12.2) H 06/29/17 16:42 INR 1.2 06/29/17 16:42 APTT 34 SECONDS (21-34) 06/29/17 16:42 - Constitutional Appears: Well, Non-toxic, No Acute Distress - Head Exam Head Exam: ATRAUMATIC, NORMOCEPHALIC - Eye Exam Eye Exam: EOMI, Normal appearance Pupil Exam: PERRL - ENT Exam ENT Exam: Mucous Membranes Moist - Neck Exam Neck Exam: Full ROM. absent: Lymphadenopathy, Meningismus, Tenderness, Thyromegaly - Respiratory Exam Respiratory Exam: Clear to Ausculation Bilateral. absent: Accessory Muscle Use , Chest Wall Tenderness, Decreased Breath Sounds, Rales, Rhonchi, Wheezes, Respiratory Distress, Stridor - Cardiovascular Exam Cardiovascular Exam: +S1, +S2. absent: Diastolic murmur, Murmur - GI/Abdominal Exam GI & Abdominal Exam: Soft, Normal Bowel Sounds. absent: Distended, Tenderness - Extremities Exam Extremities Exam: Full ROM. absent: Joint Swelling, Pedal Edema - Neurological Exam Neurological Exam: Alert, Awake, CN II-XII Intact, Oriented x3 - Psychiatric Exam Psychiatric exam: Normal Affect, Normal Mood - Skin Skin Exam: Dry, Intact, Normal Color, Warm Assessment and Plan (1) Respiratory distress Status: Acute (2) Chronic congestive heart failure Status: Acute (3) ESTEVAN (acute kidney injury) Status: Acute - Assessment and Plan (Free Text) Assessment: 1. Respiratory distress - continue hemodialysis, continue current treatment with nebulizer and steroids, bipap as needed 2. ESTEVAN - continue hemodialysis; follow up ABG to be ordered 3. Chronic CHF - continue management per primary team, optimize fluid status with hemodialysis
[2017-07-16 11:43] LABS: BASO % 0.2 % (0.0-2.0); EOS % 0.1 % (0.0-4.0); HEMOGLOBIN 11.2 g/dL (11.0-16.0); LYMPH # 0.3 K/uL (1.0-4.3); LYMPH % 6.7 % (20.0-40.0); MEAN CELL VOLUME 86.2 fL (81.0-99.0); MEAN CORPUSCULAR HEMOGLOBIN 28.5 pg (27.0-31.0); MONO # 0.5 K/uL (0.0-0.8); MONO % 10.3 % (0.0-10.0); NEUT # 3.9 K/uL (1.8-7.0); NEUT % 82.7 % (50.0-75.0); NRBC % 0.2 % (0.0-2.0); PLATELET COUNT 173 K/uL (130-400); RBC 3.93 Mil/uL (3.80-5.20); RED CELL DISTRIBUTION WIDTH 16.8 % (11.5-14.5); WHITE BLOOD COUNT 4.8 K/uL (4.8-10.8)
[2017-07-16 11:57] LABS: CALCIUM 8.7 mg/dl (8.6-10.4)
[2017-07-16] MEDS ORDERED: (Novolin R) Insulin Human Regular 100 units/ml vial SC SCH (12:17)
[2017-07-16 12:24] LABS: PLATELET ESTIMATE NORMAL (NORMAL)
[2017-07-16 12:29] LABS: ANISOCYTOSIS SLIGHT; HYPOCHROMIC SLIGHT; LYMPHOCYTE 7 % (20-40); MONOCYTE 8 % (0-10); NEUTROPHIL 85 % (50-75); POIKILOCYTOSIS SLIGHT; TOTAL CELLS COUNTED 100
[2017-07-16 12:30] LABS: MICROCYTOSIS SLIGHT; TEARDROP CELLS SLIGHT
--- NOTE | 2017-07-16 12:51 | CP.PCM.PN ---
Subjective - Date & Time of Evaluation Date of Evaluation: 07/16/17 Time of Evaluation: 12:48 - Subjective Subjective: Alert now still chinyere- will d/c metoprolol creat decreased to 2.6 BUN elevated due to steroids [id number] for dialysis today eating better Objective - Vital Signs/Intake and Output Vital Signs (last 24 hours): Temp Pulse Resp BP Pulse Ox 98.3 F 55 L 20 111/50 L 96 07/16/17 08:50 07/16/17 09:00 07/16/17 08:50 07/16/17 08:50 07/16/17 08:50 Intake and Output: 07/16/17 07/16/17 06:59 18:59 Intake Total 800 Output Total 900 Balance -100 - Medications Medications: Current Medications Acetaminophen (Tylenol 325mg Tab) 650 mg PO Q6 PRN PRN Reason: Pain, Mild (1-3) Albuterol/Ipratropium (Duoneb 3 Mg/0.5 Mg (3 Ml) Ud) 3 ml INH RQ6 [facility] Last Admin: 07/16/17 07:44 Dose: 3 ml Amlodipine Besylate (Norvasc) 5 mg PO DAILY [facility] Last Admin: 07/16/17 09:47 Dose: Not Given Aspirin (Aspirin Chewable) 81 mg PO DAILY [facility] Last Admin: 07/06/17 10:01 Dose: 81 mg Calcium Acetate (Phoslo) 667 mg PO TIDCC [facility] Last Admin: 07/16/17 08:34 Dose: 667 mg Famotidine (Pepcid) 20 mg PO DAILY [facility] Last Admin: 07/16/17 09:47 Dose: 20 mg Ferrous Sulfate (Feosol) 325 mg PO DAILY [facility] Last Admin: 07/16/17 09:47 Dose: 325 mg Heparin Sodium (Porcine) (Heparin) 5,000 units SC Q12 [facility] Last Admin: 07/06/17 21:49 Dose: 5,000 units Heparin Sodium (Porcine) (Heparin) 3,700 units IVP MWF [facility] Stop: 07/23/17 09:01 Last Admin: 07/14/17 17:31 Dose: 3,700 units Sodium Chloride (Sodium Chloride 0.9%) 1,000 mls @ 60 mls/hr IV .[id number] [facility] Last Admin: 07/03/17 22:23 Dose: Not Given Imipenem/Cilastatin Sodium 250 (mg/ Sodium Chloride) 100 mls @ 100 mls/hr IVPB Q6 [facility] Last Admin: 07/16/17 05:42 Dose: 100 mls/hr Insulin Human Regular (Novolin R) 0 unit SC ACHS [facility] PRN Reason: Protocol Methylprednisolone (Solu-Medrol) 20 mg IVP Q8H [facility] Last Admin: 07/16/17 06:42 Dose: 20 mg Multivitamins (Hexavitamin) 1 tab PO DAILY [facility] Last Admin: 07/16/17 09:47 Dose: 1 tab Nystatin (Nystop Topical Powder) 1 applic TOP BID [facility] Last Admin: 07/16/17 09:48 Dose: 1 applic - Labs Labs: 07/16/17 11:31 07/16/17 11:31 PT 12.9 SECONDS (9.7-12.2) H 06/29/17 16:42 INR 1.2 06/29/17 16:42 APTT 34 SECONDS (21-34) 06/29/17 16:42 - Constitutional Appears: No Acute Distress, Chronically Ill - Head Exam Head Exam: ATRAUMATIC, NORMAL INSPECTION - Eye Exam Eye Exam: EOMI, Normal appearance - Neck Exam Neck Exam: Normal Inspection. absent: Tenderness - Respiratory Exam Respiratory Exam: Clear to Ausculation Bilateral, NORMAL BREATHING PATTERN - GI/Abdominal Exam GI & Abdominal Exam: Soft. absent: Tenderness - Extremities Exam Extremities Exam: Normal Inspection. absent: Tenderness - Neurological Exam Neurological Exam: Awake, CN II-XII Intact - Skin Skin Exam: Dry, Warm Assessment and Plan (1) ESTEVAN (acute kidney injury) Status: Acute (2) Chr obstructive pulmonary disease w/ acute lower respiratory infxn Status: Acute (3) UTI (urinary tract infection) Status: Acute - Assessment and Plan (Free Text) Plan: continue dialysis schedule monitor for renal recovery steroids as per pulmonary
--- NOTE | 2017-07-16 17:40 | CP.PCM.PN ---
Subjective - Date & Time of Evaluation Date of Evaluation: 07/16/17 Time of Evaluation: 13:20 - Subjective Subjective: clinically same Objective - Vital Signs/Intake and Output Vital Signs (last 24 hours): Temp Pulse Resp BP Pulse Ox 98.8 F 82 24 97/77 L 97 07/16/17 14:05 07/16/17 14:05 07/16/17 14:05 07/16/17 17:05 07/16/17 14:05 Intake and Output: 07/16/17 07/16/17 06:59 18:59 Intake Total 800 450 Output Total 900 250 Balance -100 200 - Medications Medications: Current Medications Acetaminophen (Tylenol 325mg Tab) 650 mg PO Q6 PRN PRN Reason: Pain, Mild (1-3) Albuterol/Ipratropium (Duoneb 3 Mg/0.5 Mg (3 Ml) Ud) 3 ml INH RQ6 [facility] Last Admin: 07/16/17 13:32 Dose: Not Given Amlodipine Besylate (Norvasc) 5 mg PO DAILY [facility] Last Admin: 07/16/17 09:47 Dose: Not Given Aspirin (Aspirin Chewable) 81 mg PO DAILY [facility] Last Admin: 07/06/17 10:01 Dose: 81 mg Calcium Acetate (Phoslo) 667 mg PO TIDCC [facility] Last Admin: 07/16/17 13:00 Dose: 667 mg Famotidine (Pepcid) 20 mg PO DAILY [facility] Last Admin: 07/16/17 09:47 Dose: 20 mg Ferrous Sulfate (Feosol) 325 mg PO DAILY [facility] Last Admin: 07/16/17 09:47 Dose: 325 mg Heparin Sodium (Porcine) (Heparin) 5,000 units SC Q12 [facility] Last Admin: 07/06/17 21:49 Dose: 5,000 units Heparin Sodium (Porcine) (Heparin) 3,700 units IVP MWF [facility] Stop: 07/23/17 09:01 Last Admin: 07/16/17 17:27 Dose: 3,700 units Sodium Chloride (Sodium Chloride 0.9%) 1,000 mls @ 60 mls/hr IV .[id number] [facility] Last Admin: 07/03/17 22:23 Dose: Not Given Imipenem/Cilastatin Sodium 250 (mg/ Sodium Chloride) 100 mls @ 100 mls/hr IVPB Q6 [facility] Last Admin: 07/16/17 12:15 Dose: 100 mls/hr Insulin Human Regular (Novolin R) 0 unit SC ACHS [facility] PRN Reason: Protocol Last Admin: 07/16/17 13:08 Dose: 10 unit Methylprednisolone (Solu-Medrol) 20 mg IVP Q8H [facility] Last Admin: 07/16/17 13:23 Dose: 20 mg Multivitamins (Hexavitamin) 1 tab PO DAILY [facility] Last Admin: 07/16/17 09:47 Dose: 1 tab Nystatin (Nystop Topical Powder) 1 applic TOP BID [facility] Last Admin: 07/16/17 09:48 Dose: 1 applic - Labs Labs: 07/16/17 11:31 07/16/17 11:31 PT 12.9 SECONDS (9.7-12.2) H 06/29/17 16:42 INR 1.2 06/29/17 16:42 APTT 34 SECONDS (21-34) 06/29/17 16:42 - Constitutional Appears: Well - Head Exam Head Exam: ATRAUMATIC, NORMAL INSPECTION, NORMOCEPHALIC - Eye Exam Eye Exam: EOMI, Normal appearance, PERRL Pupil Exam: NORMAL ACCOMODATION, PERRL - ENT Exam ENT Exam: Mucous Membranes Moist, Normal Exam - Neck Exam Neck Exam: Full ROM, Normal Inspection. absent: Lymphadenopathy - Respiratory Exam Respiratory Exam: Decreased Breath Sounds - Cardiovascular Exam Cardiovascular Exam: REGULAR RHYTHM, +S1, +S2 - GI/Abdominal Exam GI & Abdominal Exam: Soft, Diminished Bowel Sounds - Rectal Exam Rectal Exam: Deferred Assessment and Plan (1) ESTEVAN (acute kidney injury) Status: Acute (2) CKD (chronic kidney disease) stage 3, GFR 30-59 ml/min Status: Acute (3) Chr obstructive pulmonary disease w/ acute lower respiratory infxn Status: Acute (4) Chronic congestive heart failure Status: Acute (5) Dyspnea Status: Acute (6) Respiratory distress Status: Acute (7) UTI (urinary tract infection) Status: Acute (8) UTI (urinary tract infection) Status: Acute
--- NOTE | 2017-07-17 00:23 | CARD ---
APPROVED REPORT EKG Measurement Heart [id number] [place] [id number] [id number] <Conclusion> Sinus rhythm with premature atrial complexes with aberrant conduction Possible Anterior infarct, age undetermined Abnormal ECG
--- NOTE | 2017-07-17 00:23 | CARD ---
APPROVED REPORT EKG Measurement Heart [id number] <Conclusion> Normal sinus rhythm with sinus arrhythmia Possible Anterior infarct, age undetermined Abnormal ECG
[2017-07-17] MEDS: Albuterol-Ipratrop 3 mg / 0.5 (3 ml) UD INH SCH ×4 (01:41→20:36)
[2017-07-17 06:26] LABS: HEMOGLOBIN 10.6 g/dL (11.0-16.0); MEAN CORPUSCULAR HEMOGLOBIN 28.3 pg (27.0-31.0); MEAN CORPUSCULAR HGB CONC 33.3 g/dL (33.0-37.0); MEAN PLATELET VOLUME 8.4 fL (7.2-11.7); RBC 3.74 Mil/uL (3.80-5.20); RED CELL DISTRIBUTION WIDTH 16.7 % (11.5-14.5); WHITE BLOOD COUNT 4.5 K/uL (4.8-10.8)
[2017-07-17] MEDS: MethylPREDNISolone 40 mg Vial IVP SCH ×3 (06:27→21:33)
[2017-07-17] MEDS: (Novolin R) Insulin Human Regular 100 units/ml vial SC SCH ×4 (08:27→21:32)
[2017-07-17 08:47] LABS: ALBUMIN 2.6 g/dL (3.5-5.0); CALCIUM 8.2 mg/dl (8.6-10.4)
[2017-07-17] MEDS: Multiple Vitamins Tab PO SCH (09:12)
--- NOTE | 2017-07-17 09:33 | CP.PCM.PN ---
Subjective - Date & Time of Evaluation Date of Evaluation: 07/17/17 Time of Evaluation: 09:31 - Subjective Subjective: s/p dialysis 07/16 creat decreased to 1.6 today UO- 750ml/ 24 hrs feels better/ more alert no f,c, n, v, diarrhea Objective - Vital Signs/Intake and Output Vital Signs (last 24 hours): Temp Pulse Resp BP Pulse Ox 97.3 F L 90 20 147/61 96 07/17/17 09:14 07/17/17 09:14 07/17/17 09:14 07/17/17 09:14 07/17/17 09:14 Intake and Output: 07/17/17 07/17/17 06:59 18:59 Intake Total 700 Output Total 200 Balance 500 - Medications Medications: Current Medications Acetaminophen (Tylenol 325mg Tab) 650 mg PO Q6 PRN PRN Reason: Pain, Mild (1-3) Albuterol/Ipratropium (Duoneb 3 Mg/0.5 Mg (3 Ml) Ud) 3 ml INH RQ6 [facility] Last Admin: 07/17/17 07:26 Dose: 3 ml Amlodipine Besylate (Norvasc) 5 mg PO DAILY [facility] Last Admin: 07/17/17 09:12 Dose: 5 mg Aspirin (Aspirin Chewable) 81 mg PO DAILY [facility] Last Admin: 07/06/17 10:01 Dose: 81 mg Calcium Acetate (Phoslo) 667 mg PO TIDCC [facility] Last Admin: 07/17/17 08:26 Dose: 667 mg Famotidine (Pepcid) 20 mg PO DAILY [facility] Last Admin: 07/17/17 09:12 Dose: 20 mg Ferrous Sulfate (Feosol) 325 mg PO DAILY [facility] Last Admin: 07/17/17 09:12 Dose: 325 mg Heparin Sodium (Porcine) (Heparin) 5,000 units SC Q12 [facility] Last Admin: 07/06/17 21:49 Dose: 5,000 units Heparin Sodium (Porcine) (Heparin) 3,700 units IVP MWF [facility] Stop: 07/23/17 09:01 Last Admin: 07/16/17 17:27 Dose: 3,700 units Sodium Chloride (Sodium Chloride 0.9%) 1,000 mls @ 60 mls/hr IV .[id number] [facility] Last Admin: 07/03/17 22:23 Dose: Not Given Imipenem/Cilastatin Sodium 250 (mg/ Sodium Chloride) 100 mls @ 100 mls/hr IVPB Q6 [facility] Last Admin: 07/17/17 05:02 Dose: 100 mls/hr Insulin Human Regular (Novolin R) 0 unit SC ACHS [facility] PRN Reason: Protocol Last Admin: 07/17/17 08:27 Dose: 6 unit Methylprednisolone (Solu-Medrol) 20 mg IVP Q8H [facility] Last Admin: 07/17/17 06:27 Dose: 20 mg Multivitamins (Hexavitamin) 1 tab PO DAILY [facility] Last Admin: 07/17/17 09:12 Dose: 1 tab Nystatin (Nystop Topical Powder) 1 applic TOP BID [facility] Last Admin: 07/17/17 09:12 Dose: 1 applic - Labs Labs: 07/17/17 06:13 07/17/17 06:13 PT 12.9 SECONDS (9.7-12.2) H 06/29/17 16:42 INR 1.2 06/29/17 16:42 APTT 34 SECONDS (21-34) 06/29/17 16:42 - Constitutional Appears: No Acute Distress, Chronically Ill - Head Exam Head Exam: ATRAUMATIC, NORMAL INSPECTION - Eye Exam Eye Exam: EOMI, Normal appearance - Neck Exam Neck Exam: Normal Inspection. absent: Tenderness - Respiratory Exam Respiratory Exam: Clear to Ausculation Bilateral, NORMAL BREATHING PATTERN - Cardiovascular Exam Cardiovascular Exam: REGULAR RHYTHM, +S1 - GI/Abdominal Exam GI & Abdominal Exam: Soft. absent: Tenderness - Extremities Exam Extremities Exam: Normal Inspection. absent: Tenderness - Neurological Exam Neurological Exam: Alert, CN II-XII Intact - Skin Skin Exam: Dry, Warm Assessment and Plan (1) ESTEVAN (acute kidney injury) Status: Acute (2) Chr obstructive pulmonary disease w/ acute lower respiratory infxn Status: Acute (3) UTI (urinary tract infection) Status: Acute - Assessment and Plan (Free Text) Plan: hold dialysis daily labs
--- NOTE | 2017-07-17 13:13 | CP.PCM.PN ---
Subjective - Date & Time of Evaluation Date of Evaluation: 07/17/17 Time of Evaluation: 13:11 - Subjective Subjective: Had respiratory distress and lethargy requring temporary BIPAP support No CP or SOB No fevers or chills ---> Noted d/c of Toprol due to sinus bradycardia ---> EKG 07/14/17 directly viewed by me: NSR with PVCs in bigeminy Objective - Vital Signs/Intake and Output Vital Signs (last 24 hours): Temp Pulse Resp BP Pulse Ox 97.3 F L 90 20 147/61 96 07/17/17 09:14 07/17/17 09:14 07/17/17 09:14 07/17/17 09:14 07/17/17 09:14 Intake and Output: 07/17/17 07/17/17 06:59 18:59 Intake Total 700 Output Total 200 Balance 500 - Medications Medications: Current Medications Acetaminophen (Tylenol 325mg Tab) 650 mg PO Q6 PRN PRN Reason: Pain, Mild (1-3) Albuterol/Ipratropium (Duoneb 3 Mg/0.5 Mg (3 Ml) Ud) 3 ml INH RQ6 [facility] Last Admin: 07/17/17 07:26 Dose: 3 ml Amlodipine Besylate (Norvasc) 5 mg PO DAILY [facility] Last Admin: 07/17/17 09:12 Dose: 5 mg Aspirin (Aspirin Chewable) 81 mg PO DAILY [facility] Last Admin: 07/06/17 10:01 Dose: 81 mg Calcium Acetate (Phoslo) 667 mg PO TIDCC [facility] Last Admin: 07/17/17 12:59 Dose: 667 mg Famotidine (Pepcid) 20 mg PO DAILY [facility] Last Admin: 07/17/17 09:12 Dose: 20 mg Ferrous Sulfate (Feosol) 325 mg PO DAILY [facility] Last Admin: 07/17/17 09:12 Dose: 325 mg Heparin Sodium (Porcine) (Heparin) 5,000 units SC Q12 [facility] Last Admin: 07/06/17 21:49 Dose: 5,000 units Heparin Sodium (Porcine) (Heparin) 3,700 units IVP MWF [facility] Stop: 07/23/17 09:01 Last Admin: 07/16/17 17:27 Dose: 3,700 units Sodium Chloride (Sodium Chloride 0.9%) 1,000 mls @ 60 mls/hr IV .[id number] [facility] Last Admin: 07/03/17 22:23 Dose: Not Given Imipenem/Cilastatin Sodium 250 (mg/ Sodium Chloride) 100 mls @ 100 mls/hr IVPB Q6 [facility] Last Admin: 07/17/17 13:00 Dose: 100 mls/hr Insulin Human Regular (Novolin R) 0 unit SC ACHS [facility] PRN Reason: Protocol Last Admin: 07/17/17 12:59 Dose: 8 unit Methylprednisolone (Solu-Medrol) 20 mg IVP Q8H [facility] Last Admin: 07/17/17 06:27 Dose: 20 mg Multivitamins (Hexavitamin) 1 tab PO DAILY [facility] Last Admin: 07/17/17 09:12 Dose: 1 tab Nystatin (Nystop Topical Powder) 1 applic TOP BID [facility] Last Admin: 07/17/17 09:12 Dose: 1 applic - Labs Labs: 07/17/17 06:13 07/17/17 06:13 PT 12.9 SECONDS (9.7-12.2) H 06/29/17 16:42 INR 1.2 06/29/17 16:42 APTT 34 SECONDS (21-34) 06/29/17 16:42 - Constitutional Appears: No Acute Distress - Head Exam Head Exam: ATRAUMATIC, NORMAL INSPECTION, NORMOCEPHALIC - Eye Exam Eye Exam: EOMI, Normal appearance, PERRL - ENT Exam ENT Exam: Mucous Membranes Moist, Normal Oropharynx - Respiratory Exam Respiratory Exam: Clear to Ausculation Bilateral, NORMAL BREATHING PATTERN. absent: Rhonchi, Wheezes - Cardiovascular Exam Cardiovascular Exam: REGULAR RHYTHM, +S1, +S2. absent: Murmur - GI/Abdominal Exam GI & Abdominal Exam: Soft. absent: Tenderness - Extremities Exam Extremities Exam: Normal Inspection. absent: Pedal Edema - Neurological Exam Neurological Exam: Alert, Awake, Oriented x3 - Skin Skin Exam: Normal Color, Warm Assessment and Plan - Assessment and Plan (Free Text) Assessment: 1. SOB/chest congestion/URI sx's 2. PNA 3. HTN chronic stable 4. LIPIDS: chronic stable 5. CHF diastolic 6. CKD developed ARF now started on HD via R/ chest HD catheter. 7. SVT noted while on HD 07/10/17---> Beta robert added at the time: since no further arrythmia ECHO: directly seen by me: Normal LVEF AND WALL MOTION, No significant valve disease, normal RV function. Mild LVH. > reduce lasix dose or change to PO maintainence > CAD RF's: HTN, LIPIDS --> currently there is no active anginal sx;s are ischemic changes on EKG: agree with ASA and statin for now. Initial trop was negative for ACS. Plan: EKG noted to show NSR with PVcs in bigeminy: resume TOPROL at reduced dose of 25XL qd and titrate up if needed --> Lytes WNL --> Creat improved: challenging without HD to see if future HD is needed Suggest ASA suggest statin > DVT prophylaxis > HD per schedule; monitor lytes > Will sign off: suggest f/u as outpatient upon discharge.
--- NOTE | 2017-07-17 15:41 | CP.PCM.PN ---
Subjective - Date & Time of Evaluation Date of Evaluation: 07/17/17 Time of Evaluation: 10:20 - Subjective Subjective: clinically same Objective - Vital Signs/Intake and Output Vital Signs (last 24 hours): Temp Pulse Resp BP Pulse Ox 97.3 F L 89 20 147/61 96 07/17/17 09:14 07/17/17 12:00 07/17/17 09:14 07/17/17 09:14 07/17/17 09:14 Intake and Output: 07/17/17 07/17/17 06:59 18:59 Intake Total 700 500 Output Total 200 300 Balance 500 200 - Medications Medications: Current Medications Acetaminophen (Tylenol 325mg Tab) 650 mg PO Q6 PRN PRN Reason: Pain, Mild (1-3) Albuterol/Ipratropium (Duoneb 3 Mg/0.5 Mg (3 Ml) Ud) 3 ml INH RQ6 [facility] Last Admin: 07/17/17 13:21 Dose: 3 ml Amlodipine Besylate (Norvasc) 5 mg PO DAILY [facility] Last Admin: 07/17/17 09:12 Dose: 5 mg Aspirin (Aspirin Chewable) 81 mg PO DAILY [facility] Last Admin: 07/06/17 10:01 Dose: 81 mg Calcium Acetate (Phoslo) 667 mg PO TIDCC [facility] Last Admin: 07/17/17 12:59 Dose: 667 mg Famotidine (Pepcid) 20 mg PO DAILY [facility] Last Admin: 07/17/17 09:12 Dose: 20 mg Ferrous Sulfate (Feosol) 325 mg PO DAILY [facility] Last Admin: 07/17/17 09:12 Dose: 325 mg Heparin Sodium (Porcine) (Heparin) 5,000 units SC Q12 [facility] Last Admin: 07/06/17 21:49 Dose: 5,000 units Heparin Sodium (Porcine) (Heparin) 3,700 units IVP MWF [facility] Stop: 07/23/17 09:01 Last Admin: 07/16/17 17:27 Dose: 3,700 units Sodium Chloride (Sodium Chloride 0.9%) 1,000 mls @ 60 mls/hr IV .[id number] [facility] Last Admin: 07/03/17 22:23 Dose: Not Given Imipenem/Cilastatin Sodium 250 (mg/ Sodium Chloride) 100 mls @ 100 mls/hr IVPB Q6 [facility] Last Admin: 07/17/17 13:00 Dose: 100 mls/hr Insulin Human Regular (Novolin R) 0 unit SC ACHS [facility] PRN Reason: Protocol Last Admin: 07/17/17 12:59 Dose: 8 unit Methylprednisolone (Solu-Medrol) 20 mg IVP Q8H [facility] Last Admin: 07/17/17 13:20 Dose: 20 mg Multivitamins (Hexavitamin) 1 tab PO DAILY [facility] Last Admin: 07/17/17 09:12 Dose: 1 tab Nystatin (Nystop Topical Powder) 1 applic TOP BID [facility] Last Admin: 07/17/17 09:12 Dose: 1 applic - Labs Labs: 07/17/17 06:13 07/17/17 06:13 PT 12.9 SECONDS (9.7-12.2) H 06/29/17 16:42 INR 1.2 06/29/17 16:42 APTT 34 SECONDS (21-34) 06/29/17 16:42 - Constitutional Appears: Well - Head Exam Head Exam: ATRAUMATIC, NORMAL INSPECTION, NORMOCEPHALIC - Eye Exam Eye Exam: EOMI, Normal appearance, PERRL Pupil Exam: NORMAL ACCOMODATION, PERRL - ENT Exam ENT Exam: Mucous Membranes Moist, Normal Exam - Neck Exam Neck Exam: Full ROM, Normal Inspection. absent: Lymphadenopathy - Respiratory Exam Respiratory Exam: Decreased Breath Sounds - Cardiovascular Exam Cardiovascular Exam: REGULAR RHYTHM, +S1, +S2 - GI/Abdominal Exam GI & Abdominal Exam: Soft, Diminished Bowel Sounds - Rectal Exam Rectal Exam: Deferred Assessment and Plan (1) ESTEVAN (acute kidney injury) Status: Acute (2) CKD (chronic kidney disease) stage 3, GFR 30-59 ml/min Status: Acute (3) Chr obstructive pulmonary disease w/ acute lower respiratory infxn Status: Acute (4) Chronic congestive heart failure Status: Acute (5) Dyspnea Status: Acute (6) Respiratory distress Status: Acute (7) UTI (urinary tract infection) Status: Acute (8) UTI (urinary tract infection) Status: Acute
[2017-07-17] MEDS ORDERED: Metoprolol Succinate 25 mg XL Tab PO SCH (17:15)
[2017-07-17] MEDS: Metoprolol Succinate 25 mg XL Tab PO SCH (18:20)
--- NOTE | 2017-07-17 21:28 | CP.PCM.PN ---
Subjective - Date & Time of Evaluation Date of Evaluation: 07/17/17 Time of Evaluation: 18:00 - Subjective Subjective: Pulmonary consult; covering Dr Fernández The Patient was seen and examined at the bedside, Medical records reviewed, and management issues were discussed and formulated with the house staff. Reports feeling better today, shortness of breath and wheezing is improving. Receives hemodialysis MWF, scheduled to go later tomorrow. Port placed on right side. Denies fever/chills, chest pain, cough. Objective - Vital Signs/Intake and Output Vital Signs (last 24 hours): Temp Pulse Resp BP Pulse Ox 98.4 F 68 20 129/69 96 07/17/17 16:00 07/17/17 16:00 07/17/17 16:00 07/17/17 16:00 07/17/17 16:00 Intake and Output: 07/17/17 07/18/17 18:59 06:59 Intake Total 500 Output Total 300 Balance 200 - Medications Medications: Current Medications Acetaminophen (Tylenol 325mg Tab) 650 mg PO Q6 PRN PRN Reason: Pain, Mild (1-3) Albuterol/Ipratropium (Duoneb 3 Mg/0.5 Mg (3 Ml) Ud) 3 ml INH RQ6 [facility] Last Admin: 07/17/17 20:36 Dose: 3 ml Amlodipine Besylate (Norvasc) 5 mg PO DAILY [facility] Last Admin: 07/17/17 09:12 Dose: 5 mg Aspirin (Aspirin Chewable) 81 mg PO DAILY [facility] Last Admin: 07/06/17 10:01 Dose: 81 mg Calcium Acetate (Phoslo) 667 mg PO TIDCC [facility] Last Admin: 07/17/17 18:16 Dose: 667 mg Famotidine (Pepcid) 20 mg PO DAILY [facility] Last Admin: 07/17/17 09:12 Dose: 20 mg Ferrous Sulfate (Feosol) 325 mg PO DAILY [facility] Last Admin: 07/17/17 09:12 Dose: 325 mg Heparin Sodium (Porcine) (Heparin) 5,000 units SC Q12 [facility] Last Admin: 07/06/17 21:49 Dose: 5,000 units Sodium Chloride (Sodium Chloride 0.9%) 1,000 mls @ 60 mls/hr IV .[id number] [facility] Last Admin: 07/03/17 22:23 Dose: Not Given Imipenem/Cilastatin Sodium 250 (mg/ Sodium Chloride) 100 mls @ 100 mls/hr IVPB Q6 [facility] Last Admin: 07/17/17 18:25 Dose: 100 mls/hr Insulin Human Regular (Novolin R) 0 unit SC ACHS [facility] PRN Reason: Protocol Last Admin: 07/17/17 18:15 Dose: 12 unit Methylprednisolone (Solu-Medrol) 20 mg IVP Q8H [facility] Last Admin: 07/17/17 13:20 Dose: 20 mg Metoprolol Succinate (Toprol Xl) 25 mg PO DAILY [facility] Last Admin: 07/17/17 18:20 Dose: 25 mg Multivitamins (Hexavitamin) 1 tab PO DAILY [facility] Last Admin: 07/17/17 09:12 Dose: 1 tab Nystatin (Nystop Topical Powder) 1 applic TOP BID [facility] Last Admin: 07/17/17 18:16 Dose: 1 applic - Labs Labs: 07/17/17 06:13 07/17/17 06:13 PT 12.9 SECONDS (9.7-12.2) H 06/29/17 16:42 INR 1.2 06/29/17 16:42 APTT 34 SECONDS (21-34) 06/29/17 16:42 - Constitutional Appears: Well, Non-toxic, No Acute Distress - Head Exam Head Exam: ATRAUMATIC, NORMOCEPHALIC - Eye Exam Eye Exam: EOMI Pupil Exam: PERRL - ENT Exam ENT Exam: Mucous Membranes Moist - Neck Exam Neck Exam: Full ROM. absent: Lymphadenopathy, Tenderness, Thyromegaly - Respiratory Exam Respiratory Exam: Decreased Breath Sounds, Wheezes (mild diffuse wheezing). absent: Accessory Muscle Use, Chest Wall Tenderness, Prolonged Expiratory Phase , Rales, Rhonchi, Respiratory Distress, Stridor - Cardiovascular Exam Cardiovascular Exam: +S1, +S2. absent: Diastolic murmur, Murmur - GI/Abdominal Exam GI & Abdominal Exam: Soft, Normal Bowel Sounds. absent: Distended, Guarding, Rigid, Tenderness - Extremities Exam Extremities Exam: absent: Calf Tenderness, Tenderness - Neurological Exam Neurological Exam: Alert, Awake, Oriented x3 Assessment and Plan (1) Respiratory distress Status: Acute (2) Chronic congestive heart failure Status: Acute (3) ESTEVAN (acute kidney injury) Status: Acute - Assessment and Plan (Free Text) Assessment: Respiratory distress - Continue hemodialysis, - Continue current treatment with nebulizer and steroids, - BIPAP as needed ESTEVAN - Continue hemodialysis - Follow up ABG to be ordered Chronic CHF - Continue management per primary team, - Optimize fluid status with hemodialysis
--- NOTE | 2017-07-17 22:45 | CARD ---
APPROVED REPORT EKG Measurement Heart [id number] VT 132P86 [id number] <Conclusion> Sinus rhythm with frequent premature ventricular complexes in a pattern of bigeminy Low voltage QRS Cannot rule out Anterior infarct, age undetermined Abnormal ECG
--- NOTE | 2017-07-17 22:46 | CARD ---
APPROVED REPORT EKG Measurement Heart [id number] IN 138P60 [id number] <Conclusion> Sinus rhythm with frequent premature ventricular complexes in a pattern of bigeminy Low voltage QRS Cannot rule out Anterior infarct, age undetermined Abnormal ECG
[2017-07-18] MEDS: Albuterol-Ipratrop 3 mg / 0.5 (3 ml) UD INH SCH ×4 (01:13→20:15)
[2017-07-18] MEDS: MethylPREDNISolone 40 mg Vial IVP SCH ×3 (06:01→22:09)
[2017-07-18 06:37] LABS: ALBUMIN 2.5 g/dL (3.5-5.0); CALCIUM 8.2 mg/dl (8.6-10.4)
[2017-07-18] MEDS: (Novolin R) Insulin Human Regular 100 units/ml vial SC SCH ×4 (08:28→22:16)
[2017-07-18] MEDS: Metoprolol Succinate 25 mg XL Tab PO SCH (09:47)
--- NOTE | 2017-07-18 09:47 | CP.PCM.PN ---
Subjective - Date & Time of Evaluation Date of Evaluation: 07/18/17 Time of Evaluation: 09:43 - Subjective Subjective: Pulmonary consult; covering Dr Fernández The Patient was seen and examined at the bedside, Medical records reviewed, and management issues were discussed and formulated with the house staff. This morning the patient is comfortable, unlabored breathing, and afebrile Reports feeling better today, shortness of breath and wheezing is markedly improving. Receiving hemodialysis MWF, scheduled to have hemodialysis today. S/P Port placed on right side. Denies fever/chills, chest pain, cough. No longer using BIPAP Using 2-3L NC oxygen and saturating 97-100% most recent chest XR from 07/07: mild increase in bronchovascular marking Objective - Vital Signs/Intake and Output Vital Signs (last 24 hours): Temp Pulse Resp BP Pulse Ox 97.8 F 87 20 166/69 H 98 07/18/17 07:00 07/18/17 08:00 07/18/17 07:00 07/18/17 07:00 07/18/17 07:00 Intake and Output: 07/18/17 07/18/17 06:59 18:59 Intake Total 1140 Output Total 700 Balance 440 - Medications Medications: Current Medications Acetaminophen (Tylenol 325mg Tab) 650 mg PO Q6 PRN PRN Reason: Pain, Mild (1-3) Albuterol/Ipratropium (Duoneb 3 Mg/0.5 Mg (3 Ml) Ud) 3 ml INH RQ6 [facility] Last Admin: 07/18/17 07:45 Dose: 3 ml Amlodipine Besylate (Norvasc) 5 mg PO DAILY [facility] Last Admin: 07/17/17 09:12 Dose: 5 mg Aspirin (Aspirin Chewable) 81 mg PO DAILY [facility] Last Admin: 07/06/17 10:01 Dose: 81 mg Calcium Acetate (Phoslo) 667 mg PO TIDCC [facility] Last Admin: 07/18/17 08:27 Dose: 667 mg Famotidine (Pepcid) 20 mg PO DAILY [facility] Last Admin: 07/17/17 09:12 Dose: 20 mg Ferrous Sulfate (Feosol) 325 mg PO DAILY [facility] Last Admin: 07/17/17 09:12 Dose: 325 mg Heparin Sodium (Porcine) (Heparin) 5,000 units SC Q12 [facility] Last Admin: 07/06/17 21:49 Dose: 5,000 units Sodium Chloride (Sodium Chloride 0.9%) 1,000 mls @ 60 mls/hr IV .[id number] [facility] Last Admin: 07/03/17 22:23 Dose: Not Given Imipenem/Cilastatin Sodium 250 (mg/ Sodium Chloride) 100 mls @ 100 mls/hr IVPB Q6 [facility] Last Admin: 07/18/17 06:03 Dose: 100 mls/hr Insulin Human Regular (Novolin R) 0 unit SC ACHS [facility] PRN Reason: Protocol Last Admin: 07/18/17 08:28 Dose: 6 unit Methylprednisolone (Solu-Medrol) 20 mg IVP Q8H [facility] Last Admin: 07/18/17 06:01 Dose: 20 mg Metoprolol Succinate (Toprol Xl) 25 mg PO DAILY [facility] Last Admin: 07/17/17 18:20 Dose: 25 mg Multivitamins (Hexavitamin) 1 tab PO DAILY [facility] Last Admin: 07/17/17 09:12 Dose: 1 tab Nystatin (Nystop Topical Powder) 1 applic TOP BID [facility] Last Admin: 07/17/17 18:16 Dose: 1 applic - Labs Labs: 07/17/17 06:13 07/18/17 06:05 PT 12.9 SECONDS (9.7-12.2) H 06/29/17 16:42 INR 1.2 06/29/17 16:42 APTT 34 SECONDS (21-34) 06/29/17 16:42 Assessment and Plan (1) Respiratory distress Status: Acute (2) Chronic congestive heart failure Status: Acute (3) ESTEVAN (acute kidney injury) Status: Acute - Assessment and Plan (Free Text) Assessment: Respiratory distress secondary to fluid overload otherwise no clinical evidence of acute infectious process - Continue hemodialysis as per nephrology with fluid removal to optimize fluid status - Continue current treatment with nebulizer and steroids, - Patient has been saturating well at 2-3L NC only using BIPAP as needed ESTEVAN - Continue hemodialysis - 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
[2017-07-18] MEDS: Multiple Vitamins Tab PO SCH (11:13)
--- NOTE | 2017-07-18 13:36 | CP.PCM.PN ---
Subjective - Date & Time of Evaluation Date of Evaluation: 07/18/17 Time of Evaluation: 13:34 - Subjective Subjective: more alert eating better off dialysis now repeat creatinine 1.9 claims fair UO- 550 ml this am Objective - Vital Signs/Intake and Output Vital Signs (last 24 hours): Temp Pulse Resp BP Pulse Ox 97.8 F 89 20 150/73 98 07/18/17 07:00 07/18/17 09:46 07/18/17 07:00 07/18/17 09:46 07/18/17 07:00 Intake and Output: 07/18/17 07/18/17 06:59 18:59 Intake Total 1140 Output Total 700 Balance 440 - Medications Medications: Current Medications Acetaminophen (Tylenol 325mg Tab) 650 mg PO Q6 PRN PRN Reason: Pain, Mild (1-3) Albuterol/Ipratropium (Duoneb 3 Mg/0.5 Mg (3 Ml) Ud) 3 ml INH RQ6 [facility] Last Admin: 07/18/17 07:45 Dose: 3 ml Amlodipine Besylate (Norvasc) 5 mg PO DAILY [facility] Last Admin: 07/18/17 09:47 Dose: 5 mg Aspirin (Aspirin Chewable) 81 mg PO DAILY [facility] Last Admin: 07/06/17 10:01 Dose: 81 mg Calcium Acetate (Phoslo) 667 mg PO TIDCC [facility] Last Admin: 07/18/17 12:13 Dose: 667 mg Famotidine (Pepcid) 20 mg PO DAILY [facility] Last Admin: 07/18/17 09:47 Dose: 20 mg Ferrous Sulfate (Feosol) 325 mg PO DAILY [facility] Last Admin: 07/18/17 09:47 Dose: 325 mg Heparin Sodium (Porcine) (Heparin) 5,000 units SC Q12 [facility] Last Admin: 07/06/17 21:49 Dose: 5,000 units Sodium Chloride (Sodium Chloride 0.9%) 1,000 mls @ 60 mls/hr IV .[id number] [facility] Last Admin: 07/03/17 22:23 Dose: Not Given Imipenem/Cilastatin Sodium 250 (mg/ Sodium Chloride) 100 mls @ 100 mls/hr IVPB Q6 [facility] Last Admin: 07/18/17 06:03 Dose: 100 mls/hr Insulin Human Regular (Novolin R) 0 unit SC ACHS [facility] PRN Reason: Protocol Last Admin: 07/18/17 12:13 Dose: 10 unit Methylprednisolone (Solu-Medrol) 20 mg IVP Q8H [facility] Last Admin: 07/18/17 06:01 Dose: 20 mg Metoprolol Succinate (Toprol Xl) 25 mg PO DAILY [facility] Last Admin: 07/18/17 09:47 Dose: 25 mg Multivitamins (Hexavitamin) 1 tab PO DAILY [facility] Last Admin: 07/18/17 11:13 Dose: 1 tab Nystatin (Nystop Topical Powder) 1 applic TOP BID [facility] Last Admin: 07/18/17 09:49 Dose: 1 applic - Labs Labs: 07/17/17 06:13 07/18/17 06:05 PT 12.9 SECONDS (9.7-12.2) H 06/29/17 16:42 INR 1.2 06/29/17 16:42 APTT 34 SECONDS (21-34) 06/29/17 16:42 - Constitutional Appears: No Acute Distress, Chronically Ill - Head Exam Head Exam: ATRAUMATIC, NORMAL INSPECTION - Eye Exam Eye Exam: EOMI, Normal appearance - Neck Exam Neck Exam: Normal Inspection. absent: Tenderness - Respiratory Exam Respiratory Exam: Clear to Ausculation Bilateral, NORMAL BREATHING PATTERN - Cardiovascular Exam Cardiovascular Exam: REGULAR RHYTHM, +S1 - GI/Abdominal Exam GI & Abdominal Exam: Soft. absent: Tenderness - Extremities Exam Extremities Exam: Normal Inspection. absent: Tenderness - Neurological Exam Neurological Exam: Alert, CN II-XII Intact - Skin Skin Exam: Dry, Warm Assessment and Plan (1) ESTEVAN (acute kidney injury) Status: Acute (2) Chr obstructive pulmonary disease w/ acute lower respiratory infxn Status: Acute (3) UTI (urinary tract infection) Status: Acute - Assessment and Plan (Free Text) Plan: hold dialysis check serial chemistries/ UO
--- NOTE | 2017-07-18 17:23 | CP.PCM.PN ---
Subjective - Date & Time of Evaluation Date of Evaluation: 07/18/17 Time of Evaluation: 09:30 - Subjective Subjective: clinically same Objective - Vital Signs/Intake and Output Vital Signs (last 24 hours): Temp Pulse Resp BP Pulse Ox 97.8 F 94 H 20 150/73 98 07/18/17 07:00 07/18/17 12:15 07/18/17 07:00 07/18/17 09:46 07/18/17 07:00 Intake and Output: 07/18/17 07/18/17 06:59 18:59 Intake Total 1140 500 Output Total 700 600 Balance 440 -100 - Medications Medications: Current Medications Acetaminophen (Tylenol 325mg Tab) 650 mg PO Q6 PRN PRN Reason: Pain, Mild (1-3) Albuterol/Ipratropium (Duoneb 3 Mg/0.5 Mg (3 Ml) Ud) 3 ml INH RQ6 [facility] Last Admin: 07/18/17 14:23 Dose: 3 ml Amlodipine Besylate (Norvasc) 5 mg PO DAILY [facility] Last Admin: 07/18/17 09:47 Dose: 5 mg Aspirin (Aspirin Chewable) 81 mg PO DAILY [facility] Last Admin: 07/06/17 10:01 Dose: 81 mg Calcium Acetate (Phoslo) 667 mg PO TIDCC [facility] Last Admin: 07/18/17 12:13 Dose: 667 mg Famotidine (Pepcid) 20 mg PO DAILY [facility] Last Admin: 07/18/17 09:47 Dose: 20 mg Ferrous Sulfate (Feosol) 325 mg PO DAILY [facility] Last Admin: 07/18/17 09:47 Dose: 325 mg Heparin Sodium (Porcine) (Heparin) 5,000 units SC Q12 [facility] Last Admin: 07/06/17 21:49 Dose: 5,000 units Sodium Chloride (Sodium Chloride 0.9%) 1,000 mls @ 60 mls/hr IV .[id number] [facility] Last Admin: 07/03/17 22:23 Dose: Not Given Imipenem/Cilastatin Sodium 250 (mg/ Sodium Chloride) 100 mls @ 100 mls/hr IVPB Q6 [facility] Last Admin: 07/18/17 13:43 Dose: 100 mls/hr Insulin Human Regular (Novolin R) 0 unit SC ACHS [facility] PRN Reason: Protocol Last Admin: 07/18/17 12:13 Dose: 10 unit Methylprednisolone (Solu-Medrol) 20 mg IVP Q8H [facility] Last Admin: 07/18/17 13:43 Dose: 20 mg Metoprolol Succinate (Toprol Xl) 25 mg PO DAILY [facility] Last Admin: 07/18/17 09:47 Dose: 25 mg Multivitamins (Hexavitamin) 1 tab PO DAILY [facility] Last Admin: 07/18/17 11:13 Dose: 1 tab Nystatin (Nystop Topical Powder) 1 applic TOP BID [facility] Last Admin: 07/18/17 09:49 Dose: 1 applic - Labs Labs: 07/17/17 06:13 07/18/17 06:05 PT 12.9 SECONDS (9.7-12.2) H 06/29/17 16:42 INR 1.2 06/29/17 16:42 APTT 34 SECONDS (21-34) 06/29/17 16:42 - Constitutional Appears: Well - Head Exam Head Exam: ATRAUMATIC, NORMAL INSPECTION, NORMOCEPHALIC - Eye Exam Eye Exam: EOMI, Normal appearance, PERRL Pupil Exam: NORMAL ACCOMODATION, PERRL - ENT Exam ENT Exam: Mucous Membranes Moist, Normal Exam - Neck Exam Neck Exam: Full ROM, Normal Inspection. absent: Lymphadenopathy - Respiratory Exam Respiratory Exam: Decreased Breath Sounds - Cardiovascular Exam Cardiovascular Exam: REGULAR RHYTHM, +S1, +S2 - GI/Abdominal Exam GI & Abdominal Exam: Soft, Diminished Bowel Sounds - Rectal Exam Rectal Exam: Deferred Assessment and Plan (1) ESTEVAN (acute kidney injury) Status: Acute (2) CKD (chronic kidney disease) stage 3, GFR 30-59 ml/min Status: Acute (3) Chr obstructive pulmonary disease w/ acute lower respiratory infxn Status: Acute (4) Chronic congestive heart failure Status: Acute (5) Dyspnea Status: Acute (6) Respiratory distress Status: Acute (7) UTI (urinary tract infection) Status: Acute (8) UTI (urinary tract infection) Status: Acute
--- NOTE | 2017-07-18 18:54 | CP.PCM.PN ---
Subjective - Date & Time of Evaluation Date of Evaluation: 07/18/17 Time of Evaluation: 08:00 - Subjective Subjective: recently restarted on IV antibotics no itching awake alert denies fevcer Objective - Vital Signs/Intake and Output Vital Signs (last 24 hours): Temp Pulse Resp BP Pulse Ox 99.1 F 89 20 133/74 96 07/18/17 15:10 07/18/17 15:10 07/18/17 15:10 07/18/17 15:10 07/18/17 15:10 Intake and Output: 07/18/17 07/18/17 06:59 18:59 Intake Total 1140 500 Output Total 700 600 Balance 440 -100 - Medications Medications: Current Medications Acetaminophen (Tylenol 325mg Tab) 650 mg PO Q6 PRN PRN Reason: Pain, Mild (1-3) Albuterol/Ipratropium (Duoneb 3 Mg/0.5 Mg (3 Ml) Ud) 3 ml INH RQ6 [facility] Last Admin: 07/18/17 14:23 Dose: 3 ml Amlodipine Besylate (Norvasc) 5 mg PO DAILY [facility] Last Admin: 07/18/17 09:47 Dose: 5 mg Aspirin (Aspirin Chewable) 81 mg PO DAILY [facility] Last Admin: 07/06/17 10:01 Dose: 81 mg Calcium Acetate (Phoslo) 667 mg PO TIDCC [facility] Last Admin: 07/18/17 17:52 Dose: 667 mg Famotidine (Pepcid) 20 mg PO DAILY [facility] Last Admin: 07/18/17 09:47 Dose: 20 mg Ferrous Sulfate (Feosol) 325 mg PO DAILY [facility] Last Admin: 07/18/17 09:47 Dose: 325 mg Heparin Sodium (Porcine) (Heparin) 5,000 units SC Q12 [facility] Last Admin: 07/06/17 21:49 Dose: 5,000 units Sodium Chloride (Sodium Chloride 0.9%) 1,000 mls @ 60 mls/hr IV .[id number] [facility] Last Admin: 07/03/17 22:23 Dose: Not Given Imipenem/Cilastatin Sodium 250 (mg/ Sodium Chloride) 100 mls @ 100 mls/hr IVPB Q6 [facility] Last Admin: 07/18/17 17:53 Dose: 100 mls/hr Insulin Human Regular (Novolin R) 0 unit SC ACHS [facility] PRN Reason: Protocol Last Admin: 07/18/17 17:51 Dose: 8 unit Methylprednisolone (Solu-Medrol) 20 mg IVP Q8H [facility] Last Admin: 07/18/17 13:43 Dose: 20 mg Metoprolol Succinate (Toprol Xl) 25 mg PO DAILY [facility] Last Admin: 07/18/17 09:47 Dose: 25 mg Multivitamins (Hexavitamin) 1 tab PO DAILY [facility] Last Admin: 07/18/17 11:13 Dose: 1 tab - Labs Labs: 07/17/17 06:13 07/18/17 06:05 PT 12.9 SECONDS (9.7-12.2) H 06/29/17 16:42 INR 1.2 06/29/17 16:42 APTT 34 SECONDS (21-34) 06/29/17 16:42 - Constitutional Appears: Non-toxic, Chronically Ill - Head Exam Head Exam: NORMOCEPHALIC - Eye Exam Eye Exam: absent: Scleral icterus - ENT Exam ENT Exam: Mucous Membranes Dry - Neck Exam Neck Exam: absent: Lymphadenopathy - Respiratory Exam Respiratory Exam: Decreased Breath Sounds - Cardiovascular Exam Cardiovascular Exam: REGULAR RHYTHM - GI/Abdominal Exam GI & Abdominal Exam: Distended, Soft - Rectal Exam Rectal Exam: Deferred - Exam Exam: NORMAL INSPECTION Assessment and Plan (1) UTI (urinary tract infection) Status: Acute (2) UTI (urinary tract infection) Status: Acute (3) Chr obstructive pulmonary disease w/ acute lower respiratory infxn Status: Acute (4) Chronic congestive heart failure Status: Acute (5) Dyspnea Status: Acute (6) Respiratory distress Status: Acute - Assessment and Plan (Free Text) Assessment: await repeat cultures
[2017-07-19] MEDS: MethylPREDNISolone 40 mg Vial IVP SCH ×3 (05:49→21:46)
[2017-07-19 07:18] LABS: ALBUMIN 2.5 g/dL (3.5-5.0); CALCIUM 8.2 mg/dl (8.6-10.4)
[2017-07-19] MEDS: (Novolin R) Insulin Human Regular 100 units/ml vial SC SCH ×4 (09:00→21:46)
--- NOTE | 2017-07-19 09:08 | CP.PCM.PN ---
Subjective - Date & Time of Evaluation Date of Evaluation: 07/19/17 Time of Evaluation: 09:04 - Subjective Subjective: Notes reviewed Sleeping in bed, awakes to name No overnight events reported Ready for breakfast No pain Turner remains Urine output 1100cc recorded Objective - Vital Signs/Intake and Output Vital Signs (last 24 hours): Temp Pulse Resp BP Pulse Ox 97.7 F 76 18 151/71 H 97 07/19/17 08:48 07/19/17 08:48 07/19/17 08:48 07/19/17 08:48 07/19/17 08:48 Intake and Output: 07/19/17 07/19/17 06:59 18:59 Intake Total 1020 Output Total 650 Balance 370 - Medications Medications: Current Medications Acetaminophen (Tylenol 325mg Tab) 650 mg PO Q6 PRN PRN Reason: Pain, Mild (1-3) Amlodipine Besylate (Norvasc) 5 mg PO DAILY [facility] Last Admin: 07/18/17 09:47 Dose: 5 mg Aspirin (Aspirin Chewable) 81 mg PO DAILY [facility] Last Admin: 07/06/17 10:01 Dose: 81 mg Calcium Acetate (Phoslo) 667 mg PO TIDCC [facility] Last Admin: 07/18/17 17:52 Dose: 667 mg Famotidine (Pepcid) 20 mg PO DAILY [facility] Last Admin: 07/18/17 09:47 Dose: 20 mg Ferrous Sulfate (Feosol) 325 mg PO DAILY [facility] Last Admin: 07/18/17 09:47 Dose: 325 mg Heparin Sodium (Porcine) (Heparin) 5,000 units SC Q12 [facility] Last Admin: 07/06/17 21:49 Dose: 5,000 units Sodium Chloride (Sodium Chloride 0.9%) 1,000 mls @ 60 mls/hr IV .[id number] [facility] Last Admin: 07/03/17 22:23 Dose: Not Given Imipenem/Cilastatin Sodium 250 (mg/ Sodium Chloride) 100 mls @ 100 mls/hr IVPB Q6 [facility] Last Admin: 07/19/17 05:51 Dose: 100 mls/hr Insulin Human Regular (Novolin R) 0 unit SC ACHS [facility] PRN Reason: Protocol Last Admin: 07/18/17 22:16 Dose: 2 unit Methylprednisolone (Solu-Medrol) 20 mg IVP Q8H [facility] Last Admin: 07/19/17 05:49 Dose: 20 mg Metoprolol Succinate (Toprol Xl) 25 mg PO DAILY [facility] Last Admin: 07/18/17 09:47 Dose: 25 mg Multivitamins (Hexavitamin) 1 tab PO DAILY [facility] Last Admin: 07/18/17 11:13 Dose: 1 tab - Labs Labs: 07/17/17 06:13 07/19/17 06:43 PT 12.9 SECONDS (9.7-12.2) H 06/29/17 16:42 INR 1.2 06/29/17 16:42 APTT 34 SECONDS (21-34) 06/29/17 16:42 - Constitutional Appears: Non-toxic, Chronically Ill - Head Exam Head Exam: ATRAUMATIC, NORMAL INSPECTION - Eye Exam Eye Exam: EOMI, Normal appearance - ENT Exam ENT Exam: Mucous Membranes Moist, Normal Oropharynx - Neck Exam Neck Exam: absent: Lymphadenopathy, Thyromegaly - Respiratory Exam Respiratory Exam: absent: Rales, Rhonchi, Wheezes - Cardiovascular Exam Cardiovascular Exam: +S1, +S2. absent: Rubs - GI/Abdominal Exam GI & Abdominal Exam: Soft, Normal Bowel Sounds Additional comments: Obese - Neurological Exam Neurological Exam: Alert, Awake - Psychiatric Exam Psychiatric exam: Flat Affect - Skin Skin Exam: Dry, Intact. absent: Rash Assessment and Plan (1) CKD (chronic kidney disease) Status: Acute (2) ESTEVAN (acute kidney injury) Status: Acute (3) Chr obstructive pulmonary disease w/ acute lower respiratory infxn Status: Acute (4) UTI (urinary tract infection) Status: Acute - Assessment and Plan (Free Text) Assessment: Acute kidney injury recovering Urine output acceptable Maintain bp meds Abx as ordered Labs daily No dialysis today Removal of dialysis catheter if renal function remains stable
[2017-07-19] MEDS: Multiple Vitamins Tab PO SCH (09:53)
[2017-07-19] MEDS: Metoprolol Succinate 25 mg XL Tab PO SCH (09:54)
[2017-07-19 17:09] VITALS: RESP 20
--- NOTE | 2017-07-19 18:43 | CP.PCM.PN ---
Subjective - Date & Time of Evaluation Date of Evaluation: 07/19/17 Time of Evaluation: 17:00 - Subjective Subjective: Pulmonary consult; covering Dr Fernández The Patient was seen and examined at the bedside, Medical records reviewed, and management issues were discussed and formulated with the house staff. This morning the patient is comfortable, unlabored breathing, and afebrile Reports feeling better today, shortness of breath and wheezing is markedly improving. Receiving hemodialysis MWF, scheduled to have hemodialysis today. S/P Port placed on right side. Denies fever/chills, chest pain, cough. No longer using BIPAP Using 2-3L NC oxygen and saturating 97-100% most recent chest XR from 07/07: mild increase in bronchovascular marking No evidance of fluid overload on exam Objective - Vital Signs/Intake and Output Vital Signs (last 24 hours): Temp Pulse Resp BP Pulse Ox 97.6 F 97 H 20 146/65 96 07/19/17 15:35 07/19/17 16:43 07/19/17 15:35 07/19/17 15:35 07/19/17 15:35 Intake and Output: 07/19/17 07/19/17 06:59 18:59 Intake Total 1020 Output Total 650 Balance 370 - Medications Medications: Current Medications Acetaminophen (Tylenol 325mg Tab) 650 mg PO Q6 PRN PRN Reason: Pain, Mild (1-3) Amlodipine Besylate (Norvasc) 5 mg PO DAILY [facility] Last Admin: 07/19/17 09:54 Dose: 5 mg Aspirin (Aspirin Chewable) 81 mg PO DAILY [facility] Last Admin: 07/06/17 10:01 Dose: 81 mg Calcium Acetate (Phoslo) 667 mg PO TIDCC [facility] Last Admin: 07/19/17 17:42 Dose: 667 mg Famotidine (Pepcid) 20 mg PO DAILY [facility] Last Admin: 07/19/17 09:53 Dose: 20 mg Ferrous Sulfate (Feosol) 325 mg PO DAILY [facility] Last Admin: 07/19/17 09:53 Dose: 325 mg Heparin Sodium (Porcine) (Heparin) 5,000 units SC Q12 [facility] Last Admin: 07/06/17 21:49 Dose: 5,000 units Sodium Chloride (Sodium Chloride 0.9%) 1,000 mls @ 60 mls/hr IV .[id number] [facility] Last Admin: 07/03/17 22:23 Dose: Not Given Imipenem/Cilastatin Sodium 250 (mg/ Sodium Chloride) 100 mls @ 100 mls/hr IVPB Q6 [facility] Last Admin: 07/19/17 12:21 Dose: 100 mls/hr Insulin Human Regular (Novolin R) 0 unit SC ACHS [facility] PRN Reason: Protocol Last Admin: 07/19/17 17:42 Dose: 1 unit Methylprednisolone (Solu-Medrol) 20 mg IVP Q8H [facility] Last Admin: 07/19/17 15:03 Dose: 20 mg Metoprolol Succinate (Toprol Xl) 25 mg PO DAILY [facility] Last Admin: 07/19/17 09:54 Dose: 25 mg Multivitamins (Hexavitamin) 1 tab PO DAILY [facility] Last Admin: 07/19/17 09:53 Dose: 1 tab - Labs Labs: 07/17/17 06:13 07/19/17 06:43 PT 12.9 SECONDS (9.7-12.2) H 06/29/17 16:42 INR 1.2 06/29/17 16:42 APTT 34 SECONDS (21-34) 06/29/17 16:42 - Constitutional Appears: Well, Non-toxic, No Acute Distress - Head Exam Head Exam: ATRAUMATIC, NORMAL INSPECTION, NORMOCEPHALIC - Eye Exam Eye Exam: absent: Conjunctival injection - Respiratory Exam Respiratory Exam: Decreased Breath Sounds. absent: Accessory Muscle Use, Chest Wall Tenderness, Rales, Rhonchi, Wheezes - Cardiovascular Exam Cardiovascular Exam: REGULAR RHYTHM, RRR, +S1, +S2. absent: JVD - GI/Abdominal Exam GI & Abdominal Exam: Normal Bowel Sounds. absent: Distended, Firm - Back Exam Back Exam: absent: CVA tenderness (L), CVA tenderness (R) - Neurological Exam Neurological Exam: Alert, Awake, CN II-XII Intact Assessment and Plan (1) Respiratory distress Status: Acute (2) Chronic congestive heart failure Status: Acute (3) ESTEVAN (acute kidney injury) Status: Acute - Assessment and Plan (Free Text) Assessment: Respiratory distress secondary to fluid overload otherwise no clinical evidence of acute infectious process - Continue hemodialysis as per nephrology with fluid removal to optimize fluid status - Continue current treatment with nebulizer and steroids, - Patient has been saturating well at 2-3L NC only using BIPAP as needed ESTEVAN - Continue hemodialysis - Might require correction hemodialysis at this point Chronic CHF - Continue management per primary team, - Optimize fluid status with hemodialysis
--- NOTE | 2017-07-19 19:30 | CP.PCM.PN ---
Subjective - Date & Time of Evaluation Date of Evaluation: 07/19/17 Time of Evaluation: 09:30 - Subjective Subjective: clinically same Objective - Vital Signs/Intake and Output Vital Signs (last 24 hours): Temp Pulse Resp BP Pulse Ox 97.6 F 97 H 20 146/65 96 07/19/17 15:35 07/19/17 16:43 07/19/17 15:35 07/19/17 15:35 07/19/17 15:35 - Medications Medications: Current Medications Acetaminophen (Tylenol 325mg Tab) 650 mg PO Q6 PRN PRN Reason: Pain, Mild (1-3) Amlodipine Besylate (Norvasc) 5 mg PO DAILY [facility] Last Admin: 07/19/17 09:54 Dose: 5 mg Aspirin (Aspirin Chewable) 81 mg PO DAILY [facility] Last Admin: 07/06/17 10:01 Dose: 81 mg Calcium Acetate (Phoslo) 667 mg PO TIDCC [facility] Last Admin: 07/19/17 17:42 Dose: 667 mg Famotidine (Pepcid) 20 mg PO DAILY [facility] Last Admin: 07/19/17 09:53 Dose: 20 mg Ferrous Sulfate (Feosol) 325 mg PO DAILY [facility] Last Admin: 07/19/17 09:53 Dose: 325 mg Heparin Sodium (Porcine) (Heparin) 5,000 units SC Q12 [facility] Last Admin: 07/06/17 21:49 Dose: 5,000 units Sodium Chloride (Sodium Chloride 0.9%) 1,000 mls @ 60 mls/hr IV .[id number] [facility] Last Admin: 07/03/17 22:23 Dose: Not Given Imipenem/Cilastatin Sodium 250 (mg/ Sodium Chloride) 100 mls @ 100 mls/hr IVPB Q6 [facility] Last Admin: 07/19/17 12:21 Dose: 100 mls/hr Insulin Human Regular (Novolin R) 0 unit SC ACHS [facility] PRN Reason: Protocol Last Admin: 07/19/17 17:42 Dose: 1 unit Methylprednisolone (Solu-Medrol) 20 mg IVP Q8H [facility] Last Admin: 07/19/17 15:03 Dose: 20 mg Metoprolol Succinate (Toprol Xl) 25 mg PO DAILY [facility] Last Admin: 07/19/17 09:54 Dose: 25 mg Multivitamins (Hexavitamin) 1 tab PO DAILY [facility] Last Admin: 07/19/17 09:53 Dose: 1 tab - Labs Labs: 07/17/17 06:13 07/19/17 06:43 PT 12.9 SECONDS (9.7-12.2) H 06/29/17 16:42 INR 1.2 06/29/17 16:42 APTT 34 SECONDS (21-34) 06/29/17 16:42 Assessment and Plan (1) ESTEVAN (acute kidney injury) Status: Acute (2) CKD (chronic kidney disease) stage 3, GFR 30-59 ml/min Status: Acute (3) Chr obstructive pulmonary disease w/ acute lower respiratory infxn Status: Acute (4) Chronic congestive heart failure Status: Acute (5) Dyspnea Status: Acute (6) Respiratory distress Status: Acute (7) UTI (urinary tract infection) Status: Acute (8) UTI (urinary tract infection) Status: Acute (9) CKD (chronic kidney disease) Status: Acute - Assessment and Plan (Free Text) Plan: Patient with on the dialysis Follow-up Dr. 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
[2017-07-20] MEDS: MethylPREDNISolone 40 mg Vial IVP SCH ×3 (06:17→22:19)
[2017-07-20] MEDS: (Novolin R) Insulin Human Regular 100 units/ml vial SC SCH ×4 (08:30→22:18)
[2017-07-20 09:11] LABS: ALB/GLOB RATIO 0.9 (1.0-2.1); ALBUMIN 2.7 g/dL (3.5-5.0); CALCIUM 8.7 mg/dl (8.6-10.4)
[2017-07-20] MEDS: Multiple Vitamins Tab PO SCH (10:08)
[2017-07-20] MEDS: Metoprolol Succinate 25 mg XL Tab PO SCH (10:08)
--- NOTE | 2017-07-20 15:48 | CP.PCM.PN ---
Subjective - Date & Time of Evaluation Date of Evaluation: 07/20/17 Time of Evaluation: 15:48 - Subjective Subjective: Pulmonary Follow up The Patient was seen and examined at the bedside, Medical records reviewed, and management issues were discussed and formulated with the house staff. 71 Years old Female with PMHx of COPD, CHF, HTN, and possibly asthma. Who was initially brought in by EMS from [facility] on 06/29 for shortness of breath while doing word search puzzle in her bed. Hospital course noted for Hypotension, acute renal failure, and was transferred to the ICU She is currently on HD Patient is mostly non-ambulatory for the last year. This morning the patient is comfortable, unlabored breathing, and afebrile Reports feeling better today, shortness of breath and wheezing is markedly improving. Receiving hemodialysis MWF, scheduled to have hemodialysis today. S/P Port placed on right side. Denies fever/chills, chest pain, cough. No longer using BIPAP Using 2-3L NC oxygen and saturating 97-100% most recent chest XR from 07/07: mild increase in bronchovascular marking No evidance of fluid overload on exam Objective - Vital Signs/Intake and Output Vital Signs (last 24 hours): Temp Pulse Resp BP Pulse Ox 98.6 F 84 20 147/70 99 07/20/17 09:00 07/20/17 09:00 07/20/17 09:00 07/20/17 09:00 07/20/17 09:00 Intake and Output: 07/20/17 07/20/17 06:59 18:59 Intake Total 580 Output Total 1300 500 Balance -1300 80 - Medications Medications: Current Medications Acetaminophen (Tylenol 325mg Tab) 650 mg PO Q6 PRN PRN Reason: Pain, Mild (1-3) Amlodipine Besylate (Norvasc) 5 mg PO DAILY [facility] Last Admin: 07/20/17 10:08 Dose: 5 mg Aspirin (Aspirin Chewable) 81 mg PO DAILY [facility] Last Admin: 07/06/17 10:01 Dose: 81 mg Calcium Acetate (Phoslo) 667 mg PO TIDCC [facility] Last Admin: 07/20/17 12:15 Dose: 667 mg Famotidine (Pepcid) 20 mg PO DAILY [facility] Last Admin: 07/20/17 10:08 Dose: 20 mg Ferrous Sulfate (Feosol) 325 mg PO DAILY [facility] Last Admin: 07/20/17 10:08 Dose: 325 mg Heparin Sodium (Porcine) (Heparin) 5,000 units SC Q12 [facility] Last Admin: 07/06/17 21:49 Dose: 5,000 units Sodium Chloride (Sodium Chloride 0.9%) 1,000 mls @ 60 mls/hr IV .[id number] [facility] Last Admin: 07/03/17 22:23 Dose: Not Given Imipenem/Cilastatin Sodium 250 (mg/ Sodium Chloride) 100 mls @ 100 mls/hr IVPB Q6 [facility] Last Admin: 07/20/17 12:15 Dose: 100 mls/hr Insulin Human Regular (Novolin R) 0 unit SC ACHS [facility] PRN Reason: Protocol Last Admin: 07/20/17 12:15 Dose: 8 unit Methylprednisolone (Solu-Medrol) 20 mg IVP Q8H [facility] Last Admin: 07/20/17 13:45 Dose: 20 mg Metoprolol Succinate (Toprol Xl) 25 mg PO DAILY [facility] Last Admin: 07/20/17 10:08 Dose: 25 mg Multivitamins (Hexavitamin) 1 tab PO DAILY [facility] Last Admin: 07/20/17 10:08 Dose: 1 tab - Labs Labs: 07/17/17 06:13 07/20/17 08:52 PT 12.9 SECONDS (9.7-12.2) H 06/29/17 16:42 INR 1.2 06/29/17 16:42 APTT 34 SECONDS (21-34) 06/29/17 16:42 Assessment and Plan (1) Respiratory distress Status: Acute (2) Chronic congestive heart failure Status: Acute (3) ESTEVAN (acute kidney injury) Status: Acute - Assessment and Plan (Free Text) Assessment: Respiratory distress secondary to fluid overload And possible aspiration pneumonia - Continue hemodialysis as per nephrology with fluid removal to optimize fluid status - Continue current treatment with nebulizer and steroids, - Continue Imipenem 250mg IVPB Q6 [facility] - Decrease Methylprednisolone to 20 mg IVP Q 12H [facility] - Patient has been saturating well at 2-3L NC only using BIPAP as needed ESTEVAN - Continue hemodialysis as per renal - Might require [facility] hemodialysis at this point Chronic CHF - Continue management per primary team, - Optimize fluid status with hemodialysis
--- NOTE | 2017-07-20 16:00 | CP.PCM.PN ---
Subjective - Date & Time of Evaluation Date of Evaluation: 07/20/17 Time of Evaluation: 09:50 - Subjective Subjective: clinically same Objective - Vital Signs/Intake and Output Vital Signs (last 24 hours): Temp Pulse Resp BP Pulse Ox 98.6 F 84 20 147/70 99 07/20/17 09:00 07/20/17 09:00 07/20/17 09:00 07/20/17 09:00 07/20/17 09:00 Intake and Output: 07/20/17 07/20/17 06:59 18:59 Intake Total 580 Output Total 1300 500 Balance -1300 80 - Medications Medications: Current Medications Acetaminophen (Tylenol 325mg Tab) 650 mg PO Q6 PRN PRN Reason: Pain, Mild (1-3) Amlodipine Besylate (Norvasc) 5 mg PO DAILY [facility] Last Admin: 07/20/17 10:08 Dose: 5 mg Aspirin (Aspirin Chewable) 81 mg PO DAILY [facility] Last Admin: 07/06/17 10:01 Dose: 81 mg Calcium Acetate (Phoslo) 667 mg PO TIDCC [facility] Last Admin: 07/20/17 12:15 Dose: 667 mg Famotidine (Pepcid) 20 mg PO DAILY [facility] Last Admin: 07/20/17 10:08 Dose: 20 mg Ferrous Sulfate (Feosol) 325 mg PO DAILY [facility] Last Admin: 07/20/17 10:08 Dose: 325 mg Heparin Sodium (Porcine) (Heparin) 5,000 units SC Q12 [facility] Last Admin: 07/06/17 21:49 Dose: 5,000 units Sodium Chloride (Sodium Chloride 0.9%) 1,000 mls @ 60 mls/hr IV .[id number] [facility] Last Admin: 07/03/17 22:23 Dose: Not Given Imipenem/Cilastatin Sodium 250 (mg/ Sodium Chloride) 100 mls @ 100 mls/hr IVPB Q6 [facility] Last Admin: 07/20/17 12:15 Dose: 100 mls/hr Insulin Human Regular (Novolin R) 0 unit SC ACHS [facility] PRN Reason: Protocol Last Admin: 07/20/17 12:15 Dose: 8 unit Methylprednisolone (Solu-Medrol) 20 mg IVP Q8H [facility] Last Admin: 07/20/17 13:45 Dose: 20 mg Metoprolol Succinate (Toprol Xl) 25 mg PO DAILY [facility] Last Admin: 07/20/17 10:08 Dose: 25 mg Multivitamins (Hexavitamin) 1 tab PO DAILY [facility] Last Admin: 07/20/17 10:08 Dose: 1 tab - Labs Labs: 07/17/17 06:13 07/20/17 08:52 PT 12.9 SECONDS (9.7-12.2) H 06/29/17 16:42 INR 1.2 06/29/17 16:42 APTT 34 SECONDS (21-34) 06/29/17 16:42 - Constitutional Appears: Well - Head Exam Head Exam: ATRAUMATIC, NORMAL INSPECTION, NORMOCEPHALIC - Eye Exam Eye Exam: EOMI, Normal appearance, PERRL Pupil Exam: NORMAL ACCOMODATION, PERRL - ENT Exam ENT Exam: Mucous Membranes Moist, Normal Exam - Neck Exam Neck Exam: Full ROM, Normal Inspection. absent: Lymphadenopathy - Respiratory Exam Respiratory Exam: Decreased Breath Sounds - Cardiovascular Exam Cardiovascular Exam: REGULAR RHYTHM, +S1, +S2 - GI/Abdominal Exam GI & Abdominal Exam: Soft, Diminished Bowel Sounds - Rectal Exam Rectal Exam: Deferred Assessment and Plan (1) ESTEVAN (acute kidney injury) Status: Acute (2) CKD (chronic kidney disease) stage 3, GFR 30-59 ml/min Status: Acute (3) Chr obstructive pulmonary disease w/ acute lower respiratory infxn Status: Acute (4) Chronic congestive heart failure Status: Acute (5) Dyspnea Status: Acute (6) Respiratory distress Status: Acute (7) UTI (urinary tract infection) Status: Acute (8) UTI (urinary tract infection) Status: Acute (9) CKD (chronic kidney disease) Status: Acute - Assessment and Plan (Free Text) Plan: Follow-up with the renal Follow-up with the hemodialysis Creatinine is 1.5 Continue imipenem Continue with the consultation Discharge planning follow-up with the pulmonary
[2017-07-21] MEDS: MethylPREDNISolone 40 mg Vial IVP SCH (05:47)
[2017-07-21 08:29] VITALS: TEMP 97.4; O2SAT 97
[2017-07-21 09:01] LABS: ALBUMIN 2.6 g/dL (3.5-5.0); CALCIUM 8.3 mg/dl (8.6-10.4)
[2017-07-21] MEDS: (Novolin R) Insulin Human Regular 100 units/ml vial SC SCH ×3 (09:55→17:53)
[2017-07-21 10:06] LABS: BASO % 0.1 % (0.0-2.0); HEMOGLOBIN 10.5 g/dL (11.0-16.0); LYMPH # 0.5 K/uL (1.0-4.3); LYMPH % 12.8 % (20.0-40.0); MEAN CORPUSCULAR HEMOGLOBIN 28.2 pg (27.0-31.0); MEAN CORPUSCULAR HGB CONC 32.8 g/dL (33.0-37.0); MEAN PLATELET VOLUME 8.9 fL (7.2-11.7); MONO # 0.3 K/uL (0.0-0.8); MONO % 9.2 % (0.0-10.0); NEUT % 77.9 % (50.0-75.0); RBC 3.72 Mil/uL (3.80-5.20); RED CELL DISTRIBUTION WIDTH 16.9 % (11.5-14.5); WHITE BLOOD COUNT 3.8 K/uL (4.8-10.8)
[2017-07-21] MEDS: Multiple Vitamins Tab PO SCH (10:11)
[2017-07-21] MEDS: Metoprolol Succinate 25 mg XL Tab PO SCH (10:11)
[2017-07-21 10:13] VITALS: BP 158/90
--- NOTE | 2017-07-21 12:06 | CP.PCM.PN ---
Subjective - Date & Time of Evaluation Date of Evaluation: 07/21/17 Time of Evaluation: 12:03 - Subjective Subjective: Alert; eating well No fevers, chills, n, v, diarrhea, HAs, SOB creat decreased to 1.7- off dialysis now UO 1300ml this AM Objective - Vital Signs/Intake and Output Vital Signs (last 24 hours): Temp Pulse Resp BP Pulse Ox 97.4 F L 85 20 158/90 H 97 07/21/17 08:28 07/21/17 10:10 07/21/17 08:28 07/21/17 10:10 07/21/17 08:28 Intake and Output: 07/21/17 07/21/17 06:59 18:59 Intake Total 500 Output Total 1300 Balance -800 - Medications Medications: Current Medications Acetaminophen (Tylenol 325mg Tab) 650 mg PO Q6 PRN PRN Reason: Pain, Mild (1-3) Amlodipine Besylate (Norvasc) 5 mg PO DAILY [facility] Last Admin: 07/21/17 10:11 Dose: 5 mg Aspirin (Aspirin Chewable) 81 mg PO DAILY [facility] Last Admin: 07/06/17 10:01 Dose: 81 mg Calcium Acetate (Phoslo) 667 mg PO TIDCC [facility] Last Admin: 07/21/17 09:55 Dose: 667 mg Famotidine (Pepcid) 20 mg PO DAILY [facility] Last Admin: 07/21/17 10:11 Dose: 20 mg Ferrous Sulfate (Feosol) 325 mg PO DAILY [facility] Last Admin: 07/21/17 10:11 Dose: 325 mg Heparin Sodium (Porcine) (Heparin) 5,000 units SC Q12 [facility] Last Admin: 07/06/17 21:49 Dose: 5,000 units Sodium Chloride (Sodium Chloride 0.9%) 1,000 mls @ 60 mls/hr IV .[id number] [facility] Last Admin: 07/03/17 22:23 Dose: Not Given Insulin Human Regular (Novolin R) 0 unit SC ACHS [facility] PRN Reason: Protocol Last Admin: 07/21/17 09:55 Dose: 4 unit Methylprednisolone (Solu-Medrol) 20 mg IVP Q12 [facility] Metoprolol Succinate (Toprol Xl) 25 mg PO DAILY [facility] Last Admin: 07/21/17 10:11 Dose: 25 mg Multivitamins (Hexavitamin) 1 tab PO DAILY [facility] Last Admin: 07/21/17 10:11 Dose: 1 tab - Labs Labs: 07/21/17 09:52 07/21/17 08:24 PT 12.9 SECONDS (9.7-12.2) H 06/29/17 16:42 INR 1.2 06/29/17 16:42 APTT 34 SECONDS (21-34) 06/29/17 16:42 - Constitutional Appears: No Acute Distress, Chronically Ill - Head Exam Head Exam: ATRAUMATIC, NORMAL INSPECTION - Eye Exam Eye Exam: EOMI, Normal appearance - Neck Exam Neck Exam: Normal Inspection. absent: Tenderness - Respiratory Exam Respiratory Exam: Clear to Ausculation Bilateral, NORMAL BREATHING PATTERN - Cardiovascular Exam Cardiovascular Exam: REGULAR RHYTHM, +S1 - GI/Abdominal Exam GI & Abdominal Exam: Soft. absent: Tenderness - Extremities Exam Extremities Exam: Normal Inspection. absent: Pedal Edema, Tenderness - Neurological Exam Neurological Exam: Awake, CN II-XII Intact - Skin Skin Exam: Dry, Warm Assessment and Plan (1) ESTEVAN (acute kidney injury) Status: Acute (2) Chr obstructive pulmonary disease w/ acute lower respiratory infxn Status: Acute (3) UTI (urinary tract infection) Status: Acute - Assessment and Plan (Free Text) Plan: no further dialysis would remove permcath follow up labs as necessary
[2017-07-21 13:25] VITALS: PULSE 88
--- NOTE | 2017-07-21 17:19 | CP.PCM.PN ---
Subjective - Date & Time of Evaluation Date of Evaluation: 07/21/17 Time of Evaluation: 11:10 - Subjective Subjective: Patient seen and examine d today , states feel sbetter, denies any sob, abdominal pain, N/D , good urine output Cr. Back to base line Objective - Vital Signs/Intake and Output Vital Signs (last 24 hours): Temp Pulse Resp BP Pulse Ox 97.4 F L 88 20 158/90 H 97 07/21/17 08:28 07/21/17 12:00 07/21/17 08:28 07/21/17 10:10 07/21/17 08:28 Intake and Output: 07/21/17 07/21/17 06:59 18:59 Intake Total 500 400 Output Total 1300 750 Balance -800 -350 - Medications Medications: Current Medications Acetaminophen (Tylenol 325mg Tab) 650 mg PO Q6 PRN PRN Reason: Pain, Mild (1-3) Amlodipine Besylate (Norvasc) 5 mg PO DAILY [facility] Last Admin: 07/21/17 10:11 Dose: 5 mg Aspirin (Aspirin Chewable) 81 mg PO DAILY [facility] Last Admin: 07/06/17 10:01 Dose: 81 mg Calcium Acetate (Phoslo) 667 mg PO TIDCC [facility] Last Admin: 07/21/17 12:56 Dose: 667 mg Famotidine (Pepcid) 20 mg PO DAILY [facility] Last Admin: 07/21/17 10:11 Dose: 20 mg Ferrous Sulfate (Feosol) 325 mg PO DAILY [facility] Last Admin: 07/21/17 10:11 Dose: 325 mg Heparin Sodium (Porcine) (Heparin) 5,000 units SC Q12 [facility] Last Admin: 07/06/17 21:49 Dose: 5,000 units Sodium Chloride (Sodium Chloride 0.9%) 1,000 mls @ 60 mls/hr IV .[id number] [facility] Last Admin: 07/03/17 22:23 Dose: Not Given Insulin Human Regular (Novolin R) 0 unit SC ACHS [facility] PRN Reason: Protocol Last Admin: 07/21/17 12:57 Dose: 8 unit Methylprednisolone (Solu-Medrol) 20 mg IVP Q12 [facility] Metoprolol Succinate (Toprol Xl) 25 mg PO DAILY [facility] Last Admin: 07/21/17 10:11 Dose: 25 mg Multivitamins (Hexavitamin) 1 tab PO DAILY [facility] Last Admin: 07/21/17 10:11 Dose: 1 tab - Labs Labs: 07/21/17 09:52 07/21/17 08:24 PT 12.9 SECONDS (9.7-12.2) H 06/29/17 16:42 INR 1.2 06/29/17 16:42 APTT 34 SECONDS (21-34) 06/29/17 16:42 Assessment and Plan - Assessment and Plan (Free Text) Assessment: A/P 71 yr old female admitted with SOB/chest congestion/URI sx's ARF developed and started on HD , cr- improved and HD on hold todays labs noted cr. back to base line D/w Dr. Solorio doesnot need HD can be removed cath. and nephrology prasad pt stable for discharge D/w Dr. Garcia will remove perma seen by patient with Dr. Shanique sanchez . stable for discharge to [facility] today and Dr. Shanique sanchez will follow the patient at [facility]
--- NOTE | 2017-07-21 17:35 | PCM.HF ---
Heart Failure Core Measure - Heart Failure Ejection Fraction: 40 % or Greater [place] Inhibitor Prescribed: No Contraindication/Reason for not providing: ARF Beta-Pinky Prescribed: Metoprolol Succinate Angiotensin II Receptor Pinky Prescribed: No Contraindication/Reason for not providing: arf AnticoagulationTherapy for Atrial Fibrillation/Atrialflutter: No Contraindication/Reason for not providing: no hx of afib Aldosterone Antagonist Prescribed: No Contraindication/Reason for not providing: arf Hydralazine Nitrate Prescribed: No Contraindication/Reason for not providing: ef>45 Implantable Cardioverter Defibrillator Therapy: No Contraindication/Reason for not providing: ef>45 Cardiac Resynchronization Therapy Prescribed: No Contraindication/Reason for not providing: ef>45 - Follow up Will be discharged [facility]: [facility])
--- NOTE | 2017-07-21 17:52 | CP.PCM.PN ---
Subjective - Date & Time of Evaluation Date of Evaluation: 07/21/17 Time of Evaluation: 17:52 - Subjective Subjective: Pulmonary Follow up The Patient was seen and examined at the bedside, Medical records reviewed, and management issues were discussed and formulated with the house staff. 71 Years old Female with PMHx of COPD, CHF, HTN, and possibly asthma. 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 Hospital course noted for Hypotension, acute renal failure, and was transferred to the ICU She is currently on HD Patient is mostly non-ambulatory for the last year. Today the patient is comfortable, unlabored breathing, and afebrile Reports feeling better today, shortness of breath and wheezing is markedly improving. Receiving hemodialysis MWF, scheduled to have hemodialysis today. S/P Port placed on right side. Denies fever/chills, chest pain, cough. No longer using BIPAP Using 2-3L NC oxygen and saturating 97-100% most recent chest XR from 07/07: mild increase in bronchovascular marking No evidance of fluid overload on exam Objective - Vital Signs/Intake and Output Vital Signs (last 24 hours): Temp Pulse Resp BP Pulse Ox 97.4 F L 88 20 158/90 H 97 07/21/17 08:28 07/21/17 12:00 07/21/17 08:28 07/21/17 10:10 07/21/17 08:28 Intake and Output: 07/21/17 07/21/17 06:59 18:59 Intake Total 500 400 Output Total 1300 750 Balance -800 -350 - Medications Medications: Current Medications Acetaminophen (Tylenol 325mg Tab) 650 mg PO Q6 PRN PRN Reason: Pain, Mild (1-3) Amlodipine Besylate (Norvasc) 5 mg PO DAILY [facility] Last Admin: 07/21/17 10:11 Dose: 5 mg Aspirin (Aspirin Chewable) 81 mg PO DAILY [facility] Last Admin: 07/06/17 10:01 Dose: 81 mg Calcium Acetate (Phoslo) 667 mg PO TIDCC [facility] Last Admin: 07/21/17 12:56 Dose: 667 mg Famotidine (Pepcid) 20 mg PO DAILY [facility] Last Admin: 07/21/17 10:11 Dose: 20 mg Ferrous Sulfate (Feosol) 325 mg PO DAILY [facility] Last Admin: 07/21/17 10:11 Dose: 325 mg Heparin Sodium (Porcine) (Heparin) 5,000 units SC Q12 [facility] Last Admin: 07/06/17 21:49 Dose: 5,000 units Sodium Chloride (Sodium Chloride 0.9%) 1,000 mls @ 60 mls/hr IV .[id number] [facility] Last Admin: 07/03/17 22:23 Dose: Not Given Insulin Human Regular (Novolin R) 0 unit SC ACHS [facility] PRN Reason: Protocol Last Admin: 07/21/17 12:57 Dose: 8 unit Methylprednisolone (Solu-Medrol) 20 mg IVP Q12 [facility] Metoprolol Succinate (Toprol Xl) 25 mg PO DAILY [facility] Last Admin: 07/21/17 10:11 Dose: 25 mg Multivitamins (Hexavitamin) 1 tab PO DAILY [facility] Last Admin: 07/21/17 10:11 Dose: 1 tab - Labs Labs: 07/21/17 09:52 07/21/17 08:24 PT 12.9 SECONDS (9.7-12.2) H 06/29/17 16:42 INR 1.2 06/29/17 16:42 APTT 34 SECONDS (21-34) 06/29/17 16:42 Assessment and Plan (1) Respiratory distress Status: Acute (2) Chronic congestive heart failure Status: Acute (3) ESTEVAN (acute kidney injury) Status: Acute - Assessment and Plan (Free Text) Assessment: Respiratory distress secondary to fluid overload And possible aspiration pneumonia - resolved - Continue hemodialysis as per nephrology with fluid removal to optimize fluid status - Continue current treatment with nebulizer and steroids, - Continue Imipenem 250mg IVPB Q6 [facility] - Decrease Methylprednisolone to 20 mg IVP Q 12H [facility] - Patient has been saturating well at 2-3L NC only using BIPAP as needed ESTEVAN - Continue hemodialysis as per renal - 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
[2017-07-21] MEDS ORDERED: MethylPREDNISolone 40 mg Vial IVP SCH (22:00)
--- NOTE | 2017-07-21 23:10 | CP.PCM.PN ---
Subjective - Date & Time of Evaluation Date of Evaluation: 07/21/17 Objective - Vital Signs/Intake and Output Vital Signs (last 24 hours): Temp Pulse Resp BP Pulse Ox 97.4 F L 88 20 158/90 H 97 07/21/17 08:28 07/21/17 12:00 07/21/17 08:28 07/21/17 10:10 07/21/17 08:28 Intake and Output: 07/21/17 07/22/17 18:59 06:59 Intake Total 400 Output Total 750 Balance -350 - Labs Labs: 07/21/17 09:52 07/21/17 08:24 PT 12.9 SECONDS (9.7-12.2) H 06/29/17 16:42 INR 1.2 06/29/17 16:42 APTT 34 SECONDS (21-34) 06/29/17 16:42 Assessment and Plan (1) ESTEVAN (acute kidney injury) Status: Acute (2) CKD (chronic kidney disease) stage 3, GFR 30-59 ml/min Status: Acute (3) Chr obstructive pulmonary disease w/ acute lower respiratory infxn Status: Acute (4) Chronic congestive heart failure Status: Acute (5) Dyspnea Status: Acute (6) Respiratory distress Status: Acute (7) UTI (urinary tract infection) Status: Acute (8) UTI (urinary tract infection) Status: Acute (9) CKD (chronic kidney disease) Status: Acute
== END 2017-07-21 18:36 | DRG 291 ==
LOC: C.ER 15:24 → C.9E 17:07 → C.6T 06-30 15:53 → OBSVTOIN 07-01 16:44 → C.9I 07-04 11:25 → C.6T 07-06 19:53
PROVIDERS: ADMIT Internal Medicine Nephrology; ATTEND Internal Medicine Nephrology
PROC: 5A1D70Z Performance of Urinary Filtration, Intermittent, Less than 6 Hours Per Day (ICD-10-PCS; 2017-07-05)
PROC: 02HV33Z Insertion of Infusion Device into Superior Vena Cava, Percutaneous Approach (ICD-10-PCS; principal; 2017-07-07 13:45)
DX: I13.0 Hypertensive heart and chronic kidney disease with heart failure and stage 1 through stage 4 chronic kidney disease, or unspecified chronic kidney disease (principal); A41.9 Sepsis, unspecified organism; N17.8 Other acute kidney failure; R65.20 Severe sepsis without septic shock; J18.9 Pneumonia, unspecified organism; N18.3 Chronic kidney disease, stage 3 (moderate); I50.33 Acute on chronic diastolic (congestive) heart failure; N39.0 Urinary tract infection, site not specified; J44.0 Chronic obstructive pulmonary disease with (acute) lower respiratory infection; J44.1 Chronic obstructive pulmonary disease with (acute) exacerbation; E11.22 Type 2 diabetes mellitus with diabetic chronic kidney disease; B96.4 Proteus (mirabilis) (morganii) as the cause of diseases classified elsewhere; Z93.3 Colostomy status; Z79.4 Long term (current) use of insulin

== ENCOUNTER 2017-08-17 18:43 | Inpatient (IN) | payer MEDICARE, OTHER ==
[2017-08-17 18:50] VITALS: BMI 45.1
--- NOTE | 2017-08-17 19:38 | C.PDOC ---
History Of Present Illness 72yo female, with history of COPD, diabetes, hypertension and high cholesterol, sent to ED by her [place] [facility] for evaluation of shortness of breath and CHF exacerbation. The patient is on home O2 for 24 hours. At present, the patient states she does not have any difficulty breathing and offers no medical complaints. PCP: Katalina Silverman Time Seen by Provider: 08/17/17 19:23 Chief Complaint (Nursing): Shortness Of Breath History Per: Patient History/Exam Limitations: no limitations Onset/Duration Of Symptoms: Hrs Past Medical History Vital Signs: Last Vital Signs Temp 100.2 F H 08/17/17 19:08 Pulse 94 H 08/17/17 21:13 Resp 26 H 08/17/17 21:13 BP 122/62 08/17/17 21:13 Pulse Ox 94 L 08/17/17 21:13 - Medical History PMH: CHF, COPD, Diabetes, HTN - [facility] (07/01/17) INSERTION OF INFUSION DEV INTO SUP VENA CAVA, PERC APPROACH (07/01/17) Family History: States: Unknown Family Hx - Social History Hx Alcohol Use: No Hx Substance Use: No - Immunization History Hx Tetanus Toxoid Vaccination: No Hx Influenza Vaccination: Yes Hx Pneumococcal Vaccination: No Review Of Systems Except As Marked, All Systems Reviewed And Found Negative. Cardiovascular: Negative for: Chest Pain Respiratory: Negative for: Shortness of Breath Physical Exam - Physical Exam Additional Physical Exam Comments: Constitutional: No acute distress. Obese. Head: Normocephalic. Atraumatic. Eyes: PERRL. ENT: Moist mucous membranes. Neck: Supple. Cardiovascular: Regular rate. Radial pulse 2+ bilaterally. No JVD. No S3. Chest: No tenderness. Respiratory: Decreased breath sounds. GI: Soft. Nontender. Nondistended. Back: No CVA tenderness. Musculoskeletal: Mild pedal edema. Skin: No rash. Neurologic: Alert, no focal deficit. ED Course And Treatment - Laboratory Results Result Diagrams: 08/17/17 20:04 08/17/17 20:04 O2 Sat by Pulse Oximetry: 91 (RA) Pulse Ox Interpretation: Abnormal Medical Decision Making Medical Decision Making: Plan: --Labs --EKG --CXR --blood Culture --urine culture --urinalysis Time: 19:41 CXR with pulmonary edema cannot exclude underlying infiltrates EKG sinus rhythm 92 bpm, no ST elevations. Placed on BiPap. Dr. Silverman accepts to his service on telemetry. Disposition Discussed With : Hans Silverman Doctor Will See Patient In The: Hospital - Disposition Disposition: HOSPITALIZED Disposition Time: 21:21 Condition: GUARDED Forms: [facility] (French) - POA Core Measure Indicators: Pneumonia - Clinical Impression Clinical Impression: CHF exacerbation, COPD exacerbation - Scribe Statement The provider has reviewed the documentation as recorded by the Scribe Kassy Gallo All medical record entries made by the Scribe were at my direction and personally dictated by me. I have reviewed the chart and agree that the record accurately reflects my personal performance of the history, physical exam, medical decision making, and the department course for this patient. I have also personally directed, reviewed, and agree with the discharge instructions and disposition.
[2017-08-17] MEDS ORDERED: Cefepime IV 1 gm in Dextrose 1 GM/50 ML BAG IVPB STA (19:48)
[2017-08-17 20:07] LABS: BASO # 0.1 K/uL (0.0-0.2); BASO % 0.8 % (0.0-2.0); EOS % 0.2 % (0.0-4.0); HEMOGLOBIN 8.9 g/dL (11.0-16.0); LYMPH # 1.4 K/uL (1.0-4.3); MEAN CELL VOLUME 87.2 fL (81.0-99.0); MEAN CORPUSCULAR HEMOGLOBIN 28.3 pg (27.0-31.0); MEAN CORPUSCULAR HGB CONC 32.4 g/dL (33.0-37.0); MEAN PLATELET VOLUME 7.8 fL (7.2-11.7); MONO # 1.1 K/uL (0.0-0.8); MONO % 13.4 % (0.0-10.0); NEUT # 5.8 K/uL (1.8-7.0); NEUT % 68.6 % (50.0-75.0); NRBC % 0.1 % (0.0-2.0); RBC 3.16 Mil/uL (3.80-5.20); RED CELL DISTRIBUTION WIDTH 18.5 % (11.5-14.5)
[2017-08-17 20:08] LABS: WHITE BLOOD COUNT 8.4 K/uL (4.8-10.8)
[2017-08-17 20:13] LABS: VENOUS BLOOD GAS BASE EXCESS 16.1 mmol/L (0.0-2.0); VENOUS BLOOD GAS PCO2 91 mmHg (40-60); VENOUS BLOOD GAS PO2 49 mm/Hg (30-55); VENOUS BLOOD PH 7.32 (7.32-7.43)
[2017-08-17 20:15] LABS: INR 1.2; PROTHROMBIN TIME 13.2 SECONDS (9.7-12.2)
[2017-08-17 20:25] LABS: ALB/GLOB RATIO 0.9 (1.0-2.1); ALBUMIN 3.2 g/dL (3.5-5.0); ALT/SGPT 11 U/L (9-52); AST/SGOT 19 U/L (14-36); BLOOD UREA NITROGEN 15 mg/dL (7-17); CALCIUM 8.7 mg/dl (8.6-10.4); GFR AFRICAN-AMERICAN > 60; GFR NON-AFRICAN AMERICAN > 60
[2017-08-17 20:32] LABS: B-TYPE NATRIURETIC PEPTIDE 9900 pg/mL (0-900); CK-MB 0.62 ng/mL (0.0-3.38)
[2017-08-17 21:15] LABS: ABG ALLEN TEST POS; ARTERIAL BLOOD GAS HEMOGLOBIN 8.6 g/dL (11.7-17.4); ARTERIAL BLOOD GAS O2 SAT 95.3 % (95-98); ARTERIAL BLOOD GAS PCO2 84 mm/Hg (35-45); ARTERIAL BLOOD GAS PH 7.35 (7.35-7.45); ARTERIAL BLOOD GAS PO2 60 mm/Hg (80-100)
[2017-08-17] MEDS ORDERED: MethylPREDNISolone 40 mg Vial IVP STA (21:15)
[2017-08-17] MEDS ORDERED: Albuterol-Ipratrop 3 mg / 0.5 (3 ml) UD IH STA (21:15)
[2017-08-17] MEDS ORDERED: Albuterol-Ipratrop 3 mg / 0.5 (3 ml) UD ONE (21:29)
[2017-08-17 23:05] LABS: SQUAMOUS EPITHIAL < 1 /hpf (0-5); URINE BACTERIA FEW (<OCC); URINE BILIRUBIN NEGATIVE (NEGATIVE); URINE BLOOD NEGATIVE (NEGATIVE); URINE CLARITY Hazy (Clear); URINE COLOR Yellow (YELLOW); URINE GLUCOSE (UA) NORMAL (Normal); URINE LEUKOCYTE ESTERASE 1+ Leu/uL (Negative); URINE PROTEIN NEGATIVE (NEGATIVE); URINE UROBILINOGEN NORMAL mg/dL (0.2-1.0)
[2017-08-18 01:39] LABS: ABG ALLEN TEST POS; ARTERIAL BLOOD GAS HCO3 36.6 mmol/L (21-28); ARTERIAL BLOOD GAS O2 SAT 95.9 % (95-98); ARTERIAL BLOOD GAS PCO2 79 mm/Hg (35-45); ARTERIAL BLOOD GAS PH 7.36 (7.35-7.45); ARTERIAL BLOOD GAS PO2 62 mm/Hg (80-100)
--- NOTE | 2017-08-18 02:13 | CP.PCM.CON ---
History of Present Illness - History of Present Illness History of Present Illness: 72 F with h/o DM, recent ESTEVAN was on HD, then improved, h/o chronic CO2 retention , h/o diverting colostomy for sacral decubti was sent in to the hospital with c/ o sob, had received iv lasix at [place]. In ER patient had low grade temp, she is obese, lethargic on bipap, elevated CO2 in 80's with maintained PH suggesting chronic retention, b/l infiltrates on CXR. Patient doesn't provide any more information. PMH as above, recent hd, Allergies NKDA Social CT resident, no h/o recent smoking, alcohol or durg use Family history not contributory Meds reviewed from CT At CT patient has been on O2 2lit via nc, round the clock, in ER on Bipap 18/8/ 40%, VT is in range of 250 with about 70 leak, repeat abg in 4 hrs even though the VT is not significant but, has improved slightly both in ph and CO2 levels. Review of Systems - Review of Systems All systems: reviewed and no additional remarkable complaints except (HPI) Past Patient History - Past Medical History & Family History Past Medical History?: Yes - Past Social History Smoking Status: Unknown If Ever Smoked Chewing Tobacco Use: No Drugs: Denies Home Situation {Lives}: Detention - CARDIAC Hx Congestive Heart Failure: Yes Hx Hypertension: Yes - PULMONARY Hx Chronic Obstructive Pulmonary Disease (COPD): Yes - ENDOCRINE/METABOLIC Hx Endocrine Disorders: Yes Hx Diabetes Mellitus Type 2: Yes - MUSCULOSKELETAL/RHEUMATOLOGICAL Hx Musculoskeletal Disorders: Yes Other/Comment: Hx of left leg / left hip FX as per patient - GASTROINTESTINAL Hx Gastrointestinal Disorders: Yes Hx Colostomy: Yes - PSYCHIATRIC Hx Substance Use: No - SURGICAL HISTORY Hx Surgeries: Yes Other/Comment: ? left hip FX/ surgery. Left sided colostomy - ANESTHESIA Hx Anesthesia: No Meds Allergies/Adverse Reactions: Allergies Allergy/AdvReac Type Severity Reaction Status Date / Time No Known Allergies Allergy Verified 08/17/17 18:48 - Medications Medications: Current Medications Acetaminophen (Tylenol 325mg Tab) 650 mg PO Q6 PRN PRN Reason: Fever and pain Albuterol/Ipratropium (Duoneb 3 Mg/0.5 Mg (3 Ml) Ud) 3 ml INH RQ4 STEVEN Amlodipine Besylate (Norvasc) 5 mg PO DAILY ST[facility]EN Aspirin (Aspirin Chewable) 81 mg PO DAILY [facility] Docusate Sodium (Colace) 200 mg PO DAILY STEVEN Famotidine (Pepcid) 20 mg PO DAILY [facility]EV[facility] Ferrous Sulfate (Feosol) 325 mg PO DAILY [facility] Furosemide (Lasix) 80 mg IVP DAILY [facility] Home Med (Atorvastatin Calcium [Atorvastatin Calcium]) 40 mg PO HS STEVEN Azithromycin 500 mg/ Sodium (Chloride) 250 mls @ 250 mls/hr IVPB DAILY STEVEN PRN Reason: Protocol Ceftriaxone Sodium 1 gm/ (Sodium Chloride) 100 mls @ 100 mls/hr IVPB DAILY STEVEN PRN Reason: Protocol Insulin Human Regular (Novolin R) 0 unit SC ACHS STEVEN PRN Reason: Protocol Methylprednisolone (Solu-Medrol) 40 mg IVP Q8 STEVEN Metoprolol Succinate (Toprol Xl) 25 mg PO DAILY STEVEN Multivitamins (Hexavitamin) 1 tab PO DAILY STEVEN Physical Exam - Additional Findings Additional findings: * HEENT NOEL * Neck short thick * CVS regular, no gallop or rub * Chest reduced shallow air entry, RR in mid 20's * PA soft, colostomy on left side, nt * Ext no edema, soft skin * [employer] arousable with some difficulty, moving all 4 ext * Skin normal turgor. Results - Vital Signs Recent Vital Signs: Last Vital Signs Temp 99.8 F H 08/17/17 22:50 Pulse 84 08/18/17 01:45 Resp 30 H 08/18/17 00:45 BP 138/67 08/18/17 00:45 Pulse Ox 94 L 08/18/17 00:45 - Labs Result Diagrams: 08/17/17 20:04 08/17/17 20:04 Labs: Laboratory Results - last 24 hr 08/17/17 08/17/17 08/17/17 19:29 20:04 20:04 WBC 8.4 D RBC 3.16 L Hgb 8.9 L Hct 27.6 L MCV 87.2 MCH 28.3 MCHC 32.4 L RDW 18.5 H Plt Count 354 D MPV 7.8 Neut % (Auto) 68.6 Lymph % (Auto) 17.0 L [place] % (Auto) 13.4 H Eos % (Auto) 0.2 Baso % (Auto) 0.8 Neut # (Auto) 5.8 Lymph # (Auto) 1.4 [place] # (Auto) 1.1 H Eos # (Auto) 0.0 Baso # (Auto) 0.1 PT 13.2 H INR 1.2 APTT 33 Puncture Site pCO2 pO2 HCO3 ABG pH ABG Total CO2 ABG O2 Saturation ABG Base Excess ABG Hemoglobin ABG Carboxyhemoglobin POC ABG HHb (Measured) ABG Methemoglobin [place] Test ABG Potassium VBG pH VBG pCO2 VBG HCO3 VBG Total CO2 VBG O2 Sat (Calc) VBG Base Excess VBG Potassium A-a O2 Difference Respiratory Index Hgb O2 Saturation Glucose Lactate Vent Mode FiO2 Inspiratory BiPAP Expiratory BiPAP Crit Value Called To Crit Value Called By Crit Value Read Back Blood Gas Notified Time Sodium Potassium Chloride Carbon Dioxide Anion Gap BUN Creatinine Est GFR ( Amer) Est GFR (Non-Af Amer) POC Glucose (mg/dL) 172 H Random Glucose Calcium Total Bilirubin AST ALT Alkaline Phosphatase Total Creatine Kinase CK-MB (Mass) Troponin I NT-Pro-B Natriuret Pep Total Protein Albumin Globulin Albumin/Globulin Ratio Arterial Blood Potassium Venous Blood Potassium Urine Color Urine Clarity Urine pH Ur Specific [place] Urine Protein Urine Glucose (UA) Urine Ketones Urine Blood Urine Nitrate Urine Bilirubin Urine Urobilinogen Ur Leukocyte Esterase Urine WBC (Auto) Urine RBC (Auto) Ur Squamous Epith Cells Urine Bacteria 08/17/17 08/17/17 08/17/17 20:04 20:05 21:05 WBC RBC Hgb Hct MCV MCH MCHC RDW Plt Count MPV Neut % (Auto) Lymph % (Auto) [place] % (Auto) Eos % (Auto) Baso % (Auto) Neut # (Auto) Lymph # (Auto) [place] # (Auto) Eos # (Auto) Baso # (Auto) PT INR APTT Puncture Site Rra pCO2 84 H* pO2 49 60 L HCO3 39.0 H ABG pH 7.35 ABG Total CO2 49.0 H ABG O2 Saturation 95.3 ABG Base Excess 18.1 H ABG Hemoglobin 8.6 L ABG Carboxyhemoglobin 3.1 H POC ABG HHb (Measured) 4.5 ABG Methemoglobin 1.2 Devon Test Pos ABG Potassium VBG pH 7.32 VBG pCO2 91 H* VBG HCO3 37.0 VBG Total CO2 49.7 H VBG O2 Sat (Calc) 90.2 H VBG Base Excess 16.1 H VBG Potassium 3.8 A-a O2 Difference 120.0 Respiratory Index 2.0 Hgb O2 Saturation 91.2 L Glucose 170 H Lactate 0.8 Vent Mode FiO2 21.0 40.0 Inspiratory BiPAP 14 Expiratory BiPAP 7 Crit Value Called To Dr timothy Mendenhall mm Crit Value Called By Matt [facility] Crit Value Read Back Y Y Blood Gas Notified Time 2012 2113 Sodium 140 142.0 Potassium 4.0 Chloride 93 L 102.0 Carbon Dioxide 39 H Anion Gap 12 BUN 15 Creatinine 0.7 Est GFR ( Amer) > 60 Est GFR (Non-Af Amer) > 60 POC Glucose (mg/dL) Random Glucose 162 H Calcium 8.7 Total Bilirubin 0.4 AST 19 ALT 11 Alkaline Phosphatase 101 Total Creatine Kinase 20 L CK-MB (Mass) 0.62 Troponin I < 0.0120 NT-Pro-B Natriuret Pep 9900 H Total Protein 6.9 Albumin 3.2 L D Globulin 3.7 Albumin/Globulin Ratio 0.9 L Arterial Blood Potassium Venous Blood Potassium 3.8 Urine Color Urine Clarity Urine pH Ur Specific [place] Urine Protein Urine Glucose (UA) Urine Ketones Urine Blood Urine Nitrate Urine Bilirubin Urine Urobilinogen Ur Leukocyte Esterase Urine WBC (Auto) Urine RBC (Auto) Ur Squamous Epith Cells Urine Bacteria 08/17/17 08/18/17 23:00 01:00 WBC RBC Hgb Hct MCV MCH MCHC RDW Plt Count MPV Neut % (Auto) Lymph % (Auto) [place] % (Auto) Eos % (Auto) Baso % (Auto) Neut # (Auto) Lymph # (Auto) [place] # (Auto) Eos # (Auto) Baso # (Auto) PT INR APTT Puncture Site Rr pCO2 79 H* pO2 62 L HCO3 36.6 H ABG pH 7.36 ABG Total CO2 47.0 H ABG O2 Saturation 95.9 ABG Base Excess 15.2 H ABG Hemoglobin ABG Carboxyhemoglobin POC ABG HHb (Measured) ABG Methemoglobin [place] Test Pos ABG Potassium 3.8 VBG pH VBG pCO2 VBG HCO3 VBG Total CO2 VBG O2 Sat (Calc) VBG Base Excess VBG Potassium A-a O2 Difference 124.0 Respiratory Index 2.0 Hgb O2 Saturation Glucose 155 H Lactate 0.7 Vent Mode Bipap FiO2 40.0 Inspiratory BiPAP 18 Expiratory BiPAP 9 Crit Value Called To Dr morrell Crit Value Called By Viviana johnson rt Crit Value Read Back Y Blood Gas Notified Time 138 Sodium 143.0 Potassium Chloride 102.0 Carbon Dioxide Anion Gap BUN Creatinine Est GFR ( Amer) Est GFR (Non-Af Amer) POC Glucose (mg/dL) Random Glucose Calcium Total Bilirubin AST ALT Alkaline Phosphatase Total Creatine Kinase CK-MB (Mass) Troponin I NT-Pro-B Natriuret Pep Total Protein Albumin Globulin Albumin/Globulin Ratio Arterial Blood Potassium 3.8 Venous Blood Potassium Urine Color Yellow Urine Clarity Hazy Urine pH 5.0 Ur Specific [place] 1.008 Urine Protein Negative Urine Glucose (UA) Normal Urine Ketones Negative Urine Blood Negative Urine Nitrate Negative Urine Bilirubin Negative Urine Urobilinogen Normal Ur Leukocyte Esterase 1+ H Urine WBC (Auto) 11 H Urine RBC (Auto) 3 Ur Squamous Epith Cells < 1 Urine Bacteria Few H Assessment & Plan - Assessment and Plan (Free Text) Assessment: * CO2 chronic retention multifactorial, obesity hypopnea, reduced lung compliance * Infiltrates on CXR will need to be characterized by CT * Obese * Bed bound * H/o DM * Diverting colostomy for sacral decub * H/o recent ESTEVAN needing HD, not on hd now * Lethargy form CO2 retention * Currently appearing normal to low intravascular volume Plan: * Observe in ICU due to current resp insufficiency * Empiric abx has been stared on by primary team will send procalcitonin and check the infiltrates on CT * GI/DVT prophylaxis * Sliding scale coverage * will avoid sedation, significant changes in the volume which may make CO2 retention worse * See orders for detail.
[2017-08-18] MEDS ORDERED: Iodixanol 320 MG/ML 100 ML BOTTLE IV ONE (02:22)
[2017-08-18] MEDS: Albuterol-Ipratrop 3 mg / 0.5 (3 ml) UD INH SCH ×5 (03:12→23:00)
[2017-08-18] MEDS: MethylPREDNISolone 40 mg Vial IVP SCH ×3 (05:31→21:18)
[2017-08-18 06:46] LABS: BASO % 0.3 % (0.0-2.0); HEMOGLOBIN 9.8 g/dL (11.0-16.0); LYMPH # 0.6 K/uL (1.0-4.3); LYMPH % 3.3 % (20.0-40.0); MEAN CELL VOLUME 87.7 fL (81.0-99.0); MEAN CORPUSCULAR HEMOGLOBIN 28.5 pg (27.0-31.0); MEAN CORPUSCULAR HGB CONC 32.4 g/dL (33.0-37.0); MEAN PLATELET VOLUME 8.6 fL (7.2-11.7); MONO # 0.4 K/uL (0.0-0.8); MONO % 2.6 % (0.0-10.0); NEUT # 16.5 K/uL (1.8-7.0); NEUT % 93.8 % (50.0-75.0); NRBC % 0.1 % (0.0-2.0); PLATELET COUNT 354 K/uL (130-400); RBC 3.45 Mil/uL (3.80-5.20); RED CELL DISTRIBUTION WIDTH 18.6 % (11.5-14.5); WHITE BLOOD COUNT 17.5 K/uL (4.8-10.8)
[2017-08-18 07:16] LABS: ALB/GLOB RATIO 0.8 (1.0-2.1); ALBUMIN 3.3 g/dL (3.5-5.0); ALT/SGPT 17 U/L (9-52); AST/SGOT 20 U/L (14-36); BLOOD UREA NITROGEN 16 mg/dL (7-17); CALCIUM 8.8 mg/dl (8.6-10.4); GFR AFRICAN-AMERICAN > 60; GFR NON-AFRICAN AMERICAN > 60
[2017-08-18] MEDS: (Novolin R) Insulin Human Regular 100 units/ml vial SC SCH ×4 (07:30→21:45)
[2017-08-18 08:13] LABS: ANISOCYTOSIS MODERATE; BANDS 8 % (0-2); LYMPHOCYTE 6 % (20-40); MONOCYTE 2 % (0-10); MYELOCYTE 1 % (0-0); NEUTROPHIL 83 % (50-75); PLATELET ESTIMATE NORMAL (NORMAL); TOTAL CELLS COUNTED 100
--- NOTE | 2017-08-18 08:24 | CT ---
PROCEDURE: CT HEAD WITHOUT CONTRAST. HISTORY: lethargy COMPARISON: None available. TECHNIQUE: Axial computed tomography images were obtained through the head/brain without intravenous contrast. Radiation dose: Total exam DLP = 2995 mGy-cm. This CT exam was performed using one or more of the following dose reduction techniques: Automated exposure control, adjustment of the mA and/or kV according to patient size, and/or use of iterative reconstruction technique. FINDINGS: HEMORRHAGE: No intracranial hemorrhage. BRAIN: Cerebral and cerebellar volume loss. Patchy hypodensity is seen in the periventricular and subcortical white matter suggestive for chronic microvascular ischemic. Cavum septum pellucidum. Bilateral basal ganglia lacunar infarcts. Bilateral basal ganglia calcifications. VENTRICLES: Unremarkable. No hydrocephalus. CALVARIUM: Unremarkable. PARANASAL SINUSES: Patchy scattered mucosal opacification. MASTOID AIR CELLS: Patchy mastoid disease; left greater than right. OTHER FINDINGS: Bilateral extensive atherosclerotic vascular disease involving the carotid arteries. Possible orbital proptosis. Clinical correlation. Edentulous maxilla and mandible. Prominent productive bone formation seen on the inner calvarium at the level of the anterior temporal lobes. IMPRESSION: No acute intracranial abnormality. Chronic microvascular ischemic changes. If focal neurologic deficit persists, consider MRI. These findings were preliminarily reported at 3:15 a.m. on 08/18/[address] Sarah Carbone from [facility].
[2017-08-18] MEDS ORDERED: Azithromycin 500 MG in Sodium Chloride 0.9% 250 ML IVPB SCH (10:00)
[2017-08-18] MEDS ORDERED: Multiple Vitamins Tab PO SCH (10:00)
[2017-08-18] MEDS: Metoprolol Succinate 25 mg XL Tab PO SCH (10:00)
--- NOTE | 2017-08-18 10:29 | CP.PCM.CON ---
History of Present Illness - History of Present Illness History of Present Illness: 72 F with h/o chronic CO2 retention, was sent in to the hospital with c/o sob, had received iv lasix at [place]. In ER patient had low grade temp, she is obese, lethargic on bipap, elevated CO2 in 80's with maintained PH suggesting chronic retention, b/l infiltrates on CXR. Patient doesn't provide any more information. ID consulted for bilateral pneumonia / sepsis PMH DM HTN COPD h/o diverting colostomy for sacral decubti HD in past Allergies NKDA Social [place] resident, no h/o recent smoking, alcohol or durg use Family history not contributory Meds reviewed from [place] Review of Systems - Review of Systems All systems: reviewed and no additional remarkable complaints except - Constitutional Constitutional: As Per HPI - EENT Eyes: absent: As Per HPI, Blind Spots, Blurred Vision, Change in Vision, Decreased Night Vision, Diplopia, Discharge, Dry Eye, Exophthalmos, Floaters, Irritation, Itchy Eyes, Loss of Peripheral Vision, Pain, Photophobia, Requires Corrective Lenses, Sees Flashes, Spots in Vision, Tunnel Vision, Other Visual Disturbances, Loss of Vision, Other Ears: absent: As Per HPI, Decreased Hearing, Ear Discharge, Ear Pain, Tinnitus, Abnormal Hearing, Disequilibrium, Dizziness, Other Nose/Mouth/Throat: absent: As Per HPI, Epistaxis, Nasal Congestion, Nasal Discharge, Nasal Obstruction, Nasal Trauma, Nose Pain, Post Nasal Drip, Sinus Pain, Sinus Pressure, Bleeding Gums, Change in Voice, Dental Pain, Dry Mouth, Dysphagia, Halitosis, Hoarsness, Lip Swelling, Mouth Lesions, Mouth Pain, Odynophagia, Sore Throat, Throat Swelling, Tongue Swelling, Facial Pain, Neck Pain, Neck Mass, Other - Breasts Breasts: absent: As Per HPI, Change in Shape, Mass, Pain, Nipple Discharge, Nipple Inversion, Skin Changes, Swelling, Other - Cardiovascular Cardiovascular: As Per HPI - Respiratory Respiratory: As Per HPI - Gastrointestinal Gastrointestinal: absent: As Per HPI, Abdominal Pain, Belching, Bloating, Change in Bowel Habits, Change in Stool Character, Coffee Ground Emesis, Constipation, Cramping, Diarrhea, Dyspepsia, Dysphagia, Early Satiety, Excessive Flatus, Fecal Incontinence, Heartburn, Hematemesis, Hematochezia, Loose Stools, Melena, Nausea, Odynophagia, Temesmus, Vomiting, Other - Genitourinary Genitourinary: absent: As Per HPI, Change in Urinary Stream, Difficulty Urinating, Dysuria, Flank Pain, Hematuria, Pyuria, Nocturia, Urinary Incontinence, Urinary Frequency, Urinary Hesitance, Urinary Urgency, Voiding Freq/Small Amts, Freq UTI, Hx Renal/Bladder Calculi, Hx /Renal Surgery, Bladder Distension, Other - Reproductive: Female Reproductive:Female: absent: As Per HPI, Amenorrhea, Amenorrhea/ Control, Currently Menstual, Cycle <21 Days, Cycle >35 Days, Cycle Variable, Menses 1-7 Days, Menses >/= 8 Days, Menses Variable, Cycle > 4 Weeks Between, No Menses for 6 Months, Heavy Menses, Light Menses, Normal Menses, Spotting Between Cycles , S/P Hysterectomy, Menopausal, Post Menopausal, Premenarche, Abnormal Vaginal Bleeding, Dysmenorrhea, Dyspareunia, Genital Lesions, Genital Pruritis, Pelvic Pain, Prolapse Symptoms, Sexual Dysfunction, Vaginal Discharge, Vaginal Dryness , Vaginal Odor, Vaginal Pruritis, Other - Menstruation Menstruation: absent: As Per HPI, Amenorrhea, Amenorrhea/ Control, Currently Menstual, Cycle <21 Days, Cycle >35 Days, Cycle Variable, Menses 1-7 Days, Menses >/= 8 Days, Menses Variable, Cycle > 4 Weeks Between, No Menses for 6 Months, Heavy Menses, Light Menses, Normal Menses, Spotting Between Cycles , S/P Hysterectomy, Menopausal, Post Menopausal, Premenarche, Abnormal Vaginal Bleeding, Dysmenorrhea, Other - Musculoskeletal Musculoskeletal: absent: As Per HPI, Abnormal Gait, Arthralgias, Atrophy, Back Pain, Deformity, Joint Swelling, Limited Range of Motion, Loss of Height, Muscle Cramps, Muscle Weakness, Myalgias, Neck Pain, Numbness, Radiating Pain into Limb, Stiffness, Tingling, Other - Integumentary Integumentary: absent: As Per HPI, Acne, Alopecia, Bleeding Lesions, Change in Hair, Change in Nails, Change in Pigmentation, Changing Lesions, Dry Skin, Erythema, Furuncle, Hirsutism, Lesions, New Lesions, Non-Healing Lesions, Photosensitivity, Pruritus, Rash, Skin Pain, Skin Ulcer, Sores, Striae, Swelling , Unusual Bruising, Wounds, Jaundice, Other - Neurological Neurological: absent: As Per HPI, Abnormal Gait, Abnormal Hearing, Abnormal Movements, Abnormal Speech, Behavioral Changes, Burning Sensations, Confusion, Convulsions, Disequilibrium, Dizziness, Numbness, Focal Weakness, Frequent Falls , Headaches, Lack of Coordination, Loss of Vision, Memory Loss, Paresthesias, Radicular Pain, Restless Legs, Sensory Deficit, Syncope, Tingling, Tremor, Vertigo, Weakness, Other Visual Disturbances, Other - Psychiatric Psychiatric: absent: As Per HPI, Abnormal Sleep Pattern, Anhedonia, Anxiety, Auditory Hallucinations, Behavioral Changes, Change in Appetite, Change in Libido, Confusion, Depression, Difficulty Concentrating, Hallucinations, Homicidal Ideation, Hopelessness, Irritability, Memory Loss, Mood Swings, Panic Attacks, Paranoia, Suicidal Ideation, Visual Hallucinations, Tactile Hallucinations, Other - Endocrine Endocrine: absent: As Per HPI, Change in Body Appearance, Change in Libido, Cold Intolorance, Deepening of Voice, Excessive Sweating, Fatigue, Flushing, Heat Intolorance, Increase in Ring/Shoe/Hat Size, Palpitations, Polydipsia, Polyphagia, Polyuria, Other - Hematologic/Lymphatic Hematologic: absent: As Per HPI, Easy Bleeding, Easy Bruising, Lymphadenopathy, Other Past Patient History - Past Medical History & Family History Past Medical History?: Yes - Past Social History Smoking Status: Never Smoked - CARDIAC Hx Congestive Heart Failure: Yes Hx Hypertension: Yes - PULMONARY Hx Chronic Obstructive Pulmonary Disease (COPD): Yes - ENDOCRINE/METABOLIC Hx Endocrine Disorders: Yes Hx Diabetes Mellitus Type 2: Yes - MUSCULOSKELETAL/RHEUMATOLOGICAL Hx Musculoskeletal Disorders: Yes Hx Falls: No Other/Comment: Hx of left leg / left hip FX as per patient - GASTROINTESTINAL Hx Gastrointestinal Disorders: Yes Hx Colostomy: Yes - PSYCHIATRIC Hx Substance Use: No - SURGICAL HISTORY Hx Surgeries: Yes Other/Comment: ? left hip FX/ surgery. Left sided colostomy - ANESTHESIA Hx Anesthesia: No Meds Allergies/Adverse Reactions: Allergies Allergy/AdvReac Type Severity Reaction Status Date / Time No Known Allergies Allergy Verified 08/17/17 18:48 - Medications Medications: Current Medications Acetaminophen (Tylenol 325mg Tab) 650 mg PO Q6 PRN PRN Reason: Fever and pain Albuterol/Ipratropium (Duoneb 3 Mg/0.5 Mg (3 Ml) Ud) 3 ml INH RQ4 [facility] Last Admin: 08/18/17 07:30 Dose: 3 ml Amlodipine Besylate (Norvasc) 5 mg PO DAILY [facility] Aspirin (Aspirin Chewable) 81 mg PO DAILY [facility] Docusate Sodium (Colace) 200 mg PO DAILY [facility] Famotidine (Pepcid) 20 mg IVP DAILY [facility] Ferrous Sulfate (Feosol) 325 mg PO DAILY [facility] Heparin Sodium (Porcine) (Heparin) 5,000 units SC Q8 [facility] Last Admin: 08/18/17 05:31 Dose: 5,000 units Home Med (Atorvastatin Calcium [Atorvastatin Calcium]) 40 mg PO HS [facility] Azithromycin 500 mg/ Sodium (Chloride) 250 mls @ 250 mls/hr IVPB DAILY [facility] PRN Reason: Protocol Ceftriaxone Sodium 1 gm/ (Sodium Chloride) 100 mls @ 100 mls/hr IVPB DAILY [facility] PRN Reason: Protocol Last Admin: 08/18/17 09:17 Dose: 100 mls/hr Insulin Human Regular (Novolin R) 0 unit SC ACHS [facility] PRN Reason: Protocol Last Admin: 08/18/17 07:30 Dose: Not Given Methylprednisolone (Solu-Medrol) 40 mg IVP Q8 [facility] Last Admin: 08/18/17 05:31 Dose: 40 mg Metoprolol Succinate (Toprol Xl) 25 mg PO DAILY [facility] Multivitamins (Hexavitamin) 1 tab PO DAILY [facility] Pneumococcal Polyvalent Vaccine (Pneumovax 23 Vaccine) 0.5 ml SC .ONCE ONE Stop: 08/21/17 10:01 Physical Exam - Constitutional Appears: No Acute Distress, Confused, Chronically Ill - Head Exam Head Exam: ATRAUMATIC, NORMAL INSPECTION, NORMOCEPHALIC - Eye Exam Eye Exam: EOMI, PERRL. absent: Scleral icterus - ENT Exam ENT Exam: Mucous Membranes Dry, Normal External Ear Exam - Neck Exam Neck exam: Negative for: Lymphadenopathy - Respiratory Exam Respiratory Exam: Decreased Breath Sounds, Rhonchi - Cardiovascular Exam Cardiovascular Exam: Tachycardia, REGULAR RHYTHM, +S1, +S2 - GI/Abdominal Exam GI & Abdominal Exam: Diminished Bowel Sounds, Distended, Soft. absent: Guarding , Rigid, Tenderness - Rectal Exam Rectal Exam: Deferred - Exam Exam: NORMAL INSPECTION - Extremities Exam Extremities exam: Positive for: pedal pulses present. Negative for: calf tenderness, pedal edema, tenderness - Back Exam Back exam: absent: CVA tenderness (L), CVA tenderness (R), paraspinal tenderness - Neurological Exam Neurological exam: Altered - Psychiatric Exam Psychiatric exam: Depressed - Skin Skin Exam: Dry Results - Vital Signs Recent Vital Signs: Last Vital Signs Temp 98.8 F 08/18/17 08:00 Pulse 78 08/18/17 08:00 Resp 25 H 08/18/17 08:00 BP 121/70 08/18/17 08:00 Pulse Ox 98 08/18/17 08:00 - Labs Result Diagrams: 08/18/17 06:34 08/18/17 06:34 Labs: Laboratory Results - last 24 hr 08/17/17 08/17/17 08/17/17 19:29 20:04 20:04 WBC 8.4 D RBC 3.16 L Hgb 8.9 L Hct 27.6 L MCV 87.2 MCH 28.3 MCHC 32.4 L RDW 18.5 H Plt Count 354 D MPV 7.8 Neut % (Auto) 68.6 Lymph % (Auto) 17.0 L [place] % (Auto) 13.4 H Eos % (Auto) 0.2 Baso % (Auto) 0.8 Neut # (Auto) 5.8 Lymph # (Auto) 1.4 [place] # (Auto) 1.1 H Eos # (Auto) 0.0 Baso # (Auto) 0.1 Neutrophils % (Manual) Band Neutrophils % Lymphocytes % (Manual) Monocytes % (Manual) Myelocytes % Platelet Estimate Basophilic Stippling Anisocytosis (manual) PT 13.2 H INR 1.2 APTT 33 Puncture Site pCO2 pO2 HCO3 ABG pH ABG Total CO2 ABG O2 Saturation ABG Base Excess ABG Hemoglobin ABG Carboxyhemoglobin POC ABG HHb (Measured) ABG Methemoglobin [place] Test ABG Potassium VBG pH VBG pCO2 VBG HCO3 VBG Total CO2 VBG O2 Sat (Calc) VBG Base Excess VBG Potassium A-a O2 Difference Respiratory Index Hgb O2 Saturation Glucose Lactate Vent Mode FiO2 Inspiratory BiPAP Expiratory BiPAP Crit Value Called To Crit Value Called By Crit Value Read Back Blood Gas Notified Time Sodium Potassium Chloride Carbon Dioxide Anion Gap BUN Creatinine Est GFR ( Amer) Est GFR (Non-Af Amer) POC Glucose (mg/dL) 172 H Random Glucose Calcium Phosphorus Magnesium Total Bilirubin AST ALT Alkaline Phosphatase Total Creatine Kinase CK-MB (Mass) Troponin I NT-Pro-B Natriuret Pep Total Protein Albumin Globulin Albumin/Globulin Ratio Arterial Blood Potassium Venous Blood Potassium Urine Color Urine Clarity Urine pH Ur Specific [place] Urine Protein Urine Glucose (UA) Urine Ketones Urine Blood Urine Nitrate Urine Bilirubin Urine Urobilinogen Ur Leukocyte Esterase Urine WBC (Auto) Urine RBC (Auto) Ur Squamous Epith Cells Urine Bacteria 08/17/17 08/17/17 08/17/17 20:04 20:05 21:05 WBC RBC Hgb Hct MCV MCH MCHC RDW Plt Count MPV Neut % (Auto) Lymph % (Auto) [place] % (Auto) Eos % (Auto) Baso % (Auto) Neut # (Auto) Lymph # (Auto) [place] # (Auto) Eos # (Auto) Baso # (Auto) Neutrophils % (Manual) Band Neutrophils % Lymphocytes % (Manual) Monocytes % (Manual) Myelocytes % Platelet Estimate Basophilic Stippling Anisocytosis (manual) PT INR APTT Puncture Site Rra pCO2 84 H* pO2 49 60 L HCO3 39.0 H ABG pH 7.35 ABG Total CO2 49.0 H ABG O2 Saturation 95.3 ABG Base Excess 18.1 H ABG Hemoglobin 8.6 L ABG Carboxyhemoglobin 3.1 H POC ABG HHb (Measured) 4.5 ABG Methemoglobin 1.2 [place] Test Pos ABG Potassium VBG pH 7.32 VBG pCO2 91 H* VBG HCO3 37.0 VBG Total CO2 49.7 H VBG O2 Sat (Calc) 90.2 H VBG Base Excess 16.1 H VBG Potassium 3.8 A-a O2 Difference 120.0 Respiratory Index 2.0 Hgb O2 Saturation 91.2 L Glucose 170 H Lactate 0.8 Vent Mode FiO2 21.0 40.0 Inspiratory BiPAP 14 Expiratory BiPAP 7 Crit Value Called To Dr timothy Mendenhall mm Crit Value Called By Matt sanidad Matt sanidad Crit Value Read Back Y Y Blood Gas Notified Time 2012 2113 Sodium 140 142.0 Potassium 4.0 Chloride 93 L 102.0 Carbon Dioxide 39 H Anion Gap 12 BUN 15 Creatinine 0.7 Est GFR ( Amer) > 60 Est GFR (Non-Af Amer) > 60 POC Glucose (mg/dL) Random Glucose 162 H Calcium 8.7 Phosphorus Magnesium Total Bilirubin 0.4 AST 19 ALT 11 Alkaline Phosphatase 101 Total Creatine Kinase 20 L CK-MB (Mass) 0.62 Troponin I < 0.0120 NT-Pro-B Natriuret Pep 9900 H Total Protein 6.9 Albumin 3.2 L D Globulin 3.7 Albumin/Globulin Ratio 0.9 L Arterial Blood Potassium Venous Blood Potassium 3.8 Urine Color Urine Clarity Urine pH Ur Specific [place] Urine Protein Urine Glucose (UA) Urine Ketones Urine Blood Urine Nitrate Urine Bilirubin Urine Urobilinogen Ur Leukocyte Esterase Urine WBC (Auto) Urine RBC (Auto) Ur Squamous Epith Cells Urine Bacteria 08/17/17 08/18/17 08/18/17 23:00 01:00 06:34 WBC 17.5 H D RBC 3.45 L Hgb 9.8 L Hct 30.2 L MCV 87.7 MCH 28.5 MCHC 32.4 L RDW 18.6 H Plt Count 354 MPV 8.6 Neut % (Auto) 93.8 H Lymph % (Auto) 3.3 L [place] % (Auto) 2.6 Eos % (Auto) 0.0 Baso % (Auto) 0.3 Neut # (Auto) 16.5 H Lymph # (Auto) 0.6 L [place] # (Auto) 0.4 Eos # (Auto) 0.0 Baso # (Auto) 0.0 Neutrophils % (Manual) 83 H Band Neutrophils % 8 H Lymphocytes % (Manual) 6 L Monocytes % (Manual) 2 Myelocytes % 1 H Platelet Estimate Normal Basophilic Stippling Slight Anisocytosis (manual) Moderate PT INR APTT Puncture Site Rr pCO2 79 H* pO2 62 L HCO3 36.6 H ABG pH 7.36 ABG Total CO2 47.0 H ABG O2 Saturation 95.9 ABG Base Excess 15.2 H ABG Hemoglobin ABG Carboxyhemoglobin POC ABG HHb (Measured) ABG Methemoglobin [place] Test Pos ABG Potassium 3.8 VBG pH VBG pCO2 VBG HCO3 VBG Total CO2 VBG O2 Sat (Calc) VBG Base Excess VBG Potassium A-a O2 Difference 124.0 Respiratory Index 2.0 Hgb O2 Saturation Glucose 155 H Lactate 0.7 Vent Mode Bipap FiO2 40.0 Inspiratory BiPAP 18 Expiratory BiPAP 9 Crit Value Called To Dr keswani Crit Value Called By Viviana johnson rt Crit Value Read Back Y Blood Gas Notified Time 138 Sodium 143.0 Potassium Chloride 102.0 Carbon Dioxide Anion Gap BUN Creatinine Est GFR ( Amer) Est GFR (Non-Af Amer) POC Glucose (mg/dL) Random Glucose Calcium Phosphorus Magnesium Total Bilirubin AST ALT Alkaline Phosphatase Total Creatine Kinase CK-MB (Mass) Troponin I NT-Pro-B Natriuret Pep Total Protein Albumin Globulin Albumin/Globulin Ratio Arterial Blood Potassium 3.8 Venous Blood Potassium Urine Color Yellow Urine Clarity Hazy Urine pH 5.0 Ur Specific [place] 1.008 Urine Protein Negative Urine Glucose (UA) Normal Urine Ketones Negative Urine Blood Negative Urine Nitrate Negative Urine Bilirubin Negative Urine Urobilinogen Normal Ur Leukocyte Esterase 1+ H Urine WBC (Auto) 11 H Urine RBC (Auto) 3 Ur Squamous Epith Cells < 1 Urine Bacteria Few H 08/18/17 08/18/17 06:34 07:40 WBC RBC Hgb Hct MCV MCH MCHC RDW Plt Count MPV Neut % (Auto) Lymph % (Auto) [place] % (Auto) Eos % (Auto) Baso % (Auto) Neut # (Auto) Lymph # (Auto) [place] # (Auto) Eos # (Auto) Baso # (Auto) Neutrophils % (Manual) Band Neutrophils % Lymphocytes % (Manual) Monocytes % (Manual) Myelocytes % Platelet Estimate Basophilic Stippling Anisocytosis (manual) PT INR APTT Puncture Site pCO2 pO2 HCO3 ABG pH ABG Total CO2 ABG O2 Saturation ABG Base Excess ABG Hemoglobin ABG Carboxyhemoglobin POC ABG HHb (Measured) ABG Methemoglobin [place] Test ABG Potassium VBG pH VBG pCO2 VBG HCO3 VBG Total CO2 VBG O2 Sat (Calc) VBG Base Excess VBG Potassium A-a O2 Difference Respiratory Index Hgb O2 Saturation Glucose Lactate Vent Mode FiO2 Inspiratory BiPAP Expiratory BiPAP Crit Value Called To Crit Value Called By Crit Value Read Back Blood Gas Notified Time Sodium 146 Potassium 4.4 Chloride 91 L Carbon Dioxide 40 H* Anion Gap 19 BUN 16 Creatinine 0.8 Est GFR ( Amer) > 60 Est GFR (Non-Af Amer) > 60 POC Glucose (mg/dL) 184 H Random Glucose 185 H Calcium 8.8 Phosphorus 4.3 Magnesium 1.7 Total Bilirubin 0.6 AST 20 ALT 17 Alkaline Phosphatase 116 Total Creatine Kinase CK-MB (Mass) Troponin I NT-Pro-B Natriuret Pep Total Protein 7.3 Albumin 3.3 L Globulin 4.0 H Albumin/Globulin Ratio 0.8 L Arterial Blood Potassium Venous Blood Potassium Urine Color Urine Clarity Urine pH Ur Specific [place] Urine Protein Urine Glucose (UA) Urine Ketones Urine Blood Urine Nitrate Urine Bilirubin Urine Urobilinogen Ur Leukocyte Esterase Urine WBC (Auto) Urine RBC (Auto) Ur Squamous Epith Cells Urine Bacteria Assessment & Plan (1) CHF exacerbation Status: Acute (2) COPD exacerbation Status: Acute (3) Chr obstructive pulmonary disease w/ acute lower respiratory infxn Status: Acute (4) Chronic congestive heart failure Status: Acute (5) Dyspnea Status: Acute - Assessment and Plan (Free Text) Assessment: cont rx for resp failure mauy need to expand coverage if pt fails to respond to empiric coverage
--- NOTE | 2017-08-18 10:55 | CP.PCM.CON ---
History of Present Illness - History of Present Illness History of Present Illness: 72 F with h/o chronic CO2 retention, was sent in to the hospital with c/o sob, had received iv lasix at [place]. In ER patient had low grade temp, she is obese, lethargic on bipap, elevated CO2 in 80's with maintained PH suggesting chronic retention, b/l infiltrates on CXR. Patient doesn't provide any more information. 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 Allergies NKDA Social [place] resident, no h/o recent smoking, alcohol or IVDA use Family history not contributory, no CKD Meds reviewed from [place] Review of Systems - Review of Systems Systems not reviewed;Unavailable: Respiratory Distress Past Patient History - Past Medical History & Family History Past Medical History?: Yes - Past Social History Smoking Status: Never Smoked Chewing Tobacco Use: No Cigar Use: No Alcohol: None Home Situation {Lives}: Intermediate - CARDIAC Hx Congestive Heart Failure: Yes Hx Hypertension: Yes - PULMONARY Hx Chronic Obstructive Pulmonary Disease (COPD): Yes - ENDOCRINE/METABOLIC Hx Endocrine Disorders: Yes Hx Diabetes Mellitus Type 2: Yes - MUSCULOSKELETAL/RHEUMATOLOGICAL Hx Musculoskeletal Disorders: Yes Hx Falls: No Other/Comment: Hx of left leg / left hip FX as per patient - GASTROINTESTINAL Hx Gastrointestinal Disorders: Yes Hx Colostomy: Yes - PSYCHIATRIC Hx Substance Use: No - SURGICAL HISTORY Hx Surgeries: Yes Other/Comment: ? left hip FX/ surgery. Left sided colostomy - ANESTHESIA Hx Anesthesia: No Meds Allergies/Adverse Reactions: Allergies Allergy/AdvReac Type Severity Reaction Status Date / Time No Known Allergies Allergy Verified 08/17/17 18:48 - Medications Medications: Current Medications Acetaminophen (Tylenol 325mg Tab) 650 mg PO Q6 PRN PRN Reason: Fever and pain Albuterol/Ipratropium (Duoneb 3 Mg/0.5 Mg (3 Ml) Ud) 3 ml INH RQ4 [facility] Last Admin: 08/18/17 07:30 Dose: 3 ml Amlodipine Besylate (Norvasc) 5 mg PO DAILY [facility] Aspirin (Aspirin Chewable) 81 mg PO DAILY [facility] Docusate Sodium (Colace) 200 mg PO DAILY [facility] Famotidine (Pepcid) 20 mg IVP DAILY [facility] Last Admin: 08/18/17 10:50 Dose: 20 mg Ferrous Sulfate (Feosol) 325 mg PO DAILY [facility] Heparin Sodium (Porcine) (Heparin) 5,000 units SC Q8 [facility] Last Admin: 08/18/17 05:31 Dose: 5,000 units Home Med (Atorvastatin Calcium [Atorvastatin Calcium]) 40 mg PO HS [facility] Azithromycin 500 mg/ Sodium (Chloride) 250 mls @ 250 mls/hr IVPB DAILY [facility] PRN Reason: Protocol Last Admin: 08/18/17 10:36 Dose: 250 mls/hr Ceftriaxone Sodium 1 gm/ (Sodium Chloride) 100 mls @ 100 mls/hr IVPB DAILY [facility] PRN Reason: Protocol Last Admin: 08/18/17 09:17 Dose: 100 mls/hr Insulin Human Regular (Novolin R) 0 unit SC ACHS [facility] PRN Reason: Protocol Last Admin: 08/18/17 07:30 Dose: Not Given Methylprednisolone (Solu-Medrol) 40 mg IVP Q8 [facility] Last Admin: 08/18/17 05:31 Dose: 40 mg Metoprolol Succinate (Toprol Xl) 25 mg PO DAILY [facility] Multivitamins (Hexavitamin) 1 tab PO DAILY [facility] Pneumococcal Polyvalent Vaccine (Pneumovax 23 Vaccine) 0.5 ml SC .ONCE ONE Stop: 08/21/17 10:01 Physical Exam - Constitutional Appears: In Acute Distress, Older Than Stated Age, Chronically Ill - Head Exam Head Exam: ATRAUMATIC, NORMAL INSPECTION - Eye Exam Eye Exam: EOMI, Normal appearance - Neck Exam Neck exam: Positive for: Normal Inspection. Negative for: Tenderness - Respiratory Exam Respiratory Exam: Wheezes, Respiratory Distress - GI/Abdominal Exam GI & Abdominal Exam: Soft. absent: Tenderness - Extremities Exam Extremities exam: Positive for: normal inspection. Negative for: tenderness - Neurological Exam Neurological exam: Altered - Skin Skin Exam: Dry, Warm Results - Vital Signs Recent Vital Signs: Last Vital Signs Temp 98.8 F 08/18/17 08:00 Pulse 78 08/18/17 08:00 Resp 25 H 08/18/17 08:00 BP 121/70 08/18/17 08:00 Pulse Ox 98 08/18/17 08:00 - Labs Result Diagrams: 08/18/17 06:34 08/18/17 06:34 Labs: Laboratory Results - last 24 hr 08/17/17 08/17/17 08/17/17 19:29 20:04 20:04 WBC 8.4 D RBC 3.16 L Hgb 8.9 L Hct 27.6 L MCV 87.2 MCH 28.3 MCHC 32.4 L RDW 18.5 H Plt Count 354 D MPV 7.8 Neut % (Auto) 68.6 Lymph % (Auto) 17.0 L [place] % (Auto) 13.4 H Eos % (Auto) 0.2 Baso % (Auto) 0.8 Neut # (Auto) 5.8 Lymph # (Auto) 1.4 [place] # (Auto) 1.1 H Eos # (Auto) 0.0 Baso # (Auto) 0.1 Neutrophils % (Manual) Band Neutrophils % Lymphocytes % (Manual) Monocytes % (Manual) Myelocytes % Platelet Estimate Basophilic Stippling Anisocytosis (manual) PT 13.2 H INR 1.2 APTT 33 Puncture Site pCO2 pO2 HCO3 ABG pH ABG Total CO2 ABG O2 Saturation ABG Base Excess ABG Hemoglobin ABG Carboxyhemoglobin POC ABG HHb (Measured) ABG Methemoglobin [place] Test ABG Potassium VBG pH VBG pCO2 VBG HCO3 VBG Total CO2 VBG O2 Sat (Calc) VBG Base Excess VBG Potassium A-a O2 Difference Respiratory Index Hgb O2 Saturation Glucose Lactate Vent Mode FiO2 Inspiratory BiPAP Expiratory BiPAP Crit Value Called To Crit Value Called By Crit Value Read Back Blood Gas Notified Time Sodium Potassium Chloride Carbon Dioxide Anion Gap BUN Creatinine Est GFR ( Amer) Est GFR (Non-Af Amer) POC Glucose (mg/dL) 172 H Random Glucose Calcium Phosphorus Magnesium Total Bilirubin AST ALT Alkaline Phosphatase Total Creatine Kinase CK-MB (Mass) Troponin I NT-Pro-B Natriuret Pep Total Protein Albumin Globulin Albumin/Globulin Ratio Arterial Blood Potassium Venous Blood Potassium Urine Color Urine Clarity Urine pH Ur Specific [place] Urine Protein Urine Glucose (UA) Urine Ketones Urine Blood Urine Nitrate Urine Bilirubin Urine Urobilinogen Ur Leukocyte Esterase Urine WBC (Auto) Urine RBC (Auto) Ur Squamous Epith Cells Urine Bacteria 08/17/17 08/17/17 08/17/17 20:04 20:05 21:05 WBC RBC Hgb Hct MCV MCH MCHC RDW Plt Count MPV Neut % (Auto) Lymph % (Auto) [place] % (Auto) Eos % (Auto) Baso % (Auto) Neut # (Auto) Lymph # (Auto) [place] # (Auto) Eos # (Auto) Baso # (Auto) Neutrophils % (Manual) Band Neutrophils % Lymphocytes % (Manual) Monocytes % (Manual) Myelocytes % Platelet Estimate Basophilic Stippling Anisocytosis (manual) PT INR APTT Puncture Site Rra pCO2 84 H* pO2 49 60 L HCO3 39.0 H ABG pH 7.35 ABG Total CO2 49.0 H ABG O2 Saturation 95.3 ABG Base Excess 18.1 H ABG Hemoglobin 8.6 L ABG Carboxyhemoglobin 3.1 H POC ABG HHb (Measured) 4.5 ABG Methemoglobin 1.2 [place] Test Pos ABG Potassium VBG pH 7.32 VBG pCO2 91 H* VBG HCO3 37.0 VBG Total CO2 49.7 H VBG O2 Sat (Calc) 90.2 H VBG Base Excess 16.1 H VBG Potassium 3.8 A-a O2 Difference 120.0 Respiratory Index 2.0 Hgb O2 Saturation 91.2 L Glucose 170 H Lactate 0.8 Vent Mode FiO2 21.0 40.0 Inspiratory BiPAP 14 Expiratory BiPAP 7 Crit Value Called To Dr timothy Mendenhall mm Crit Value Called By Matt sanidad Matt sanidad Crit Value Read Back Y Y Blood Gas Notified Time 2012 2113 Sodium 140 142.0 Potassium 4.0 Chloride 93 L 102.0 Carbon Dioxide 39 H Anion Gap 12 BUN 15 Creatinine 0.7 Est GFR ( Amer) > 60 Est GFR (Non-Af Amer) > 60 POC Glucose (mg/dL) Random Glucose 162 H Calcium 8.7 Phosphorus Magnesium Total Bilirubin 0.4 AST 19 ALT 11 Alkaline Phosphatase 101 Total Creatine Kinase 20 L CK-MB (Mass) 0.62 Troponin I < 0.0120 NT-Pro-B Natriuret Pep 9900 H Total Protein 6.9 Albumin 3.2 L D Globulin 3.7 Albumin/Globulin Ratio 0.9 L Arterial Blood Potassium Venous Blood Potassium 3.8 Urine Color Urine Clarity Urine pH Ur Specific [place] Urine Protein Urine Glucose (UA) Urine Ketones Urine Blood Urine Nitrate Urine Bilirubin Urine Urobilinogen Ur Leukocyte Esterase Urine WBC (Auto) Urine RBC (Auto) Ur Squamous Epith Cells Urine Bacteria 08/17/17 08/18/17 08/18/17 23:00 01:00 06:34 WBC 17.5 H D RBC 3.45 L Hgb 9.8 L Hct 30.2 L MCV 87.7 MCH 28.5 MCHC 32.4 L RDW 18.6 H Plt Count 354 MPV 8.6 Neut % (Auto) 93.8 H Lymph % (Auto) 3.3 L [place] % (Auto) 2.6 Eos % (Auto) 0.0 Baso % (Auto) 0.3 Neut # (Auto) 16.5 H Lymph # (Auto) 0.6 L [place] # (Auto) 0.4 Eos # (Auto) 0.0 Baso # (Auto) 0.0 Neutrophils % (Manual) 83 H Band Neutrophils % 8 H Lymphocytes % (Manual) 6 L Monocytes % (Manual) 2 Myelocytes % 1 H Platelet Estimate Normal Basophilic Stippling Slight Anisocytosis (manual) Moderate PT INR APTT Puncture Site Rr pCO2 79 H* pO2 62 L HCO3 36.6 H ABG pH 7.36 ABG Total CO2 47.0 H ABG O2 Saturation 95.9 ABG Base Excess 15.2 H ABG Hemoglobin ABG Carboxyhemoglobin POC ABG HHb (Measured) ABG Methemoglobin [place] Test Pos ABG Potassium 3.8 VBG pH VBG pCO2 VBG HCO3 VBG Total CO2 VBG O2 Sat (Calc) VBG Base Excess VBG Potassium A-a O2 Difference 124.0 Respiratory Index 2.0 Hgb O2 Saturation Glucose 155 H Lactate 0.7 Vent Mode Bipap FiO2 40.0 Inspiratory BiPAP 18 Expiratory BiPAP 9 Crit Value Called To Dr morrell Crit Value Called By Viviana johnson rt Crit Value Read Back Y Blood Gas Notified Time 138 Sodium 143.0 Potassium Chloride 102.0 Carbon Dioxide Anion Gap BUN Creatinine Est GFR ( Amer) Est GFR (Non-Af Amer) POC Glucose (mg/dL) Random Glucose Calcium Phosphorus Magnesium Total Bilirubin AST ALT Alkaline Phosphatase Total Creatine Kinase CK-MB (Mass) Troponin I NT-Pro-B Natriuret Pep Total Protein Albumin Globulin Albumin/Globulin Ratio Arterial Blood Potassium 3.8 Venous Blood Potassium Urine Color Yellow Urine Clarity Hazy Urine pH 5.0 Ur Specific [place] 1.008 Urine Protein Negative Urine Glucose (UA) Normal Urine Ketones Negative Urine Blood Negative Urine Nitrate Negative Urine Bilirubin Negative Urine Urobilinogen Normal Ur Leukocyte Esterase 1+ H Urine WBC (Auto) 11 H Urine RBC (Auto) 3 Ur Squamous Epith Cells < 1 Urine Bacteria Few H 08/18/17 08/18/17 06:34 07:40 WBC RBC Hgb Hct MCV MCH MCHC RDW Plt Count MPV Neut % (Auto) Lymph % (Auto) [place] % (Auto) Eos % (Auto) Baso % (Auto) Neut # (Auto) Lymph # (Auto) [place] # (Auto) Eos # (Auto) Baso # (Auto) Neutrophils % (Manual) Band Neutrophils % Lymphocytes % (Manual) Monocytes % (Manual) Myelocytes % Platelet Estimate Basophilic Stippling Anisocytosis (manual) PT INR APTT Puncture Site pCO2 pO2 HCO3 ABG pH ABG Total CO2 ABG O2 Saturation ABG Base Excess ABG Hemoglobin ABG Carboxyhemoglobin POC ABG HHb (Measured) ABG Methemoglobin [place] Test ABG Potassium VBG pH VBG pCO2 VBG HCO3 VBG Total CO2 VBG O2 Sat (Calc) VBG Base Excess VBG Potassium A-a O2 Difference Respiratory Index Hgb O2 Saturation Glucose Lactate Vent Mode FiO2 Inspiratory BiPAP Expiratory BiPAP Crit Value Called To Crit Value Called By Crit Value Read Back Blood Gas Notified Time Sodium 146 Potassium 4.4 Chloride 91 L Carbon Dioxide 40 H* Anion Gap 19 BUN 16 Creatinine 0.8 Est GFR ( Amer) > 60 Est GFR (Non-Af Amer) > 60 POC Glucose (mg/dL) 184 H Random Glucose 185 H Calcium 8.8 Phosphorus 4.3 Magnesium 1.7 Total Bilirubin 0.6 AST 20 ALT 17 Alkaline Phosphatase 116 Total Creatine Kinase CK-MB (Mass) Troponin I NT-Pro-B Natriuret Pep Total Protein 7.3 Albumin 3.3 L Globulin 4.0 H Albumin/Globulin Ratio 0.8 L Arterial Blood Potassium Venous Blood Potassium Urine Color Urine Clarity Urine pH Ur Specific [place] Urine Protein Urine Glucose (UA) Urine Ketones Urine Blood Urine Nitrate Urine Bilirubin Urine Urobilinogen Ur Leukocyte Esterase Urine WBC (Auto) Urine RBC (Auto) Ur Squamous Epith Cells Urine Bacteria Assessment & Plan (1) Compensated respiratory acidosis Status: Acute (2) CHF exacerbation Status: Acute (3) COPD exacerbation Status: Acute (4) CKD (chronic kidney disease) stage 2, GFR 60-89 ml/min Status: Acute (5) Respiratory distress Status: Acute - Assessment and Plan (Free Text) Plan: respiratory acidosis compensated small dose lasix for CHF component follow lytes closely
--- NOTE | 2017-08-18 11:24 | RAD ---
Chest x-ray single frontal view History: Dyspnea. Comparison: 07/07/2017 Findings: Moderate loculated left and small loculated right pleural effusion. Moderate to severe venous congestion. Confluent nodular opacity seen in the left mid to lower lung zone and right hilar region. Biapical pleural thickening with upper lobe granulomatous changes. Cardiomegaly. Calcification at the aortic knob. Degenerative changes in the spine and shoulders. Scattered nodular densities in both lung sargent. Impression: Moderate loculated left and small loculated right pleural effusion. Moderate to severe venous congestion. Confluent nodular opacity seen in the left mid to lower lung zone and right hilar region. Biapical pleural thickening with upper lobe granulomatous changes. Calcification at the aortic knob. Degenerative changes in the spine and shoulders. Cardiomegaly. Scattered nodular densities in both lung sargent.
--- NOTE | 2017-08-18 11:56 | CARD ---
APPROVED REPORT EKG Measurement Heart [id number] <Conclusion> Sinus rhythm with premature atrial complexes Low voltage QRS Cannot rule out Anterior infarct, age undetermined Abnormal ECG
[2017-08-18 12:13] LABS: ARTERIAL BLOOD GAS HCO3 37.8 mmol/L (21-28); ARTERIAL BLOOD GAS HEMOGLOBIN 9.7 g/dL (11.7-17.4); ARTERIAL BLOOD GAS O2 SAT 98.1 % (95-98); ARTERIAL BLOOD GAS PCO2 71 mm/Hg (35-45); ARTERIAL BLOOD GAS PO2 78 mm/Hg (80-100); ARTERIAL BLOOD GAS TCO2 46.2 mmol/L (22-28)
--- NOTE | 2017-08-18 13:42 | CP.PCM.HP ---
Past Patient History - Past Medical History & Family History Past Medical History?: Yes - Past Social History Smoking Status: Never Smoked Chewing Tobacco Use: No Cigar Use: No Alcohol: None Home Situation {Lives}: Skilled Nursing - CARDIAC Hx Congestive Heart Failure: Yes Hx Hypertension: Yes - PULMONARY Hx Chronic Obstructive Pulmonary Disease (COPD): Yes - ENDOCRINE/METABOLIC Hx Endocrine Disorders: Yes Hx Diabetes Mellitus Type 2: Yes - MUSCULOSKELETAL/RHEUMATOLOGICAL Hx Musculoskeletal Disorders: Yes Hx Falls: No Other/Comment: Hx of left leg / left hip FX as per patient - GASTROINTESTINAL Hx Gastrointestinal Disorders: Yes Hx Colostomy: Yes - PSYCHIATRIC Hx Substance Use: No - SURGICAL HISTORY Hx Surgeries: Yes Other/Comment: ? left hip FX/ surgery. Left sided colostomy - ANESTHESIA Hx Anesthesia: No Meds Allergies/Adverse Reactions: Allergies Allergy/AdvReac Type Severity Reaction Status Date / Time No Known Allergies Allergy Verified 08/17/17 18:48 Physical Exam - Constitutional Appears: Well - Head Exam Head Exam: ATRAUMATIC, NORMAL INSPECTION, NORMOCEPHALIC - Eye Exam Eye Exam: EOMI, Normal appearance, PERRL Pupil Exam: NORMAL ACCOMODATION, PERRL - ENT Exam ENT Exam: Mucous Membranes Moist, Normal Exam - Neck Exam Neck exam: Positive for: Normal Inspection - Respiratory Exam Respiratory Exam: Decreased Breath Sounds - Cardiovascular Exam Cardiovascular Exam: REGULAR RHYTHM, +S1, +S2 - GI/Abdominal Exam GI & Abdominal Exam: Diminished Bowel Sounds, Soft - Rectal Exam Rectal Exam: Deferred Results - Vital Signs Recent Vital Signs: Last Vital Signs Temp 98.6 F 08/18/17 12:00 Pulse 68 08/18/17 13:33 Resp 19 08/18/17 11:02 BP 123/67 08/18/17 12:00 Pulse Ox 96 08/18/17 12:01 - Labs Result Diagrams: 08/18/17 06:34 08/18/17 06:34 Labs: Laboratory Results - last 24 hr 08/17/17 08/17/17 08/17/17 19:29 20:04 20:04 WBC 8.4 D RBC 3.16 L Hgb 8.9 L Hct 27.6 L MCV 87.2 MCH 28.3 MCHC 32.4 L RDW 18.5 H Plt Count 354 D MPV 7.8 Neut % (Auto) 68.6 Lymph % (Auto) 17.0 L [place] % (Auto) 13.4 H Eos % (Auto) 0.2 Baso % (Auto) 0.8 Neut # (Auto) 5.8 Lymph # (Auto) 1.4 [place] # (Auto) 1.1 H Eos # (Auto) 0.0 Baso # (Auto) 0.1 Neutrophils % (Manual) Band Neutrophils % Lymphocytes % (Manual) Monocytes % (Manual) Myelocytes % Platelet Estimate Basophilic Stippling Anisocytosis (manual) PT 13.2 H INR 1.2 APTT 33 Puncture Site pCO2 pO2 HCO3 ABG pH ABG Total CO2 ABG O2 Saturation ABG Base Excess ABG Hemoglobin ABG Carboxyhemoglobin POC ABG HHb (Measured) ABG Methemoglobin [place] Test ABG Potassium VBG pH VBG pCO2 VBG HCO3 VBG Total CO2 VBG O2 Sat (Calc) VBG Base Excess VBG Potassium A-a O2 Difference Respiratory Index Hgb O2 Saturation Glucose Lactate Vent Mode FiO2 Inspiratory BiPAP Expiratory BiPAP Crit Value Called To Crit Value Called By Crit Value Read Back Blood Gas Notified Time Sodium Potassium Chloride Carbon Dioxide Anion Gap BUN Creatinine Est GFR ( Amer) Est GFR (Non-Af Amer) POC Glucose (mg/dL) 172 H Random Glucose Calcium Phosphorus Magnesium Total Bilirubin AST ALT Alkaline Phosphatase Total Creatine Kinase CK-MB (Mass) Troponin I NT-Pro-B Natriuret Pep Total Protein Albumin Globulin Albumin/Globulin Ratio Procalcitonin Arterial Blood Potassium Venous Blood Potassium Urine Color Urine Clarity Urine pH Ur Specific [place] Urine Protein Urine Glucose (UA) Urine Ketones Urine Blood Urine Nitrate Urine Bilirubin Urine Urobilinogen Ur Leukocyte Esterase Urine WBC (Auto) Urine RBC (Auto) Ur Squamous Epith Cells Urine Bacteria 08/17/17 08/17/17 08/17/17 20:04 20:05 21:05 WBC RBC Hgb Hct MCV MCH MCHC RDW Plt Count MPV Neut % (Auto) Lymph % (Auto) [place] % (Auto) Eos % (Auto) Baso % (Auto) Neut # (Auto) Lymph # (Auto) [place] # (Auto) Eos # (Auto) Baso # (Auto) Neutrophils % (Manual) Band Neutrophils % Lymphocytes % (Manual) Monocytes % (Manual) Myelocytes % Platelet Estimate Basophilic Stippling Anisocytosis (manual) PT INR APTT Puncture Site Rra pCO2 84 H* pO2 49 60 L HCO3 39.0 H ABG pH 7.35 ABG Total CO2 49.0 H ABG O2 Saturation 95.3 ABG Base Excess 18.1 H ABG Hemoglobin 8.6 L ABG Carboxyhemoglobin 3.1 H POC ABG HHb (Measured) 4.5 ABG Methemoglobin 1.2 [place] Test Pos ABG Potassium VBG pH 7.32 VBG pCO2 91 H* VBG HCO3 37.0 VBG Total CO2 49.7 H VBG O2 Sat (Calc) 90.2 H VBG Base Excess 16.1 H VBG Potassium 3.8 A-a O2 Difference 120.0 Respiratory Index 2.0 Hgb O2 Saturation 91.2 L Glucose 170 H Lactate 0.8 Vent Mode FiO2 21.0 40.0 Inspiratory BiPAP 14 Expiratory BiPAP 7 Crit Value Called To Dr timothy Mendenhall mm Crit Value Called By Matt sanidad Matt sanidad Crit Value Read Back Y Y Blood Gas Notified Time 2012 2113 Sodium 140 142.0 Potassium 4.0 Chloride 93 L 102.0 Carbon Dioxide 39 H Anion Gap 12 BUN 15 Creatinine 0.7 Est GFR ( Amer) > 60 Est GFR (Non-Af Amer) > 60 POC Glucose (mg/dL) Random Glucose 162 H Calcium 8.7 Phosphorus Magnesium Total Bilirubin 0.4 AST 19 ALT 11 Alkaline Phosphatase 101 Total Creatine Kinase 20 L CK-MB (Mass) 0.62 Troponin I < 0.0120 NT-Pro-B Natriuret Pep 9900 H Total Protein 6.9 Albumin 3.2 L D Globulin 3.7 Albumin/Globulin Ratio 0.9 L Procalcitonin Arterial Blood Potassium Venous Blood Potassium 3.8 Urine Color Urine Clarity Urine pH Ur Specific [place] Urine Protein Urine Glucose (UA) Urine Ketones Urine Blood Urine Nitrate Urine Bilirubin Urine Urobilinogen Ur Leukocyte Esterase Urine WBC (Auto) Urine RBC (Auto) Ur Squamous Epith Cells Urine Bacteria 08/17/17 08/18/17 08/18/17 23:00 01:00 06:34 WBC RBC Hgb Hct MCV MCH MCHC RDW Plt Count MPV Neut % (Auto) Lymph % (Auto) [place] % (Auto) Eos % (Auto) Baso % (Auto) Neut # (Auto) Lymph # (Auto) [place] # (Auto) Eos # (Auto) Baso # (Auto) Neutrophils % (Manual) Band Neutrophils % Lymphocytes % (Manual) Monocytes % (Manual) Myelocytes % Platelet Estimate Basophilic Stippling Anisocytosis (manual) PT INR APTT Puncture Site Rr pCO2 79 H* pO2 62 L HCO3 36.6 H ABG pH 7.36 ABG Total CO2 47.0 H ABG O2 Saturation 95.9 ABG Base Excess 15.2 H ABG Hemoglobin ABG Carboxyhemoglobin POC ABG HHb (Measured) ABG Methemoglobin [place] Test Pos ABG Potassium 3.8 VBG pH VBG pCO2 VBG HCO3 VBG Total CO2 VBG O2 Sat (Calc) VBG Base Excess VBG Potassium A-a O2 Difference 124.0 Respiratory Index 2.0 Hgb O2 Saturation Glucose 155 H Lactate 0.7 Vent Mode Bipap FiO2 40.0 Inspiratory BiPAP 18 Expiratory BiPAP 9 Crit Value Called To Dr morrell Crit Value Called By Viviana johnson rt Crit Value Read Back Y Blood Gas Notified Time 138 Sodium 143.0 Potassium Chloride 102.0 Carbon Dioxide Anion Gap BUN Creatinine Est GFR ( Amer) Est GFR (Non-Af Amer) POC Glucose (mg/dL) Random Glucose Calcium Phosphorus Magnesium Total Bilirubin AST ALT Alkaline Phosphatase Total Creatine Kinase CK-MB (Mass) Troponin I NT-Pro-B Natriuret Pep Total Protein Albumin Globulin Albumin/Globulin Ratio Procalcitonin 0.09 L Arterial Blood Potassium 3.8 Venous Blood Potassium Urine Color Yellow Urine Clarity Hazy Urine pH 5.0 Ur Specific [place] 1.008 Urine Protein Negative Urine Glucose (UA) Normal Urine Ketones Negative Urine Blood Negative Urine Nitrate Negative Urine Bilirubin Negative Urine Urobilinogen Normal Ur Leukocyte Esterase 1+ H Urine WBC (Auto) 11 H Urine RBC (Auto) 3 Ur Squamous Epith Cells < 1 Urine Bacteria Few H 08/18/17 08/18/17 08/18/17 06:34 06:34 07:40 WBC 17.5 H D RBC 3.45 L Hgb 9.8 L Hct 30.2 L MCV 87.7 MCH 28.5 MCHC 32.4 L RDW 18.6 H Plt Count 354 MPV 8.6 Neut % (Auto) 93.8 H Lymph % (Auto) 3.3 L [place] % (Auto) 2.6 Eos % (Auto) 0.0 Baso % (Auto) 0.3 Neut # (Auto) 16.5 H Lymph # (Auto) 0.6 L [place] # (Auto) 0.4 Eos # (Auto) 0.0 Baso # (Auto) 0.0 Neutrophils % (Manual) 83 H Band Neutrophils % 8 H Lymphocytes % (Manual) 6 L Monocytes % (Manual) 2 Myelocytes % 1 H Platelet Estimate Normal Basophilic Stippling Slight Anisocytosis (manual) Moderate PT INR APTT Puncture Site pCO2 pO2 HCO3 ABG pH ABG Total CO2 ABG O2 Saturation ABG Base Excess ABG Hemoglobin ABG Carboxyhemoglobin POC ABG HHb (Measured) ABG Methemoglobin [place] Test ABG Potassium VBG pH VBG pCO2 VBG HCO3 VBG Total CO2 VBG O2 Sat (Calc) VBG Base Excess VBG Potassium A-a O2 Difference Respiratory Index Hgb O2 Saturation Glucose Lactate Vent Mode FiO2 Inspiratory BiPAP Expiratory BiPAP Crit Value Called To Crit Value Called By Crit Value Read Back Blood Gas Notified Time Sodium 146 Potassium 4.4 Chloride 91 L Carbon Dioxide 40 H* Anion Gap 19 BUN 16 Creatinine 0.8 Est GFR ( Amer) > 60 Est GFR (Non-Af Amer) > 60 POC Glucose (mg/dL) 184 H Random Glucose 185 H Calcium 8.8 Phosphorus 4.3 Magnesium 1.7 Total Bilirubin 0.6 AST 20 ALT 17 Alkaline Phosphatase 116 Total Creatine Kinase CK-MB (Mass) Troponin I NT-Pro-B Natriuret Pep Total Protein 7.3 Albumin 3.3 L Globulin 4.0 H Albumin/Globulin Ratio 0.8 L Procalcitonin Arterial Blood Potassium Venous Blood Potassium Urine Color Urine Clarity Urine pH Ur Specific [place] Urine Protein Urine Glucose (UA) Urine Ketones Urine Blood Urine Nitrate Urine Bilirubin Urine Urobilinogen Ur Leukocyte Esterase Urine WBC (Auto) Urine RBC (Auto) Ur Squamous Epith Cells Urine Bacteria 08/18/17 08/18/17 11:39 12:05 WBC RBC Hgb Hct MCV MCH MCHC RDW Plt Count MPV Neut % (Auto) Lymph % (Auto) [place] % (Auto) Eos % (Auto) Baso % (Auto) Neut # (Auto) Lymph # (Auto) [place] # (Auto) Eos # (Auto) Baso # (Auto) Neutrophils % (Manual) Band Neutrophils % Lymphocytes % (Manual) Monocytes % (Manual) Myelocytes % Platelet Estimate Basophilic Stippling Anisocytosis (manual) PT INR APTT Puncture Site Lb pCO2 71 H* pO2 78 L HCO3 37.8 H ABG pH 7.40 ABG Total CO2 46.2 H ABG O2 Saturation 98.1 H ABG Base Excess 16.6 H ABG Hemoglobin 9.7 L ABG Carboxyhemoglobin 2.6 H POC ABG HHb (Measured) 1.8 ABG Methemoglobin 0.8 [place] Test Na ABG Potassium VBG pH VBG pCO2 VBG HCO3 VBG Total CO2 VBG O2 Sat (Calc) VBG Base Excess VBG Potassium A-a O2 Difference 83.0 Respiratory Index 1.1 Hgb O2 Saturation 94.8 L Glucose Lactate Vent Mode FiO2 35.0 Inspiratory BiPAP 18 Expiratory BiPAP 9 Crit Value Called To Dr kwan Crit Value Called By Stepan lópez [facility] Crit Value Read Back Y Blood Gas Notified Time 1210 Sodium Potassium Chloride Carbon Dioxide Anion Gap BUN Creatinine Est GFR ( Amer) Est GFR (Non-Af Amer) POC Glucose (mg/dL) 167 H Random Glucose Calcium Phosphorus Magnesium Total Bilirubin AST ALT Alkaline Phosphatase Total Creatine Kinase CK-MB (Mass) Troponin I NT-Pro-B Natriuret Pep Total Protein Albumin Globulin Albumin/Globulin Ratio Procalcitonin Arterial Blood Potassium Venous Blood Potassium Urine Color Urine Clarity Urine pH Ur Specific [place] Urine Protein Urine Glucose (UA) Urine Ketones Urine Blood Urine Nitrate Urine Bilirubin Urine Urobilinogen Ur Leukocyte Esterase Urine WBC (Auto) Urine RBC (Auto) Ur Squamous Epith Cells Urine Bacteria
--- NOTE | 2017-08-18 15:29 | CP.PCM.CON ---
History of Present Illness - History of Present Illness History of Present Illness: Patient seen and examined at bedside. 72F with PMHx of DM, recent ESTEVAN, hx of CO2 retention and diverting colostomy for sacral decubiti [facility] c/ o of SOB. Pt [facility] lasix at the [facility]. Patient is typically on [place] 2L O2 at the jail. In the ER, the patient had a low grade fever, was lethargic on bipap and had CO2 in the 80s with b/l infiltrates on CXR. PMH: DM, HTN, HLD, COPD, ESTEVAN with recent hemodialysis PSH: Diverting colostomy Allergies: NKDA SH: senior care resident. No hx of recent smoking, alcohol or dug use Assessment and Plan: 1. Hypercapneic respiratory failure - ABG 08/18: 7.36/ 79/ 62/ 40 - BiPAP 2. Fluid overload - CXR 08/17: - CT Chest/abd/pelv 08/18: - Lasix 3. Fever of unknown origin, possible pneumonia vs. UTI - TMax 100.2 - 08/18: WBC 17.5, 8 bands - UA 08/17: 1+ LE, 11 WBC, few bacteria - rocephin/ zithromax - Blood and urine cx results pending Past Patient History - Past Medical History & Family History Past Medical History?: Yes - Past Social History Smoking Status: Never Smoked Chewing Tobacco Use: No Cigar Use: No Alcohol: None Home Situation {Lives}: Detention - CARDIAC Hx Congestive Heart Failure: Yes Hx Hypertension: Yes - PULMONARY Hx Chronic Obstructive Pulmonary Disease (COPD): Yes - ENDOCRINE/METABOLIC Hx Endocrine Disorders: Yes Hx Diabetes Mellitus Type 2: Yes - MUSCULOSKELETAL/RHEUMATOLOGICAL Hx Musculoskeletal Disorders: Yes Hx Falls: No Other/Comment: Hx of left leg / left hip FX as per patient - GASTROINTESTINAL Hx Gastrointestinal Disorders: Yes Hx Colostomy: Yes - PSYCHIATRIC Hx Substance Use: No - SURGICAL HISTORY Hx Surgeries: Yes Other/Comment: ? left hip FX/ surgery. Left sided colostomy - ANESTHESIA Hx Anesthesia: No Meds Allergies/Adverse Reactions: Allergies Allergy/AdvReac Type Severity Reaction Status Date / Time No Known Allergies Allergy Verified 08/17/17 18:48 - Medications Medications: Current Medications Acetaminophen (Tylenol 325mg Tab) 650 mg PO Q6 PRN PRN Reason: Fever and pain Albuterol/Ipratropium (Duoneb 3 Mg/0.5 Mg (3 Ml) Ud) 3 ml INH RQ4 COUNT INCLUDES THE [facility] Last Admin: 08/18/17 07:30 Dose: 3 ml Amlodipine Besylate (Norvasc) 5 mg PO DAILY COUNT INCLUDES THE [facility] Last Admin: 08/18/17 10:00 Dose: Not Given Aspirin (Aspirin Chewable) 81 mg PO DAILY COUNT INCLUDES THE [facility] Last Admin: 08/18/17 10:00 Dose: Not Given Docusate Sodium (Colace) 200 mg PO DAILY COUNT INCLUDES THE [facility] Last Admin: 08/18/17 10:00 Dose: Not Given Famotidine (Pepcid) 20 mg IVP DAILY COUNT INCLUDES THE [facility] Last Admin: 08/18/17 10:50 Dose: 20 mg Ferrous Sulfate (Feosol) 325 mg PO DAILY COUNT INCLUDES THE [facility] Last Admin: 08/18/17 10:00 Dose: Not Given Furosemide (Lasix) 20 mg IVP DAILY COUNT INCLUDES THE [facility] Heparin Sodium (Porcine) (Heparin) 5,000 units SC Q8 COUNT INCLUDES THE [facility] Last Admin: 08/18/17 13:52 Dose: 5,000 units Azithromycin 500 mg/ Sodium (Chloride) 250 mls @ 250 mls/hr IVPB DAILY COUNT INCLUDES THE [facility] PRN Reason: Protocol Last Admin: 08/18/17 10:36 Dose: 250 mls/hr Ceftriaxone Sodium 1 gm/ (Sodium Chloride) 100 mls @ 100 mls/hr IVPB DAILY COUNT INCLUDES THE [facility] PRN Reason: Protocol Last Admin: 08/18/17 09:17 Dose: 100 mls/hr Insulin Human Regular (Novolin R) 0 unit SC ACHS COUNT INCLUDES THE [facility] PRN Reason: Protocol Last Admin: 08/18/17 11:30 Dose: Not Given Methylprednisolone (Solu-Medrol) 40 mg IVP Q8 COUNT INCLUDES THE [facility] Last Admin: 08/18/17 13:52 Dose: 40 mg Metoprolol Succinate (Toprol Xl) 25 mg PO DAILY COUNT INCLUDES THE [facility] Last Admin: 08/18/17 10:00 Dose: Not Given Multivitamins (Hexavitamin) 1 tab PO DAILY COUNT INCLUDES THE [facility] Last Admin: 08/18/17 10:00 Dose: Not Given Pneumococcal Polyvalent Vaccine (Pneumovax 23 Vaccine) 0.5 ml SC .ONCE ONE Stop: 08/21/17 10:01 Rosuvastatin Calcium (Crestor) [address] [facility] Results - Vital Signs Recent Vital Signs: Last Vital Signs Temp 98.6 F 08/18/17 12:00 Pulse 60 08/18/17 15:00 Resp 25 H 08/18/17 15:00 BP 133/60 08/18/17 15:00 Pulse Ox 98 08/18/17 15:00 - Labs Result Diagrams: 08/18/17 06:34 08/18/17 06:34 Labs: Laboratory Results - last 24 hr 08/17/17 08/17/17 08/17/17 19:29 20:04 20:04 WBC 8.4 D RBC 3.16 L Hgb 8.9 L Hct 27.6 L MCV 87.2 MCH 28.3 MCHC 32.4 L RDW 18.5 H Plt Count 354 D MPV 7.8 Neut % (Auto) 68.6 Lymph % (Auto) 17.0 L Mcduffie % (Auto) 13.4 H Eos % (Auto) 0.2 Baso % (Auto) 0.8 Neut # (Auto) 5.8 Lymph # (Auto) 1.4 Mcduffie # (Auto) 1.1 H Eos # (Auto) 0.0 Baso # (Auto) 0.1 Neutrophils % (Manual) Band Neutrophils % Lymphocytes % (Manual) Monocytes % (Manual) Myelocytes % Platelet Estimate Basophilic Stippling Anisocytosis (manual) PT 13.2 H INR 1.2 APTT 33 Puncture Site pCO2 pO2 HCO3 ABG pH ABG Total CO2 ABG O2 Saturation ABG Base Excess ABG Hemoglobin ABG Carboxyhemoglobin POC ABG HHb (Measured) ABG Methemoglobin Devon Test ABG Potassium VBG pH VBG pCO2 VBG HCO3 VBG Total CO2 VBG O2 Sat (Calc) VBG Base Excess VBG Potassium A-a O2 Difference Respiratory Index Hgb O2 Saturation Glucose Lactate Vent Mode FiO2 Inspiratory BiPAP Expiratory BiPAP Crit Value Called To Crit Value Called By Crit Value Read Back Blood Gas Notified Time Sodium Potassium Chloride Carbon Dioxide Anion Gap BUN Creatinine Est GFR ( Amer) Est GFR (Non-Af Amer) POC Glucose (mg/dL) 172 H Random Glucose Calcium Phosphorus Magnesium Total Bilirubin AST ALT Alkaline Phosphatase Total Creatine Kinase CK-MB (Mass) Troponin I NT-Pro-B Natriuret Pep Total Protein Albumin Globulin Albumin/Globulin Ratio Procalcitonin Arterial Blood Potassium Venous Blood Potassium Urine Color Urine Clarity Urine pH Ur Specific Jean Urine Protein Urine Glucose (UA) Urine Ketones Urine Blood Urine Nitrate Urine Bilirubin Urine Urobilinogen Ur Leukocyte Esterase Urine WBC (Auto) Urine RBC (Auto) Ur Squamous Epith Cells Urine Bacteria 08/17/17 08/17/17 08/17/17 20:04 20:05 21:05 WBC RBC Hgb Hct MCV MCH MCHC RDW Plt Count MPV Neut % (Auto) Lymph % (Auto) Mcduffie % (Auto) Eos % (Auto) Baso % (Auto) Neut # (Auto) Lymph # (Auto) Mcduffie # (Auto) Eos # (Auto) Baso # (Auto) Neutrophils % (Manual) Band Neutrophils % Lymphocytes % (Manual) Monocytes % (Manual) Myelocytes % Platelet Estimate Basophilic Stippling Anisocytosis (manual) PT INR APTT Puncture Site Rra pCO2 84 H* pO2 49 60 L HCO3 39.0 H ABG pH 7.35 ABG Total CO2 49.0 H ABG O2 Saturation 95.3 ABG Base Excess 18.1 H ABG Hemoglobin 8.6 L ABG Carboxyhemoglobin 3.1 H POC ABG HHb (Measured) 4.5 ABG Methemoglobin 1.2 Devon Test Pos ABG Potassium VBG pH 7.32 VBG pCO2 91 H* VBG HCO3 37.0 VBG Total CO2 49.7 H VBG O2 Sat (Calc) 90.2 H VBG Base Excess 16.1 H VBG Potassium 3.8 A-a O2 Difference 120.0 Respiratory Index 2.0 Hgb O2 Saturation 91.2 L Glucose 170 H Lactate 0.8 Vent Mode FiO2 21.0 40.0 Inspiratory BiPAP 14 Expiratory BiPAP 7 Crit Value Called To Dr timothy Mendenhall mm Crit Value Called By Matt sanidad [email or web address] Crit Value Read Back Y Y Blood Gas Notified Time 2012 2113 Sodium 140 142.0 Potassium 4.0 Chloride 93 L 102.0 Carbon Dioxide 39 H Anion Gap 12 BUN 15 Creatinine 0.7 Est GFR ( Amer) > 60 Est GFR (Non-Af Amer) > 60 POC Glucose (mg/dL) Random Glucose 162 H Calcium 8.7 Phosphorus Magnesium Total Bilirubin 0.4 AST 19 ALT 11 Alkaline Phosphatase 101 Total Creatine Kinase 20 L CK-MB (Mass) 0.62 Troponin I < 0.0120 NT-Pro-B Natriuret Pep 9900 H Total Protein 6.9 Albumin 3.2 L D Globulin 3.7 Albumin/Globulin Ratio 0.9 L Procalcitonin Arterial Blood Potassium Venous Blood Potassium 3.8 Urine Color Urine Clarity Urine pH Ur Specific Jean Urine Protein Urine Glucose (UA) Urine Ketones Urine Blood Urine Nitrate Urine Bilirubin Urine Urobilinogen Ur Leukocyte Esterase Urine WBC (Auto) Urine RBC (Auto) Ur Squamous Epith Cells Urine Bacteria 08/17/17 08/18/17 08/18/17 23:00 01:00 06:34 WBC RBC Hgb Hct MCV MCH MCHC RDW Plt Count MPV Neut % (Auto) Lymph % (Auto) Mcduffie % (Auto) Eos % (Auto) Baso % (Auto) Neut # (Auto) Lymph # (Auto) Mcduffie # (Auto) Eos # (Auto) Baso # (Auto) Neutrophils % (Manual) Band Neutrophils % Lymphocytes % (Manual) Monocytes % (Manual) Myelocytes % Platelet Estimate Basophilic Stippling Anisocytosis (manual) PT INR APTT Puncture Site Rr pCO2 79 H* pO2 62 L HCO3 36.6 H ABG pH 7.36 ABG Total CO2 47.0 H ABG O2 Saturation 95.9 ABG Base Excess 15.2 H ABG Hemoglobin ABG Carboxyhemoglobin POC ABG HHb (Measured) ABG Methemoglobin Devon Test Pos ABG Potassium 3.8 VBG pH VBG pCO2 VBG HCO3 VBG Total CO2 VBG O2 Sat (Calc) VBG Base Excess VBG Potassium A-a O2 Difference 124.0 Respiratory Index 2.0 Hgb O2 Saturation Glucose 155 H Lactate 0.7 Vent Mode Bipap FiO2 40.0 Inspiratory BiPAP 18 Expiratory BiPAP 9 Crit Value Called To Dr morrell Crit Value Called By Viviana johnson rt Crit Value Read Back Y Blood Gas Notified Time 138 Sodium 143.0 Potassium Chloride 102.0 Carbon Dioxide Anion Gap BUN Creatinine Est GFR ( Amer) Est GFR (Non-Af Amer) POC Glucose (mg/dL) Random Glucose Calcium Phosphorus Magnesium Total Bilirubin AST ALT Alkaline Phosphatase Total Creatine Kinase CK-MB (Mass) Troponin I NT-Pro-B Natriuret Pep Total Protein Albumin Globulin Albumin/Globulin Ratio Procalcitonin 0.09 L Arterial Blood Potassium 3.8 Venous Blood Potassium Urine Color Yellow Urine Clarity Hazy Urine pH 5.0 Ur Specific Jean 1.008 Urine Protein Negative Urine Glucose (UA) Normal Urine Ketones Negative Urine Blood Negative Urine Nitrate Negative Urine Bilirubin Negative Urine Urobilinogen Normal Ur Leukocyte Esterase 1+ H Urine WBC (Auto) 11 H Urine RBC (Auto) 3 Ur Squamous Epith Cells < 1 Urine Bacteria Few H 08/18/17 08/18/17 08/18/17 06:34 06:34 07:40 WBC 17.5 H D RBC 3.45 L Hgb 9.8 L Hct 30.2 L MCV 87.7 MCH 28.5 MCHC 32.4 L RDW 18.6 H Plt Count 354 MPV 8.6 Neut % (Auto) 93.8 H Lymph % (Auto) 3.3 L Mcduffie % (Auto) 2.6 Eos % (Auto) 0.0 Baso % (Auto) 0.3 Neut # (Auto) 16.5 H Lymph # (Auto) 0.6 L Mcduffie # (Auto) 0.4 Eos # (Auto) 0.0 Baso # (Auto) 0.0 Neutrophils % (Manual) 83 H Band Neutrophils % 8 H Lymphocytes % (Manual) 6 L Monocytes % (Manual) 2 Myelocytes % 1 H Platelet Estimate Normal Basophilic Stippling Slight Anisocytosis (manual) Moderate PT INR APTT Puncture Site pCO2 pO2 HCO3 ABG pH ABG Total CO2 ABG O2 Saturation ABG Base Excess ABG Hemoglobin ABG Carboxyhemoglobin POC ABG HHb (Measured) ABG Methemoglobin Devon Test ABG Potassium VBG pH VBG pCO2 VBG HCO3 VBG Total CO2 VBG O2 Sat (Calc) VBG Base Excess VBG Potassium A-a O2 Difference Respiratory Index Hgb O2 Saturation Glucose Lactate Vent Mode FiO2 Inspiratory BiPAP Expiratory BiPAP Crit Value Called To Crit Value Called By Crit Value Read Back Blood Gas Notified Time Sodium 146 Potassium 4.4 Chloride 91 L Carbon Dioxide 40 H* Anion Gap 19 BUN 16 Creatinine 0.8 Est GFR ( Amer) > 60 Est GFR (Non-Af Amer) > 60 POC Glucose (mg/dL) 184 H Random Glucose 185 H Calcium 8.8 Phosphorus 4.3 Magnesium 1.7 Total Bilirubin 0.6 AST 20 ALT 17 Alkaline Phosphatase 116 Total Creatine Kinase CK-MB (Mass) Troponin I NT-Pro-B Natriuret Pep Total Protein 7.3 Albumin 3.3 L Globulin 4.0 H Albumin/Globulin Ratio 0.8 L Procalcitonin Arterial Blood Potassium Venous Blood Potassium Urine Color Urine Clarity Urine pH Ur Specific Jean Urine Protein Urine Glucose (UA) Urine Ketones Urine Blood Urine Nitrate Urine Bilirubin Urine Urobilinogen Ur Leukocyte Esterase Urine WBC (Auto) Urine RBC (Auto) Ur Squamous Epith Cells Urine Bacteria 08/18/17 08/18/17 11:39 12:05 WBC RBC Hgb Hct MCV MCH MCHC RDW Plt Count MPV Neut % (Auto) Lymph % (Auto) Mcduffie % (Auto) Eos % (Auto) Baso % (Auto) Neut # (Auto) Lymph # (Auto) Mcduffie # (Auto) Eos # (Auto) Baso # (Auto) Neutrophils % (Manual) Band Neutrophils % Lymphocytes % (Manual) Monocytes % (Manual) Myelocytes % Platelet Estimate Basophilic Stippling Anisocytosis (manual) PT INR APTT Puncture Site Lb pCO2 71 H* pO2 78 L HCO3 37.8 H ABG pH 7.40 ABG Total CO2 46.2 H ABG O2 Saturation 98.1 H ABG Base Excess 16.6 H ABG Hemoglobin 9.7 L ABG Carboxyhemoglobin 2.6 H POC ABG HHb (Measured) 1.8 ABG Methemoglobin 0.8 Devon Test Na ABG Potassium VBG pH VBG pCO2 VBG HCO3 VBG Total CO2 VBG O2 Sat (Calc) VBG Base Excess VBG Potassium A-a O2 Difference 83.0 Respiratory Index 1.1 Hgb O2 Saturation 94.8 L Glucose Lactate Vent Mode FiO2 35.0 Inspiratory BiPAP 18 Expiratory BiPAP 9 Crit Value Called To Dr kwan Crit Value Called By Stepan lópez [facility] Crit Value Read Back Y Blood Gas Notified Time 1210 Sodium Potassium Chloride Carbon Dioxide Anion Gap BUN Creatinine Est GFR ( Amer) Est GFR (Non-Af Amer) POC Glucose (mg/dL) 167 H Random Glucose Calcium Phosphorus Magnesium Total Bilirubin AST ALT Alkaline Phosphatase Total Creatine Kinase CK-MB (Mass) Troponin I NT-Pro-B Natriuret Pep Total Protein Albumin Globulin Albumin/Globulin Ratio Procalcitonin Arterial Blood Potassium Venous Blood Potassium Urine Color Urine Clarity Urine pH Ur Specific Jean Urine Protein Urine Glucose (UA) Urine Ketones Urine Blood Urine Nitrate Urine Bilirubin Urine Urobilinogen Ur Leukocyte Esterase Urine WBC (Auto) Urine RBC (Auto) Ur Squamous Epith Cells Urine Bacteria
--- NOTE | 2017-08-18 15:29 | CT ---
PROCEDURE: CT Chest, Abdomen and Pelvis with intravenous contrast HISTORY: abnormal CXR, sob COMPARISON: None. TECHNIQUE: 2.5 mm contiguous axial sections were acquired through the chest and pelvis both without and following intravenous contrast administration. Sagittal and coronal images were reformatted from the axial scans. IV dose administered: 100 mL Visipaque 320 Radiation dose: Total exam DLP = 4167.20 mGy-cm. This CT exam was performed using one or more of the following dose reduction techniques: Automated exposure control, adjustment of the mA and/or kV according to patient size, and/or use of iterative reconstruction technique. FINDINGS: CT CHEST WITH CONTRAST: LUNGS: Bilateral lower lobe and lingular subsegmental atelectasis. No acute infiltrate. Mild mosaic attenuation bilaterally which may reflect atypical appearance of pulmonary edema, reactive airways disease, chronic thromboembolism, etc. No pulmonary mass. MEDIASTINUM: Normal caliber thoracic aorta. Borderline dilatation main pulmonary artery to a diameter of 3.2 cm. Mild cardiomegaly. Coronary arterial calcification. LYMPH NODES: Unremarkable. PLEURA: Mild right and trace left pleural effusion. BONES: Unremarkable. OTHER FINDINGS: None. CT ABDOMEN AND PELVIS: LIVER: Unremarkable. No gross lesion or ductal dilatation. GALLBLADDER AND BILE DUCTS: Unremarkable. PANCREAS: Unremarkable. No gross lesion or ductal dilatation. SPLEEN: Normal size. Incidental 1.4 cm rounded low-attenuation lesion. Nonspecific. ADRENALS: Unremarkable. No mass. KIDNEYS AND URETERS: Nonobstructing 12 mm right lower pole renal calculus. No hydronephrosis. No renal mass. VASCULATURE: Unremarkable. No aortic aneurysm. BOWEL: Left lower quadrant colostomy. No bowel obstruction. APPENDIX: Normal appendix. PERITONEUM: Unremarkable. No free fluid. No free air. LYMPH NODES: Unremarkable. No enlarged lymph nodes. BLADDER: Nondistended. Turner catheter balloon. REPRODUCTIVE: Coarse calcifications consistent with calcified uterine fibroids. BONES: No acute fracture. OTHER FINDINGS: None. IMPRESSION: Mild mosaic pulmonary attenuation. Multifocal subsegmental atelectasis. No acute infiltrate. Minimal bilateral pleural effusion. Nonspecific 14 mm rounded low-density splenic mass. 12 mm nonobstructing right lower pole renal calculus. Left lower quadrant colostomy. Turner catheter. Calcified uterine fibroids.
[2017-08-18 20:07] LABS: ARTERIAL BLOOD GAS HCO3 38.2 mmol/L (21-28); ARTERIAL BLOOD GAS HEMOGLOBIN 10.2 g/dL (11.7-17.4); ARTERIAL BLOOD GAS O2 SAT 99.8 % (95-98); ARTERIAL BLOOD GAS PCO2 72 mm/Hg (35-45); ARTERIAL BLOOD GAS PO2 127 mm/Hg (80-100); ARTERIAL BLOOD GAS TCO2 46.8 mmol/L (22-28)
[2017-08-18] MEDS ORDERED: Home Med 1 UNIT (Atorvastatin Calcium [Atorvastatin Calcium] 40 MG) PO SCH (22:00)
[2017-08-19] MEDS: Albuterol-Ipratrop 3 mg / 0.5 (3 ml) UD INH SCH ×4 (02:09→19:05)
[2017-08-19] MEDS: MethylPREDNISolone 40 mg Vial IVP SCH ×3 (05:24→21:37)
[2017-08-19 06:28] LABS: BASO # 0.1 K/uL (0.0-0.2); BASO % 0.5 % (0.0-2.0); HEMOGLOBIN 8.5 g/dL (11.0-16.0); LYMPH # 0.9 K/uL (1.0-4.3); LYMPH % 6.1 % (20.0-40.0); MEAN CELL VOLUME 86.5 fL (81.0-99.0); MEAN CORPUSCULAR HGB CONC 32.4 g/dL (33.0-37.0); MEAN PLATELET VOLUME 8.8 fL (7.2-11.7); MONO # 0.3 K/uL (0.0-0.8); MONO % 2.1 % (0.0-10.0); NEUT % 91.3 % (50.0-75.0); NRBC % 0.1 % (0.0-2.0); PLATELET COUNT 307 K/uL (130-400); RBC 3.03 Mil/uL (3.80-5.20); RED CELL DISTRIBUTION WIDTH 18.8 % (11.5-14.5); WHITE BLOOD COUNT 15.3 K/uL (4.8-10.8)
[2017-08-19 06:32] LABS: SQUAMOUS EPITHIAL 2 /hpf (0-5); URINE BACTERIA RARE (<OCC); URINE BILIRUBIN NEGATIVE (NEGATIVE); URINE CLARITY Hazy (Clear); URINE COLOR Amber (YELLOW); URINE GLUCOSE (UA) NORMAL (Normal); URINE LEUKOCYTE ESTERASE 2+ Leu/uL (Negative); URINE PROTEIN 1+ mg/dL (NEGATIVE); URINE UROBILINOGEN NORMAL mg/dL (0.2-1.0)
[2017-08-19 06:37] LABS: URINE BLOOD 2+ (NEGATIVE)
[2017-08-19] MEDS: (Novolin R) Insulin Human Regular 100 units/ml vial SC SCH ×4 (07:47→21:25)
[2017-08-19 07:56] LABS: ARTERIAL BLOOD GAS HCO3 38.3 mmol/L (21-28); ARTERIAL BLOOD GAS HEMOGLOBIN 9.1 g/dL (11.7-17.4); ARTERIAL BLOOD GAS PCO2 66 mm/Hg (35-45); ARTERIAL BLOOD GAS PH 7.43 (7.35-7.45); ARTERIAL BLOOD GAS PO2 95 mm/Hg (80-100); ARTERIAL BLOOD GAS TCO2 45.8 mmol/L (22-28)
[2017-08-19 08:22] LABS: BANDS 2 % (0-2); NEUTROPHIL 89 % (50-75); TOTAL CELLS COUNTED 100
[2017-08-19 08:22] LABS: ALB/GLOB RATIO 0.8 (1.0-2.1); ALT/SGPT < 6 U/L (9-52); AST/SGOT 25 U/L (14-36); BLOOD UREA NITROGEN 31 mg/dL (7-17); CALCIUM 8.4 mg/dl (8.6-10.4); GFR AFRICAN-AMERICAN > 60; GFR NON-AFRICAN AMERICAN > 60
[2017-08-19 08:23] LABS: ANISOCYTOSIS MODERATE; HYPOCHROMIC SLIGHT; LYMPHOCYTE 7 % (20-40); MONOCYTE 2 % (0-10); OVALOCYTES SLIGHT; PLATELET ESTIMATE NORMAL (NORMAL)
--- NOTE | 2017-08-19 09:42 | CP.CCUPN ---
<Renee Sheffield - Last Filed: 08/19/17 13:53> CCU Subjective - Physician Review Subjective (Free Text): 08/19/17 09:41 Patient seen and examined at bedside. Per nursing no acute events overnight. Patient is more awake today, answering questions appropriately. Offers no complaints. Breathing is improving. Urine culture +ESBL, on contact isolation. CCU Objective - Vital Signs / Intake & Output Vital Signs (Last 4 hours): Vital Signs Pulse Resp BP Pulse Ox 08/19/17 08:15 130/44 L 08/19/17 08:14 61 11 L 100 08/19/17 07:14 53 L 08/19/17 07:00 53 L 18 127/41 L 99 08/19/17 06:08 54 L 08/19/17 06:00 64 99 Intake and Output (Last 8hrs): Intake & Output 08/18/17 08/19/17 08/19/17 22:59 06:59 14:59 Intake Total 0 0 Output Total 150 190 30 Balance -150 -190 -30 Weight 113.262 kg Intake: Intake, IV Amount 0 Right Hand 0 Oral 0 0 Output: Urine 150 190 30 Urethral (Turner) 150 190 30 - Physical Exam Head: Positive for: Atraumatic, Normocephalic Pupils: Positive for: PERRL Extroacular Muscles: Positive for: EOMI Conjunctiva: Positive for: Normal Mouth: Positive for: Dry Respiratory/Chest: Positive for: Good Air Exchange, Other (Bipap). Negative for : Respiratory Distress, Accessory Muscle Use Cardiovascular: Positive for: Regular Rate and Rhythm, Normal S1, S2 Abdomen: Positive for: Other (Colostomy). Negative for: Tenderness, Distention Skin: Positive for: Warm, Dry, Normal Color Psychiatric: Positive for: Alert, Oriented x 3 - Medications Active Medications: Active Medications Generic Name Dose Route Start Last Admin Trade Name Freq PRN Reason Stop Dose Admin Acetaminophen 650 mg 08/18/17 00:27 Tylenol 325mg Tab PO Q6 PRN Fever and pain Albuterol/Ipratropium 3 ml 08/18/17 04:00 08/19/17 07:18 Duoneb 3 Mg/0.5 Mg (3 Ml) Ud INH 3 ml RQ4 STEVEN Administration Amlodipine Besylate 5 mg 08/18/17 10:00 08/18/17 10:00 Norvasc PO Not Given DAILY STEVEN Aspirin 81 mg 08/18/17 10:00 08/18/17 10:00 Aspirin Chewable PO Not Given DAILY STEVEN Famotidine 20 mg 08/18/17 10:00 08/18/17 10:50 Pepcid IVP 20 mg DAILY STEVEN Administration Furosemide 20 mg 08/19/17 10:00 Lasix IVP DAILY STEVEN Heparin Sodium (Porcine) 5,000 units 08/18/17 06:00 08/19/17 05:24 Heparin SC 5,000 units Q8 STEVEN Administration Meropenem 1 gm/ Sodium 100 mls @ 100 mls/hr 08/19/17 09:45 Chloride IVPB Q8 STEVEN Protocol Azithromycin 500 mg/ Sodium 250 mls @ 250 mls/hr 08/19/17 10:00 Chloride IVPB DAILY STEVEN Protocol Insulin Human Regular 0 unit 08/18/17 07:30 08/19/17 07:47 Novolin R SC Not Given ACHS STEVEN Protocol Methylprednisolone 40 mg 08/18/17 06:00 08/19/17 05:24 Solu-Medrol IVP 40 mg Q8 STEVEN Administration Metoprolol Succinate 25 mg 08/18/17 10:00 08/18/17 10:00 Toprol Xl PO Not Given DAILY [facility] Pneumococcal Polyvalent Vaccine 0.5 ml 08/21/17 10:00 Pneumovax 23 Vaccine SC 08/21/17 10:01 .ONCE ONE - Patient Studies Lab Studies: Microbiology Studies 08/17/17 19:33 Urine Culture - Final Urine,Clean Catch Escherichia Coli 08/17/17 19:30 Blood Culture - Preliminary Blood-Venous NO GROWTH AFTER 24 HOURS 08/17/17 20:00 Blood Culture - Preliminary Blood-Venous NO GROWTH AFTER 24 HOURS Lab Studies 08/19/17 08/19/17 08/19/17 Range/Units 07:50 07:09 06:55 WBC (4.8-10.8) K/uL RBC (3.80-5.20) Mil/uL Hgb (11.0-16.0) g/dL Hct (34.0-47.0) % MCV (81.0-99.0) fL MCH (27.0-31.0) pg MCHC (33.0-37.0) g/dL RDW (11.5-14.5) % Plt Count (130-400) K/uL MPV (7.2-11.7) fL Neut % (Auto) (50.0-75.0) % Lymph % (Auto) (20.0-40.0) % [place] % (Auto) (0.0-10.0) % Eos % (Auto) (0.0-4.0) % Baso % (Auto) (0.0-2.0) % Neut # (Auto) (1.8-7.0) K/uL Lymph # (Auto) (1.0-4.3) K/uL [place] # (Auto) (0.0-0.8) K/uL Eos # (Auto) (0.0-0.7) K/uL Baso # (Auto) (0.0-0.2) K/uL Neutrophils % (Manual) (50-75) % Band Neutrophils % (0-2) % Lymphocytes % (Manual) (20-40) % Monocytes % (Manual) (0-10) % Platelet Estimate (NORMAL) Hypochromasia (manual) Anisocytosis (manual) Ovalocytes Puncture Site Lb pCO2 66 H (35-45) mm/Hg pO2 95 (80-100) mm/Hg HCO3 38.3 H (21-28) mmol/L ABG pH 7.43 (7.35-7.45) ABG Total CO2 45.8 H (22-28) mmol/L ABG O2 Saturation 99.0 H (95-98) % ABG Base Excess 17.1 H (-2.0-3.0) mmol/L ABG Hemoglobin 9.1 L (11.7-17.4) g/dL ABG Carboxyhemoglobin 2.1 H (0.5-1.5) % POC ABG HHb (Measured) 1.0 (0.0-5.0) % ABG Methemoglobin 1.0 (0.0-3.0) % Devon Test Na A-a O2 Difference 72.0 mm/Hg Respiratory Index 0.8 Hgb O2 Saturation 95.9 (95.0-98.0) % Vent Mode Mechanical Rate FiO2 35.0 % Inspiratory BiPAP 18 Expiratory BiPAP 9 Crit Value Called To Dr vallecillo Crit Value Called By Stepan lópez body engineer Crit Value Read Back Y Blood Gas Notified Time 755 Sodium 142 (132-148) mmol/L Potassium 5.1 (3.6-5.2) mmol/L Chloride 94 L (98-107) mmol/L Carbon Dioxide 39 H (22-30) mmol/L Anion Gap 14 (10-20) BUN 31 H (7-17) mg/dL Creatinine 0.8 (0.7-1.2) mg/dL Est GFR ( Amer) > 60 Est GFR (Non-Af Amer) > 60 POC Glucose (mg/dL) 160 H (65-110) mg/dL Random Glucose 160 H (65-105) mg/dL Calcium 8.4 L (8.6-10.4) mg/dl Phosphorus 4.1 (2.5-4.5) mg/dL Magnesium 1.9 (1.6-2.3) mg/dL Total Bilirubin 0.5 (0.2-1.3) mg/dL AST 25 (14-36) U/L ALT < 6 L D (9-52) U/L Alkaline Phosphatase 93 (38-126) U/L Total Protein 6.6 (6.3-8.3) g/dL Albumin 3.0 L (3.5-5.0) g/dL Globulin 3.6 (2.2-3.9) gm/dL Albumin/Globulin Ratio 0.8 L (1.0-2.1) Procalcitonin (0.19-0.49) NG/ML Urine Color (YELLOW) Urine Clarity (Clear) Urine pH (5.0-8.0) Ur Specific [place] (1.003-1.030) Urine Protein (NEGATIVE) mg/dL Urine Glucose (UA) (Normal) mg/dL Urine Ketones (NEGATIVE) mg/dL Urine Blood (NEGATIVE) Urine Nitrate (NEGATIVE) Urine Bilirubin (NEGATIVE) Urine Urobilinogen (0.2-1.0) mg/dL Ur Leukocyte Esterase (Negative) [place]/uL Urine WBC (Auto) (0-5) /hpf Urine RBC (Auto) (0-3) /hpf Ur Squamous Epith Cells (0-5) /hpf Urine Bacteria (<OCC) U Random Total Protein (0.0-12.0) mg/dL Ur Random Sodium mmol/L 08/19/17 08/19/17 08/19/17 Range/Units 06:21 06:21 05:32 WBC 15.3 H (4.8-10.8) K/uL RBC 3.03 L (3.80-5.20) Mil/uL Hgb 8.5 L (11.0-16.0) g/dL Hct 26.2 L (34.0-47.0) % MCV 86.5 (81.0-99.0) fL MCH 28.0 (27.0-31.0) pg MCHC 32.4 L (33.0-37.0) g/dL RDW 18.8 H (11.5-14.5) % Plt Count 307 (130-400) K/uL MPV 8.8 (7.2-11.7) fL Neut % (Auto) 91.3 H (50.0-75.0) % Lymph % (Auto) 6.1 L (20.0-40.0) % [place] % (Auto) 2.1 (0.0-10.0) % Eos % (Auto) 0.0 (0.0-4.0) % Baso % (Auto) 0.5 (0.0-2.0) % Neut # (Auto) 14.0 H (1.8-7.0) K/uL Lymph # (Auto) 0.9 L (1.0-4.3) K/uL [place] # (Auto) 0.3 (0.0-0.8) K/uL Eos # (Auto) 0.0 (0.0-0.7) K/uL Baso # (Auto) 0.1 (0.0-0.2) K/uL Neutrophils % (Manual) 89 H (50-75) % Band Neutrophils % 2 (0-2) % Lymphocytes % (Manual) 7 L (20-40) % Monocytes % (Manual) 2 (0-10) % Platelet Estimate Normal (NORMAL) Hypochromasia (manual) Slight Anisocytosis (manual) Moderate Ovalocytes Slight Puncture Site pCO2 (35-45) mm/Hg pO2 (80-100) mm/Hg HCO3 (21-28) mmol/L ABG pH (7.35-7.45) ABG Total CO2 (22-28) mmol/L ABG O2 Saturation (95-98) % ABG Base Excess (-2.0-3.0) mmol/L ABG Hemoglobin (11.7-17.4) g/dL ABG Carboxyhemoglobin (0.5-1.5) % POC ABG HHb (Measured) (0.0-5.0) % ABG Methemoglobin (0.0-3.0) % Devon Test A-a O2 Difference mm/Hg Respiratory Index Hgb O2 Saturation (95.0-98.0) % Vent Mode Mechanical Rate FiO2 % Inspiratory BiPAP Expiratory BiPAP Crit Value Called To Crit Value Called By Crit Value Read Back Blood Gas Notified Time Sodium (132-148) mmol/L Potassium (3.6-5.2) mmol/L Chloride (98-107) mmol/L Carbon Dioxide (22-30) mmol/L Anion Gap (10-20) BUN (7-17) mg/dL Creatinine (0.7-1.2) mg/dL Est GFR ( Amer) Est GFR (Non-Af Amer) POC Glucose (mg/dL) 145 H (65-110) mg/dL Random Glucose (65-105) mg/dL Calcium (8.6-10.4) mg/dl Phosphorus (2.5-4.5) mg/dL Magnesium (1.6-2.3) mg/dL Total Bilirubin (0.2-1.3) mg/dL AST (14-36) U/L ALT (9-52) U/L Alkaline Phosphatase (38-126) U/L Total Protein (6.3-8.3) g/dL Albumin (3.5-5.0) g/dL Globulin (2.2-3.9) gm/dL Albumin/Globulin Ratio (1.0-2.1) Procalcitonin (0.19-0.49) NG/ML Urine Color [place] (YELLOW) Urine Clarity Hazy (Clear) Urine pH 5.0 (5.0-8.0) Ur Specific [place] 1.047 H (1.003-1.030) Urine Protein 1+ H (NEGATIVE) mg/dL Urine Glucose (UA) Normal (Normal) mg/dL Urine Ketones Negative (NEGATIVE) mg/dL Urine Blood 2+ H (NEGATIVE) Urine Nitrate Negative (NEGATIVE) Urine Bilirubin Negative (NEGATIVE) Urine Urobilinogen Normal (0.2-1.0) mg/dL Ur Leukocyte Esterase 2+ H (Negative) [place]ev[place]/uL Urine WBC (Auto) 82 H (0-5) /hpf Urine RBC (Auto) 59 H (0-3) /hpf Ur Squamous Epith Cells 2 (0-5) /hpf Urine Bacteria Rare (<OCC) U Random Total Protein (0.0-12.0) mg/dL Ur Random Sodium mmol/L 08/18/17 08/18/17 08/18/17 Range/Units 21:32 20:02 17:51 WBC (4.8-10.8) K/uL RBC (3.80-5.20) Mil/uL Hgb (11.0-16.0) g/dL Hct (34.0-47.0) % MCV (81.0-99.0) fL MCH (27.0-31.0) pg MCHC (33.0-37.0) g/dL RDW (11.5-14.5) % Plt Count (130-400) K/uL MPV (7.2-11.7) fL Neut % (Auto) (50.0-75.0) % Lymph % (Auto) (20.0-40.0) % [place] % (Auto) (0.0-10.0) % Eos % (Auto) (0.0-4.0) % Baso % (Auto) (0.0-2.0) % Neut # (Auto) (1.8-7.0) K/uL Lymph # (Auto) (1.0-4.3) K/uL [place] # (Auto) (0.0-0.8) K/uL Eos # (Auto) (0.0-0.7) K/uL Baso # (Auto) (0.0-0.2) K/uL Neutrophils % (Manual) (50-75) % Band Neutrophils % (0-2) % Lymphocytes % (Manual) (20-40) % Monocytes % (Manual) (0-10) % Platelet Estimate (NORMAL) Hypochromasia (manual) Anisocytosis (manual) Ovalocytes Puncture Site Rba pCO2 72 H* (35-45) mm/Hg pO2 127 H (80-100) mm/Hg HCO3 38.2 H (21-28) mmol/L ABG pH 7.40 (7.35-7.45) ABG Total CO2 46.8 H (22-28) mmol/L ABG O2 Saturation 99.8 H (95-98) % ABG Base Excess 17.0 H (-2.0-3.0) mmol/L ABG Hemoglobin 10.2 L (11.7-17.4) g/dL ABG Carboxyhemoglobin 2.4 H (0.5-1.5) % POC ABG HHb (Measured) 0.2 (0.0-5.0) % ABG Methemoglobin 1.0 (0.0-3.0) % Devon Test Na A-a O2 Difference 33.0 mm/Hg Respiratory Index 0.3 Hgb O2 Saturation 96.4 (95.0-98.0) % Vent Mode Bipap Mechanical Rate 10 FiO2 35.0 % Inspiratory BiPAP 16 Expiratory BiPAP 8 Crit Value Called To Gerry gruber Crit Value Called By Raven reddy Crit Value Read Back Y Blood Gas Notified Time 2006 Sodium (132-148) mmol/L Potassium (3.6-5.2) mmol/L Chloride (98-107) mmol/L Carbon Dioxide (22-30) mmol/L Anion Gap (10-20) BUN (7-17) mg/dL Creatinine (0.7-1.2) mg/dL Est GFR ( Amer) Est GFR (Non-Af Amer) POC Glucose (mg/dL) 156 H (65-110) mg/dL Random Glucose (65-105) mg/dL Calcium (8.6-10.4) mg/dl Phosphorus (2.5-4.5) mg/dL Magnesium (1.6-2.3) mg/dL Total Bilirubin (0.2-1.3) mg/dL AST (14-36) U/L ALT (9-52) U/L Alkaline Phosphatase (38-126) U/L Total Protein (6.3-8.3) g/dL Albumin (3.5-5.0) g/dL Globulin (2.2-3.9) gm/dL Albumin/Globulin Ratio (1.0-2.1) Procalcitonin (0.19-0.49) NG/ML Urine Color (YELLOW) Urine Clarity (Clear) Urine pH (5.0-8.0) Ur Specific [place] (1.003-1.030) Urine Protein (NEGATIVE) mg/dL Urine Glucose (UA) (Normal) mg/dL Urine Ketones (NEGATIVE) mg/dL Urine Blood (NEGATIVE) Urine Nitrate (NEGATIVE) Urine Bilirubin (NEGATIVE) Urine Urobilinogen (0.2-1.0) mg/dL Ur Leukocyte Esterase (Negative) [place]/uL Urine WBC (Auto) (0-5) /hpf Urine RBC (Auto) (0-3) /hpf Ur Squamous Epith Cells (0-5) /hpf Urine Bacteria (<OCC) U Random Total Protein 27.0 H (0.0-12.0) mg/dL Ur Random Sodium mmol/L 08/18/17 08/18/17 08/18/17 Range/Units 17:51 16:18 12:05 WBC (4.8-10.8) K/uL RBC (3.80-5.20) Mil/uL Hgb (11.0-16.0) g/dL Hct (34.0-47.0) % MCV (81.0-99.0) fL MCH (27.0-31.0) pg MCHC (33.0-37.0) g/dL RDW (11.5-14.5) % Plt Count (130-400) K/uL MPV (7.2-11.7) fL Neut % (Auto) (50.0-75.0) % Lymph % (Auto) (20.0-40.0) % [place] % (Auto) (0.0-10.0) % Eos % (Auto) (0.0-4.0) % Baso % (Auto) (0.0-2.0) % Neut # (Auto) (1.8-7.0) K/uL Lymph # (Auto) (1.0-4.3) K/uL [place] # (Auto) (0.0-0.8) K/uL Eos # (Auto) (0.0-0.7) K/uL Baso # (Auto) (0.0-0.2) K/uL Neutrophils % (Manual) (50-75) % Band Neutrophils % (0-2) % Lymphocytes % (Manual) (20-40) % Monocytes % (Manual) (0-10) % Platelet Estimate (NORMAL) Hypochromasia (manual) Anisocytosis (manual) Ovalocytes Puncture Site Lb pCO2 71 H* (35-45) mm/Hg pO2 78 L (80-100) mm/Hg HCO3 37.8 H (21-28) mmol/L ABG pH 7.40 (7.35-7.45) ABG Total CO2 46.2 H (22-28) mmol/L ABG O2 Saturation 98.1 H (95-98) % ABG Base Excess 16.6 H (-2.0-3.0) mmol/L ABG Hemoglobin 9.7 L (11.7-17.4) g/dL ABG Carboxyhemoglobin 2.6 H (0.5-1.5) % POC ABG HHb (Measured) 1.8 (0.0-5.0) % ABG Methemoglobin 0.8 (0.0-3.0) % Devon Test Na A-a O2 Difference 83.0 mm/Hg Respiratory Index 1.1 Hgb O2 Saturation 94.8 L (95.0-98.0) % Vent Mode Mechanical Rate FiO2 35.0 % Inspiratory BiPAP 18 Expiratory BiPAP 9 Crit Value Called To Dr kwan Crit Value Called By Stepan lópez [facility] Crit Value Read Back Y Blood Gas Notified Time 1210 Sodium (132-148) mmol/L Potassium (3.6-5.2) mmol/L Chloride (98-107) mmol/L Carbon Dioxide (22-30) mmol/L Anion Gap (10-20) BUN (7-17) mg/dL Creatinine (0.7-1.2) mg/dL Est GFR ( Amer) Est GFR (Non-Af Amer) POC Glucose (mg/dL) 159 H (65-110) mg/dL Random Glucose (65-105) mg/dL Calcium (8.6-10.4) mg/dl Phosphorus (2.5-4.5) mg/dL Magnesium (1.6-2.3) mg/dL Total Bilirubin (0.2-1.3) mg/dL AST (14-36) U/L ALT (9-52) U/L Alkaline Phosphatase (38-126) U/L Total Protein (6.3-8.3) g/dL Albumin (3.5-5.0) g/dL Globulin (2.2-3.9) gm/dL Albumin/Globulin Ratio (1.0-2.1) Procalcitonin (0.19-0.49) NG/ML Urine Color (YELLOW) Urine Clarity (Clear) Urine pH (5.0-8.0) Ur Specific [place] (1.003-1.030) Urine Protein (NEGATIVE) mg/dL Urine Glucose (UA) (Normal) mg/dL Urine Ketones (NEGATIVE) mg/dL Urine Blood (NEGATIVE) Urine Nitrate (NEGATIVE) Urine Bilirubin (NEGATIVE) Urine Urobilinogen (0.2-1.0) mg/dL Ur Leukocyte Esterase (Negative) [place]/uL Urine WBC (Auto) (0-5) /hpf Urine RBC (Auto) (0-3) /hpf Ur Squamous Epith Cells (0-5) /hpf Urine Bacteria (<OCC) U Random Total Protein (0.0-12.0) mg/dL Ur Random Sodium 9 mmol/L 08/18/17 08/18/17 Range/Units 11:39 06:34 WBC (4.8-10.8) K/uL RBC (3.80-5.20) Mil/uL Hgb (11.0-16.0) g/dL Hct (34.0-47.0) % MCV (81.0-99.0) fL MCH (27.0-31.0) pg MCHC (33.0-37.0) g/dL RDW (11.5-14.5) % Plt Count (130-400) K/uL MPV (7.2-11.7) fL Neut % (Auto) (50.0-75.0) % Lymph % (Auto) (20.0-40.0) % [place] % (Auto) (0.0-10.0) % Eos % (Auto) (0.0-4.0) % Baso % (Auto) (0.0-2.0) % Neut # (Auto) (1.8-7.0) K/uL Lymph # (Auto) (1.0-4.3) K/uL [place] # (Auto) (0.0-0.8) K/uL Eos # (Auto) (0.0-0.7) K/uL Baso # (Auto) (0.0-0.2) K/uL Neutrophils % (Manual) (50-75) % Band Neutrophils % (0-2) % Lymphocytes % (Manual) (20-40) % Monocytes % (Manual) (0-10) % Platelet Estimate (NORMAL) Hypochromasia (manual) Anisocytosis (manual) Ovalocytes Puncture Site pCO2 (35-45) mm/Hg pO2 (80-100) mm/Hg HCO3 (21-28) mmol/L ABG pH (7.35-7.45) ABG Total CO2 (22-28) mmol/L ABG O2 Saturation (95-98) % ABG Base Excess (-2.0-3.0) mmol/L ABG Hemoglobin (11.7-17.4) g/dL ABG Carboxyhemoglobin (0.5-1.5) % POC ABG HHb (Measured) (0.0-5.0) % ABG Methemoglobin (0.0-3.0) % Devon Test A-a O2 Difference mm/Hg Respiratory Index Hgb O2 Saturation (95.0-98.0) % Vent Mode Mechanical Rate FiO2 % Inspiratory BiPAP Expiratory BiPAP Crit Value Called To Crit Value Called By Crit Value Read Back Blood Gas Notified Time Sodium (132-148) mmol/L Potassium (3.6-5.2) mmol/L Chloride (98-107) mmol/L Carbon Dioxide (22-30) mmol/L Anion Gap (10-20) BUN (7-17) mg/dL Creatinine (0.7-1.2) mg/dL Est GFR ( Amer) Est GFR (Non-Af Amer) POC Glucose (mg/dL) 167 H (65-110) mg/dL Random Glucose (65-105) mg/dL Calcium (8.6-10.4) mg/dl Phosphorus (2.5-4.5) mg/dL Magnesium (1.6-2.3) mg/dL Total Bilirubin (0.2-1.3) mg/dL AST (14-36) U/L ALT (9-52) U/L Alkaline Phosphatase (38-126) U/L Total Protein (6.3-8.3) g/dL Albumin (3.5-5.0) g/dL Globulin (2.2-3.9) gm/dL Albumin/Globulin Ratio (1.0-2.1) Procalcitonin 0.09 L (0.19-0.49) NG/ML Urine Color (YELLOW) Urine Clarity (Clear) Urine pH (5.0-8.0) Ur Specific [place] (1.003-1.030) Urine Protein (NEGATIVE) mg/dL Urine Glucose (UA) (Normal) mg/dL Urine Ketones (NEGATIVE) mg/dL Urine Blood (NEGATIVE) Urine Nitrate (NEGATIVE) Urine Bilirubin (NEGATIVE) Urine Urobilinogen (0.2-1.0) mg/dL Ur Leukocyte Esterase (Negative) [place]ev[place]/uL Urine WBC (Auto) (0-5) /hpf Urine RBC (Auto) (0-3) /hpf Ur Squamous Epith Cells (0-5) /hpf Urine Bacteria (<OCC) U Random Total Protein (0.0-12.0) mg/dL Ur Random Sodium mmol/L Laboratory Results - last 24 hr 08/18/17 08/18/17 08/18/17 06:34 11:39 12:05 WBC RBC Hgb Hct MCV MCH MCHC RDW Plt Count MPV Neut % (Auto) Lymph % (Auto) [place] % (Auto) Eos % (Auto) Baso % (Auto) Neut # (Auto) Lymph # (Auto) [place] # (Auto) Eos # (Auto) Baso # (Auto) Neutrophils % (Manual) Band Neutrophils % Lymphocytes % (Manual) Monocytes % (Manual) Platelet Estimate Hypochromasia (manual) Anisocytosis (manual) Ovalocytes Puncture Site Lb pCO2 71 H* pO2 78 L HCO3 37.8 H ABG pH 7.40 ABG Total CO2 46.2 H ABG O2 Saturation 98.1 H ABG Base Excess 16.6 H ABG Hemoglobin 9.7 L ABG Carboxyhemoglobin 2.6 H POC ABG HHb (Measured) 1.8 ABG Methemoglobin 0.8 Devon Test Na A-a O2 Difference 83.0 Respiratory Index 1.1 Hgb O2 Saturation 94.8 L Vent Mode Mechanical Rate FiO2 35.0 Inspiratory BiPAP 18 Expiratory BiPAP 9 Crit Value Called To Dr kwan Crit Value Called By Stepan lópez [facility] Crit Value Read Back Y Blood Gas Notified Time 1210 Sodium Potassium Chloride Carbon Dioxide Anion Gap BUN Creatinine Est GFR ( Amer) Est GFR (Non-Af Amer) POC Glucose (mg/dL) 167 H Random Glucose Calcium Phosphorus Magnesium Total Bilirubin AST ALT Alkaline Phosphatase Total Protein Albumin Globulin Albumin/Globulin Ratio Procalcitonin 0.09 L Urine Color Urine Clarity Urine pH Ur Specific [place] Urine Protein Urine Glucose (UA) Urine Ketones Urine Blood Urine Nitrate Urine Bilirubin Urine Urobilinogen Ur Leukocyte Esterase Urine WBC (Auto) Urine RBC (Auto) Ur Squamous Epith Cells Urine Bacteria U Random Total Protein Ur Random Sodium 08/18/17 08/18/17 08/18/17 16:18 17:51 17:51 WBC RBC Hgb Hct MCV MCH MCHC RDW Plt Count MPV Neut % (Auto) Lymph % (Auto) [place] % (Auto) Eos % (Auto) Baso % (Auto) Neut # (Auto) Lymph # (Auto) [place] # (Auto) Eos # (Auto) Baso # (Auto) Neutrophils % (Manual) Band Neutrophils % Lymphocytes % (Manual) Monocytes % (Manual) Platelet Estimate Hypochromasia (manual) Anisocytosis (manual) Ovalocytes Puncture Site pCO2 pO2 HCO3 ABG pH ABG Total CO2 ABG O2 Saturation ABG Base Excess ABG Hemoglobin ABG Carboxyhemoglobin POC ABG HHb (Measured) ABG Methemoglobin Devon Test A-a O2 Difference Respiratory Index Hgb O2 Saturation Vent Mode Mechanical Rate FiO2 Inspiratory BiPAP Expiratory BiPAP Crit Value Called To Crit Value Called By Crit Value Read Back Blood Gas Notified Time Sodium Potassium Chloride Carbon Dioxide Anion Gap BUN Creatinine Est GFR ( Amer) Est GFR (Non-Af Amer) POC Glucose (mg/dL) 159 H Random Glucose Calcium Phosphorus Magnesium Total Bilirubin AST ALT Alkaline Phosphatase Total Protein Albumin Globulin Albumin/Globulin Ratio Procalcitonin Urine Color Urine Clarity Urine pH Ur Specific [place] Urine Protein Urine Glucose (UA) Urine Ketones Urine Blood Urine Nitrate Urine Bilirubin Urine Urobilinogen Ur Leukocyte Esterase Urine WBC (Auto) Urine RBC (Auto) Ur Squamous Epith Cells Urine Bacteria U Random Total Protein 27.0 H Ur Random Sodium 9 08/18/17 08/18/17 08/19/17 20:02 21:32 05:32 WBC RBC Hgb Hct MCV MCH MCHC RDW Plt Count MPV Neut % (Auto) Lymph % (Auto) [place] % (Auto) Eos % (Auto) Baso % (Auto) Neut # (Auto) Lymph # (Auto) [place] # (Auto) Eos # (Auto) Baso # (Auto) Neutrophils % (Manual) Band Neutrophils % Lymphocytes % (Manual) Monocytes % (Manual) Platelet Estimate Hypochromasia (manual) Anisocytosis (manual) Ovalocytes Puncture Site Rba pCO2 72 H* pO2 127 H HCO3 38.2 H ABG pH 7.40 ABG Total CO2 46.8 H ABG O2 Saturation 99.8 H ABG Base Excess 17.0 H ABG Hemoglobin 10.2 L ABG Carboxyhemoglobin 2.4 H POC ABG HHb (Measured) 0.2 ABG Methemoglobin 1.0 [place] Test Na A-a O2 Difference 33.0 Respiratory Index 0.3 Hgb O2 Saturation 96.4 Vent Mode Bipap Mechanical Rate 10 FiO2 35.0 Inspiratory BiPAP 16 Expiratory BiPAP 8 Crit Value Called To Gerry gruber Crit Value Called By Raven reddy Crit Value Read Back Y Blood Gas Notified Time 2006 Sodium Potassium Chloride Carbon Dioxide Anion Gap BUN Creatinine Est GFR ( Amer) Est GFR (Non-Af Amer) POC Glucose (mg/dL) 156 H 145 H Random Glucose Calcium Phosphorus Magnesium Total Bilirubin AST ALT Alkaline Phosphatase Total Protein Albumin Globulin Albumin/Globulin Ratio Procalcitonin Urine Color Urine Clarity Urine pH Ur Specific [place] Urine Protein Urine Glucose (UA) Urine Ketones Urine Blood Urine Nitrate Urine Bilirubin Urine Urobilinogen Ur Leukocyte Esterase Urine WBC (Auto) Urine RBC (Auto) Ur Squamous Epith Cells Urine Bacteria U Random Total Protein Ur Random Sodium 08/19/17 08/19/17 08/19/17 06:21 06:21 06:55 WBC 15.3 H RBC 3.03 L Hgb 8.5 L Hct 26.2 L MCV 86.5 MCH 28.0 MCHC 32.4 L RDW 18.8 H Plt Count 307 MPV 8.8 Neut % (Auto) 91.3 H Lymph % (Auto) 6.[address] [place] % (Auto) 2.1 Eos % (Auto) 0.0 Baso % (Auto) 0.5 Neut # (Auto) 14.0 H Lymph # (Auto) 0.[address] [place] # (Auto) 0.3 Eos # (Auto) 0.0 Baso # (Auto) 0.1 Neutrophils % (Manual) 89 H Band Neutrophils % 2 Lymphocytes % (Manual) 7 L Monocytes % (Manual) 2 Platelet Estimate Normal Hypochromasia (manual) Slight Anisocytosis (manual) Moderate Ovalocytes Slight Puncture Site pCO2 pO2 HCO3 ABG pH ABG Total CO2 ABG O2 Saturation ABG Base Excess ABG Hemoglobin ABG Carboxyhemoglobin POC ABG HHb (Measured) ABG Methemoglobin [place] Test A-a O2 Difference Respiratory Index Hgb O2 Saturation Vent Mode Mechanical Rate FiO2 Inspiratory BiPAP Expiratory BiPAP Crit Value Called To Crit Value Called By Crit Value Read Back Blood Gas Notified Time Sodium 142 Potassium 5.1 Chloride 94 L Carbon Dioxide 39 H Anion Gap 14 BUN 31 H Creatinine 0.8 Est GFR ( Amer) > 60 Est GFR (Non-Af Amer) > 60 POC Glucose (mg/dL) Random Glucose 160 H Calcium 8.4 L Phosphorus 4.1 Magnesium 1.9 Total Bilirubin 0.5 AST 25 ALT < 6 L D Alkaline Phosphatase 93 Total Protein 6.6 Albumin 3.0 L Globulin 3.6 Albumin/Globulin Ratio 0.8 L Procalcitonin Urine Color [place] Urine Clarity Hazy Urine pH 5.0 Ur Specific [place] 1.047 H Urine Protein 1+ H Urine Glucose (UA) Normal Urine Ketones Negative Urine Blood 2+ H Urine Nitrate Negative Urine Bilirubin Negative Urine Urobilinogen Normal Ur Leukocyte Esterase 2+ H Urine WBC (Auto) 82 H Urine RBC (Auto) 59 H Ur Squamous Epith Cells 2 Urine Bacteria Rare U Random Total Protein Ur Random Sodium 08/19/17 08/19/17 07:09 07:50 WBC RBC Hgb Hct MCV MCH MCHC RDW Plt Count MPV Neut % (Auto) Lymph % (Auto) [place] % (Auto) Eos % (Auto) Baso % (Auto) Neut # (Auto) Lymph # (Auto) [place] # (Auto) Eos # (Auto) Baso # (Auto) Neutrophils % (Manual) Band Neutrophils % Lymphocytes % (Manual) Monocytes % (Manual) Platelet Estimate Hypochromasia (manual) Anisocytosis (manual) Ovalocytes Puncture Site Lb pCO2 66 H pO2 95 HCO3 38.3 H ABG pH 7.43 ABG Total CO2 45.8 H ABG O2 Saturation 99.0 H ABG Base Excess 17.1 H ABG Hemoglobin 9.1 L ABG Carboxyhemoglobin 2.1 H POC ABG HHb (Measured) 1.0 ABG Methemoglobin 1.0 [place] Test Na A-a O2 Difference 72.0 Respiratory Index 0.8 Hgb O2 Saturation 95.9 Vent Mode Mechanical Rate FiO2 35.0 Inspiratory BiPAP 18 Expiratory BiPAP 9 Crit Value Called To Dr vallecillo Crit Value Called By Stepan lópez body engineer Crit Value Read Back Y Blood Gas Notified Time 755 Sodium Potassium Chloride Carbon Dioxide Anion Gap BUN Creatinine Est GFR ( Amer) Est GFR (Non-Af Amer) POC Glucose (mg/dL) 160 H Random Glucose Calcium Phosphorus Magnesium Total Bilirubin AST ALT Alkaline Phosphatase Total Protein Albumin Globulin Albumin/Globulin Ratio Procalcitonin Urine Color Urine Clarity Urine pH Ur Specific [place] Urine Protein Urine Glucose (UA) Urine Ketones Urine Blood Urine Nitrate Urine Bilirubin Urine Urobilinogen Ur Leukocyte Esterase Urine WBC (Auto) Urine RBC (Auto) Ur Squamous Epith Cells Urine Bacteria U Random Total Protein Ur Random Sodium Fingerstick Blood Sugar Results: 160 Critical Care Progress Note - Nutrition Nutrition: Nutrition Category Date Time Status NPO Diet [DIET] Diets 08/18/17 Lunch Active Assessment/Plan - Assessment and Plan (Free Text) Assessment: 72 F with h/o DM, recent ESTEVAN was on HD, then improved, h/o chronic CO2 retention , h/o diverting colostomy for sacral decubti was sent in to the hospital with c/ o sob, had received [place]. In ER patient had low grade temp, she is obese, lethargic on bipap, elevated CO2 in 80's with maintained PH suggesting chronic retention, b/l infiltrates on CXR. Patient admitted to the ICU for closer monitoring -Stable, afebrile -ABG this morning improving -On Bipap, will see if can tolerate NC -Solumedrol 40mg IVP Q8H, Duonebs q4H -F/U legionella, mycoplasma, s pneumonia -Antibiotics: Merrem 1gm Q8H, Azithromycin 500mg IV daily -Urine culture +ESBL, placed on contact isolation -Diet NPO, will have speech evaluate again this morning -CXR 08/17: Moderate loculated left and small loculated right pleural effusion. Moderate to sever venous congestion. Confluent nodular opacity seen in the left mid to lower lung zone and right hilar region. Biapical pleural thickening with upper lobe granulomatous changes. -CT abd/pelvis: mild mosaic pulmonary attenuation. Multifocal subsegmental atelectasis. No acute infiltrate. Minimal bilateral pleural effusion. Nonspecific 14 mm rounded low-density splenic mass. 12mm nonobstructing right lower pole renal calculus. Left lower quadrant colostomy. -CT head: No acute intracranial abnormality. Chronic microvascular ischemia changes -Lower extremity dopplers completed, official read pending -Will continue to monitor in the ICU -Plan discussed with Dr Vallecillo <Aram Vallecillo - Last Filed: 08/19/17 16:42> CCU Objective - Vital Signs / Intake & Output Intake and Output (Last 8hrs): Intake & Output 08/19/17 08/19/17 08/19/17 06:59 14:59 22:59 Intake Total 350 Output Total 190 120 Balance -190 230 Weight 249 lb 11.2 oz Intake: Intake, IV Amount 300 Right Hand 300 Oral 50 Output: Urine 190 120 Urethral (Turner) 190 120 Other: # Bowel Movements 0 - Medications Active Medications: Active Medications Generic Name Dose Route Start Last Admin Trade Name Freq PRN Reason Stop Dose Admin Acetaminophen 650 mg 08/18/17 00:27 Tylenol 325mg Tab PO Q6 PRN Fever and pain Albuterol/Ipratropium 3 ml 08/18/17 04:00 08/19/17 07:18 Duoneb 3 Mg/0.5 Mg (3 Ml) Ud INH 3 ml RQ4 STEVEN Administration Amlodipine Besylate 5 mg 08/18/17 10:00 08/19/17 11:09 Norvasc PO Not Given DAILY STEVEN Aspirin 81 mg 08/18/17 10:00 08/19/17 11:08 Aspirin Chewable PO 81 mg DAILY STEVEN Administration Famotidine 20 mg 08/18/17 10:00 08/19/17 11:09 Pepcid IVP 20 mg DAILY STEVEN Administration Furosemide 20 mg 08/19/17 10:00 08/19/17 11:24 Lasix IVP 20 mg DAILY STEVEN Administration Heparin Sodium (Porcine) 5,000 units 08/18/17 06:00 08/19/17 15:15 Heparin SC 5,000 units Q8 STEVEN Administration Meropenem 50 mls @ 100 mls/hr 08/19/17 10:30 08/19/17 14:00 Merrem Iv 1 Gm Premix IVPB 100 mls/hr Q8 [facility] Administration Protocol Azithromycin 500 mg/ Sodium 250 mls @ 250 mls/hr 08/19/17 11:00 08/19/17 12: 11 Chloride IVPB 250 mls/hr Q24H [facility] Administration Protocol Insulin Human Regular 0 unit 08/18/17 07:30 08/19/17 16:19 Novolin R SC 1 unit ACHS [facility] Administration Protocol Methylprednisolone 40 mg 08/18/17 06:00 08/19/17 15:15 Solu-Medrol IVP 40 mg Q8 [facility] Administration Metoprolol Succinate 25 mg 08/18/17 10:00 08/19/17 11:10 Toprol Xl PO Not Given DAILY [facility] Pneumococcal Polyvalent Vaccine 0.5 ml 08/21/17 10:00 Pneumovax 23 Vaccine SC 08/21/17 10:01 .ONCE ONE - Patient Studies Lab Studies: Microbiology Studies 08/18/17 03:05 MRSA Culture (Admit) - Final Naris MRSA NOT DETECTED 08/17/17 19:33 Urine Culture - Final Urine,Clean Catch Escherichia Coli 08/17/17 19:30 Blood Culture - Preliminary Blood-Venous NO GROWTH AFTER 24 HOURS 08/17/17 20:00 Blood Culture - Preliminary Blood-Venous NO GROWTH AFTER 24 HOURS Lab Studies 08/19/17 08/19/17 08/19/17 Range/Units 15:34 10:59 07:50 WBC (4.8-10.8) K/uL RBC (3.80-5.20) Mil/uL Hgb (11.0-16.0) g/dL Hct (34.0-47.0) % MCV (81.0-99.0) fL MCH (27.0-31.0) pg MCHC (33.0-37.0) g/dL RDW (11.5-14.5) % Plt Count (130-400) K/uL MPV (7.2-11.7) fL Neut % (Auto) (50.0-75.0) % Lymph % (Auto) (20.0-40.0) % [place] % (Auto) (0.0-10.0) % Eos % (Auto) (0.0-4.0) % Baso % (Auto) (0.0-2.0) % Neut # (Auto) (1.8-7.0) K/uL Lymph # (Auto) (1.0-4.3) K/uL [place] # (Auto) (0.0-0.8) K/uL Eos # (Auto) (0.0-0.7) K/uL Baso # (Auto) (0.0-0.2) K/uL Neutrophils % (Manual) (50-75) % Band Neutrophils % (0-2) % Lymphocytes % (Manual) (20-40) % Monocytes % (Manual) (0-10) % Platelet Estimate (NORMAL) Hypochromasia (manual) Anisocytosis (manual) Ovalocytes Puncture Site Lb pCO2 66 H (35-45) mm/Hg pO2 95 (80-100) mm/Hg HCO3 38.3 H (21-28) mmol/L ABG pH 7.43 (7.35-7.45) ABG Total CO2 45.8 H (22-28) mmol/L ABG O2 Saturation 99.0 H (95-98) % ABG Base Excess 17.1 H (-2.0-3.0) mmol/L ABG Hemoglobin 9.1 L (11.7-17.4) g/dL ABG Carboxyhemoglobin 2.1 H (0.5-1.5) % POC ABG HHb (Measured) 1.0 (0.0-5.0) % ABG Methemoglobin 1.0 (0.0-3.0) % Devon Test Na A-a O2 Difference 72.0 mm/Hg Respiratory Index 0.8 Hgb O2 Saturation 95.9 (95.0-98.0) % Vent Mode Mechanical Rate FiO2 35.0 % Inspiratory BiPAP 18 Expiratory BiPAP 9 Crit Value Called To Dr vallecillo Crit Value Called By Stepan lópez body engineer Crit Value Read Back Y Blood Gas Notified Time 755 Sodium (132-148) mmol/L Potassium (3.6-5.2) mmol/L Chloride (98-107) mmol/L Carbon Dioxide (22-30) mmol/L Anion Gap (10-20) BUN (7-17) mg/dL Creatinine (0.7-1.2) mg/dL Est GFR ( Amer) Est GFR (Non-Af Amer) POC Glucose (mg/dL) 244 H 191 H (65-110) mg/dL Random Glucose (65-105) mg/dL Calcium (8.6-10.4) mg/dl Phosphorus (2.5-4.5) mg/dL Magnesium (1.6-2.3) mg/dL Total Bilirubin (0.2-1.3) mg/dL AST (14-36) U/L ALT (9-52) U/L Alkaline Phosphatase (38-126) U/L Total Protein (6.3-8.3) g/dL Albumin (3.5-5.0) g/dL Globulin (2.2-3.9) gm/dL Albumin/Globulin Ratio (1.0-2.1) Urine Color (YELLOW) Urine Clarity (Clear) Urine pH (5.0-8.0) Ur Specific Mchen[place] (1.003-1.030) Urine Protein (NEGATIVE) mg/dL Urine Glucose (UA) (Normal) mg/dL Urine Ketones (NEGATIVE) mg/dL Urine Blood (NEGATIVE) Urine Nitrate (NEGATIVE) Urine Bilirubin (NEGATIVE) Urine Urobilinogen (0.2-1.0) mg/dL Ur Leukocyte Esterase (Negative) Kev[place]/uL Urine WBC (Auto) (0-5) /hpf Urine RBC (Auto) (0-3) /hpf Ur Squamous Epith Cells (0-5) /hpf Urine Bacteria (<OCC) U Random Total Protein (0.0-12.0) mg/dL Ur Random Sodium mmol/L 08/19/17 08/19/17 08/19/17 Range/Units 07:09 06:55 06:21 WBC 15.3 H (4.8-10.8) K/uL RBC 3.03 L (3.80-5.20) Mil/uL Hgb 8.5 L (11.0-16.0) g/dL Hct 26.2 L (34.0-47.0) % MCV 86.5 (81.0-99.0) fL MCH 28.0 (27.0-31.0) pg MCHC 32.4 L (33.0-37.0) g/dL RDW 18.8 H (11.5-14.5) % Plt Count 307 (130-400) K/uL MPV 8.8 (7.2-11.7) fL Neut % (Auto) 91.3 H (50.0-75.0) % Lymph % (Auto) 6.1 L (20.0-40.0) % [place] % (Auto) 2.1 (0.0-10.0) % Eos % (Auto) 0.0 (0.0-4.0) % Baso % (Auto) 0.5 (0.0-2.0) % Neut # (Auto) 14.0 H (1.8-7.0) K/uL Lymph # (Auto) 0.9 L (1.0-4.3) K/uL [place] # (Auto) 0.3 (0.0-0.8) K/uL Eos # (Auto) 0.0 (0.0-0.7) K/uL Baso # (Auto) 0.1 (0.0-0.2) K/uL Neutrophils % (Manual) 89 H (50-75) % Band Neutrophils % 2 (0-2) % Lymphocytes % (Manual) 7 L (20-40) % Monocytes % (Manual) 2 (0-10) % Platelet Estimate Normal (NORMAL) Hypochromasia (manual) Slight Anisocytosis (manual) Moderate Ovalocytes Slight Puncture Site pCO2 (35-45) mm/Hg pO2 (80-100) mm/Hg HCO3 (21-28) mmol/L ABG pH (7.35-7.45) ABG Total CO2 (22-28) mmol/L ABG O2 Saturation (95-98) % ABG Base Excess (-2.0-3.0) mmol/L ABG Hemoglobin (11.7-17.4) g/dL ABG Carboxyhemoglobin (0.5-1.5) % POC ABG HHb (Measured) (0.0-5.0) % ABG Methemoglobin (0.0-3.0) % Devon Test A-a O2 Difference mm/Hg Respiratory Index Hgb O2 Saturation (95.0-98.0) % Vent Mode Mechanical Rate FiO2 % Inspiratory BiPAP Expiratory BiPAP Crit Value Called To Crit Value Called By Crit Value Read Back Blood Gas Notified Time Sodium 142 (132-148) mmol/L Potassium 5.1 (3.6-5.2) mmol/L Chloride 94 L (98-107) mmol/L Carbon Dioxide 39 H (22-30) mmol/L Anion Gap 14 (10-20) BUN 31 H (7-17) mg/dL Creatinine 0.8 (0.7-1.2) mg/dL Est GFR ( Amer) > 60 Est GFR (Non-Af Amer) > 60 POC Glucose (mg/dL) 160 H (65-110) mg/dL Random Glucose 160 H (65-105) mg/dL Calcium 8.4 L (8.6-10.4) mg/dl Phosphorus 4.1 (2.5-4.5) mg/dL Magnesium 1.9 (1.6-2.3) mg/dL Total Bilirubin 0.5 (0.2-1.3) mg/dL AST 25 (14-36) U/L ALT < 6 L D (9-52) U/L Alkaline Phosphatase 93 (38-126) U/L Total Protein 6.6 (6.3-8.3) g/dL Albumin 3.0 L (3.5-5.0) g/dL Globulin 3.6 (2.2-3.9) gm/dL Albumin/Globulin Ratio 0.8 L (1.0-2.1) Urine Color (YELLOW) Urine Clarity (Clear) Urine pH (5.0-8.0) Ur Specific [place] (1.003-1.030) Urine Protein (NEGATIVE) mg/dL Urine Glucose (UA) (Normal) mg/dL Urine Ketones (NEGATIVE) mg/dL Urine Blood (NEGATIVE) Urine Nitrate (NEGATIVE) Urine Bilirubin (NEGATIVE) Urine Urobilinogen (0.2-1.0) mg/dL Ur Leukocyte Esterase (Negative) Kevon/uL Urine WBC (Auto) (0-5) /hpf Urine RBC (Auto) (0-3) /hpf Ur Squamous Epith Cells (0-5) /hpf Urine Bacteria (<OCC) U Random Total Protein (0.0-12.0) mg/dL Ur Random Sodium mmol/L 08/19/17 08/19/17 08/18/17 Range/Units 06:21 05:32 21:32 WBC (4.8-10.8) K/uL RBC (3.80-5.20) Mil/uL Hgb (11.0-16.0) g/dL Hct (34.0-47.0) % MCV (81.0-99.0) fL MCH (27.0-31.0) pg MCHC (33.0-37.0) g/dL RDW (11.5-14.5) % Plt Count (130-400) K/uL MPV (7.2-11.7) fL Neut % (Auto) (50.0-75.0) % Lymph % (Auto) (20.0-40.0) % [place] % (Auto) (0.0-10.0) % Eos % (Auto) (0.0-4.0) % Baso % (Auto) (0.0-2.0) % Neut # (Auto) (1.8-7.0) K/uL Lymph # (Auto) (1.0-4.3) K/uL [place] # (Auto) (0.0-0.8) K/uL Eos # (Auto) (0.0-0.7) K/uL Baso # (Auto) (0.0-0.2) K/uL Neutrophils % (Manual) (50-75) % Band Neutrophils % (0-2) % Lymphocytes % (Manual) (20-40) % Monocytes % (Manual) (0-10) % Platelet Estimate (NORMAL) Hypochromasia (manual) Anisocytosis (manual) Ovalocytes Puncture Site pCO2 (35-45) mm/Hg pO2 (80-100) mm/Hg HCO3 (21-28) mmol/L ABG pH (7.35-7.45) ABG Total CO2 (22-28) mmol/L ABG O2 Saturation (95-98) % ABG Base Excess (-2.0-3.0) mmol/L ABG Hemoglobin (11.7-17.4) g/dL ABG Carboxyhemoglobin (0.5-1.5) % POC ABG HHb (Measured) (0.0-5.0) % ABG Methemoglobin (0.0-3.0) % Devon Test A-a O2 Difference mm/Hg Respiratory Index Hgb O2 Saturation (95.0-98.0) % Vent Mode Mechanical Rate FiO2 % Inspiratory BiPAP Expiratory BiPAP Crit Value Called To Crit Value Called By Crit Value Read Back Blood Gas Notified Time Sodium (132-148) mmol/L Potassium (3.6-5.2) mmol/L Chloride (98-107) mmol/L Carbon Dioxide (22-30) mmol/L Anion Gap (10-20) BUN (7-17) mg/dL Creatinine (0.7-1.2) mg/dL Est GFR ( Amer) Est GFR (Non-Af Amer) POC Glucose (mg/dL) 145 H 156 H (65-110) mg/dL Random Glucose (65-105) mg/dL Calcium (8.6-10.4) mg/dl Phosphorus (2.5-4.5) mg/dL Magnesium (1.6-2.3) mg/dL Total Bilirubin (0.2-1.3) mg/dL AST (14-36) U/L ALT (9-52) U/L Alkaline Phosphatase (38-126) U/L Total Protein (6.3-8.3) g/dL Albumin (3.5-5.0) g/dL Globulin (2.2-3.9) gm/dL Albumin/Globulin Ratio (1.0-2.1) Urine Color [place] (YELLOW) Urine Clarity Hazy (Clear) Urine pH 5.0 (5.0-8.0) Ur Specific [place] 1.047 H (1.003-1.030) Urine Protein 1+ H (NEGATIVE) mg/dL Urine Glucose (UA) Normal (Normal) mg/dL Urine Ketones Negative (NEGATIVE) mg/dL Urine Blood 2+ H (NEGATIVE) Urine Nitrate Negative (NEGATIVE) Urine Bilirubin Negative (NEGATIVE) Urine Urobilinogen Normal (0.2-1.0) mg/dL Ur Leukocyte Esterase 2+ H (Negative) Kevon/uL Urine WBC (Auto) 82 H (0-5) /hpf Urine RBC (Auto) 59 H (0-3) /hpf Ur Squamous Epith Cells 2 (0-5) /hpf Urine Bacteria Rare (<OCC) U Random Total Protein (0.0-12.0) mg/dL Ur Random Sodium mmol/L 08/18/17 08/18/17 08/18/17 Range/Units 20:02 17:51 17:51 WBC (4.8-10.8) K/uL RBC (3.80-5.20) Mil/uL Hgb (11.0-16.0) g/dL Hct (34.0-47.0) % MCV (81.0-99.0) fL MCH (27.0-31.0) pg MCHC (33.0-37.0) g/dL RDW (11.5-14.5) % Plt Count (130-400) K/uL MPV (7.2-11.7) fL Neut % (Auto) (50.0-75.0) % Lymph % (Auto) (20.0-40.0) % [place] % (Auto) (0.0-10.0) % Eos % (Auto) (0.0-4.0) % Baso % (Auto) (0.0-2.0) % Neut # (Auto) (1.8-7.0) K/uL Lymph # (Auto) (1.0-4.3) K/uL [place] # (Auto) (0.0-0.8) K/uL Eos # (Auto) (0.0-0.7) K/uL Baso # (Auto) (0.0-0.2) K/uL Neutrophils % (Manual) (50-75) % Band Neutrophils % (0-2) % Lymphocytes % (Manual) (20-40) % Monocytes % (Manual) (0-10) % Platelet Estimate (NORMAL) Hypochromasia (manual) Anisocytosis (manual) Ovalocytes Puncture Site Rba pCO2 72 H* (35-45) mm/Hg pO2 127 H (80-100) mm/Hg HCO3 38.2 H (21-28) mmol/L ABG pH 7.40 (7.35-7.45) ABG Total CO2 46.8 H (22-28) mmol/L ABG O2 Saturation 99.8 H (95-98) % ABG Base Excess 17.0 H (-2.0-3.0) mmol/L ABG Hemoglobin 10.2 L (11.7-17.4) g/dL ABG Carboxyhemoglobin 2.4 H (0.5-1.5) % POC ABG HHb (Measured) 0.2 (0.0-5.0) % ABG Methemoglobin 1.0 (0.0-3.0) % Devon Test Na A-a O2 Difference 33.0 mm/Hg Respiratory Index 0.3 Hgb O2 Saturation 96.4 (95.0-98.0) % Vent Mode Bipap Mechanical Rate 10 FiO2 35.0 % Inspiratory BiPAP 16 Expiratory BiPAP 8 Crit Value Called To Icunurse gruber Crit Value Called By Raven rt Crit Value Read Back Y Blood Gas Notified Time 2006 Sodium (132-148) mmol/L Potassium (3.6-5.2) mmol/L Chloride (98-107) mmol/L Carbon Dioxide (22-30) mmol/L Anion Gap (10-20) BUN (7-17) mg/dL Creatinine (0.7-1.2) mg/dL Est GFR ( Amer) Est GFR (Non-Af Amer) POC Glucose (mg/dL) (65-110) mg/dL Random Glucose (65-105) mg/dL Calcium (8.6-10.4) mg/dl Phosphorus (2.5-4.5) mg/dL Magnesium (1.6-2.3) mg/dL Total Bilirubin (0.2-1.3) mg/dL AST (14-36) U/L ALT (9-52) U/L Alkaline Phosphatase (38-126) U/L Total Protein (6.3-8.3) g/dL Albumin (3.5-5.0) g/dL Globulin (2.2-3.9) gm/dL Albumin/Globulin Ratio (1.0-2.1) Urine Color (YELLOW) Urine Clarity (Clear) Urine pH (5.0-8.0) Ur Specific [place] (1.003-1.030) Urine Protein (NEGATIVE) mg/dL Urine Glucose (UA) (Normal) mg/dL Urine Ketones (NEGATIVE) mg/dL Urine Blood (NEGATIVE) Urine Nitrate (NEGATIVE) Urine Bilirubin (NEGATIVE) Urine Urobilinogen (0.2-1.0) mg/dL Ur Leukocyte Esterase (Negative) [place]/uL Urine WBC (Auto) (0-5) /hpf Urine RBC (Auto) (0-3) /hpf Ur Squamous Epith Cells (0-5) /hpf Urine Bacteria (<OCC) U Random Total Protein 27.0 H (0.0-12.0) mg/dL Ur Random Sodium 9 mmol/L Laboratory Results - last 24 hr 08/18/17 08/18/17 08/18/17 17:51 17:51 20:02 WBC RBC Hgb Hct MCV MCH MCHC RDW Plt Count MPV Neut % (Auto) Lymph % (Auto) [place] % (Auto) Eos % (Auto) Baso % (Auto) Neut # (Auto) Lymph # (Auto) [place] # (Auto) Eos # (Auto) Baso # (Auto) Neutrophils % (Manual) Band Neutrophils % Lymphocytes % (Manual) Monocytes % (Manual) Platelet Estimate Hypochromasia (manual) Anisocytosis (manual) Ovalocytes Puncture Site Rba pCO2 72 H* pO2 127 H HCO3 38.2 H ABG pH 7.40 ABG Total CO2 46.8 H ABG O2 Saturation 99.8 H ABG Base Excess 17.0 H ABG Hemoglobin 10.2 L ABG Carboxyhemoglobin 2.4 H POC ABG HHb (Measured) 0.2 ABG Methemoglobin 1.0 Devon Test Na A-a O2 Difference 33.0 Respiratory Index 0.3 Hgb O2 Saturation 96.4 Vent Mode Bipap Mechanical Rate 10 FiO2 35.0 Inspiratory BiPAP 16 Expiratory BiPAP 8 Crit Value Called To Gerry gruber Crit Value Called By Raven reddy Crit Value Read Back Y Blood Gas Notified Time 2006 Sodium Potassium Chloride Carbon Dioxide Anion Gap BUN Creatinine Est GFR ( Amer) Est GFR (Non-Af Amer) POC Glucose (mg/dL) Random Glucose Calcium Phosphorus Magnesium Total Bilirubin AST ALT Alkaline Phosphatase Total Protein Albumin Globulin Albumin/Globulin Ratio Urine Color Urine Clarity Urine pH Ur Specific [place] Urine Protein Urine Glucose (UA) Urine Ketones Urine Blood Urine Nitrate Urine Bilirubin Urine Urobilinogen Ur Leukocyte Esterase Urine WBC (Auto) Urine RBC (Auto) Ur Squamous Epith Cells Urine Bacteria U Random Total Protein 27.0 H Ur Random Sodium 9 08/18/17 08/19/17 08/19/17 21:32 05:32 06:21 WBC RBC Hgb Hct MCV MCH MCHC RDW Plt Count MPV Neut % (Auto) Lymph % (Auto) [place] % (Auto) Eos % (Auto) Baso % (Auto) Neut # (Auto) Lymph # (Auto) [place] # (Auto) Eos # (Auto) Baso # (Auto) Neutrophils % (Manual) Band Neutrophils % Lymphocytes % (Manual) Monocytes % (Manual) Platelet Estimate Hypochromasia (manual) Anisocytosis (manual) Ovalocytes Puncture Site pCO2 pO2 HCO3 ABG pH ABG Total CO2 ABG O2 Saturation ABG Base Excess ABG Hemoglobin ABG Carboxyhemoglobin POC ABG HHb (Measured) ABG Methemoglobin Devon Test A-a O2 Difference Respiratory Index Hgb O2 Saturation Vent Mode Mechanical Rate FiO2 Inspiratory BiPAP Expiratory BiPAP Crit Value Called To Crit Value Called By Crit Value Read Back Blood Gas Notified Time Sodium Potassium Chloride Carbon Dioxide Anion Gap BUN Creatinine Est GFR ( Amer) Est GFR (Non-Af Amer) POC Glucose (mg/dL) 156 H 145 H Random Glucose Calcium Phosphorus Magnesium Total Bilirubin AST ALT Alkaline Phosphatase Total Protein Albumin Globulin Albumin/Globulin Ratio Urine Color Nakita Urine Clarity Hazy Urine pH 5.0 Ur Specific [place]hen[place] 1.047 H Urine Protein 1+ H Urine Glucose (UA) Normal Urine Ketones Negative Urine Blood 2+ H Urine Nitrate Negative Urine Bilirubin Negative Urine Urobilinogen Normal Ur Leukocyte Esterase 2+ H Urine WBC (Auto) 82 H Urine RBC (Auto) 59 H Ur Squamous Epith Cells 2 Urine Bacteria Rare U Random Total Protein Ur Random Sodium 08/19/17 08/19/17 08/19/17 06:21 06:55 07:09 WBC 15.3 H RBC 3.03 L Hgb 8.5 L Hct 26.2 L MCV 86.5 MCH 28.0 MCHC 32.4 L RDW 18.8 H Plt Count 307 MPV 8.8 Neut % (Auto) 91.3 H Lymph % (Auto) 6.[address] [place] % (Auto) 2.1 Eos % (Auto) 0.0 Baso % (Auto) 0.5 Neut # (Auto) 14.0 H Lymph # (Auto) 0.[address] [place] # (Auto) 0.3 Eos # (Auto) 0.0 Baso # (Auto) 0.1 Neutrophils % (Manual) 89 H Band Neutrophils % 2 Lymphocytes % (Manual) 7 L Monocytes % (Manual) 2 Platelet Estimate Normal Hypochromasia (manual) Slight Anisocytosis (manual) Moderate Ovalocytes Slight Puncture Site pCO2 pO2 HCO3 ABG pH ABG Total CO2 ABG O2 Saturation ABG Base Excess ABG Hemoglobin ABG Carboxyhemoglobin POC ABG HHb (Measured) ABG Methemoglobin Devon Test A-a O2 Difference Respiratory Index Hgb O2 Saturation Vent Mode Mechanical Rate FiO2 Inspiratory BiPAP Expiratory BiPAP Crit Value Called To Crit Value Called By Crit Value Read Back Blood Gas Notified Time Sodium 142 Potassium 5.1 Chloride 94 L Carbon Dioxide 39 H Anion Gap 14 BUN 31 H Creatinine 0.8 Est GFR ( Amer) > 60 Est GFR (Non-Af Amer) > 60 POC Glucose (mg/dL) 160 H Random Glucose 160 H Calcium 8.4 L Phosphorus 4.1 Magnesium 1.9 Total Bilirubin 0.5 AST 25 ALT < 6 L D Alkaline Phosphatase 93 Total Protein 6.6 Albumin 3.0 L Globulin 3.6 Albumin/Globulin Ratio 0.8 L Urine Color Urine Clarity Urine pH Ur Specific [place] Urine Protein Urine Glucose (UA) Urine Ketones Urine Blood Urine Nitrate Urine Bilirubin Urine Urobilinogen Ur Leukocyte Esterase Urine WBC (Auto) Urine RBC (Auto) Ur Squamous Epith Cells Urine Bacteria U Random Total Protein Ur Random Sodium 08/19/17 08/19/17 08/19/17 07:50 10:59 15:34 WBC RBC Hgb Hct MCV MCH MCHC RDW Plt Count MPV Neut % (Auto) Lymph % (Auto) [place] % (Auto) Eos % (Auto) Baso % (Auto) Neut # (Auto) Lymph # (Auto) [place] # (Auto) Eos # (Auto) Baso # (Auto) Neutrophils % (Manual) Band Neutrophils % Lymphocytes % (Manual) Monocytes % (Manual) Platelet Estimate Hypochromasia (manual) Anisocytosis (manual) Ovalocytes Puncture Site Lb pCO2 66 H pO2 95 HCO3 38.3 H ABG pH 7.43 ABG Total CO2 45.8 H ABG O2 Saturation 99.0 H ABG Base Excess 17.1 H ABG Hemoglobin 9.1 L ABG Carboxyhemoglobin 2.1 H POC ABG HHb (Measured) 1.0 ABG Methemoglobin 1.0 Devon Test Na A-a O2 Difference 72.0 Respiratory Index 0.8 Hgb O2 Saturation 95.9 Vent Mode Mechanical Rate FiO2 35.0 Inspiratory BiPAP 18 Expiratory BiPAP 9 Crit Value Called To Dr avllecillo Crit Value Called By Stepan lópez body engineer Crit Value Read Back Y Blood Gas Notified Time 755 Sodium Potassium Chloride Carbon Dioxide Anion Gap BUN Creatinine Est GFR ( Amer) Est GFR (Non-Af Amer) POC Glucose (mg/dL) 191 H 244 H Random Glucose Calcium Phosphorus Magnesium Total Bilirubin AST ALT Alkaline Phosphatase Total Protein Albumin Globulin Albumin/Globulin Ratio Urine Color Urine Clarity Urine pH Ur Specific [place] Urine Protein Urine Glucose (UA) Urine Ketones Urine Blood Urine Nitrate Urine Bilirubin Urine Urobilinogen Ur Leukocyte Esterase Urine WBC (Auto) Urine RBC (Auto) Ur Squamous Epith Cells Urine Bacteria U Random Total Protein Ur Random Sodium Critical Care Progress Note - Nutrition Nutrition: Nutrition Category Date Time Status Heart Healthy Diet [DIET] Diets 08/19/17 Lunch Active Attending/Attestation - Attestation I have personally seen and examined this patient.: Yes I have fully participated in the care of the patient.: Yes I have reviewed all pertinent clinical information: Yes Notes (Text): 08/19/17 16:41 patient seen and examined in the intensive care unit. Condition improving Patient is off BiPAP Continue IV steroids Started on IV antibiotics for urosepsis Continue nebulizer treatment BiPAP at night Follow-up chest x-ray
--- NOTE | 2017-08-19 09:58 | CP.PCM.PN ---
Subjective - Date & Time of Evaluation Date of Evaluation: 08/19/17 Time of Evaluation: 09:00 - Subjective Subjective: urine esbl+ on iso merrem added Objective - Vital Signs/Intake and Output Vital Signs (last 24 hours): Temp Pulse Resp BP Pulse Ox 97.9 F 61 11 L 130/44 L 100 08/19/17 04:00 08/19/17 08:14 08/19/17 08:14 08/19/17 08:15 08/19/17 08:14 Intake and Output: 08/19/17 08/19/17 06:59 18:59 Intake Total 0 0 Output Total 250 30 Balance -250 -30 - Medications Medications: Current Medications Acetaminophen (Tylenol 325mg Tab) 650 mg PO Q6 PRN PRN Reason: Fever and pain Albuterol/Ipratropium (Duoneb 3 Mg/0.5 Mg (3 Ml) Ud) 3 ml INH RQ4 [facility] Last Admin: 08/19/17 07:18 Dose: 3 ml Amlodipine Besylate (Norvasc) 5 mg PO DAILY [facility] Last Admin: 08/18/17 10:00 Dose: Not Given Aspirin (Aspirin Chewable) 81 mg PO DAILY [facility] Last Admin: 08/18/17 10:00 Dose: Not Given Famotidine (Pepcid) 20 mg IVP DAILY [facility] Last Admin: 08/18/17 10:50 Dose: 20 mg Furosemide (Lasix) 20 mg IVP DAILY [facility] Heparin Sodium (Porcine) (Heparin) 5,000 units SC Q8 [facility] Last Admin: 08/19/17 05:24 Dose: 5,000 units Meropenem 1 gm/ Sodium (Chloride) 100 mls @ 100 mls/hr IVPB Q8 [facility] PRN Reason: Protocol Azithromycin 500 mg/ Sodium (Chloride) 250 mls @ 250 mls/hr IVPB DAILY [facility] PRN Reason: Protocol Insulin Human Regular (Novolin R) 0 unit SC ACHS [facility] PRN Reason: Protocol Last Admin: 08/19/17 07:47 Dose: Not Given Methylprednisolone (Solu-Medrol) 40 mg IVP Q8 [facility] Last Admin: 08/19/17 05:24 Dose: 40 mg Metoprolol Succinate (Toprol Xl) 25 mg PO DAILY [facility] Last Admin: 08/18/17 10:00 Dose: Not Given Pneumococcal Polyvalent Vaccine (Pneumovax 23 Vaccine) 0.5 ml SC .ONCE ONE Stop: 08/21/17 10:01 - Labs Labs: 08/19/17 06:21 08/19/17 06:55 PT 13.2 SECONDS (9.7-12.2) H 08/17/17 20:04 INR 1.2 08/17/17 20:04 APTT 33 SECONDS (21-34) 08/17/17 20:04 - Constitutional Appears: Non-toxic - Head Exam Head Exam: NORMOCEPHALIC - Eye Exam Eye Exam: PERRL - ENT Exam ENT Exam: Mucous Membranes Dry - Neck Exam Neck Exam: absent: Lymphadenopathy - Respiratory Exam Respiratory Exam: Decreased Breath Sounds - Cardiovascular Exam Cardiovascular Exam: REGULAR RHYTHM - GI/Abdominal Exam GI & Abdominal Exam: Distended, Soft - Rectal Exam Rectal Exam: Deferred - Exam Exam: NORMAL INSPECTION - Extremities Exam Extremities Exam: absent: Pedal Edema - Back Exam Back Exam: absent: CVA tenderness (L), CVA tenderness (R) - Neurological Exam Neurological Exam: Alert, Awake, Oriented x3 Assessment and Plan (1) CHF exacerbation Status: Acute (2) COPD exacerbation Status: Acute (3) Chr obstructive pulmonary disease w/ acute lower respiratory infxn Status: Acute (4) Chronic congestive heart failure Status: Acute (5) Dyspnea Status: Acute
[2017-08-19] MEDS: Meropenem IV 1 gm in NS 50 ML IVPB SCH ×3 (11:05→21:38)
--- NOTE | 2017-08-19 11:05 | CP.PCM.PN ---
Subjective - Date & Time of Evaluation Date of Evaluation: 08/19/17 Time of Evaluation: 11:03 - Subjective Subjective: seen and examined off bipap comfortable, answering questions denies any sob cough dizziness cp nausea vomiting diarrhea rash weakness numbness. parsons in place. sluggish uop Objective - Vital Signs/Intake and Output Vital Signs (last 24 hours): Temp Pulse Resp BP Pulse Ox 97.9 F 61 11 L 130/44 L 100 08/19/17 04:00 08/19/17 08:14 08/19/17 08:14 08/19/17 08:15 08/19/17 08:14 Intake and Output: 08/19/17 08/19/17 06:59 18:59 Intake Total 0 0 Output Total 250 30 Balance -250 -30 - Medications Medications: Current Medications Acetaminophen (Tylenol 325mg Tab) 650 mg PO Q6 PRN PRN Reason: Fever and pain Albuterol/Ipratropium (Duoneb 3 Mg/0.5 Mg (3 Ml) Ud) 3 ml INH RQ4 [facility] Last Admin: 08/19/17 07:18 Dose: 3 ml Amlodipine Besylate (Norvasc) 5 mg PO DAILY [facility] Last Admin: 08/18/17 10:00 Dose: Not Given Aspirin (Aspirin Chewable) 81 mg PO DAILY [facility] Last Admin: 08/18/17 10:00 Dose: Not Given Famotidine (Pepcid) 20 mg IVP DAILY [facility] Last Admin: 08/18/17 10:50 Dose: 20 mg Furosemide (Lasix) 20 mg IVP DAILY [facility] Heparin Sodium (Porcine) (Heparin) 5,000 units SC Q8 [facility] Last Admin: 08/19/17 05:24 Dose: 5,000 units Meropenem (Merrem Iv 1 Gm Premix) 50 mls @ 100 mls/hr IVPB Q8 [facility] PRN Reason: Protocol Azithromycin 500 mg/ Sodium (Chloride) 250 mls @ 250 mls/hr IVPB Q24H [facility] PRN Reason: Protocol Insulin Human Regular (Novolin R) 0 unit SC ACHS [facility] PRN Reason: Protocol Last Admin: 08/19/17 07:47 Dose: Not Given Methylprednisolone (Solu-Medrol) 40 mg IVP Q8 [facility] Last Admin: 08/19/17 05:24 Dose: 40 mg Metoprolol Succinate (Toprol Xl) 25 mg PO DAILY [facility] Last Admin: 08/18/17 10:00 Dose: Not Given Pneumococcal Polyvalent Vaccine (Pneumovax 23 Vaccine) 0.5 ml SC .ONCE ONE Stop: 08/21/17 10:01 - Labs Labs: 08/19/17 06:21 08/19/17 06:55 PT 13.2 SECONDS (9.7-12.2) H 08/17/17 20:04 INR 1.2 08/17/17 20:04 APTT 33 SECONDS (21-34) 08/17/17 20:04 - Constitutional Appears: Non-toxic, Older Than Stated Age, Chronically Ill - Head Exam Head Exam: NORMAL INSPECTION - Eye Exam Eye Exam: Normal appearance, PERRL Pupil Exam: PERRL - ENT Exam ENT Exam: Mucous Membranes Dry - Neck Exam Neck Exam: Full ROM, Normal Inspection - Respiratory Exam Respiratory Exam: Decreased Breath Sounds, Clear to Ausculation Bilateral - Cardiovascular Exam Cardiovascular Exam: REGULAR RHYTHM, RRR - GI/Abdominal Exam GI & Abdominal Exam: Distended, Soft - Extremities Exam Extremities Exam: Normal Capillary Refill, Normal Inspection - Neurological Exam Neurological Exam: Alert, Awake - Psychiatric Exam Psychiatric exam: Flat Affect - Skin Skin Exam: Normal Color, Warm Assessment and Plan (1) COPD exacerbation Status: Acute (2) Compensated respiratory acidosis Status: Acute (3) CKD (chronic kidney disease) Status: Acute (4) Dyspnea Status: Acute (5) UTI (urinary tract infection) Status: Acute - Assessment and Plan (Free Text) Assessment: hold lasix consider starting maintenance fluids if pt remains npo monitor I/Os lytes acceptable
[2017-08-19] MEDS: Metoprolol Succinate 25 mg XL Tab PO SCH (11:10)
[2017-08-19] MEDS: Azithromycin 500 MG in Sodium Chloride 0.9% 250 ML IVPB SCH (12:11)
[2017-08-19 16:52] LABS: LEGIONELLA AG URINE NEGATIVE (NEGATIVE)
--- NOTE | 2017-08-19 22:03 | CP.PCM.PN ---
Subjective - Date & Time of Evaluation Date of Evaluation: 08/19/17 Time of Evaluation: 14:00 - Subjective Subjective: clinically same Objective - Vital Signs/Intake and Output Vital Signs (last 24 hours): Temp Pulse Resp BP Pulse Ox 99 F 85 18 126/44 L 92 L 08/19/17 20:00 08/19/17 21:01 08/19/17 21:01 08/19/17 21:01 08/19/17 21:01 Intake and Output: 08/19/17 08/20/17 18:59 06:59 Intake Total 770 150 Output Total 475 150 Balance 295 0 - Medications Medications: Current Medications Acetaminophen (Tylenol 325mg Tab) 650 mg PO Q6 PRN PRN Reason: Fever and pain Albuterol/Ipratropium (Duoneb 3 Mg/0.5 Mg (3 Ml) Ud) 3 ml INH RQ4 [facility] Last Admin: 08/19/17 19:05 Dose: 3 ml Amlodipine Besylate (Norvasc) 5 mg PO DAILY [facility] Last Admin: 08/19/17 11:09 Dose: Not Given Aspirin (Aspirin Chewable) 81 mg PO DAILY [facility] Last Admin: 08/19/17 11:08 Dose: 81 mg Famotidine (Pepcid) 20 mg IVP DAILY [facility] Last Admin: 08/19/17 11:09 Dose: 20 mg Furosemide (Lasix) 20 mg IVP DAILY [facility] Last Admin: 08/19/17 11:24 Dose: 20 mg Heparin Sodium (Porcine) (Heparin) 5,000 units SC Q8 [facility] Last Admin: 08/19/17 21:37 Dose: 5,000 units Meropenem (Merrem Iv 1 Gm Premix) 50 mls @ 100 mls/hr IVPB Q8 [facility] PRN Reason: Protocol Last Admin: 08/19/17 21:38 Dose: 100 mls/hr Azithromycin 500 mg/ Sodium (Chloride) 250 mls @ 250 mls/hr IVPB Q24H [facility] PRN Reason: Protocol Last Admin: 08/19/17 12:11 Dose: 250 mls/hr Insulin Human Regular (Novolin R) 0 unit SC ACHS [facility] PRN Reason: Protocol Last Admin: 08/19/17 21:25 Dose: Not Given Methylprednisolone (Solu-Medrol) 40 mg IVP Q8 [facility] Last Admin: 08/19/17 21:37 Dose: 40 mg Metoprolol Succinate (Toprol Xl) 25 mg PO DAILY [facility] Last Admin: 08/19/17 11:10 Dose: Not Given Pneumococcal Polyvalent Vaccine (Pneumovax 23 Vaccine) 0.5 ml SC .ONCE ONE Stop: 08/21/17 10:01 - Labs Labs: 08/19/17 06:21 08/19/17 06:55 PT 13.2 SECONDS (9.7-12.2) H 08/17/17 20:04 INR 1.2 08/17/17 20:04 APTT 33 SECONDS (21-34) 08/17/17 20:04 - Constitutional Appears: Well - Head Exam Head Exam: ATRAUMATIC, NORMAL INSPECTION, NORMOCEPHALIC - Eye Exam Eye Exam: EOMI, Normal appearance, PERRL Pupil Exam: NORMAL ACCOMODATION, PERRL - ENT Exam ENT Exam: Mucous Membranes Moist, Normal Exam - Neck Exam Neck Exam: Full ROM, Normal Inspection. absent: Lymphadenopathy - Respiratory Exam Respiratory Exam: Decreased Breath Sounds - Cardiovascular Exam Cardiovascular Exam: REGULAR RHYTHM, +S1, +S2 - GI/Abdominal Exam GI & Abdominal Exam: Soft, Diminished Bowel Sounds - Rectal Exam Rectal Exam: Deferred
[2017-08-20] MEDS: Albuterol-Ipratrop 3 mg / 0.5 (3 ml) UD INH SCH ×6 (00:32→19:27)
[2017-08-20] MEDS: MethylPREDNISolone 40 mg Vial IVP SCH ×3 (05:05→20:48)
[2017-08-20] MEDS: Meropenem IV 1 gm in NS 50 ML IVPB SCH ×3 (05:06→21:39)
[2017-08-20 06:09] LABS: BASO # 0.1 K/uL (0.0-0.2); BASO % 0.6 % (0.0-2.0); EOS % 0.1 % (0.0-4.0); HEMOGLOBIN 8.3 g/dL (11.0-16.0); LYMPH # 0.6 K/uL (1.0-4.3); MEAN CELL VOLUME 86.1 fL (81.0-99.0); MEAN CORPUSCULAR HEMOGLOBIN 28.1 pg (27.0-31.0); MEAN CORPUSCULAR HGB CONC 32.7 g/dL (33.0-37.0); MEAN PLATELET VOLUME 8.9 fL (7.2-11.7); MONO # 0.4 K/uL (0.0-0.8); NEUT # 11.7 K/uL (1.8-7.0); NEUT % 91.3 % (50.0-75.0); NRBC % 0.1 % (0.0-2.0); PLATELET COUNT 296 K/uL (130-400); RBC 2.95 Mil/uL (3.80-5.20); RED CELL DISTRIBUTION WIDTH 19.1 % (11.5-14.5); WHITE BLOOD COUNT 12.8 K/uL (4.8-10.8)
[2017-08-20 06:31] LABS: ALB/GLOB RATIO 0.9 (1.0-2.1); ALBUMIN 2.9 g/dL (3.5-5.0); ALT/SGPT 19 U/L (9-52); AST/SGOT 21 U/L (14-36); BLOOD UREA NITROGEN 38 mg/dL (7-17); GFR AFRICAN-AMERICAN > 60; GFR NON-AFRICAN AMERICAN > 60
[2017-08-20 08:15] LABS: ANISOCYTOSIS MODERATE; BANDS 4 % (0-2); LYMPHOCYTE 4 % (20-40); METAMYELOCYTE 1 % (0-0); MONOCYTE 3 % (0-10); MYELOCYTE 1 % (0-0); NEUTROPHIL 87 % (50-75); PLATELET ESTIMATE NORMAL (NORMAL); TOTAL CELLS COUNTED 100
[2017-08-20 08:16] LABS: HYPOCHROMIC SLIGHT
--- NOTE | 2017-08-20 08:31 | RAD ---
HISTORY: dyspnea COMPARISON: Chest radiograph dated 08/17/2017 FINDINGS: LUNGS: Improved aeration bilaterally. No focal consolidation. PLEURA: No significant pleural effusion identified, no pneumothorax apparent. CARDIOVASCULAR: Atherosclerotic aortic calcifications. Cardiomediastinal silhouette stably enlarged. OSSEOUS STRUCTURES: Unchanged. VISUALIZED UPPER ABDOMEN: Normal. OTHER FINDINGS: None. IMPRESSION: Improved aeration bilaterally. No focal consolidation or significant pleural effusion.
--- NOTE | 2017-08-20 08:37 | VASCLAB ---
PROCEDURE: Lower Extremity Venous Duplex Exam. HISTORY: immobile, obese PRIORS: None. TECHNIQUE: Bilateral common femoral, femoral, popliteal and posterior tibial, peroneal and great saphenous veins were evaluated. Flow was assessed with color Doppler, compressibility, assessment of phasic flow and augmentation response. Report prepared by Sanchez Alfred, ALEXIS, RVT FINDINGS: RIGHT: 1. Common Femoral Vein: 1.1. Compressibility - Fully compressible: Thrombus - None : Flow - Phasic: Augmentation -Normal: Reflux - None. 2. Femoral Vein: 2.1. Compressibility - Fully compressible: Thrombus - None : Flow - Phasic: Augmentation -Normal: Reflux - None. 3. Popliteal Vein: 3.1. Compressibility - Fully compressible: Thrombus - None : Flow - Phasic: Augmentation -Normal: Reflux - None. 4. Posterior Tibial Vein: 4.1. Compressibility - Fully compressible: Thrombus - None: Flow - Phasic: Augmentation -Normal: Reflux - None. 5. Peroneal Vein: 5.1. Compressibility - Fully compressible: Thrombus - None: Flow - Phasic: Augmentation -Normal: Reflux - None. 6. Great Saphenous Vein: 6.1. Compressibility - Fully compressible: Thrombus - None: Flow - Phasic: Augmentation - Normal: Reflux - None. LEFT: 1. Common Femoral Vein: 1.1. Compressibility - Fully compressible: Thrombus - None: Flow - Phasic: Augmentation -Normal: Reflux - None. 2. Femoral Vein: 2.1. Compressibility - Fully compressible: Thrombus - None: Flow - Phasic: Augmentation -Normal: Reflux - None. 3. Popliteal Vein: 3.1. Compressibility - Fully compressible: Thrombus - None : Flow - Phasic: Augmentation -Normal: Reflux - None. 4. Posterior Tibial Vein: 4.1. Compressibility - Fully compressible: Thrombus - None: Flow - Phasic: Augmentation -Normal: Reflux - None. 5. Peroneal Vein: 5.1. Compressibility - Fully compressible: Thrombus - None: Flow - Phasic: Augmentation -Normal: Reflux - None. 6. Great Saphenous Vein: 6.1. Compressibility - Fully compressible: Thrombus - None: Flow - Phasic: Augmentation - Normal: Reflux - None. OTHER FINDINGS: Technically limited study due to patient body habitus. IMPRESSION: Right: No evidence of deep or superficial vein thrombosis of the right lower extremity. Normal valve function noted of the right side. Left: No evidence of deep or superficial vein thrombosis of the left lower extremity. Normal valve function noted of the left side.
[2017-08-20] MEDS: (Novolin R) Insulin Human Regular 100 units/ml vial SC SCH ×4 (08:52→21:21)
[2017-08-20] MEDS: Metoprolol Succinate 25 mg XL Tab PO SCH (09:04)
[2017-08-20 09:27] LABS: MYCOPLASMA PNEUMONIAE IGM NEGATIVE (NEGATIVE)
--- NOTE | 2017-08-20 09:48 | CP.PCM.PN ---
Subjective - Date & Time of Evaluation Date of Evaluation: 08/20/17 Time of Evaluation: 12:40 - Subjective Subjective: clinically same Objective - Vital Signs/Intake and Output Vital Signs (last 24 hours): Temp Pulse Resp BP Pulse Ox 98.8 F 63 27 H 149/44 L 95 08/20/17 04:00 08/20/17 07:00 08/20/17 07:00 08/20/17 09:05 08/20/17 07:00 Intake and Output: 08/20/17 08/20/17 06:59 18:59 Intake Total 550 0 Output Total 500 Balance 50 0 - Medications Medications: Current Medications Acetaminophen (Tylenol 325mg Tab) 650 mg PO Q6 PRN PRN Reason: Fever and pain Albuterol/Ipratropium (Duoneb 3 Mg/0.5 Mg (3 Ml) Ud) 3 ml INH RQ4 [facility] Last Admin: 08/20/17 08:04 Dose: 3 ml Amlodipine Besylate (Norvasc) 5 mg PO DAILY [facility] Last Admin: 08/20/17 09:07 Dose: 5 mg Aspirin (Aspirin Chewable) 81 mg PO DAILY [facility] Last Admin: 08/20/17 09:05 Dose: 81 mg Famotidine (Pepcid) 20 mg IVP DAILY [facility] Last Admin: 08/20/17 09:05 Dose: 20 mg Furosemide (Lasix) 20 mg IVP DAILY [facility] Last Admin: 08/20/17 09:05 Dose: 20 mg Heparin Sodium (Porcine) (Heparin) 5,000 units SC Q8 [facility] Last Admin: 08/20/17 05:05 Dose: 5,000 units Meropenem (Merrem Iv 1 Gm Premix) 50 mls @ 100 mls/hr IVPB Q8 [facility] PRN Reason: Protocol Last Admin: 08/20/17 05:06 Dose: 100 mls/hr Azithromycin 500 mg/ Sodium (Chloride) 250 mls @ 250 mls/hr IVPB Q24H [facility] PRN Reason: Protocol Last Admin: 08/19/17 12:11 Dose: 250 mls/hr Insulin Human Regular (Novolin R) 0 unit SC ACHS [facility] PRN Reason: Protocol Last Admin: 08/20/17 08:52 Dose: 2 unit Methylprednisolone (Solu-Medrol) 40 mg IVP Q12H [facility] Metoprolol Succinate (Toprol Xl) 25 mg PO DAILY [facility] Last Admin: 08/20/17 09:04 Dose: 25 mg Pneumococcal Polyvalent Vaccine (Pneumovax 23 Vaccine) 0.5 ml SC .ONCE ONE Stop: 08/21/17 10:01 - Labs Labs: 08/20/17 06:01 08/20/17 06:02 PT 13.2 SECONDS (9.7-12.2) H 08/17/17 20:04 INR 1.2 08/17/17 20:04 APTT 33 SECONDS (21-34) 08/17/17 20:04 - Constitutional Appears: Well - Head Exam Head Exam: ATRAUMATIC, NORMAL INSPECTION, NORMOCEPHALIC - Eye Exam Eye Exam: EOMI, Normal appearance, PERRL Pupil Exam: NORMAL ACCOMODATION, PERRL - ENT Exam ENT Exam: Mucous Membranes Moist, Normal Exam - Neck Exam Neck Exam: Full ROM, Normal Inspection. absent: Lymphadenopathy - Respiratory Exam Respiratory Exam: Decreased Breath Sounds - Cardiovascular Exam Cardiovascular Exam: REGULAR RHYTHM, +S1, +S2 - GI/Abdominal Exam GI & Abdominal Exam: Soft, Diminished Bowel Sounds - Rectal Exam Rectal Exam: Deferred
--- NOTE | 2017-08-20 11:14 | CP.CCUPN ---
<Renee Sheffield - Last Filed: 08/20/17 16:28> CCU Subjective - Physician Review Subjective (Free Text): 08/20/17 11:14 Patient seen and examined at bedside. Per nursing no acute events overnight. Patient is doing better, breathing comfortably on 3L NC. Tolerating diet. No other complaints at this time. CCU Objective - Vital Signs / Intake & Output Vital Signs (Last 4 hours): Vital Signs BP 08/20/17 09:05 149/44 L Intake and Output (Last 8hrs): Intake & Output 08/19/17 08/20/17 08/20/17 22:59 06:59 14:59 Intake Total 600 200 0 Output Total 375 300 Balance 225 -100 0 Weight 115.666 kg Intake: Oral 600 200 0 Output: Urine 375 300 Urethral (Turner) 375 300 Other: # Bowel Movements 0 1 - Physical Exam Head: Positive for: Atraumatic, Normocephalic Pupils: Positive for: PERRL Extroacular Muscles: Positive for: EOMI Conjunctiva: Positive for: Normal Mouth: Positive for: Dry Respiratory/Chest: Positive for: Good Air Exchange. Negative for: Respiratory Distress, Accessory Muscle Use Cardiovascular: Positive for: Regular Rate and Rhythm, Normal S1, S2 Abdomen: Positive for: Other (Colostomy). Negative for: Tenderness, Distention Upper Extremity: Positive for: Normal Inspection Lower Extremity: Positive for: Normal Inspection Skin: Positive for: Warm, Dry, Normal Color Psychiatric: Positive for: Alert, Oriented x 3 - Medications Active Medications: Active Medications Generic Name Dose Route Start Last Admin Trade Name Freq PRN Reason Stop Dose Admin Acetaminophen 650 mg 08/18/17 00:27 Tylenol 325mg Tab PO Q6 PRN Fever and pain Albuterol/Ipratropium 3 ml 08/18/17 04:00 08/20/17 08:04 Duoneb 3 Mg/0.5 Mg (3 Ml) Ud INH 3 ml RQ4 STEVEN Administration Amlodipine Besylate 5 mg 08/18/17 10:00 08/20/17 09:07 Norvasc PO 5 mg DAILY STEVEN Administration Aspirin 81 mg 08/18/17 10:00 08/20/17 09:05 Aspirin Chewable PO 81 mg DAILY STEVEN Administration Famotidine 20 mg 08/18/17 10:00 08/20/17 09:05 Pepcid IVP 20 mg DAILY STVEEN Administration Furosemide 20 mg 08/19/17 10:00 08/20/17 09:05 Lasix IVP 20 mg DAILY STEVEN Administration Heparin Sodium (Porcine) 5,000 units 08/18/17 06:00 08/20/17 05:05 Heparin SC 5,000 units Q8 STEVEN Administration Meropenem 50 mls @ 100 mls/hr 08/19/17 10:30 08/20/17 05:06 Merrem Iv 1 Gm Premix IVPB 100 mls/hr Q8 STEVEN Administration Protocol Azithromycin 500 mg/ Sodium 250 mls @ 250 mls/hr 08/19/17 11:00 08/19/17 12: 11 Chloride IVPB 250 mls/hr Q24H [facility] Administration Protocol Insulin Human Regular 0 unit 08/18/17 07:30 08/20/17 08:52 Novolin R SC 2 unit ACHS STEVEN Administration Protocol Methylprednisolone 40 mg 08/20/17 09:45 Solu-Medrol IVP Q12H [facility] Metoprolol Succinate 25 mg 08/18/17 10:00 08/20/17 09:04 Toprol Xl PO 25 mg DAILY STEVEN Administration Pneumococcal Polyvalent Vaccine 0.5 ml 08/21/17 10:00 Pneumovax 23 Vaccine SC 08/21/17 10:01 .ONCE ONE - Patient Studies Lab Studies: Microbiology Studies 08/17/17 19:30 Blood Culture - Preliminary Blood-Venous NO GROWTH AFTER 48 HOURS 08/17/17 20:00 Blood Culture - Preliminary Blood-Venous NO GROWTH AFTER 48 HOURS 08/18/17 03:05 MRSA Culture (Admit) - Final Naris MRSA NOT DETECTED 08/17/17 19:33 Urine Culture - Final Urine,Clean Catch Escherichia Coli Lab Studies 08/20/17 08/20/17 08/20/17 Range/Units 07:12 06:02 06:01 WBC 12.8 H (4.8-10.8) K/uL RBC 2.95 L (3.80-5.20) Mil/uL Hgb 8.3 L (11.0-16.0) g/dL Hct 25.4 L (34.0-47.0) % MCV 86.1 (81.0-99.0) fL MCH 28.1 (27.0-31.0) pg MCHC 32.7 L (33.0-37.0) g/dL RDW 19.1 H (11.5-14.5) % Plt Count 296 (130-400) K/uL MPV 8.9 (7.2-11.7) fL Neut % (Auto) 91.3 H (50.0-75.0) % Lymph % (Auto) 5.0 L (20.0-40.0) % [place] % (Auto) 3.0 (0.0-10.0) % Eos % (Auto) 0.1 (0.0-4.0) % Baso % (Auto) 0.6 (0.0-2.0) % Neut # (Auto) 11.7 H (1.8-7.0) K/uL Lymph # (Auto) 0.6 L (1.0-4.3) K/uL [place] # (Auto) 0.4 (0.0-0.8) K/uL Eos # (Auto) 0.0 (0.0-0.7) K/uL Baso # (Auto) 0.1 (0.0-0.2) K/uL Neutrophils % (Manual) 87 H (50-75) % Band Neutrophils % 4 H (0-2) % Lymphocytes % (Manual) 4 L (20-40) % Monocytes % (Manual) 3 (0-10) % Metamyelocytes % 1 H (0-0) % Myelocytes % 1 H (0-0) % Platelet Estimate Normal (NORMAL) Hypochromasia (manual) Slight Anisocytosis (manual) Moderate Sodium 145 (132-148) mmol/L Potassium 4.2 (3.6-5.2) mmol/L Chloride 95 L (98-107) mmol/L Carbon Dioxide 37 H (22-30) mmol/L Anion Gap 17 (10-20) BUN 38 H (7-17) mg/dL Creatinine 0.9 (0.7-1.2) mg/dL Est GFR ( Amer) > 60 Est GFR (Non-Af Amer) > 60 POC Glucose (mg/dL) 215 H (65-110) mg/dL Random Glucose 230 H (65-105) mg/dL Calcium 8.0 L (8.6-10.4) mg/dl Phosphorus 2.6 (2.5-4.5) mg/dL Magnesium 2.0 (1.6-2.3) mg/dL Total Bilirubin 0.4 (0.2-1.3) mg/dL AST 21 (14-36) U/L ALT 19 (9-52) U/L Alkaline Phosphatase 81 (38-126) U/L Total Protein 6.4 (6.3-8.3) g/dL Albumin 2.9 L (3.5-5.0) g/dL Globulin 3.4 (2.2-3.9) gm/dL Albumin/Globulin Ratio 0.9 L (1.0-2.1) Procalcitonin (0.19-0.49) NG/ML Ur L.pneumophila Ag (NEGATIVE) Mycoplasma pneumon IgM (NEGATIVE) 08/19/17 08/19/17 08/19/17 Range/Units 21:08 15:34 13:25 WBC (4.8-10.8) K/uL RBC (3.80-5.20) Mil/uL Hgb (11.0-16.0) g/dL Hct (34.0-47.0) % MCV (81.0-99.0) fL MCH (27.0-31.0) pg MCHC (33.0-37.0) g/dL RDW (11.5-14.5) % Plt Count (130-400) K/uL MPV (7.2-11.7) fL Neut % (Auto) (50.0-75.0) % Lymph % (Auto) (20.0-40.0) % [place] % (Auto) (0.0-10.0) % Eos % (Auto) (0.0-4.0) % Baso % (Auto) (0.0-2.0) % Neut # (Auto) (1.8-7.0) K/uL Lymph # (Auto) (1.0-4.3) K/uL [place] # (Auto) (0.0-0.8) K/uL Eos # (Auto) (0.0-0.7) K/uL Baso # (Auto) (0.0-0.2) K/uL Neutrophils % (Manual) (50-75) % Band Neutrophils % (0-2) % Lymphocytes % (Manual) (20-40) % Monocytes % (Manual) (0-10) % Metamyelocytes % (0-0) % Myelocytes % (0-0) % Platelet Estimate (NORMAL) Hypochromasia (manual) Anisocytosis (manual) Sodium (132-148) mmol/L Potassium (3.6-5.2) mmol/L Chloride (98-107) mmol/L Carbon Dioxide (22-30) mmol/L Anion Gap (10-20) BUN (7-17) mg/dL Creatinine (0.7-1.2) mg/dL Est GFR ( Amer) Est GFR (Non-Af Amer) POC Glucose (mg/dL) 199 H 244 H (65-110) mg/dL Random Glucose (65-105) mg/dL Calcium (8.6-10.4) mg/dl Phosphorus (2.5-4.5) mg/dL Magnesium (1.6-2.3) mg/dL Total Bilirubin (0.2-1.3) mg/dL AST (14-36) U/L ALT (9-52) U/L Alkaline Phosphatase (38-126) U/L Total Protein (6.3-8.3) g/dL Albumin (3.5-5.0) g/dL Globulin (2.2-3.9) gm/dL Albumin/Globulin Ratio (1.0-2.1) Procalcitonin 0.15 L (0.19-0.49) NG/ML Ur L.pneumophila Ag (NEGATIVE) Mycoplasma pneumon IgM (NEGATIVE) 08/19/17 Range/Units 11:47 WBC (4.8-10.8) K/uL RBC (3.80-5.20) Mil/uL Hgb (11.0-16.0) g/dL Hct (34.0-47.0) % MCV (81.0-99.0) fL MCH (27.0-31.0) pg MCHC (33.0-37.0) g/dL RDW (11.5-14.5) % Plt Count (130-400) K/uL MPV (7.2-11.7) fL Neut % (Auto) (50.0-75.0) % Lymph % (Auto) (20.0-40.0) % [place] % (Auto) (0.0-10.0) % Eos % (Auto) (0.0-4.0) % Baso % (Auto) (0.0-2.0) % Neut # (Auto) (1.8-7.0) K/uL Lymph # (Auto) (1.0-4.3) K/uL [place] # (Auto) (0.0-0.8) K/uL Eos # (Auto) (0.0-0.7) K/uL Baso # (Auto) (0.0-0.2) K/uL Neutrophils % (Manual) (50-75) % Band Neutrophils % (0-2) % Lymphocytes % (Manual) (20-40) % Monocytes % (Manual) (0-10) % Metamyelocytes % (0-0) % Myelocytes % (0-0) % Platelet Estimate (NORMAL) Hypochromasia (manual) Anisocytosis (manual) Sodium (132-148) mmol/L Potassium (3.6-5.2) mmol/L Chloride (98-107) mmol/L Carbon Dioxide (22-30) mmol/L Anion Gap (10-20) BUN (7-17) mg/dL Creatinine (0.7-1.2) mg/dL Est GFR ( Amer) Est GFR (Non-Af Amer) POC Glucose (mg/dL) (65-110) mg/dL Random Glucose (65-105) mg/dL Calcium (8.6-10.4) mg/dl Phosphorus (2.5-4.5) mg/dL Magnesium (1.6-2.3) mg/dL Total Bilirubin (0.2-1.3) mg/dL AST (14-36) U/L ALT (9-52) U/L Alkaline Phosphatase (38-126) U/L Total Protein (6.3-8.3) g/dL Albumin (3.5-5.0) g/dL Globulin (2.2-3.9) gm/dL Albumin/Globulin Ratio (1.0-2.1) Procalcitonin (0.19-0.49) NG/ML Ur L.pneumophila Ag Negative (NEGATIVE) Mycoplasma pneumon IgM Negative (NEGATIVE) Laboratory Results - last 24 hr 08/19/17 08/19/17 08/19/17 11:47 13:25 15:34 WBC RBC Hgb Hct MCV MCH MCHC RDW Plt Count MPV Neut % (Auto) Lymph % (Auto) [place] % (Auto) Eos % (Auto) Baso % (Auto) Neut # (Auto) Lymph # (Auto) [place] # (Auto) Eos # (Auto) Baso # (Auto) Neutrophils % (Manual) Band Neutrophils % Lymphocytes % (Manual) Monocytes % (Manual) Metamyelocytes % Myelocytes % Platelet Estimate Hypochromasia (manual) Anisocytosis (manual) Sodium Potassium Chloride Carbon Dioxide Anion Gap BUN Creatinine Est GFR ( Amer) Est GFR (Non-Af Amer) POC Glucose (mg/dL) 244 H Random Glucose Calcium Phosphorus Magnesium Total Bilirubin AST ALT Alkaline Phosphatase Total Protein Albumin Globulin Albumin/Globulin Ratio Procalcitonin 0.15 L Ur L.pneumophila Ag Negative Mycoplasma pneumon IgM Negative 08/19/17 08/20/17 08/20/17 21:08 06:01 06:02 WBC 12.8 H RBC 2.95 L Hgb 8.3 L Hct 25.4 L MCV 86.1 MCH 28.1 MCHC 32.7 L RDW 19.1 H Plt Count 296 MPV 8.9 Neut % (Auto) 91.3 H Lymph % (Auto) 5.0 L [place] % (Auto) 3.0 Eos % (Auto) 0.1 Baso % (Auto) 0.6 Neut # (Auto) 11.7 H Lymph # (Auto) 0.6 L [place] # (Auto) 0.4 Eos # (Auto) 0.0 Baso # (Auto) 0.1 Neutrophils % (Manual) 87 H Band Neutrophils % 4 H Lymphocytes % (Manual) 4 L Monocytes % (Manual) 3 Metamyelocytes % 1 H Myelocytes % 1 H Platelet Estimate Normal Hypochromasia (manual) Slight Anisocytosis (manual) Moderate Sodium 145 Potassium 4.2 Chloride 95 L Carbon Dioxide 37 H Anion Gap 17 BUN 38 H Creatinine 0.9 Est GFR ( Amer) > 60 Est GFR (Non-Af Amer) > 60 POC Glucose (mg/dL) 199 H Random Glucose 230 H Calcium 8.0 L Phosphorus 2.6 Magnesium 2.0 Total Bilirubin 0.4 AST 21 ALT 19 Alkaline Phosphatase 81 Total Protein 6.4 Albumin 2.9 L Globulin 3.4 Albumin/Globulin Ratio 0.9 L Procalcitonin Ur L.pneumophila Ag Mycoplasma pneumon IgM 08/20/17 07:12 WBC RBC Hgb Hct MCV MCH MCHC RDW Plt Count MPV Neut % (Auto) Lymph % (Auto) [place] % (Auto) Eos % (Auto) Baso % (Auto) Neut # (Auto) Lymph # (Auto) [place] # (Auto) Eos # (Auto) Baso # (Auto) Neutrophils % (Manual) Band Neutrophils % Lymphocytes % (Manual) Monocytes % (Manual) Metamyelocytes % Myelocytes % Platelet Estimate Hypochromasia (manual) Anisocytosis (manual) Sodium Potassium Chloride Carbon Dioxide Anion Gap BUN Creatinine Est GFR ( Amer) Est GFR (Non-Af Amer) POC Glucose (mg/dL) 215 H Random Glucose Calcium Phosphorus Magnesium Total Bilirubin AST ALT Alkaline Phosphatase Total Protein Albumin Globulin Albumin/Globulin Ratio Procalcitonin Ur L.pneumophila Ag Mycoplasma pneumon IgM Fingerstick Blood Sugar Results: 215 Critical Care Progress Note - Nutrition Nutrition: Nutrition Category Date Time Status Heart Healthy Diet [DIET] Diets 08/19/17 Lunch Active Assessment/Plan - Assessment and Plan (Free Text) Assessment: 72 F with h/o DM, recent ESTEVAN was on HD, then improved, h/o chronic CO2 retention , h/o diverting colostomy for sacral decubti was sent in to the hospital with c/ o sob, had received iv lasix at [facility]. In ER patient had low grade temp, she is obese, lethargic on bipap, elevated CO2 in 80's with maintained PH suggesting chronic retention, b/l infiltrates on CXR. Patient admitted to the ICU for closer monitoring -Stable, afebrile -Comfortable on NC 3L -Taper Solumedrol 40mg IVP Q12H, Duonebs q4H -Lasix 20mg IVP daily -Urine legionella, mycoplasma negative -F/U urine s pneumonia -Antibiotics: Merrem 1gm Q8H, Azithromycin 500mg IV daily -Urine culture +ESBL, placed on contact isolation, blood cultures negative x 48 hours -Diet Heart Healthy, low sodium -CXR 08/20: Improved aeration bilaterally. No focal consolidation or significant pleural effusion -CXR 08/17: Moderate loculated left and small loculated right pleural effusion. Moderate to sever venous congestion. Confluent nodular opacity seen in the left mid to lower lung zone and right hilar region. Biapical pleural thickening with upper lobe granulomatous changes. -CT abd/pelvis: mild mosaic pulmonary attenuation. Multifocal subsegmental atelectasis. No acute infiltrate. Minimal bilateral pleural effusion. Nonspecific 14 mm rounded low-density splenic mass. 12mm nonobstructing right lower pole renal calculus. Left lower quadrant colostomy. -CT head: No acute intracranial abnormality. Chronic microvascular ischemia changes -Lower extremity dopplers completed, negative for DVT -Continue GI/DVT ppx -Will continue to monitor in the ICU -Plan discussed with Dr Fernández <Aram Fernández - Last Filed: 08/20/17 16:32> CCU Objective - Vital Signs / Intake & Output Vital Signs (Last 4 hours): Vital Signs Pulse Resp BP Pulse Ox 08/20/17 14:01 90 18 100/25 L 96 08/20/17 14:00 92 H 30 H 93 L 08/20/17 13:01 97 H 37 H 95/30 L 91 L 08/20/17 13:00 95 H 32 H 93 L Intake and Output (Last 8hrs): Intake & Output 08/20/17 08/20/17 08/20/17 06:59 14:59 22:59 Intake Total 200 570 Output Total 300 800 Balance -100 -230 Weight 255 lb Intake: Oral 200 570 Output: Urine 300 800 Urethral (Turner) 300 800 Stool 0 Emesis 0 Other: # Bowel Movements 1 0 - Medications Active Medications: Active Medications Generic Name Dose Route Start Last Admin Trade Name Freq PRN Reason Stop Dose Admin Acetaminophen 650 mg 08/18/17 00:27 Tylenol 325mg Tab PO Q6 PRN Fever and pain Albuterol/Ipratropium 3 ml 08/18/17 04:00 08/20/17 11:22 Duoneb 3 Mg/0.5 Mg (3 Ml) Ud INH 3 ml RQ4 STEVEN Administration Amlodipine Besylate 5 mg 08/18/17 10:00 08/20/17 09:07 Norvasc PO 5 mg DAILY STEVEN Administration Aspirin 81 mg 08/18/17 10:00 08/20/17 09:05 Aspirin Chewable PO 81 mg DAILY STEVEN Administration Famotidine 20 mg 08/18/17 10:00 08/20/17 09:05 Pepcid IVP 20 mg DAILY STEVEN Administration Furosemide 20 mg 08/19/17 10:00 08/20/17 09:05 Lasix IVP 20 mg DAILY STEVEN Administration Heparin Sodium (Porcine) 5,000 units 08/18/17 06:00 08/20/17 14:47 Heparin SC 5,000 units Q8 STEVEN Administration Meropenem 50 mls @ 100 mls/hr 08/19/17 10:30 08/20/17 14:47 Merrem Iv 1 Gm Premix IVPB 100 mls/hr Q8 STEVEN Administration Protocol Azithromycin 500 mg/ Sodium 250 mls @ 250 mls/hr 08/19/17 11:00 08/20/17 12: 00 Chloride IVPB 250 mls/hr Q24H STEVEN Administration Protocol Insulin Human Regular 0 unit 08/18/17 07:30 08/20/17 12:18 Novolin R SC 3 unit ACHS [facility] Administration Protocol Methylprednisolone 40 mg 08/20/17 09:45 08/20/17 10:00 Solu-Medrol IVP Not Given Q12H [facility] Metoprolol Succinate 25 mg 08/18/17 10:00 08/20/17 09:04 Toprol Xl PO 25 mg DAILY STEVEN Administration Pneumococcal Polyvalent Vaccine 0.5 ml 08/21/17 10:00 Pneumovax 23 Vaccine SC 08/21/17 10:01 .ONCE ONE - Patient Studies Lab Studies: Microbiology Studies 08/17/17 19:30 Blood Culture - Preliminary Blood-Venous NO GROWTH AFTER 48 HOURS 08/17/17 20:00 Blood Culture - Preliminary Blood-Venous NO GROWTH AFTER 48 HOURS Lab Studies 08/20/17 08/20/17 08/20/17 Range/Units 16:07 11:20 07:12 WBC (4.8-10.8) K/uL RBC (3.80-5.20) Mil/uL Hgb (11.0-16.0) g/dL Hct (34.0-47.0) % MCV (81.0-99.0) fL MCH (27.0-31.0) pg MCHC (33.0-37.0) g/dL RDW (11.5-14.5) % Plt Count (130-400) K/uL MPV (7.2-11.7) fL Neut % (Auto) (50.0-75.0) % Lymph % (Auto) (20.0-40.0) % [place] % (Auto) (0.0-10.0) % Eos % (Auto) (0.0-4.0) % Baso % (Auto) (0.0-2.0) % Neut # (Auto) (1.8-7.0) K/uL Lymph # (Auto) (1.0-4.3) K/uL [place] # (Auto) (0.0-0.8) K/uL Eos # (Auto) (0.0-0.7) K/uL Baso # (Auto) (0.0-0.2) K/uL Neutrophils % (Manual) (50-75) % Band Neutrophils % (0-2) % Lymphocytes % (Manual) (20-40) % Monocytes % (Manual) (0-10) % Metamyelocytes % (0-0) % Myelocytes % (0-0) % Platelet Estimate (NORMAL) Hypochromasia (manual) Anisocytosis (manual) Sodium (132-148) mmol/L Potassium (3.6-5.2) mmol/L Chloride (98-107) mmol/L Carbon Dioxide (22-30) mmol/L Anion Gap (10-20) BUN (7-17) mg/dL Creatinine (0.7-1.2) mg/dL Est GFR ( Amer) Est GFR (Non-Af Amer) POC Glucose (mg/dL) 240 H 273 H 215 H (65-110) mg/dL Random Glucose (65-105) mg/dL Calcium (8.6-10.4) mg/dl Phosphorus (2.5-4.5) mg/dL Magnesium (1.6-2.3) mg/dL Total Bilirubin (0.2-1.3) mg/dL AST (14-36) U/L ALT (9-52) U/L Alkaline Phosphatase (38-126) U/L Total Protein (6.3-8.3) g/dL Albumin (3.5-5.0) g/dL Globulin (2.2-3.9) gm/dL Albumin/Globulin Ratio (1.0-2.1) Procalcitonin (0.19-0.49) NG/ML Ur L.pneumophila Ag (NEGATIVE) Mycoplasma pneumon IgM (NEGATIVE) 04/04/18 04/04/18 04/03/18 Range/Units 06:02 06:01 21:08 WBC 12.8 H (4.8-10.8) K/uL RBC 2.95 L (3.80-5.20) Mil/uL Hgb 8.3 L (11.0-16.0) g/dL Hct 25.4 L (34.0-47.0) % MCV 86.1 (81.0-99.0) fL MCH 28.1 (27.0-31.0) pg MCHC 32.7 L (33.0-37.0) g/dL RDW 19.1 H (11.5-14.5) % Plt Count 296 (130-400) K/uL MPV 8.9 (7.2-11.7) fL Neut % (Auto) 91.3 H (50.0-75.0) % Lymph % (Auto) 5.0 L (20.0-40.0) % [place] % (Auto) 3.0 (0.0-10.0) % Eos % (Auto) 0.1 (0.0-4.0) % Baso % (Auto) 0.6 (0.0-2.0) % Neut # (Auto) 11.7 H (1.8-7.0) K/uL Lymph # (Auto) 0.6 L (1.0-4.3) K/uL [place] # (Auto) 0.4 (0.0-0.8) K/uL Eos # (Auto) 0.0 (0.0-0.7) K/uL Baso # (Auto) 0.1 (0.0-0.2) K/uL Neutrophils % (Manual) 87 H (50-75) % Band Neutrophils % 4 H (0-2) % Lymphocytes % (Manual) 4 L (20-40) % Monocytes % (Manual) 3 (0-10) % Metamyelocytes % 1 H (0-0) % Myelocytes % 1 H (0-0) % Platelet Estimate Normal (NORMAL) Hypochromasia (manual) Slight Anisocytosis (manual) Moderate Sodium 145 (132-148) mmol/L Potassium 4.2 (3.6-5.2) mmol/L Chloride 95 L (98-107) mmol/L Carbon Dioxide 37 H (22-30) mmol/L Anion Gap 17 (10-20) BUN 38 H (7-17) mg/dL Creatinine 0.9 (0.7-1.2) mg/dL Est GFR ( Amer) > 60 Est GFR (Non-Af Amer) > 60 POC Glucose (mg/dL) 199 H (65-110) mg/dL Random Glucose 230 H (65-105) mg/dL Calcium 8.0 L (8.6-10.4) mg/dl Phosphorus 2.6 (2.5-4.5) mg/dL Magnesium 2.0 (1.6-2.3) mg/dL Total Bilirubin 0.4 (0.2-1.3) mg/dL AST 21 (14-36) U/L ALT 19 (9-52) U/L Alkaline Phosphatase 81 (38-126) U/L Total Protein 6.4 (6.3-8.3) g/dL Albumin 2.9 L (3.5-5.0) g/dL Globulin 3.4 (2.2-3.9) gm/dL Albumin/Globulin Ratio 0.9 L (1.0-2.1) Procalcitonin (0.19-0.49) NG/ML Ur L.pneumophila Ag (NEGATIVE) Mycoplasma pneumon IgM (NEGATIVE) 08/19/17 08/19/17 Range/Units 13:25 11:47 WBC (4.8-10.8) K/uL RBC (3.80-5.20) Mil/uL Hgb (11.0-16.0) g/dL Hct (34.0-47.0) % MCV (81.0-99.0) fL MCH (27.0-31.0) pg MCHC (33.0-37.0) g/dL RDW (11.5-14.5) % Plt Count (130-400) K/uL MPV (7.2-11.7) fL Neut % (Auto) (50.0-75.0) % Lymph % (Auto) (20.0-40.0) % [place] % (Auto) (0.0-10.0) % Eos % (Auto) (0.0-4.0) % Baso % (Auto) (0.0-2.0) % Neut # (Auto) (1.8-7.0) K/uL Lymph # (Auto) (1.0-4.3) K/uL [place] # (Auto) (0.0-0.8) K/uL Eos # (Auto) (0.0-0.7) K/uL Baso # (Auto) (0.0-0.2) K/uL Neutrophils % (Manual) (50-75) % Band Neutrophils % (0-2) % Lymphocytes % (Manual) (20-40) % Monocytes % (Manual) (0-10) % Metamyelocytes % (0-0) % Myelocytes % (0-0) % Platelet Estimate (NORMAL) Hypochromasia (manual) Anisocytosis (manual) Sodium (132-148) mmol/L Potassium (3.6-5.2) mmol/L Chloride (98-107) mmol/L Carbon Dioxide (22-30) mmol/L Anion Gap (10-20) BUN (7-17) mg/dL Creatinine (0.7-1.2) mg/dL Est GFR ( Amer) Est GFR (Non-Af Amer) POC Glucose (mg/dL) (65-110) mg/dL Random Glucose (65-105) mg/dL Calcium (8.6-10.4) mg/dl Phosphorus (2.5-4.5) mg/dL Magnesium (1.6-2.3) mg/dL Total Bilirubin (0.2-1.3) mg/dL AST (14-36) U/L ALT (9-52) U/L Alkaline Phosphatase (38-126) U/L Total Protein (6.3-8.3) g/dL Albumin (3.5-5.0) g/dL Globulin (2.2-3.9) gm/dL Albumin/Globulin Ratio (1.0-2.1) Procalcitonin 0.15 L (0.19-0.49) NG/ML Ur L.pneumophila Ag Negative (NEGATIVE) Mycoplasma pneumon IgM Negative (NEGATIVE) Laboratory Results - last 24 hr 08/19/17 08/19/17 08/19/17 11:47 13:25 21:08 WBC RBC Hgb Hct MCV MCH MCHC RDW Plt Count MPV Neut % (Auto) Lymph % (Auto) [place] % (Auto) Eos % (Auto) Baso % (Auto) Neut # (Auto) Lymph # (Auto) [place] # (Auto) Eos # (Auto) Baso # (Auto) Neutrophils % (Manual) Band Neutrophils % Lymphocytes % (Manual) Monocytes % (Manual) Metamyelocytes % Myelocytes % Platelet Estimate Hypochromasia (manual) Anisocytosis (manual) Sodium Potassium Chloride Carbon Dioxide Anion Gap BUN Creatinine Est GFR ( Amer) Est GFR (Non-Af Amer) POC Glucose (mg/dL) 199 H Random Glucose Calcium Phosphorus Magnesium Total Bilirubin AST ALT Alkaline Phosphatase Total Protein Albumin Globulin Albumin/Globulin Ratio Procalcitonin 0.15 L Ur L.pneumophila Ag Negative Mycoplasma pneumon IgM Negative 08/20/17 08/20/17 08/20/17 06:01 06:02 07:12 WBC 12.8 H RBC 2.95 L Hgb 8.3 L Hct 25.4 L MCV 86.1 MCH 28.1 MCHC 32.7 L RDW 19.1 H Plt Count 296 MPV 8.9 Neut % (Auto) 91.3 H Lymph % (Auto) 5.0 L [place] % (Auto) 3.0 Eos % (Auto) 0.1 Baso % (Auto) 0.6 Neut # (Auto) 11.7 H Lymph # (Auto) 0.6 L [place] # (Auto) 0.4 Eos # (Auto) 0.0 Baso # (Auto) 0.1 Neutrophils % (Manual) 87 H Band Neutrophils % 4 H Lymphocytes % (Manual) 4 L Monocytes % (Manual) 3 Metamyelocytes % 1 H Myelocytes % 1 H Platelet Estimate Normal Hypochromasia (manual) Slight Anisocytosis (manual) Moderate Sodium 145 Potassium 4.2 Chloride 95 L Carbon Dioxide 37 H Anion Gap 17 BUN 38 H Creatinine 0.9 Est GFR ( Amer) > 60 Est GFR (Non-Af Amer) > 60 POC Glucose (mg/dL) 215 H Random Glucose 230 H Calcium 8.0 L Phosphorus 2.6 Magnesium 2.0 Total Bilirubin 0.4 AST 21 ALT 19 Alkaline Phosphatase 81 Total Protein 6.4 Albumin 2.9 L Globulin 3.4 Albumin/Globulin Ratio 0.9 L Procalcitonin Ur L.pneumophila Ag Mycoplasma pneumon IgM 08/20/17 08/20/17 11:20 16:07 WBC RBC Hgb Hct MCV MCH MCHC RDW Plt Count MPV Neut % (Auto) Lymph % (Auto) [place] % (Auto) Eos % (Auto) Baso % (Auto) Neut # (Auto) Lymph # (Auto) [place] # (Auto) Eos # (Auto) Baso # (Auto) Neutrophils % (Manual) Band Neutrophils % Lymphocytes % (Manual) Monocytes % (Manual) Metamyelocytes % Myelocytes % Platelet Estimate Hypochromasia (manual) Anisocytosis (manual) Sodium Potassium Chloride Carbon Dioxide Anion Gap BUN Creatinine Est GFR ( Amer) Est GFR (Non-Af Amer) POC Glucose (mg/dL) 273 H 240 H Random Glucose Calcium Phosphorus Magnesium Total Bilirubin AST ALT Alkaline Phosphatase Total Protein Albumin Globulin Albumin/Globulin Ratio Procalcitonin Ur L.pneumophila Ag Mycoplasma pneumon IgM Critical Care Progress Note - Nutrition Nutrition: Nutrition Category Date Time Status Heart Healthy Diet [DIET] Diets 08/19/17 Lunch Active Attending/Attestation - Attestation I have personally seen and examined this patient.: Yes I have fully participated in the care of the patient.: Yes I have reviewed all pertinent clinical information: Yes Notes (Text): 08/20/17 16:31 patient seen and examined in the intensive care unit. Clinically much improved Patient is off BiPAP Being treated for Escherichia coli Taper IV steroids Glycemic control Transfer to floor
[2017-08-20] MEDS: Azithromycin 500 MG in Sodium Chloride 0.9% 250 ML IVPB SCH (12:00)
--- NOTE | 2017-08-20 15:22 | CP.PCM.PN ---
Subjective - Date & Time of Evaluation Date of Evaluation: 08/20/17 Time of Evaluation: 15:20 - Subjective Subjective: looks well breathing comfortable svt on monitor no fever no abdominal pain no chest pain chronic sob +palpitations no headache no pruritis no urinary complaints no visual changes chronic muscle weakness Objective - Vital Signs/Intake and Output Vital Signs (last 24 hours): Temp Pulse Resp BP Pulse Ox 98.8 F 90 18 100/25 L 96 08/20/17 04:00 08/20/17 14:01 08/20/17 14:01 08/20/17 14:01 08/20/17 14:01 Intake and Output: 08/20/17 08/20/17 06:59 18:59 Intake Total 550 570 Output Total 500 800 Balance 50 -230 - Medications Medications: Current Medications Acetaminophen (Tylenol 325mg Tab) 650 mg PO Q6 PRN PRN Reason: Fever and pain Albuterol/Ipratropium (Duoneb 3 Mg/0.5 Mg (3 Ml) Ud) 3 ml INH RQ4 [facility] Last Admin: 08/20/17 11:22 Dose: 3 ml Amlodipine Besylate (Norvasc) 5 mg PO DAILY [facility] Last Admin: 08/20/17 09:07 Dose: 5 mg Aspirin (Aspirin Chewable) 81 mg PO DAILY [facility] Last Admin: 08/20/17 09:05 Dose: 81 mg Famotidine (Pepcid) 20 mg IVP DAILY [facility] Last Admin: 08/20/17 09:05 Dose: 20 mg Furosemide (Lasix) 20 mg IVP DAILY [facility] Last Admin: 08/20/17 09:05 Dose: 20 mg Heparin Sodium (Porcine) (Heparin) 5,000 units SC Q8 [facility] Last Admin: 08/20/17 14:47 Dose: 5,000 units Meropenem (Merrem Iv 1 Gm Premix) 50 mls @ 100 mls/hr IVPB Q8 [facility] PRN Reason: Protocol Last Admin: 08/20/17 14:47 Dose: 100 mls/hr Azithromycin 500 mg/ Sodium (Chloride) 250 mls @ 250 mls/hr IVPB Q24H [facility] PRN Reason: Protocol Last Admin: 08/20/17 12:00 Dose: 250 mls/hr Insulin Human Regular (Novolin R) 0 unit SC ACHS [facility] PRN Reason: Protocol Last Admin: 08/20/17 12:18 Dose: 3 unit Methylprednisolone (Solu-Medrol) 40 mg IVP Q12H [facility] Last Admin: 08/20/17 10:00 Dose: Not Given Metoprolol Succinate (Toprol Xl) 25 mg PO DAILY [facility] Last Admin: 08/20/17 09:04 Dose: 25 mg Pneumococcal Polyvalent Vaccine (Pneumovax 23 Vaccine) 0.5 ml SC .ONCE ONE Stop: 08/21/17 10:01 - Labs Labs: 08/20/17 06:01 08/20/17 06:02 PT 13.2 SECONDS (9.7-12.2) H 08/17/17 20:04 INR 1.2 08/17/17 20:04 APTT 33 SECONDS (21-34) 08/17/17 20:04 - Constitutional Appears: No Acute Distress, Chronically Ill - Head Exam Head Exam: ATRAUMATIC, NORMAL INSPECTION - Eye Exam Eye Exam: EOMI - ENT Exam ENT Exam: Mucous Membranes Moist - Neck Exam Neck Exam: Full ROM. absent: Lymphadenopathy - Respiratory Exam Respiratory Exam: Decreased Breath Sounds - Cardiovascular Exam Cardiovascular Exam: Tachycardia, Irregular Rhythm - GI/Abdominal Exam GI & Abdominal Exam: Distended. absent: Tenderness - Extremities Exam Extremities Exam: absent: Pedal Edema - Neurological Exam Neurological Exam: Alert, Awake Assessment and Plan - Assessment and Plan (Free Text) Assessment: copd with respiratory acidosis and metabolic alkalosis jordy history, better now afib continue pulmonary toilet will continue to follow
--- NOTE | 2017-08-20 17:44 | CP.PCM.PN ---
Subjective - Date & Time of Evaluation Date of Evaluation: 08/20/17 Time of Evaluation: 08:00 - Subjective Subjective: iv rx in progress arousable NAD + ESBL urine Objective - Vital Signs/Intake and Output Vital Signs (last 24 hours): Temp Pulse Resp BP Pulse Ox 99 F 68 27 H 100/25 L 98 08/20/17 16:00 08/20/17 16:00 08/20/17 16:00 08/20/17 14:01 08/20/17 16:00 Intake and Output: 08/20/17 08/20/17 06:59 18:59 Intake Total 550 630 Output Total 500 800 Balance 50 -170 - Medications Medications: Current Medications Acetaminophen (Tylenol 325mg Tab) 650 mg PO Q6 PRN PRN Reason: Fever and pain Albuterol/Ipratropium (Duoneb 3 Mg/0.5 Mg (3 Ml) Ud) 3 ml INH RQ4 [facility] Last Admin: 08/20/17 11:22 Dose: 3 ml Amlodipine Besylate (Norvasc) 5 mg PO DAILY [facility] Last Admin: 08/20/17 09:07 Dose: 5 mg Aspirin (Aspirin Chewable) 81 mg PO DAILY [facility] Last Admin: 08/20/17 09:05 Dose: 81 mg Famotidine (Pepcid) 20 mg IVP DAILY [facility] Last Admin: 08/20/17 09:05 Dose: 20 mg Furosemide (Lasix) 20 mg IVP DAILY [facility] Last Admin: 08/20/17 09:05 Dose: 20 mg Heparin Sodium (Porcine) (Heparin) 5,000 units SC Q8 [facility] Last Admin: 08/20/17 14:47 Dose: 5,000 units Meropenem (Merrem Iv 1 Gm Premix) 50 mls @ 100 mls/hr IVPB Q8 [facility] PRN Reason: Protocol Last Admin: 08/20/17 14:47 Dose: 100 mls/hr Azithromycin 500 mg/ Sodium (Chloride) 250 mls @ 250 mls/hr IVPB Q24H [facility] PRN Reason: Protocol Last Admin: 08/20/17 12:00 Dose: 250 mls/hr Insulin Human Regular (Novolin R) 0 unit SC ACHS [facility] PRN Reason: Protocol Last Admin: 08/20/17 12:18 Dose: 3 unit Methylprednisolone (Solu-Medrol) 40 mg IVP Q12H [facility] Last Admin: 08/20/17 10:00 Dose: Not Given Metoprolol Succinate (Toprol Xl) 25 mg PO DAILY [facility] Last Admin: 08/20/17 09:04 Dose: 25 mg Pneumococcal Polyvalent Vaccine (Pneumovax 23 Vaccine) 0.5 ml SC .ONCE ONE Stop: 08/21/17 10:01 - Labs Labs: 08/20/17 06:01 08/20/17 06:02 PT 13.2 SECONDS (9.7-12.2) H 08/17/17 20:04 INR 1.2 08/17/17 20:04 APTT 33 SECONDS (21-34) 08/17/17 20:04 - Constitutional Appears: Non-toxic, Chronically Ill - Head Exam Head Exam: NORMOCEPHALIC - Eye Exam Eye Exam: PERRL. absent: Scleral icterus - ENT Exam ENT Exam: Mucous Membranes Dry - Neck Exam Neck Exam: absent: Lymphadenopathy - Respiratory Exam Respiratory Exam: Decreased Breath Sounds, Prolonged Expiratory Phase, Rhonchi - Cardiovascular Exam Cardiovascular Exam: REGULAR RHYTHM, +S1, +S2 - GI/Abdominal Exam GI & Abdominal Exam: Distended, Soft - Rectal Exam Rectal Exam: Deferred - Exam Exam: NORMAL INSPECTION - Extremities Exam Extremities Exam: Pedal Edema - Back Exam Back Exam: absent: CVA tenderness (L), CVA tenderness (R) - Neurological Exam Neurological Exam: Alert, Altered, Awake Neuro motor strength exam: Left Upper Extremity: 3, Right Upper Extremity: 3, Left Lower Extremity: 3, Right Lower Extremity: 3 - Psychiatric Exam Psychiatric exam: Depressed Assessment and Plan (1) CHF exacerbation Status: Acute (2) COPD exacerbation Status: Acute (3) Chr obstructive pulmonary disease w/ acute lower respiratory infxn Status: Acute (4) Chronic congestive heart failure Status: Acute (5) Dyspnea Status: Acute (6) ESBL (extended spectrum beta-lactamase) producing bacteria infection Status: Acute (7) ESBL (extended spectrum beta-lactamase) producing bacteria infection Status: Acute - Assessment and Plan (Free Text) Assessment: cont iv antibiotics and resp rx
[2017-08-21] MEDS: Albuterol-Ipratrop 3 mg / 0.5 (3 ml) UD INH SCH ×6 (00:59→20:59)
[2017-08-21] MEDS: Meropenem IV 1 gm in NS 50 ML IVPB SCH ×3 (05:53→21:28)
[2017-08-21 06:24] LABS: BASO % 0.4 % (0.0-2.0); EOS % 0.1 % (0.0-4.0); HEMOGLOBIN 8.7 g/dL (11.0-16.0); LYMPH % 7.6 % (20.0-40.0); MEAN CELL VOLUME 86.3 fL (81.0-99.0); MEAN CORPUSCULAR HEMOGLOBIN 28.1 pg (27.0-31.0); MEAN CORPUSCULAR HGB CONC 32.6 g/dL (33.0-37.0); MEAN PLATELET VOLUME 8.1 fL (7.2-11.7); MONO # 0.5 K/uL (0.0-0.8); MONO % 3.6 % (0.0-10.0); NEUT # 11.1 K/uL (1.8-7.0); NEUT % 88.3 % (50.0-75.0); PLATELET COUNT 295 K/uL (130-400); RBC 3.08 Mil/uL (3.80-5.20); RED CELL DISTRIBUTION WIDTH 19.1 % (11.5-14.5); WHITE BLOOD COUNT 12.6 K/uL (4.8-10.8)
[2017-08-21 06:43] LABS: ALB/GLOB RATIO 0.9 (1.0-2.1); ALBUMIN 2.9 g/dL (3.5-5.0); ALT/SGPT 17 U/L (9-52); AST/SGOT 18 U/L (14-36); BLOOD UREA NITROGEN 30 mg/dL (7-17); CALCIUM 8.1 mg/dl (8.6-10.4); GFR AFRICAN-AMERICAN > 60; GFR NON-AFRICAN AMERICAN > 60
[2017-08-21] MEDS: (Novolin R) Insulin Human Regular 100 units/ml vial SC SCH ×4 (08:15→21:30)
[2017-08-21 08:30] LABS: ANISOCYTOSIS MODERATE; BANDS 5 % (0-2); LYMPHOCYTE 4 % (20-40); MONOCYTE 3 % (0-10); MYELOCYTE 2 % (0-0); NEUTROPHIL 86 % (50-75); PLATELET ESTIMATE NORMAL (NORMAL); TOTAL CELLS COUNTED 100
[2017-08-21 08:31] LABS: HYPOCHROMIC SLIGHT
--- NOTE | 2017-08-21 09:01 | CP.PCM.PN ---
Subjective - Date & Time of Evaluation Date of Evaluation: 08/21/17 Time of Evaluation: 08:58 - Subjective Subjective: Alert; eating well Was sleepy earlier; ABG to be repeated Not dyspneic now No new ESTEVAN No other complaints on rx for ESBL UTI Objective - Vital Signs/Intake and Output Vital Signs (last 24 hours): Temp Pulse Resp BP Pulse Ox 98.8 F 55 L 21 137/35 L 98 08/21/17 04:00 08/21/17 07:00 08/21/17 07:00 08/21/17 07:00 08/21/17 07:00 Intake and Output: 08/21/17 08/21/17 06:59 18:59 Intake Total 350 Output Total 0 400 Balance 0 -50 - Medications Medications: Current Medications Acetaminophen (Tylenol 325mg Tab) 650 mg PO Q6 PRN PRN Reason: Fever and pain Albuterol/Ipratropium (Duoneb 3 Mg/0.5 Mg (3 Ml) Ud) 3 ml INH RQ4 [facility] Last Admin: 08/21/17 07:30 Dose: 3 ml Amlodipine Besylate (Norvasc) 5 mg PO DAILY [facility] Last Admin: 08/20/17 09:07 Dose: 5 mg Aspirin (Aspirin Chewable) 81 mg PO DAILY [facility] Last Admin: 08/20/17 09:05 Dose: 81 mg Famotidine (Pepcid) 20 mg IVP DAILY [facility] Last Admin: 08/20/17 09:05 Dose: 20 mg Furosemide (Lasix) 20 mg IVP DAILY [facility] Last Admin: 08/20/17 09:05 Dose: 20 mg Meropenem (Merrem Iv 1 Gm Premix) 50 mls @ 100 mls/hr IVPB Q8 [facility] PRN Reason: Protocol Last Admin: 08/21/17 05:53 Dose: 100 mls/hr Azithromycin 500 mg/ Sodium (Chloride) 250 mls @ 250 mls/hr IVPB Q24H [facility] PRN Reason: Protocol Last Admin: 08/20/17 12:00 Dose: 250 mls/hr Insulin Human Regular (Novolin R) 0 unit SC ACHS [facility] PRN Reason: Protocol Last Admin: 08/21/17 08:15 Dose: 3 unit Methylprednisolone (Solu-Medrol) 40 mg IVP Q12H [facility] Last Admin: 08/20/17 20:48 Dose: 40 mg Metoprolol Succinate (Toprol Xl) 25 mg PO DAILY [facility] Last Admin: 08/20/17 09:04 Dose: 25 mg Pneumococcal Polyvalent Vaccine (Pneumovax 23 Vaccine) 0.5 ml SC .ONCE ONE Stop: 08/21/17 10:01 - Labs Labs: 08/21/17 06:15 08/21/17 06:15 PT 13.2 SECONDS (9.7-12.2) H 08/17/17 20:04 INR 1.2 08/17/17 20:04 APTT 33 SECONDS (21-34) 08/17/17 20:04 - Constitutional Appears: No Acute Distress, Chronically Ill - Head Exam Head Exam: ATRAUMATIC, NORMAL INSPECTION - Eye Exam Eye Exam: EOMI, Normal appearance - Neck Exam Neck Exam: Normal Inspection. absent: Tenderness - Respiratory Exam Respiratory Exam: Clear to Ausculation Bilateral, Respiratory Distress - Cardiovascular Exam Cardiovascular Exam: REGULAR RHYTHM, +S1 - GI/Abdominal Exam GI & Abdominal Exam: Soft. absent: Tenderness - Neurological Exam Neurological Exam: Awake, CN II-XII Intact - Skin Skin Exam: Dry, Warm Assessment and Plan (1) Compensated respiratory acidosis Status: Acute (2) CHF exacerbation Status: Acute (3) COPD exacerbation Status: Acute (4) CKD (chronic kidney disease) stage 2, GFR 60-89 ml/min Status: Acute (5) Respiratory distress Status: Acute - Assessment and Plan (Free Text) Plan: follow lytes closely change to po lasix repeat ABG to be done
[2017-08-21 09:31] LABS: ARTERIAL BLOOD GAS HCO3 35.1 mmol/L (21-28); ARTERIAL BLOOD GAS HEMOGLOBIN 9.4 g/dL (11.7-17.4); ARTERIAL BLOOD GAS O2 SAT 97.3 % (95-98); ARTERIAL BLOOD GAS PCO2 59 mm/Hg (35-45); ARTERIAL BLOOD GAS PH 7.43 (7.35-7.45); ARTERIAL BLOOD GAS PO2 72 mm/Hg (80-100)
[2017-08-21] MEDS ORDERED: Pneumococcal 23-Valent Vaccine SC ONE (10:00)
[2017-08-21] MEDS: Metoprolol Succinate 25 mg XL Tab PO SCH (10:01)
[2017-08-21] MEDS: MethylPREDNISolone 40 mg Vial IVP SCH ×2 (10:02→21:29)
[2017-08-21] MEDS: Azithromycin 500 MG in Sodium Chloride 0.9% 250 ML IVPB SCH (10:04)
--- NOTE | 2017-08-21 11:39 | CP.PCM.PN ---
Subjective - Date & Time of Evaluation Date of Evaluation: 08/21/17 Time of Evaluation: 12:00 - Subjective Subjective: clinically same Objective - Vital Signs/Intake and Output Vital Signs (last 24 hours): Temp Pulse Resp BP Pulse Ox 98.6 F 69 25 H 137/35 L 96 08/21/17 08:00 08/21/17 09:00 08/21/17 09:00 08/21/17 10:02 08/21/17 09:00 Intake and Output: 08/21/17 08/21/17 06:59 18:59 Intake Total 350 Output Total 0 400 Balance 0 -50 - Medications Medications: Current Medications Acetaminophen (Tylenol 325mg Tab) 650 mg PO Q6 PRN PRN Reason: Fever and pain Albuterol/Ipratropium (Duoneb 3 Mg/0.5 Mg (3 Ml) Ud) 3 ml INH RQ4 [facility] Last Admin: 08/21/17 07:30 Dose: 3 ml Amlodipine Besylate (Norvasc) 5 mg PO DAILY [facility] Last Admin: 08/21/17 10:19 Dose: 5 mg Aspirin (Aspirin Chewable) 81 mg PO DAILY [facility] Last Admin: 08/21/17 10:01 Dose: 81 mg Famotidine (Pepcid) 20 mg IVP DAILY [facility] Last Admin: 08/21/17 10:02 Dose: 20 mg Furosemide (Lasix) 40 mg PO DAILY [facility] Last Admin: 08/21/17 10:03 Dose: Not Given Heparin Sodium (Porcine) (Heparin) 5,000 units SC Q12 [facility] Meropenem (Merrem Iv 1 Gm Premix) 50 mls @ 100 mls/hr IVPB Q8 [facility] PRN Reason: Protocol Last Admin: 08/21/17 05:53 Dose: 100 mls/hr Azithromycin 500 mg/ Sodium (Chloride) 250 mls @ 250 mls/hr IVPB Q24H [facility] PRN Reason: Protocol Last Admin: 08/21/17 10:04 Dose: 250 mls/hr Insulin Human Regular (Novolin R) 0 unit SC ACHS [facility] PRN Reason: Protocol Last Admin: 08/21/17 08:15 Dose: 3 unit Methylprednisolone (Solu-Medrol) 40 mg IVP Q12H [facility] Last Admin: 08/21/17 10:02 Dose: 40 mg Metoprolol Succinate (Toprol Xl) 25 mg PO DAILY [facility] Last Admin: 08/21/17 10:01 Dose: 25 mg - Labs Labs: 08/21/17 06:15 08/21/17 06:15 PT 13.2 SECONDS (9.7-12.2) H 08/17/17 20:04 INR 1.2 08/17/17 20:04 APTT 33 SECONDS (21-34) 08/17/17 20:04 - Constitutional Appears: Well - Head Exam Head Exam: ATRAUMATIC, NORMAL INSPECTION, NORMOCEPHALIC - Eye Exam Eye Exam: EOMI, Normal appearance, PERRL Pupil Exam: NORMAL ACCOMODATION, PERRL - ENT Exam ENT Exam: Mucous Membranes Moist, Normal Exam - Neck Exam Neck Exam: Full ROM, Normal Inspection. absent: Lymphadenopathy - Respiratory Exam Respiratory Exam: Decreased Breath Sounds - Cardiovascular Exam Cardiovascular Exam: REGULAR RHYTHM, +S1, +S2 - GI/Abdominal Exam GI & Abdominal Exam: Soft, Diminished Bowel Sounds - Rectal Exam Rectal Exam: Deferred
--- NOTE | 2017-08-21 16:54 | CP.PCM.PN ---
Subjective - Date & Time of Evaluation Date of Evaluation: 08/21/17 Time of Evaluation: 09:40 - Subjective Subjective: Patient seen and examined out of bed in chair. No acute events overnight. Patient reports that she feels improved. Still awaiting transfer to med/surg floors. Off BiPAP Assessment and Plan: 1. Hypercapneic respiratory failure, improved - ABG 08/19: 7.43/66/95/38.3 - duonebs - solumedrol - Off BiPAP 2. UTI - afebrile - CBC 08/21: WBC: 12.6, 5 bands, 88.3% neutros - being treated for e. coli urinary tract infection - IV antibiotics Objective - Vital Signs/Intake and Output Vital Signs (last 24 hours): Temp Pulse Resp BP Pulse Ox 98.6 F 62 29 H 124/53 L 94 L 08/21/17 08:00 08/21/17 15:00 08/21/17 15:00 08/21/17 14:40 08/21/17 15:00 Intake and Output: 08/21/17 08/21/17 06:59 18:59 Intake Total 350 Output Total 0 400 Balance 0 -50 - Medications Medications: Current Medications Acetaminophen (Tylenol 325mg Tab) 650 mg PO Q6 PRN PRN Reason: Fever and pain Albuterol/Ipratropium (Duoneb 3 Mg/0.5 Mg (3 Ml) Ud) 3 ml INH RQ4 [facility] Last Admin: 08/21/17 16:23 Dose: Not Given Amlodipine Besylate (Norvasc) 5 mg PO DAILY [facility] Last Admin: 08/21/17 10:19 Dose: 5 mg Aspirin (Aspirin Chewable) 81 mg PO DAILY [facility] Last Admin: 08/21/17 10:01 Dose: 81 mg Famotidine (Pepcid) 20 mg IVP DAILY [facility] Last Admin: 08/21/17 10:02 Dose: 20 mg Furosemide (Lasix) 40 mg PO BID [facility] Heparin Sodium (Porcine) (Heparin) 5,000 units SC Q12 [facility] Meropenem (Merrem Iv 1 Gm Premix) 50 mls @ 100 mls/hr IVPB Q8 [facility] PRN Reason: Protocol Last Admin: 08/21/17 05:53 Dose: 100 mls/hr Azithromycin 500 mg/ Sodium (Chloride) 250 mls @ 250 mls/hr IVPB Q24H [facility] PRN Reason: Protocol Last Admin: 08/21/17 10:04 Dose: 250 mls/hr Insulin Human Regular (Novolin R) 0 unit SC ACHS [facility] PRN Reason: Protocol Last Admin: 08/21/17 08:15 Dose: 3 unit Methylprednisolone (Solu-Medrol) 40 mg IVP Q12H [facility] Last Admin: 08/21/17 10:02 Dose: 40 mg Metoprolol Succinate (Toprol Xl) 25 mg PO DAILY [facility] Last Admin: 08/21/17 10:01 Dose: 25 mg - Labs Labs: 08/21/17 06:15 08/21/17 06:15 PT 13.2 SECONDS (9.7-12.2) H 08/17/17 20:04 INR 1.2 08/17/17 20:04 APTT 33 SECONDS (21-34) 08/17/17 20:04
[2017-08-22] MEDS: Albuterol-Ipratrop 3 mg / 0.5 (3 ml) UD INH SCH ×5 (01:06→15:33)
[2017-08-22] MEDS: Meropenem IV 1 gm in NS 50 ML IVPB SCH ×2 (05:21→15:01)
[2017-08-22 06:27] LABS: BASO # 0.1 K/uL (0.0-0.2); BASO % 0.5 % (0.0-2.0); HEMOGLOBIN 9.4 g/dL (11.0-16.0); LYMPH # 1.1 K/uL (1.0-4.3); LYMPH % 9.7 % (20.0-40.0); MEAN CELL VOLUME 86.7 fL (81.0-99.0); MEAN CORPUSCULAR HEMOGLOBIN 28.4 pg (27.0-31.0); MEAN CORPUSCULAR HGB CONC 32.7 g/dL (33.0-37.0); MEAN PLATELET VOLUME 8.7 fL (7.2-11.7); MONO # 0.5 K/uL (0.0-0.8); MONO % 4.1 % (0.0-10.0); NEUT # 9.6 K/uL (1.8-7.0); NEUT % 85.7 % (50.0-75.0); NRBC % 0.1 % (0.0-2.0); PLATELET COUNT 284 K/uL (130-400); RBC 3.31 Mil/uL (3.80-5.20); RED CELL DISTRIBUTION WIDTH 18.8 % (11.5-14.5); WHITE BLOOD COUNT 11.2 K/uL (4.8-10.8)
[2017-08-22 06:49] LABS: ALB/GLOB RATIO 0.9 (1.0-2.1); ALBUMIN 2.9 g/dL (3.5-5.0); ALT/SGPT 18 U/L (9-52); AST/SGOT 20 U/L (14-36); BLOOD UREA NITROGEN 31 mg/dL (7-17); CALCIUM 8.2 mg/dl (8.6-10.4); GFR AFRICAN-AMERICAN > 60; GFR NON-AFRICAN AMERICAN > 60
[2017-08-22] MEDS: (Novolin R) Insulin Human Regular 100 units/ml vial SC SCH ×3 (08:03→16:10)
[2017-08-22 08:11] VITALS: O2SAT 97
[2017-08-22 08:16] LABS: BANDS 7 % (0-2); LYMPHOCYTE 10 % (20-40); METAMYELOCYTE 1 % (0-0); MONOCYTE 4 % (0-10); MYELOCYTE 1 % (0-0); NEUTROPHIL 77 % (50-75); TOTAL CELLS COUNTED 100
[2017-08-22 08:17] LABS: ANISOCYTOSIS MODERATE; HYPOCHROMIC SLIGHT; LARGE PLATELETS PRESENT; PLATELET ESTIMATE NORMAL (NORMAL); POLYCHROMIC SLIGHT; TOXIC GRANULATION PRESENT
[2017-08-22 08:18] LABS: OVALOCYTES SLIGHT; POIKILOCYTOSIS SLIGHT
[2017-08-22 08:19] LABS: SCHISTOCYTES SLIGHT
--- NOTE | 2017-08-22 08:23 | CP.PCM.PN ---
Subjective - Date & Time of Evaluation Date of Evaluation: 08/22/17 Time of Evaluation: 08:20 - Subjective Subjective: alert; less dyspneic on rx for ESBL UTI no n, v, f, chills renal function stable; pre-renal due to lasix and steroids CHF controlled- agree with increase lasix dose respiatory acidosis and metabolic alkalosis stable Objective - Vital Signs/Intake and Output Vital Signs (last 24 hours): Temp Pulse Resp BP Pulse Ox 98.4 F 58 L 15 143/36 L 97 08/22/17 08:00 08/22/17 08:00 08/22/17 08:00 08/22/17 08:00 08/22/17 08:00 Intake and Output: 08/22/17 08/22/17 06:59 18:59 Intake Total 120 Output Total 1000 Balance -880 - Medications Medications: Current Medications Acetaminophen (Tylenol 325mg Tab) 650 mg PO Q6 PRN PRN Reason: Fever and pain Albuterol/Ipratropium (Duoneb 3 Mg/0.5 Mg (3 Ml) Ud) 3 ml INH RQ4 [facility] Last Admin: 08/22/17 07:24 Dose: 3 ml Amlodipine Besylate (Norvasc) 5 mg PO DAILY [facility] Last Admin: 08/21/17 10:19 Dose: 5 mg Aspirin (Aspirin Chewable) 81 mg PO DAILY [facility] Last Admin: 08/21/17 10:01 Dose: 81 mg Famotidine (Pepcid) 20 mg IVP DAILY [facility] Last Admin: 08/21/17 10:02 Dose: 20 mg Furosemide (Lasix) 40 mg PO BID [facility] Last Admin: 08/21/17 17:32 Dose: 40 mg Heparin Sodium (Porcine) (Heparin) 5,000 units SC Q12 [facility] Last Admin: 08/21/17 22:16 Dose: Not Given Meropenem (Merrem Iv 1 Gm Premix) 50 mls @ 100 mls/hr IVPB Q8 [facility] PRN Reason: Protocol Last Admin: 08/22/17 05:21 Dose: 100 mls/hr Azithromycin 500 mg/ Sodium (Chloride) 250 mls @ 250 mls/hr IVPB Q24H [facility] PRN Reason: Protocol Last Admin: 08/21/17 10:04 Dose: 250 mls/hr Insulin Human Regular (Novolin R) 0 unit SC ACHS [facility] PRN Reason: Protocol Last Admin: 08/22/17 08:03 Dose: 2 unit Methylprednisolone (Solu-Medrol) 40 mg IVP Q12H [facility] Last Admin: 08/21/17 21:29 Dose: 40 mg Metoprolol Succinate (Toprol Xl) 25 mg PO DAILY [facility] Last Admin: 08/21/17 10:01 Dose: 25 mg - Labs Labs: 08/22/17 06:15 08/22/17 06:15 PT 13.2 SECONDS (9.7-12.2) H 08/17/17 20:04 INR 1.2 08/17/17 20:04 APTT 33 SECONDS (21-34) 08/17/17 20:04 - Constitutional Appears: No Acute Distress, Chronically Ill - Head Exam Head Exam: ATRAUMATIC, NORMAL INSPECTION - Eye Exam Eye Exam: EOMI, Normal appearance - Neck Exam Neck Exam: Normal Inspection. absent: Tenderness - Cardiovascular Exam Cardiovascular Exam: REGULAR RHYTHM, +S1 - GI/Abdominal Exam GI & Abdominal Exam: Soft. absent: Tenderness - Extremities Exam Extremities Exam: Normal Inspection. absent: Tenderness - Neurological Exam Neurological Exam: Alert, CN II-XII Intact - Skin Skin Exam: Dry, Warm Assessment and Plan (1) Compensated respiratory acidosis Status: Acute (2) CHF exacerbation Status: Acute (3) COPD exacerbation Status: Acute (4) CKD (chronic kidney disease) stage 2, GFR 60-89 ml/min Status: Acute (5) Respiratory distress Status: Acute - Assessment and Plan (Free Text) Plan: same meds follow lytes closely
--- NOTE | 2017-08-22 08:58 | CP.PCM.PN ---
Subjective - Date & Time of Evaluation Date of Evaluation: 08/22/17 Time of Evaluation: 08:58 - Subjective Subjective: PATIENT WAS ADMITTED FOR CHF AND COPD DENIES CHEST PAIN OR SOB NO SIGN OF DISTRESS NOTED Objective - Vital Signs/Intake and Output Vital Signs (last 24 hours): Temp Pulse Resp BP Pulse Ox 98.4 F 58 L 15 143/36 L 97 08/22/17 08:00 08/22/17 08:00 08/22/17 08:00 08/22/17 08:00 08/22/17 08:00 Intake and Output: 08/22/17 08/22/17 06:59 18:59 Intake Total 120 Output Total 1000 Balance -880 - Medications Medications: Current Medications Acetaminophen (Tylenol 325mg Tab) 650 mg PO Q6 PRN PRN Reason: Fever and pain Albuterol/Ipratropium (Duoneb 3 Mg/0.5 Mg (3 Ml) Ud) 3 ml INH RQ4 [facility] Last Admin: 08/22/17 07:24 Dose: 3 ml Amlodipine Besylate (Norvasc) 5 mg PO DAILY [facility] Last Admin: 08/21/17 10:19 Dose: 5 mg Aspirin (Aspirin Chewable) 81 mg PO DAILY [facility] Last Admin: 08/21/17 10:01 Dose: 81 mg Famotidine (Pepcid) 20 mg IVP DAILY [facility] Last Admin: 08/21/17 10:02 Dose: 20 mg Furosemide (Lasix) 40 mg PO BID [facility] Last Admin: 08/21/17 17:32 Dose: 40 mg Heparin Sodium (Porcine) (Heparin) 5,000 units SC Q12 [facility] Last Admin: 08/21/17 22:16 Dose: Not Given Meropenem (Merrem Iv 1 Gm Premix) 50 mls @ 100 mls/hr IVPB Q8 [facility] PRN Reason: Protocol Last Admin: 08/22/17 05:21 Dose: 100 mls/hr Azithromycin 500 mg/ Sodium (Chloride) 250 mls @ 250 mls/hr IVPB Q24H [facility] PRN Reason: Protocol Last Admin: 08/21/17 10:04 Dose: 250 mls/hr Insulin Human Regular (Novolin R) 0 unit SC ACHS [facility] PRN Reason: Protocol Last Admin: 08/22/17 08:03 Dose: 2 unit Methylprednisolone (Solu-Medrol) 40 mg IVP DAILY [facility] Metoprolol Succinate (Toprol Xl) 25 mg PO DAILY [facility] Last Admin: 08/21/17 10:01 Dose: 25 mg - Labs Labs: 08/22/17 06:15 08/22/17 06:15 PT 13.2 SECONDS (9.7-12.2) H 08/17/17 20:04 INR 1.2 08/17/17 20:04 APTT 33 SECONDS (21-34) 08/17/17 20:04 Assessment and Plan - Assessment and Plan (Free Text) Assessment: PLACE UNDER THE SERVICE OF DR Shanique LIPSCOMB AT [facility]---CALL DR Shanique LIPSCOMB FOR ADMITTING ORDER FOLLOW UP WITH DR BROOKE ---CALL FOR APPOINTMENT FOLLOW UP WITH DR PUENTE ---CALL FOR APPOINTMENT CONTINUE ALL MEDICATION PER MED REC NEW PRESCRIPTION GIVEN MERREM 1 G IV Q8H FOR [address] PUENTE (ID) MEDROL DOSE PACK DIRECTED DAILY ACTIVITY TOLERATED AND PER FACILITY PROTOCOL CALL DR Shanique LIPSCOMB OR GO TO THE EMERGENCY ROOM IF SYMPTOMS RETURN OR WORSENING
[2017-08-22] MEDS: Metoprolol Succinate 25 mg XL Tab PO SCH (09:10)
[2017-08-22] MEDS ORDERED: MethylPREDNISolone 40 mg Vial IVP SCH (10:00)
[2017-08-22] MEDS: Azithromycin 500 MG in Sodium Chloride 0.9% 250 ML IVPB SCH (10:13)
--- NOTE | 2017-08-22 15:31 | RAD ---
HISTORY: Post PICC insertion COMPARISON: 08/20/2017 FINDINGS: LUNGS: Patchy opacity at right lung base. Possible early pneumonia. Follow-up advised. PLEURA: No significant pleural effusion identified, no pneumothorax apparent. CARDIOVASCULAR: Grossly normal heart size. Right PICC catheter terminates in the region of the cavoatrial junction. Evaluation limited by oblique positioning of patient. OSSEOUS STRUCTURES: No significant abnormalities. VISUALIZED UPPER ABDOMEN: Normal. OTHER FINDINGS: None. IMPRESSION: New right PICC catheter. New patchy opacity at right lung base. Followup advised.
[2017-08-22 17:16] VITALS: BP 153/79
[2017-08-22 17:43] VITALS: PULSE 90; RESP 23; TEMP 98.2
--- NOTE | 2017-08-22 18:02 | CP.PCM.PN ---
Subjective - Date & Time of Evaluation Date of Evaluation: 08/22/17 Time of Evaluation: 13:20 - Subjective Subjective: clinically same Objective - Vital Signs/Intake and Output Vital Signs (last 24 hours): Temp Pulse Resp BP Pulse Ox 98.2 F 90 23 153/79 H 97 08/22/17 16:00 08/22/17 16:00 08/22/17 16:00 08/22/17 17:14 08/22/17 16:00 Intake and Output: 08/22/17 08/22/17 06:59 18:59 Intake Total 120 Output Total 1000 Balance -880 - Medications Medications: Current Medications Acetaminophen (Tylenol 325mg Tab) 650 mg PO Q6 PRN PRN Reason: Fever and pain Albuterol/Ipratropium (Duoneb 3 Mg/0.5 Mg (3 Ml) Ud) 3 ml INH RQ4 [facility] Last Admin: 08/22/17 15:33 Dose: 3 ml Amlodipine Besylate (Norvasc) 5 mg PO DAILY [facility] Last Admin: 08/22/17 09:09 Dose: 5 mg Aspirin (Aspirin Chewable) 81 mg PO DAILY [facility] Last Admin: 08/22/17 09:07 Dose: 81 mg Famotidine (Pepcid) 20 mg PO DAILY [facility] Furosemide (Lasix) 40 mg PO BID [facility] Last Admin: 08/22/17 17:14 Dose: 40 mg Heparin Sodium (Porcine) (Heparin) 5,000 units SC Q12 [facility] Last Admin: 08/22/17 09:08 Dose: 5,000 units Meropenem (Merrem Iv 1 Gm Premix) 50 mls @ 100 mls/hr IVPB Q8 [facility] PRN Reason: Protocol Last Admin: 08/22/17 15:01 Dose: 100 mls/hr Azithromycin 500 mg/ Sodium (Chloride) 250 mls @ 250 mls/hr IVPB Q24H [facility] PRN Reason: Protocol Last Admin: 08/22/17 10:13 Dose: 250 mls/hr Insulin Human Regular (Novolin R) 0 unit SC ACHS [facility] PRN Reason: Protocol Last Admin: 08/22/17 16:10 Dose: 5 unit Methylprednisolone (Solu-Medrol) 40 mg IVP DAILY [facility] Last Admin: 08/22/17 09:10 Dose: 40 mg Metoprolol Succinate (Toprol Xl) 25 mg PO DAILY [facility] Last Admin: 08/22/17 09:10 Dose: 25 mg - Labs Labs: 08/22/17 06:15 08/22/17 06:15 PT 13.2 SECONDS (9.7-12.2) H 08/17/17 20:04 INR 1.2 08/17/17 20:04 APTT 33 SECONDS (21-34) 08/17/17 20:04 - Constitutional Appears: Well - Head Exam Head Exam: ATRAUMATIC, NORMAL INSPECTION, NORMOCEPHALIC - Eye Exam Eye Exam: EOMI, Normal appearance, PERRL Pupil Exam: NORMAL ACCOMODATION, PERRL - ENT Exam ENT Exam: Mucous Membranes Moist, Normal Exam - Neck Exam Neck Exam: Full ROM, Normal Inspection. absent: Lymphadenopathy - Respiratory Exam Respiratory Exam: Decreased Breath Sounds - Cardiovascular Exam Cardiovascular Exam: REGULAR RHYTHM, +S1, +S2 - GI/Abdominal Exam GI & Abdominal Exam: Soft, Diminished Bowel Sounds - Rectal Exam Rectal Exam: Deferred
--- NOTE | 2017-08-26 07:27 | PCM.HF ---
Heart Failure Core Measure - Heart Failure Ejection Fraction: 40 % or Greater [place] Inhibitor Prescribed: No Contraindication/Reason for not providing: ARF Beta-Pinky Prescribed: Metoprolol Succinate Angiotensin II Receptor Pinky Prescribed: No Contraindication/Reason for not providing: ARF AnticoagulationTherapy for Atrial Fibrillation/Atrialflutter: No Contraindication/Reason for not providing: NO HX OF AFIB Aldosterone Antagonist Prescribed: No Contraindication/Reason for not providing: ARF Hydralazine Nitrate Prescribed: No Contraindication/Reason for not providing: EF IS GREATER THAN 40 Implantable Cardioverter Defibrillator Therapy: No Contraindication/Reason for not providing: EF IS GREATER THAN 40 Cardiac Resynchronization Therapy Prescribed: No Contraindication/Reason for not providing: EF IS GREATER THAN 40 - Follow up Will be discharged to: [facility] ([facility]) Follow Up Date (must be within 7 days from discharge): 08/28/17
== END 2017-08-22 18:10 | disposition home or self-care (01) | DRG 291 ==
LOC: C.ER 18:43 → C.9E 21:32 → C.9I 08-18 01:45
PROVIDERS: ADMIT Internal Medicine Nephrology; ATTEND Internal Medicine Nephrology
PROC: 5A09457 Assistance with Respiratory Ventilation, 24-96 Consecutive Hours, Continuous Positive Airway Pressure (ICD-10-PCS; principal; 2017-08-17)
PROC: 0T9B70Z Drainage of Bladder with Drainage Device, Via Natural or Artificial Opening (ICD-10-PCS; 2017-08-18)
PROC: 3E0234Z Introduction of Serum, Toxoid and Vaccine into Muscle, Percutaneous Approach (ICD-10-PCS; 2017-08-21)
PROC: 02HV33Z Insertion of Infusion Device into Superior Vena Cava, Percutaneous Approach (ICD-10-PCS; 2017-08-22)
DX: I13.0 Hypertensive heart and chronic kidney disease with heart failure and stage 1 through stage 4 chronic kidney disease, or unspecified chronic kidney disease (principal); J96.92 Respiratory failure, unspecified with hypercapnia; J44.0 Chronic obstructive pulmonary disease with (acute) lower respiratory infection; Z68.42 Body mass index [BMI] 45.0-49.9, adult; E87.4 Mixed disorder of acid-base balance; N39.0 Urinary tract infection, site not specified; J98.11 Atelectasis; I47.1 Supraventricular tachycardia; J44.1 Chronic obstructive pulmonary disease with (acute) exacerbation; E11.22 Type 2 diabetes mellitus with diabetic chronic kidney disease; E78.00 Pure hypercholesterolemia, unspecified; Z99.81 Dependence on supplemental oxygen; I50.9 Heart failure, unspecified; Z93.3 Colostomy status; N18.2 Chronic kidney disease, stage 2 (mild); E66.9 Obesity, unspecified; Z74.01 Bed confinement status; Z16.12 Extended spectrum beta lactamase (ESBL) resistance; Z78.9 Other specified health status; R16.1 Splenomegaly, not elsewhere classified; N20.0 Calculus of kidney; M62.81 Muscle weakness (generalized); I48.91 Unspecified atrial fibrillation; Z23 Encounter for immunization; F32.9 Major depressive disorder, single episode, unspecified; B96.20 Unspecified Escherichia coli [E. coli] as the cause of diseases classified elsewhere